=== PATIENT | female | born 1985 | race Caucasian/White ===

== ENCOUNTER 2021-12-31 15:46 | Outpatient (CLI) | payer BC, SELFPAY | END 2021-12-31 15:47 | disposition home or self-care (01) | LOC: NFLDREF 15:48 | PROVIDERS: PCP Internal Medicine; Visit Provider Internal Medicine | DX: D68.61 Antiphospholipid syndrome (principal) ==

== ENCOUNTER 2022-01-01 07:42 | Outpatient (CLI) | payer BC, SELFPAY ==
--- OUTSIDE RECORDS SUMMARY | 2021-12-25 10:06 | XMS_ITS | Continuity of Care Document ---
:1985 Author Care Team Providers Name Role Phone SEEN Primary Care Physician Unavailable MD Jose Castellanos Attending Physician Allergies, Adverse Reactions, Alerts No known allergies Social History Smoking Status Status Start Date End Date Date of Observat ion Ex-smoker (finding) November 24 12:08pm Observation Status Observation Response Date of Response History provided by Patient June 23, 2017 5:52pm With whom do you live? Spouse June 23 5:52pm Minor children June 23, 2017 5:52pm Comment on who patient lives spouse, 1 young daughter Decemb er 2016 5:52pm with and 5mo. old baby If YES, describe 2 young children June 23, 2017 5:52pm Additional Data Assigned Sex Female Problems Active Problems Medical Problem Onset Date Status Depression Active Anxiety Active Morbid obesity with BMI of Active 50.0-59.9, adult Rosacea Active Iron deficiency anemia Active History of non-ST elevation December 12, 2020 Active myocardial infarction (NSTEMI) Warfarin anticoagulation Active Antiphospholipid syndrome Active Post-traumatic stress Active Insomnia Active History of alcohol abuse Active S/P section October 27, 2010 Resolved S/P tubal ligation January 20, 2017 Resolved S/P laparoscopic appendectomy June 23, 2017 Resolved Medications Medication Status Dose Units Route Directions Qty Days Start End Ins tructions Date Date Acetaminophe Active 325 MG PO Twice A Day 1 NO MORE THAN n (Tylenol) as needed 4000 MG/DAY 325 Mg TAB Amphetamine/ Active 20 MG PO Daily 30 November Dextroamphet 2021 (Adderall 3:16pm Xr) 20 Mg CAP Amphetamine/ Active 20 MG PO Daily December Dextroamphet 2021 (Adderall 12:42pm Xr) 20 Mg CAP Escitalopram Active 20 MG PO Daily 30 November Oxalate 2021 11:52am Ferrous Active Sulfate (Ferosul) 325 Mg TAB Hydroxychlor Active 2 TAB PO Daily oquine Sulfate Ivermectin Active 1 % EX Twice A Day 31 October (Rosacea) , (Soolantra) 2021 1 % CRE 4:24pm Lisinopril Active 1 TAB PO Daily Nitroglyceri Active 1 TAB SL As Needed n Rosuvastatin Active 1 TABLET PO Daily Calcium Warfarin Active 1 TABLET PO Daily 24 November Fuller 7.5 MG , M 10 MG, Tu 10 MG, W 7.5 MG, Th 10 MG, F 10 MG, Sodium 20th, Sa 10 MG 2021 2:21pm Warfarin Active 10 MG PO Daily November Fuller 7.5 MG, M 10 MG, Tu 10 MG, W 7.5 MG, Th 10 MG, F 10 MG, Sodium 20th, Sa 10 MG 2021 2:21pm Amoxicillin Disconti 500 MG PO Twice A Day October nued , , 2021 2021 4:24pm 10:30a m Azelaic Acid Disconti 1 PRISCILLA TOP Twice A Day 50 Februar Fe brua (Finacea) 15 nued y , ry % AER 2021, 1:08pm 2021 12:51p m Azelaic Acid Disconti 15 % EX Twice A Day November em nued , 2020, 4:29pm 2020 10:02a m Azelaic Acid Disconti 1 PRISCILLA TOP Twice A Day October (Finacea) 15 nued , , % AER 2020 2020 8:18am 4:26pm Azelaic Acid Disconti 1 PRISCILLA TOP Twice A Day November (Finacea) 15 nued , , % AER 2020 2020 4:53pm 4:26pm Betamethason Disconti 1 PRISCILLA TOP Bedtime November e nued , , Dipropionate 2020 2020 (Betamethaso 10:25am 10:14a ne m Dipropionate Cream) 0.05 % CR Cephalexin Disconti 500 MG PO Three Times 02 May Osman h nued A Day , 2019 12:39pm 8:40am Cephalexin Disconti 500 MG PO Three Times November Octobe (Keflex) 500 nued A Day 20th, r Mg CAP 2019 04, 4:24pm 2019 8:05am Cephalexin Disconti 500 MG PO Three Times November (Keflex) 500 nued A Day , Mg CAP 2018 2018 2:19pm 4:24pm Clobetasol Disconti 1 EACH TOP As Directed Decemberb APPLY SPARINGLY TO AFFECTED AREA Propionate nued , er weekly x2 weeks, then qod x2 weeks, then 3x's/week x 1 mo. (Temovate 2013 , Cream) 0.05 9:07am 2014 % CRE 9:47am Collagen Disconti Unknow December Hydrolysate nued n Dose , (Bovine) 2020 (Collagen 10:14a Hydrolysate) m Unknown Strength POW Covid-19 Disconti 30 MCG IM Once Aprilobe (Sars-Cov-2) nued , r Mrna Vir 2020, (Pfizer-Bion 8:54am 2020 tech 9:05am Covid-19) 30 Mcg/0.3 Ml INJ Covid-19 Disconti 30 MCG IM Once 1 (Sars-Cov-2) nued er belkis Mrna Vir , , (Pfizer-Bion 2020 2020 tech 12:18pm 12:28p Covid-19) 30 m Mcg/0.3 Ml INJ Docosahexaen Disconti 200 MG OR November oic Acid nued , ( 2019 Dha) Unknown 2:06pm Strength CAP Docusate Disconti 100 MG PO Bedtime January Sodium nued , (Docqlace) 2016 2018 100 Mg CAP 8:49am 2:06pm Doxycycline Disconti 100 MG PO Twice A Day 60 October Monohydrate nued , 2020 8:18am 10:14a m Doxycycline Disconti 100 MG PO Twice A Day 60 30 Februar Apr il Monohydrate nued y , 2020 9:01am 8:18am Enoxaparin Disconti 150 MG SUBQ Twice A Day December Sodium nued 2020 2:56pm Escitalopram Disconti 10 MG PO Daily 90 Februar November Oxalate nued y , (Lexapro) 10 2021 2021 Mg TAB 1:11pm 10:30a m Ferrous Disconti 325 MG PO Twice A Day October rimma e with sip Sulfate nued , , of orange 2020 2020 juice 9:09am 10:14a m Ferrous Disconti 325 MG PO Twice A Day September Sulfate nued , , 2020 2020 2:19pm 9:09am Fluoxetine Disconti 40 MG PO Daily October Hcl nued , belkis 2020, 9:09am 2020 10:02a m Fluoxetine Disconti 20 MG PO Daily September Hcl nued , , 2020 2020 9:10am 9:09am Hydrocodone- Disconti 1-2 TAB PO Every November Octobe Acetaminophe nued Hours as , r n ([place]) 5 needed for 2019 04, Mg/325 Mg Pain 2:20pm 2018 TAB 8:05am Hydrocortiso Disconti 1 PRISCILLA TOP Twice A Day 02 May [facility] ne nued , (Hydrocortis 2018 2020 one 10:48am 8:40am Ointment) 2.5 % OIN Ibuprofen Disconti 400 MG PO Three Times 30 September nued A Day as , 2020 8:40am Ibuprofen Disconti 600 MG PO Every 6 January nued Hours as , needed 2016 2018 8:49am 2:06pm [place]on[place]estr Disconti 02 October el (Mirena) nued , 20 Mcg/24 Hr 2021 IUD 9:06am Levonorgestr Disconti 1 EACH IU Once el (Mirena) nued er belkis 20 Mcg/24 Hr , , IUD 2020 2020 10:57am 11:07a m Levonorgestr Disconti 1 EACH IU Once November el (Mirena) nued , , 20 Mcg/24 Hr 2020 2020 IUD 10:09am 10:14a m Metoprolol Disconti 1 TAB PO Daily November Succinate nued , (Metoprolol 2021 Succinate 10:51a Er) 50 Mg m TABCR Norethindron Disconti 5 MG PO Daily T manjinder 1 tab PO TID for 3 days, continue TID until bleeding e Acetate nued er ry stops. The n 1 tab PO BID for 3 days then 1 tab daily. , , 2020 2021 10:28am 12:51p m Oxycodone Disconti 5-10 MG PO Every 4 January Hcl nued Hours as , needed 2016 2018 8:49am 2:06pm Oxycodone Disconti 5-10 MG PO Every 4 November Hcl nued Hours as r , needed 2016 2018 7:08pm 2:06pm Sulfacetamid Disconti 1 PRISCILLA TOP Twice A Day 118 uar Ju ne e Sodium nued y , , (Klaron) 10 2020 2020 % LOT 9:01am 3:11pm Vit Disconti 1 TABLET PO Daily December B12/Iron/Fol nued , ic Ac/Intrin 2012 Fact 3:40pm ( Multivit-Min W/Fe-Fa) TAB Warfarin Disconti 1 TABLET PO Daily November Fuller 7. 5 MG, M 10 MG, Tu 10 MG, W 7.5 MG, Th 10 MG, F 10 MG, Sodium nued y , Sa 10 MG 2021 2021 12:51pm 2:21pm Warfarin Disconti 1 TABLET PO Daily February Fuller 7. 5 MG, M 3.75 MG, Tu 7.5 MG, W 7.5 MG, Th 3.75 MG, F Sodium nued , ry 7.5 MG, Sa 7. 5 MG 2020, 3:44pm 2021 12:51p m Warfarin Disconti 1 TABLET PO Daily February Fuller 7. 5 MG, M 3.75 MG, Tu 7.5 MG, W 7.5 MG, Th 3.75 MG, F Sodium nued 3rd, 17, 7.5 MG, Sa 7. 5 MG 2020 2020 10:39am 3:44pm Warfarin Disconti 1 TABLET PO Daily January Fuller 7.5 MG, M 3.75 MG, Tu 7.5 MG, W 7.5 MG, Th 3.75 MG, F Sodium nued , , 7.5 MG, Sa 7. 5 MG 2020 2020 11:04am 10:39a m Warfarin Disconti 1 TABLET PO Daily January Fuller 7.5 MG, M 5 MG, Tu 7.5 MG, W 7.5 MG, Th 5 MG, F 7.5 MG, Sodium nued , , Sa 7.5 MG 2020 2020 12:24pm 11:04a m Warfarin Disconti 1 TABLET PO Daily January Fuller 7.5 MG, M 5 MG, Tu 7.5 MG, W 7.5 MG, Th 5 MG, F 7.5 MG, Sodium nued th, Sa 7.5 MG 2020 12:24p m Warfarin Disconti 1 TABLET PO Daily January Fuller 7.5 MG, M 7.5 MG, Tu 7.5 MG, W 7.5 MG, Th 7.5 MG, F 7.5 Sodium nued 7th, MG, Sa 7.5 MG 2020 11:13a m Warfarin Disconti 1 TABLET PO Daily December Fuller 7.5 MG, M 7.5 MG, Tu 7.5 MG, W 7.5 MG, Th 7.5 MG, F 7.5 Sodium nued 28th, MG, Sa 7.5 MG 2020 10:23a m Warfarin Disconti 1 TABLET PO Daily December Sodium nued 2020 11:39a m Immunizations Immunization Event Date Not Given Dose Architectural Manager Lot Vac cine Reason Number Number Informatio n Statement (VIS) Deta il COVID-19 Pfizer March 04 PFIZER-BIO [id number] 2020 COVID-19 Pfizer April 17 PFIZER-BIO [id number] 2020 Hepatitis B November 20 Adult 2018 Influenza April 042018 Influenza April 14, 2014 Influenza June 042016 Influenza April 04, Flublock 2019 Tetanus/Diptheri November 12, 1 a 2016 Tdap November 12 (adolescent/adul 2017 t) Advance Directives Advance Directive Response Recorded Date/Time Has patient completed a No November 24, 2021 1 2:08pm Health Care Directive? Insurance Providers Guarantor Waqar Cary Address [address] [place] [id number] Contact Info. Home Phone: Payer Policy Id Coverage Id Subscriber's Subscriber Id Effective E xpiration Name Date Date Blue [id number] Waqar [id number] Plan of Treatment Future Tests Future scheduled test information is unavailable Pending Tests Pending diagnostic test information is unavailable Future Visits Future appointment information is unavailable Referrals to Other Providers Reason for Referral Start Provider Provider Contact Provider Address Referral Date Information SEEN, ELSEWHERE Future Procedures Procedure Name Scheduled Date US Pelvic TA and TV CARD Echo W/ CF Dop Future Medications Future medication information is unavailable Patient Instructions See Additional Instructions Chest Pain (DC)
== END 2022-01-01 07:43 | disposition home or self-care (01) ==
PROVIDERS: PCP Family Medicine; Visit Provider Internal Medicine Cardiovascular Disease
DX: I34.0 Nonrheumatic mitral (valve) insufficiency (principal)
CPT/HCPCS: 93306

== ENCOUNTER 2022-03-31 07:39 | Outpatient (CLI) | payer OTHER, SELFPAY ==
--- OUTSIDE RECORDS SUMMARY | 2022-03-31 07:36 | XMS_ITS | Encounter Summary ---
:1985 Author Organization [facility] Address [address], [place] [address] Care Team Providers Name Role Phone Needs Pcp, Assignment Primary Care Provider Reason for Referral Consult/Transfer Care (Routine) - New Request Specialty Diagnoses / Procedures Referred By Contact Refer red To Contact Diagnoses Antiphospholipid antibody syndrome (HRC) High risk medication use Cassia Goff MD [address] [place], [place] [address] Referral ID Status Reason Start Date Expiration Date Visits V isits Requested Authorized [id number] New Request 03/11/2022 06/10/2023 1 1 Scheduling Instructions Your provider has recommended an appoint ment with [facility]. You can quickly make your appointment online at [email or web address]. You can also call [phone] for help scheduling yo ur appointment. We suggest you call your health insurance company about your cove rage and benefits for this appointment. Reason for Visit Reason Comments Video Visit Follow-up Encounter Details Date Type Department Care Team Description 03/11/2022 Telemedicine [place] Cassia Goff Antiphosp holipid antibody syndrome (HRC) (Primary Dx); Rheumatology MD Jarett High risk medication use; [id number] ARPIT (antinuclear antibody); [address] Current use of rat exterminator anticoagulation ; [place], [place] Rash and nonspecific skin eruption [id number] Social History Tobacco Use Types Packs/Day Years Used Date Smoking Tobacco: Former Smokeless Tobacco: Never Sex Assigned at Date Recorded Not on file documented as of this encounter Progress Notes Cassia Goff MD - 03/11/2022 9:00 AM CDT RHEUMATOLOGY FOLLOW-UP -- VIDEO VISIT Chief Complaint Patient presents with Video Visit Follow-up Encounter date: 03/11/2022 Date of last office visit: 10/01/2021 Rheumatologic history: The patient is a 36 y.o. 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 From initial visit in March 2021: She states that before going in to the hospital she hadn't been feeling well for months. She was very tired and fatigued. SHe thought her symptoms were due to depression but started an antidepressant and did not notice much of a difference. Then in December 2020 she was going up the stairs and she developed severe chest and left arm pain with sweating and palpitations. She developed an acneiform rash on her face but has had issues with acne in the past. She has been following with dermatology. She does not notice sensitivity to the sun. She has had a rash on her labia and was told it was chronic inflammation-this was biopsied in the past. No mouth or nose ulcers. Nohistory of eye inflammation. No pain with deep breathing prior to her episode. No prior history of serositis. No Raynauds symptoms. She does have some dry eyes but not dry mouth. No prior stroke or seizure. No new headaches or new vision changes. She has been feeling more brain fog. She has had 1 miscarriage in the past at about 6-9 weeks. She has 2 children. She denies any significant issues with her pregnancies. Her children are healthy. No prior history of blood clot. She has a history of hip dislocations in the past. This is sometimes achy for her. She sometimes has knee pain. She has not noticed swelling of her joints but she does overall feel stiff. She does not know how long it stays this way for. She sometimes takes tylenol as needed. Patient was admitted from December 13 to December 18 at [facility] for marantic endocarditis and NSTEMI. She had a coronary angiogram done on 12-13 which revealed single-vessel coronary disease of the distal LAD. Echo done 12-13. Noted to have abnormal cardiac apex with a left ventricular function of 61%. CTA done showing patchy perihilar and peripheral ground-glass opacities. Cardiac MRI done showingthickened mitral valve concerning for endocarditis. She had KENDALL consistent with marantic endocarditis. Infectious workup was obtained. She was found have a positive lupus anticoagulant. She was startedon heparin and warfarin. Transition to Lovenox on 12/18. During admission additional blood work given the elevated ESR 78, CRP 8.88, positive lupus anticoagulant, negative ARPIT, negative double-strandedDNA. Negative Legionella, fungal blood cultures, bacterial blood cultures with no growth. B2 glycoprotein IgG positive and cardiolipin IgG positive. She was seen in outpatient follow-up on 12/24. She was doing cardiac therapy but has had issues getting scheduled for this due to work and her kids. No known family history of autoimmune disease but she does not have a lot of history from her biological father. Her mother had a heart attack in her 30s as well. 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 APS antibodies repeated in March 2021 and persistently triple positive, with mild positive cardiolipin IgA as well. ARPIT negative in December and January 2021 with negative anti tolliver. dsDNA negative. Work up 03/19/2021: ARPIT 1:80 with negative MEREDITH panel dsDNA negative x2 CCP negative RF negative Complement normal CRP 0.7 ESR 27 LFTs wnl RPR negative BMP wnl At initial visit started on plaquenil. Interim history: She has been doing well. She started a new job with [employer] and is working from home and is very happy. Dr. Castellanos took her off of her statin and her metoprolol. She is still on Coumadin 10 mg 5 days and 7.5 on Sundays and Wednesdays. Her PCP is now checking her factor 10 every 3 months. She is tolerating hydroxychloroquine well. She has not yet had No chest pain or blood clots. No new rashes except some lesions on her chest that she is unsure whatthis is. She has seen dermatology for this and they think it is rosacea and she is using a topical. No joint swelling. She has been doing more walking and has some aching in the feet. She has a tenderarea in her lip that just started but other ulcers. No color change of the toes or fingers or ulcers. No pleurisy. No recent illness. No cough or shortness of breath. No fevers. She started adderrall for focus and is having decreased appetite, she started this about 4 months ago. She is also on lexapro and feels like this has been helpful for anxiety. ROS: Review of systems for today's visit completed and negative unless noted above. PMH: Updated in EMR Outpatient Encounter Medications as of 03/11/2022 Medication Sig Dispense Refill acetaminophen (TYLENOL) 325 MG tablet Take 325-650 mg by mouth every 4 hours as needed for Pain. azelaic acid (FINACEA) 15 % gel Apply topically two times a day. betamethasone dipropionate (DIPROSONE) 0.05 % cream Apply topically daily. escitalopram (LEXAPRO) 10 MG tablet Take 10 mg by mouth daily. ferrous gluconate (FERGON) 324 (38 Fe) MG tablet Take 324 mg by mouth daily with breakfast. hydroxychloroquine (PLAQUENIL) 200 MG tablet Take 2 Tablets (400 mg) by mouth daily. 180 Tablet 1 lisinopril (ZESTRIL) 5 MG tablet Take 5 mg by mouth daily. MELATONIN OR metoprolol succinate (TOPROL XL) 50 MG 24 hour release tablet Take 50 mg by mouth daily. nitroglycerin (NITROSTAT) 0.[address] 0.4 mg under tongue every 5 minutes as needed for Chest Pain. If no relief after 5 min call 911;continue 1 tab every 5 min max 3 tab rosuvastatin (CRESTOR) 10 MG tablet Take 7.5 mg by mouth daily. warfarin (COUMADIN) 7.5 MG tablet Take by mouth daily. No facility-administered encounter medications on file as of 03/11/2022. ALLERGIES: Updated in EMR Social History Tobacco Use Smoking Status Former Smokeless Tobacco Never Social History Substance and Sexual Activity Alcohol Use Not on file MEDS: Reviewed and updated in the computerized record. Physical exam: VIDEO VISIT There were no vitals taken for this visit. General: Alert, no distress, appears comfortable Eyes: anicteric, glasses on ENT: She is able to show me the inside of the lower lip that shows some slight erythema on the anterior lip without ulceration Resp: breathing comfortably on room air. Skin: Continues to have some small acneiform lesions on the forehead that appear improved she also is able to show me the anterior chest which has some small similar acneiform lesions that she feels are tender Neuro: AOx3. Normal speech. MSK: Unable to assess Labs: Lab Results Component Value Date WBC 8.7 10/01/2021 RBC 4.58 10/01/2021 Hemoglobin 13.3 10/01/2021 HCT 41.2 10/01/2021 MCV 90.0 10/01/2021 RDW 12.8 10/01/2021 Platelets 301 10/01/2021 Lab Results Component Value Date CREATININE 0.80 10/01/2021 Lab Results Component Value Date ALT 20 10/01/2021 Lab Results Component Value Date AST (SGOT) 16 10/01/2021 Lab Results Component Value Date Urine Clarity Clear 10/01/2021 Bilirubin Urine Negative 10/01/2021 Blood, Urine Trace 10/01/2021 Glucose Urine Qual (mg/dL) Negative 10/01/2021 Ketones, Urine (mg/dL) Negative 10/01/2021 Leukocyte Est. Negative 10/01/2021 Nitrite Urine Negative 10/01/2021 PH Urine 6.0 10/01/2021 Protein, Urine Qual (mg/dL) Negative 10/01/2021 Specific [place], Urine 1.015 10/01/2021 Urobilinogen, Urine (EU/dL) 0.2 10/01/2021 Squamous Epithelial Cells Moderate (A) 03/19/2021 White Blood Cells 0-5 03/19/2021 Bacteria Few (A) 03/19/2021 Lab Results Component Value Date CRP <0.5 10/01/2021 Lab Results Component Value Date RFQ <15 03/19/2021 ESR 16 10/01/2021 No results found for: TSH Majority of her labs are noted in Care everywhere, these have been reviewed. Imaging: ECHO 01/01/2022: Final Impressions: 1. Technically limited exam. 2. Echo contrast was administrered to enhance visualization of all left ventricular segments. 3. Normal LV size, normal wall thickness, normal global systolic function with an estimated EF of 55 - 60%. 4. Entire distal apex is abnormal. 5. Right ventricular cavity size is normal, global systolic RV function is normal. 6. The mitral valve is normal, moderate mitral regurgitation. Comparison Compared to prior exam report of 01/16/2021, there has been no significant change. CTA neck 12/14/2020: IMPRESSION: 1. Patent cervical arterial vasculature without hemodynamically significant luminal stenosis. No CT findings to suggest underlying fibromuscular dysplasia. 2. Patchy consolidation within the left greater than right upper lungs suspicious for underlying infectious etiology. Dedicated chest CT is recommended for further assessment. ECHO 01/16/2021: Final Impressions: 1. Normal LV size, normal wall thickness, normal global systolic function with an estimated EF of 55 - 60%. 2. Apical inferior segment, apical septum segment, and apical anterior segment are abnormal. 3. Right ventricular cavity size is normal, global systolic RV function is normal. 4. Mildly enlarged left atrium. 5. There is thickening of the tips of both the anterior and posterior leaflets of the mitral valve (consistent with the diagnosis of marantic endocarditis), moderate mitral regurgitation. 6. Echo contrast was administrered to rule out left ventricular mass; no mass seen. ASSESSMENT/PLAN: # antiphospholipid syndrome with history of thromboembolic event, triple positive APS antibodies # positive ARPIT # marantic endocarditis # rash # high-risk medication use # long-term anticoagulation Ms. Pinto is a very pleasant 36 y.o. 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 Continues to be borderline for SLE criteria. She is been doing quite well. No thrombo embolic events, chest pain, hospitalization since our last visit. She was seen by Cardiology in November 2021 and had some changes in her medications. She would a repeat echo in January 2022 which was unchanged from previous. Continues to be on Coumadin with factor 10 monitoring every 3 months. Encouraged to continue close monitoring for this. She is tolerating hydroxychloroquine 400 mg daily well. Denies any new rashes, inflammatory arthritis symptoms, recurrent ulcerations, pleurisy, Raynaud's. Reviewed the importance of a Plaquenil baseline exam so I have placed a referral for optometry today. Encouraged to follow-up with Dermatology regarding her skin concerns. We reviewed I would like to obtain monitoring blood work to make sure she has not had any changes in her antibodies. Will plan on follow-up in 6 months or sooner if needed. PLAN: - continue plaquenil 400 mg daily - schedule eye exam, referral placed today - follow-up with dermatology - continue warfarin and monitoring - monitoring labs and urine tests - follow up with cardiology as scheduled - continue exercise - call if new or changing symptoms develop - follow up in 6 months or sooner if needed Patient advised to call clinic if symptoms change or worsen or if new symptoms develop. All of the patient's questions were answered to the best of my ability. Billing based on complexity. Visit completed via [employer]. Patient at home, provider in clinic. Cassia Goff MD [facility] Rheumatology documented in this encounter Plan of Treatment Upcoming Encounters Date Type Specialty Care Team Description 04/07/2022 Appointment [facility] [address] [place] [address] (Wo rk) Scheduled Orders Name Type Priority Associated Diagnoses Order S chedule Liver Panel(Hepatic Lab Routine Antiphospholipid anti body Expected: Function Panel) syndrome ([facility]) 03/11/2022, Expires: High risk medication use 02/2022 Basic Metabolic Panel Lab Routine Antiphospholipid an tibody Expected: syndrome ([facility]) 03/11/2022, Expires: High risk medication use 02/2022 CBC -W/Diff Lab Routine Antiphospholipid antibody Ex pected: syndrome ([facility]) 03/11/2022, Expires: High risk medication use 02/2022 ESR Lab Routine Antiphospholipid antibody Ex pected: syndrome ([facility]) 03/11/2022, Expires: High risk medication use 02/2022 C-Reactive Protein Lab Routine Antiphospholipid antib darvin Expected: syndrome ([facility]) 03/11/2022, Expires: High risk medication use 02/2022 C4 Complement Lab Routine Antiphospholipid antibody E xpected: syndrome ([facility]) 03/11/2022, Expires: High risk medication use 02/2022 C3 Complement Lab Routine Antiphospholipid antibody E xpected: syndrome (HRC) 03/11/2022, Expires: High risk medication use 02/2022 DNA Double Stranded Lab Routine Antiphospholipid anti body Expected: Antibody (Antonia) syndrome (HRC) 03/11/2022, Expires: High risk medication use 02/2022 TP/Crea Ratio, Urine Lab Routine Antiphospholipid ant ibody Expected: syndrome (HRC) 03/11/2022, Expires: High risk medication use 02/2022 Urinalysis Routine, Lab Routine Antiphospholipid anti body Expected: Micro/Culture if Pos: syndrome ( HRC) 03/11/2022, Expires: Clean Catch High risk medication use 02/2022 Scheduled Referrals Name Type Priority Associated Diagnoses Order S chedule Optometry Referral Routine Antiphospholipid antibody Or dered: 03/11/2022 Consult-Adult/Peds syndrome (HRC ) High risk medication use documented as of this encounter Visit Diagnoses Diagnosis Antiphospholipid antibody syndrome (HRC) - Primary Primary hypercoagulable state High risk medication use Encounter for long-term (current) use of other medications Positive ARPIT (antinuclear antibody) Other and unspecified nonspecific immuno logical findings Current use of longterm anticoagulation Encounter for long-term (current) use of anticoagulants Rash and nonspecific skin eruption Rash and other nonspecific skin eruption documented in this encounter Care Teams Inspector Fabric Relationship Specialty Start Date End Date Needs Pcp, Assignment PCP - General 10/01/21 [place] [address] documented as of this encounter
--- OUTSIDE RECORDS SUMMARY | 2022-03-31 07:36 | XMS_ITS | Encounter Summary ---
:1985 Author Organization [facility] Address [address] [place] [address] Care Team Providers Name Role Phone Unavailable Primary Care Provider Unavailable Encounter Details Date Type Department Care Team Description 06/10/2005 Orders Only [employer] own, Physician Environmental Medicine [address] [address] (Wo rk) Social History Tobacco Use Types Packs/Day Years Used Date Smoking Tobacco: Never Assessed Sex Assigned at Date Recorded Not on file documented as of this encounter Procedure Notes NURSE/ASSIST 1 OCC MED SP - 06/10/2005 12:00 AM CSTAssociated Order(s): AUDIOLOGY DX documented in this encounter Plan of Treatment Upcoming Encounters Date Type Specialty Care Team Description 04/07/2022 Appointment General Dentistry Hesham Chacon, [facility] [address] [place] [address] (Wo rk) documented as of this encounter Procedures Procedure Name Priority Date/Time Associated Diagnosis Comme nts AUDIOLOGY DX 06/10/2005 12:00 AM Results for this CHEMICAL STRENGTH TESTER procedure are i n the results section . documented in this encounter Results AUDIOLOGY DX (06/10/2005 12:00 AM CHEMICAL STRENGTH TESTER) Narrative 06/10/2005 12:00 AM CHEMICAL STRENGTH TESTER This result has an attachment that is no t available. Ordered by an unspecified provider. Transcriptions NURSE/ASSIST 1 OCC MED SP - 06/10/2005 1 2:00 AM CHEMICAL STRENGTH TESTER Physician Unknown DUMMY/OTHER/AR documented in this encounter Visit Diagnoses Not on filedocumented in this encounter
--- OUTSIDE RECORDS SUMMARY | 2022-03-31 07:36 | XMS_ITS | Encounter Summary ---
:1985 Author Organization [facility] Address [address] [place] [address] Care Team Providers Name Role Phone Unavailable Primary Care Provider Unavailable Encounter Details Date Type Department Care Team Description 06/10/2005 Correspondence None Employment Me dical Exam consent form Social History Tobacco Use Types Packs/Day Years Used Date Smoking Tobacco: Never Assessed Sex Assigned at Date Recorded Not on file documented as of this encounter Progress Notes EVERARDO, PROVIDER - 06/10/2005 12:00 AM FRAMER documented in this encounter Plan of Treatment Upcoming Encounters Date Type Specialty Care Team Description 04/07/2022 Appointment General Dentistry Hesham Chacon, [facility] [address] [place] [address] (Wo rk) documented as of this encounter Visit Diagnoses Not on filedocumented in this encounter
--- OUTSIDE RECORDS SUMMARY | 2022-03-31 07:36 | XMS_ITS | Encounter Summary ---
:1985 Author Organization [facility] Address [address] [place] [address] Care Team Providers Name Role Phone Needs Pcp, Assignment Primary Care Provider Encounter Details Date Type Department Care Team Description 10/01/2021 Lab Visit [facility] Antiphospholipid antibody sy ndrome (HRC); [address] [facility] High risk medication use; [place] [address] Rash and nonspecific skin er uption [phone] Social History Tobacco Use Types Packs/Day Years Used Date Smoking Tobacco: Former Smokeless Tobacco: Never Sex Assigned at Date Recorded Not on file documented as of this encounter Plan of Treatment Upcoming Encounters Date Type Specialty Care Team Description 04/07/2022 Appointment General Dentistry Hesham Chacon, [facility] [address] [place] [address] (Wo rk) documented as of this encounter Procedures Procedure Name Priority Date/Time Associated Diagnosis Comme nts URINALYSIS ROUTINE, Routine 10/01/2021 9:42 Antiphospholipid R esults for this MICRO/CULTURE IF POS AM CDT antibody sy ndrome (HRC) procedure are in High risk medication the res ults use section. Rash and nonspecific skin eruption TP/CREA RATIO, URINE Routine 10/01/2021 9:42 Antiphospholipid Results for this AM CDT antibody syndrom e (HRC) procedure are in High risk medication the res ults use section. Rash and nonspecific skin eruption CBC AND DIFFERENTIAL Routine 10/01/2021 9:40 Antiphospholipid Results for this PANEL AM CDT antibody syndrom e (HRC) procedure are in High risk medication the res ults use section. Rash and nonspecific skin eruption ANTI-DS DNA ANTIBODY Routine 10/01/2021 9:40 Antiphospholipid Results for this (CRISTIAN ASSAY) AM CDT antibody syndrom e (HRC) procedure are in High risk medication the res ults use section. Rash and nonspecific skin eruption COMPLETE BLOOD Routine 10/01/2021 9:40 Antiphospholipid Result s for this COUNT-W/DIFF AM CDT antibody syndrom e (HRC) procedure are in High risk medication the res ults use section. Rash and nonspecific skin eruption LIVER PANEL(HEPATIC Routine 10/01/2021 9:40 Antiphospholipid R esults for this FUNCTION PANEL) AM CDT antibody syndrom e (HRC) procedure are in High risk medication the res ults use section. Rash and nonspecific skin eruption BASIC METABOLIC Routine 10/01/2021 9:40 Antiphospholipid Resul ts for this PANEL AM CDT antibody syndrom e (HRC) procedure are in High risk medication the res ults use section. Rash and nonspecific skin eruption C4 COMPLEMENT Routine 10/01/2021 9:40 Antiphospholipid Results for this AM CDT antibody syndrom e (HRC) procedure are in High risk medication the res ults use section. Rash and nonspecific skin eruption C3 COMPLEMENT Routine 10/01/2021 9:40 Antiphospholipid Results for this AM CDT antibody syndrom e (HRC) procedure are in High risk medication the res ults use section. Rash and nonspecific skin eruption C-REACTIVE PROTEIN Routine 10/01/2021 9:40 Antiphospholipid Re sults for this AM CDT antibody syndrom e (HRC) procedure are in High risk medication the res ults use section. Rash and nonspecific skin eruption ESR Routine 10/01/2021 9:40 Antiphospholipid Results for this AM CDT antibody syndrom e (HRC) procedure are in High risk medication the res ults use section. Rash and nonspecific skin eruption documented in this encounter Results Urinalysis Routine, Micro/Culture if Pos: Clean Catch (10/01/2021 9:42 AM CDT) [facility] Method Time Signature Urine Culture Urinalysis 10/01/2021 [facility] Comment results do not 9:45 AM CDT LABORATORY meet criteria for urine culture reflex. Urine Color Straw Straw-Yello 10/01/2021 [facility] w 9:45 AM CDT LABORATORY Urine Clarity Clear Clear 10/01/2021 [facility] 9:45 AM CDT LABOR[facility] Specific 1.015 1.005 - 10/01/2021 [facility] [place], 1.030 9:45 AM CDT LABORATORY Urine PH Urine 6.0 5.0 - 8.0 10/01/2021 [facility] 9:45 AM CDT LABOR[facility]ORY Protein, Negative Neg/Trace 10/01/2021 [facility] Urine Qual 9:45 AM CDT LABORATORY (mg/dL) Glucose Urine Negative Negative 10/01/2021 [facility] Qual (mg/dL) 9:45 AM CDT LABORATORY Ketones, Negative Negative 10/01/2021 [facility] Urine (mg/dL) 9:45 AM CDT LABORATORY Urobilinogen, 0.2 <2.0 10/01/2021 [facility] Urine (EU/dL) 9:45 AM CDT LABORATORY Bilirubin Negative Negative 10/01/2021 [facility] Urine 9:45 AM CDT LABORATORY Blood, Urine Trace Neg/Trace 10/01/2021 [facility] 9:45 AM CDT LABOR[facility]ORY Nitrite Urine Negative Negative 10/01/2021 [facility] 9:45 AM CDT LAB[facility]ORY Leukocyte Negative Negative 10/01/2021 [facility] Est. 9:45 AM CDT LABORATORY Urine Source Clean Catch 10/01/2021 [facility] 9:45 AM CDT LAB[facility] Specimen Anatomical Collection Method Collection Time Receive d Time (Source) Location / / Volume Laterality Urine URINE SPECIMEN Non-blood 10/01/2021 9:42 AM 022 9:42 COLLECTION, CLEAN Collection / CDT AM CDT CATCH / Unknown Unknown Cassia Goff MD LAB_1 Performing Organization Address City/State/ZIP Code Phon e Number [facility] [address] [place] [phone] TP/Crea Ratio, Urine (10/01/2021 9:42 AM CDT) P athologist Signature TP/Creat 0.11 0.00 - 10/01/2021 [facility] Ratio, Urine 0.20 3:09 PM CDT LABORATORY Random Total Protein, 10 0 - 14 10/01/2021 [facility] Urine, Random mg/dL 3:09 PM CDT LABORATORY Creatinine, 94 >20 mg/dL 10/01/2021 [facility] Urine, Random mg/dL 3:09 PM CDT LABORATORY Specimen Anatomical Collection Method Collection Time Receive d Time (Source) Location / / Volume Laterality Urine Non-blood 10/01/2021 9:42 AM 9:42 Collection / CDT AM CDT Unknown Narrative [facility] - 10/01/2021 3:09 P M CDT Low urine creatinine values coupled with low urine protein values can artifactually increase the urine protein/creatinine re sults. Correlate results of ratio with creatinine results. Cassia Goff MD LAB_1 Performing Organization Address City/State/ZIP Code Phon e Number [facility] [address] [place] [address] Complete Blood Count-W/Diff (10/01/2021 9:40 AM CDT) P athologist Signature WBC 8.7 3.5 - 10.5 10/01/2021 [facility] x10(9)/L 9:53 AM CDT LABORATORY RBC 4.58 3.90 - 10/01/2021 [facility] 5.03 9:53 AM CDT LABORATORY x10(12)/L Hemoglobin 13.3 12.0 - 10/01/2021 [facility] 15.5 g/dL 9:53 AM CDT LABOR[facility]ORY HCT 41.2 34.9 - 10/01/2021 [facility] 44.5 % 9:53 AM CDT LABOR[facility]ORY MCV 90.0 80.0 - 10/01/2021 [facility] 100.0 fL 9:53 AM CDT LABORATORY MCH 29.0 27.6 - 10/01/2021 [facility] 33.3 pg 9:53 AM CDT LABORATORY MCHC 32.3 31.5 - 10/01/2021 [facility] 35.2 g/dL 9:53 AM CDT LABORATORY RDW 12.8 11.9 - 10/01/2021 [facility] 15.5 % 9:53 AM CDT LABOR[facility]ORY Platelets 301 150 - 450 10/01/2021 [facility] x10(9)/L 9:53 AM CDT LABORATORY Automated NRBC 0 <=0 /100 10/01/2021 [facility] WBC 9:53 AM CDT LABOR[facility]ORY Neutrophil 6.1 1.7 - 7.0 10/01/2021 [facility] Absolute 10(9)/L 9:53 AM CDT LABORATORY Lymphocyte 1.6 1.0 - 4.8 10/01/2021 [facility] Absolute 10(9)/L 9:53 AM CDT LABORATORY Monocytes 0.7 0.2 - 0.9 10/01/2021 [facility] Absolute 10(9)/L 9:53 AM CDT LABORATORY Eosinophil 0.2 0.0 - 0.5 10/01/2021 [facility] Absolute 10(9)/L 9:53 AM CDT LABORATORY Basophil 0.1 0.0 - 0.3 10/01/2021 [facility] Absolute 10(9)/L 9:53 AM CDT LABORATORY Immature Gran % 0.3 0.0 - 0.5 10/01/2021 [facility] % 9:53 AM CDT LABORATORY Specimen Anatomical Collection Method / Collection Time Recei jose Time (Source) Location / Volume Laterality Blood Venipuncture / 10/01/2021 9:40 10/01/2021 9:40 Unknown AM CDT AM CDT Cassia Goff MD LAB_1 Performing Organization Address City/State/ZIP Code Phon e Number [facility] [address] [place] [phone] DNA Double Stranded Antibody (Cristian) (10/01/2021 9:40 AM CDT) P athologist Signature Anti-dsDNA Ab <8.0 <8.0 IU/mL 10/07/2021 [facility] (Cristian Assay) 9:05 PM CDT INTERFACED Specimen Anatomical Collection Method / Collection Time Recei jose Time (Source) Location / Volume Laterality Blood Venipuncture / 10/01/2021 9:40 10/01/2021 9:40 Unknown AM CDT AM CDT Narrative [facility] INTERFACED - 10/07/2021 9:05 PM CDT Test(s) [id number] Ab by Cristian(RDL) was developed and its performance charac teristics determined by [facility]. It has not been cleared or a pproved by the Food and Drug Administration. Performed at: ??01 - [facility] [address] [place] [address] A ??[id number] Chief Design Branch: Johny Scherer MD, Phone: ? ?[phone] Cassia Goff MD LAB_1 Performing Organization Address City/State/ZIP Code Phon e Number [facility] INTERFACED [address] [address] [place] [address] C3 Complement (10/01/2021 9:40 AM CDT) P athologist Signature C3 Complement 135 83 - 193 10/01/2021 [facility] mg/dL 6:05 PM CDT LABORATORY Specimen Anatomical Collection Method / Collection Time Recei jose Time (Source) Location / Volume Laterality Blood Venipuncture / 10/01/2021 9:40 10/01/2021 9:40 Unknown AM CDT AM CDT Cassia Goff MD LAB_1 Performing Organization Address [facility] Code Phon e Number [facility] [address] [place] [address] C4 Complement (10/01/2021 9:40 AM CDT) athologist Signature C4 Complement 33.0 15.0 - 10/01/2021 [facility] 57.0 mg/dL 6:05 PM CDT LABORATORY Specimen Anatomical Collection Method / Collection Time Recei jose Time (Source) Location / Volume Laterality Blood Venipuncture / 10/01/2021 9:40 10/01/2021 9:40 Unknown AM CDT AM CDT Cassia Goff MD LAB_1 Performing Organization Address [facility] Code Phon e Number [facility] [address] [place] [address] C-Reactive Protein (10/01/2021 9:40 AM CDT) athologist Signature C-Reactive <0.5 0.0 - 0.7 10/01/2021 [place] Protein mg/dL 10:59 AM CDT LABORATORY Specimen Anatomical Collection Method / Collection Time Recei jose Time (Source) Location / Volume Laterality Blood Venipuncture / 10/01/2021 9:40 10/01/2021 9:40 Unknown AM CDT AM CDT Cassia Goff MD LAB_1 Performing Organization Address City/[facility]/ZIP Code Phon e Number [facility] [address] [place] [address] ESR (10/01/2021 9:40 AM CDT) Patholo gist Method Time Signature Sedimentation Rate 16 0 - 20 10/01/2021 [facility] mm/hr 10:29 AM CDT LABORATORY Specimen Anatomical Collection Method / Collection Time Recei jose Time (Source) Location / Volume Laterality Blood Venipuncture / 10/01/2021 9:40 10/01/2021 9:40 Unknown AM CDT AM CDT Cassia Goff MD LAB_1 Performing Organization Address City/State/ZIP Code Phon e Number [facility] [address] [place] [address] Basic Metabolic Panel (10/01/2021 9:40 AM CDT) P athologist Signature Sodium 140 136 - 145 10/01/2021 [facility] mmol/L 10:59 AM CDT LABORATORY Potassium 4.2 3.5 - 5.1 10/01/2021 [facility] mmol/L 10:59 AM CDT LABORATORY Chloride 108 98 - 109 10/01/2021 [facility] mmol/L 10:59 AM CDT LABORATORY CO2 24 20 - 29 10/01/2021 [facility] mmol/L 10:59 AM CDT LABORATORY Anion Gap 8 7 - 16 10/01/2021 [facility] mmol/L 10:59 AM CDT LABORATORY Calcium 8.8 8.4 - 10.4 10/01/2021 [facility] mg/dL 10:59 AM CDT LABOR[facility]ORY BUN 8 7 - 26 10/01/2021 [facility] mg/dL 10:59 AM CDT LABORATORY Creatinine 0.80 0.55 - 10/01/2021 [facility] 1.02 mg/dL 10:59 AM CDT LABOR[facility]ORY GFR, Estimated >60 >60 10/01/2021 [facility] mL/min/1.7 10:59 AM CDT LABORATORY 3m2 Glucose 95 70 - 100 10/01/2021 [facility] mg/dL 10:59 AM CDT LABORATORY Comment: The given reference range is fo r the fasting state. Non-fasting reference range for glucose is 70 - 180 mg/dL. Hours Fasting Unknown 10/01/2021 10:59 AM CDT [facility] Specimen Anatomical Collection Method / Collection Time Recei jose Time (Source) Location / Volume Laterality Blood Venipuncture / 10/01/2021 9:40 10/01/2021 9:40 Unknown AM CDT AM CDT Cassia Goff MD LAB_1 Performing Organization Address [facility] Phon e Antonieta [facility] [address] [place] [phone] Liver Panel(Hepatic Function Panel) (10/01/2021 9:40 AM CDT) athologist Signature Alkaline 83 40 - 150 10/01/2021 [facility] Phosphatase U/L 10:59 AM CDT LABORATORY Bilirubin, Total 0.2 0.2 - 1.2 10/01/2021 [facility] mg/dL 10:59 AM CDT LABOR[facility]ORY Bilirubin, 0.1 0.0 - 0.5 10/01/2021 [facility] Direct mg/dL 10:59 AM CDT LABOR[facility]ORY AST (SGOT) 16 10 - 40 10/01/2021 [facility] U/L 10:59 AM CDT LABOR[facility]ORY ALT (SGPT) 20 0 - 55 U/L 10/01/2021 [facility] 10:59 AM CDT LAB[facility] Protein, Total 6.8 6.4 - 8.3 10/01/2021 [facility] g/dL 10:59 AM CDT LABORATORY Albumin 4.0 3.5 - 5.0 10/01/2021 [facility] g/dL 10:59 AM CDT LABORATORY Specimen Anatomical Collection Method / Collection Time Recei jose Time (Source) Location / Volume Laterality Blood Venipuncture / 10/01/2021 9:40 10/01/2021 9:40 Unknown AM CDT AM CDT Cassia Goff MD LAB_1 Performing Organization Address [facility] Phon elizabeth [facility] [address] [place], [place] [phone] documented in this encounter Visit Diagnoses Diagnosis Antiphospholipid antibody syndrome (HRC) Primary hypercoagulable state High risk medication use Encounter for long-term (current) use of other medications Rash and nonspecific skin eruption Rash and other nonspecific skin eruption documented in this encounter Care Teams Retail Shift Supervisor Relationship Specialty Start Date End Date Needs Pcp, Assignment PCP - General 10/01/21 [place] [address] documented as of this encounter
--- OUTSIDE RECORDS SUMMARY | 2022-03-31 07:36 | XMS_ITS | Encounter Summary ---
:1985 Author Organization [facility] Address [address], [place] [address] Care Team Providers Name Role Phone Unavailable Primary Care Provider Unavailable Encounter Details Date Type Department Care Team Description 07/04/1989 PN Conversion Only [facility] [address] [place] [address] Social History Tobacco Use Types Packs/Day Years Used Date Smoking Tobacco: Never Assessed Sex Assigned at Date Recorded Not on file documented as of this encounter Plan of Treatment Upcoming Encounters Date Type Specialty Care Team Description 04/07/2022 Appointment General Dentistry Hesham Chacon, [facility] [address] [place] [address] (Wo rk) documented as of this encounter Visit Diagnoses Not on filedocumented in this encounter
--- OUTSIDE RECORDS SUMMARY | 2022-03-31 07:36 | XMS_ITS | Encounter Summary ---
:1985 Author Organization [facility] Address [address] [place] [address] Care Team Providers Name Role Phone Unavailable Primary Care Provider Unavailable Reason for Referral Consult/Transfer Care (Routine) - New Request Specialty Diagnoses / Procedures Referred By Contact Refer red To Contact Diagnoses Antiphospholipid antibody syndrome (HRC) High risk medication use Cassia Goff MD [address] [place], [place] [address] Referral ID Status Reason Start Date Expiration Date Visits V isits Requested Authorized [id number] New Request 03/19/2021 06/18/2022 1 1 Scheduling Instructions Your provider has recommended an appoint ment with [facility]. You may call [phone] to schedule your appoi ntment. Reason for Visit Reason Comments CONSULT Encounter Details Date Type Department Care Team Description 03/19/2021 Office Visit Cassia Girard Antiphosp holipid antibody syndrome (HRC) (Primary Dx); Rheumatology MD Jarett Needs flu shot; [id number] [address] [facility] ri sk medication use; [address] Marantic endocarditis (HRC) [place] [address] [phone] Social History Tobacco Use Types Packs/Day Years Used Date Smoking Tobacco: Never Assessed Sex Assigned at Date Recorded Not on file documented as of this encounter Last Filed Vital Signs Vital Sign Reading Time Taken Comments Blood Pressure 119/80 03/19/2021 11:08 AM CDT Pulse 69 03/19/2021 11:08 AM CDT Temperature 36.4 ??C (97.5 ??F) 03/19/2021 11:08 AM CDT Respiratory Rate - - Oxygen Saturation - - Inhaled Oxygen Concentration - - Weight 142 kg (313 lb) 03/19/2021 11:08 AM CDT Height 167.6 cm (5' 6) 03/19/2021 11:08 AM CDT Body Mass Index 50.52 03/19/2021 11:08 AM CDT documented in this encounter Patient Instructions Patient InstructionsCassia Goff MD - 03/19/2021 11:00 AM CDT Images from the original note were not included. Blood work and urine tests today Follow up with hematology Start plaquenil 400 mg daily Referral to eye doctor Ask reference data expert about aspirin Follow up with your cardiac rehab team Follow up in 12 weeks Set up [email or web address] for antiinflammatory diet inflammation Antiphospholipid Syndrome: Care Instructions Your Care Instructions Antiphospholipid syndrome makes the blood clot too easily. This can lead to miscarriage and other serious problems. It can also lead to a stroke or heart attack. And it can lead to blood clots in the legs or lungs that may cause . Antiphospholipid syndrome is caused by antibodies. Normally, the body makes antibodies that attack germs like bacteria or a virus. But with this syndrome, antibodies attack parts of your blood that affect how easily it clots. This syndrome is most often treated with blood thinners. If you are , you will need treatment. Your health will be closely watched. Follow-up care is a johnson part of your treatment and safety. Be sure to make and go to all appointments, and call your doctor if you are having problems. It's also a good idea to know your test results and keep a list of the medicines you take. How can you care for yourself at home? ?? Be safe with medicines. Take your medicines exactly as prescribed. Call your doctor if you have any problems with your medicine. You will get more details on the specific medicines your doctor prescribes. ?? Make sure you tell your doctor about all medicines you take. ?? If you are , talk to your doctor about special care that you may need. This may include medicine you get through a shot or a vein (IV) to avoid a miscarriage. ?? If you take a blood thinner, be sure you get instructions about how to take your medicine safely.Blood thinners can cause serious bleeding problems. When should you call for help? Call 911 anytime you think you may need emergency care. For example, call if: ? You have symptoms of a stroke. These may include: ? Sudden numbness, tingling, weakness, or loss of movement in your face, arm, or leg, especially on only one side of your body. ? Sudden vision changes. ? Sudden trouble speaking. ? Sudden confusion or trouble understanding simple statements. ? Sudden problems with walking or balance. ? A sudden, severe headache that is different from past headaches. ? You have chest pain, are short of breath, or cough up blood. Call your doctor now or seek immediate medical care if: ? You have signs of a blood clot in your leg (called a deep vein thrombosis), such as: ? Pain in your calf, back of the knee, thigh, or groin. ? Redness and swelling in your leg or groin. Watch closely for changes in your health, and be sure to contact your doctor if: ? You do not get better as expected. Where can you learn more? 1. Go to https://www.[employer]/healthlibrary. 2. Enter L534 in the search box. Current as of: March 26, 2020?Content Version: 12.8 ?? [employer]. Care instructions adapted under license by your healthcare professional. If you have questions abouta medical condition or this instruction, always ask your healthcare professional. [employer] disclaims any warranty or liability for your use of this information. documented in this encounter Progress Notes Cassia Goff MD - 03/19/2021 11:00 AM CDT Rheumatology New Patient/Consult Note Encounter Date: 03/19/2021 Referral: Dr. Jackeline Montes De Oca MD [facility] [address] [place] [address] Reason for consult: Chief Complaint Patient presents with ??? CONSULT HPI: The patient is a 35 y.o. 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 She states that before going in to the hospital she hadn't been feeling well for months. She was very tired and fatigued. SHe thought her symptoms were due to depression but started an antidepressant and did not notice much of a difference. Then in December she was going up the stairs and she developed severe chest and left arm pain with sweating and palpitations. This is what brought She developed an acneiform rash on her [...] way for. She sometimes takes tylenol as needed but has not had to recently. Outside records from [place] reviewed. Patient was admitted from December 13 to December 18 at [facility] for marantic endocarditis and NSTEMI. She had a coronary angiogram done on which revealed single-vessel coronary disease of the distal LAD. Echo done 12-13. Noted to have abnormal cardiac apex with a left ventricular function of 61%. CTA done showing patchy perihilar and peripheral ground-glass opacities. Cardiac MRI done showing thickened mitral valve concerning for endocarditis. She hadTEE consistent with marantic endocarditis. Infectious workup was obtained. She was found have a positive lupus anticoagulant. She was started on heparin and warfarin. Transition to Lovenox on 12/18. During admission additional blood work given the elevated ESR 78, CRP 8.88, positive lupus anticoagulant, negative ARPIT, negative double-stranded DNA. Negative Legionella, fungal blood cultures, bacterial blood cultures with no growth today. She was seen in outpatient follow-up on 12/24. SHe was doing card iac therapy but has had issues getting scheduled for this due to work and her kids. Since her discharge she is overall feeling much better and feels like her energy level is much better. No known family history of autoimmune disease but she does not have a lot of history from her biological father. Her mother had a heart attack in her 30s as well. 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 She has a virtual visit with [place] [facility]. Dr. Pro. ROS: Comprehensive review of systems form filled out by the patient for today's visit was reviewed, sent to [facility], and is as noted above. Past Medical History: No past medical history on file. There are no problems to display for this patient. Past Surgical History: No past surgical history on file. Family and Social History: No family history on file. Social History Substance and Sexual Activity Alcohol Use Not on file Social History Tobacco Use Smoking Status Not on file Current Medications: Outpatient Medications Prior to Visit Medication Sig ??? acetaminophen (TYLENOL) 325 MG tablet Take 325-650 mg by mouth every 4 hours as needed for Pain. ??? azelaic acid (FINACEA) 15 % gel Apply topically two times a day. (Patient not taking: Reported on 03/19/2021) ??? betamethasone dipropionate (DIPROSONE) 0.05 % cream Apply topically daily. (Patient not taking: Reported on 03/19/2021) ??? doxycycline (VIBRAMYCIN) 100 MG capsule Take 100 mg by mouth two times a day. (Patient not taking: Reported on 03/19/2021) ??? enoxaparin (LOVENOX) 150 MG/ML injection Inject subcutaneously every 12 hours. (Patient not taking: Reported on 03/19/2021) ??? ferrous gluconate (FERGON) 324 (38 Fe) MG tablet Take 324 mg by mouth daily with breakfast. ??? FLUoxetine (PROZAC) 40 MG capsule Take 40 mg by mouth daily. (Patient not taking: Reported on 03/19/2021) ??? lisinopril (ZESTRIL) 5 MG tablet Take 5 mg by mouth daily. ??? MELATONIN OR (Patient not taking: Reported on 03/19/2021) ??? metoprolol succinate (TOPROL XL) 50 MG 24 hour release tablet Take 50 mg by mouth daily. ??? nitroglycerin (NITROSTAT) 0.[address] 0.4 mg under tongue every 5 minutes as needed for Chest Pain. If no relief after 5 min call 911;continue 1 tab every 5 min max 3 tab ??? rosuvastatin (CRESTOR) 10 MG tablet Take 7.5 mg by mouth daily. ??? warfarin (COUMADIN) 7.5 MG tablet Take by mouth daily. No facility-administered medications prior to visit. Please see most updated medications in EMR. These have been reviewed. Adverse Drug Reactions: Patient has no known allergies. Physical Examination: There were no vitals taken for this visit. General: Comfortable appearing, well developed, well nourished. HEENT: anicteric, noninjected sclerae, EOMI; no oral ulcers, erythema or exudates. Normal salivary pool. CV: regular rate and rhythm Resp: clear to auscultation bilaterally Abd: normal bowel sounds Skin: raised acneiform plaques of the forehead, cheeks, and chin. There is post inflammaory scarringon the face Neuro: alert, normal muscle bulk and tone, normal gait. Muscle strength 5/5 proximal and distal, upper and lower extremities. Floor Scrubber 5/5. Psych: Normal affect, normal speech. MSK: A full joint exam was performed. 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 Patent cervical arterial vasculature without hemodynamically significant luminal stenosis. No CT findings to suggest underlying fibromuscular dysplasia. 2. Patchy consolidation within the left greater than right upper lungs suspicious for underlying infectious etiology. Dedicated chest CT is recommended for further assessment. ECHO 01/16/2021: Final Impressions: ??1. Normal LV size, normal wall thickness, normal global systolic function with an estimated EF of 55 - 60%. ??2. Apical inferior segment, apical septum segment, and apical anterior segment are abnormal. ??3. Right ventricular cavity size is normal, global systolic RV function is normal. ??4. Mildly enlarged left atrium. ??5. There is thickening of the tips of both the anterior and posterior leaflets of the mitral valve(consistent with the diagnosis of marantic endocarditis), moderate mitral regurgitation. ??6. Echo contrast was administrered to rule out left ventricular mass; no mass seen. 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 Pinto is a very pleasant 35 y.o. with medical history of acne rosacea, hypertension, BMI 50, depression, iron deficiency anemia, and recent hospitalization for a embolic NSTEMI with evidence of marantic endocarditis presenting to our clinic today to establish care. She was hospitalized in December 2020 for acute onset of chest pain, dyspnea, palpitations was found to have a occlusive lesion in the LAD with KENDALL evidence of marantic endocarditis. During this hospitalization she was found to have a positive lupus anticoagulant. Additional testing done at that time included a negative ARPIT, negative double- stranded DNA, negative infectious workup including bacterial cultures, fungal cultures. Complement normal. No evidence of renal involvement with normal creatinine however no recent urinalysis or urine protein evaluation was done. Since her hospitalization, she has had repeat antiphospholipid antibodies done on 03/13/2021, with evidence of a persistently positive lupus anticoagulant (she is now on warfarin however), a high positive beta 2 glycoprotein 1 IgG at greater than 1000, and a high positive cardiolipin IgG at greater than 200. She is following with [place] [facility], Dr. Pro, for further evaluation and monitoring of her current Coumadin dosing. She recently had a factor 10 level that was found to be slightly low compared to previous. Currently she is taking Coumadin 7.5 mg 3 days a week with 3.5 mg on Mondays and . We discussed today that I will reach out to his office to see if we can discuss her treatment plan as well as to discuss our visit today. Would consider addition of aspirin 81 mg daily in addition to her warfarin should this be warranted by Hematology. We discussed her previous workup for lupus has been unremarkable. I would like to repeat some of this testingtoday including ARPIT, amina antibodies, double- stranded DNA, complement, urinalysis with urine protein creatinine ratio. We discussed that patients can have primary antiphospholipid syndrome without common current evidence of systemic lupus, however in our discussion today she does have some additional symptoms that are lupus-like in nature including arthralgias, rash, fatigue and brain fog, hair loss. She denies prior history of blood clots, stroke, seizure, Raynaud's, sicca symptoms, ulcers, inflammatory arthritis findings. We discussed Plaquenil as an additional treatment option. We did review thatthe data is unclear whether patients with primary APS will benefit from addition of Plaquenil, however there is data that in patients with APS and evidence of SLE that there is decreased thrombotic events in improvements and mortality. After discussion, we elected to start hydroxychloroquine. Risks, benefits, and side effects were reviewed. The need for a yearly eye exam to monitor for maculopathy was discussed. Other side effects including vivid dreams, gastrointestinal upset, rash, trouble focusing were reviewed. The patient will be started on 400 mg daily. Referral to Ophthalmology placed. Will plan on follow-up in 12 weeks or sooner if needed. Plan: - additional blood work and urine test to be done today - follow-up as scheduled with hematology and continue Coumadin as per Hematology - start Plaquenil 400 mg daily - follow up with dermatology given new diagnosis - referral to Ophthalmology for baseline Plaquenil exam - handout given on antiphospholipid syndrome today - will repeat chest x-ray at follow-up, no current respiratory symptoms - follow-up in 12 weeks Advised to call if symptoms worsen or fail to improve or if new concerns arise. Plan discussed with the patient in detail. Verbalized understanding and agreement with plan. All questions answered. Cassia Goff MD Rheumatology [facility] TT 60 minutes, with more than 50% spent of time spent in education and counseling. This note was dictated using voice recognition software. There may be sound- alike and/or punctuationerrors. documented in this encounter Plan of Treatment Upcoming Encounters Date Type Specialty Care Team Description 04/07/2022 Appointment General Dentistry [facility], [facility] [address] [place] [address] (Wo rk) Scheduled Referrals Name Type Priority Associated Diagnoses [facility] Referral Routine Antiphospholipid antibody O rdered: Consult-Adult/Peds syndrome (HRC ) 03/19/2021 High risk medication use documented as of this encounter Results TP/Crea Ratio, Urine (03/19/2021 12:24 PM CDT) athologist Signature TP/Creat 0.13 0.00 - 03/19/2021 [facility] Ratio, Urine 0.20 10:29 PM CDT LABORATORY Random Specimen Anatomical Collection Method Collection Time Receive d Time (Source) Location / / Volume Laterality Urine Non-blood 03/19/2021 12:24 03/19/2021 Collection / PM CDT 12:24 PM CDT Unknown Narrative [facility] - 03/19/2021 10:29 PM CDT Low urine creatinine values coupled with low urine protein values can artifactually increase the urine protein/creatinine re sults. Correlate results of ratio with creatinine results. Cassia Goff MD LAB_1 Performing Organization Address City/State/ZIP Code Phon e Number [facility] [address] [place] [address] (ABNORMAL) UR - Urinalysis Routine(Micro If Pos) (03/19/2021 12:24 PM CDT) [facility] Method Time Signature Urine Color Straw Straw-Yellow 03/19/2021 [place] 1:14 PM CDT LABORATORY Urine Clarity Clear Clear 03/19/2021 [place] 1:14 PM CDT LABORATORY Specific 1.010 1.005 - 03/19/2021 [place], 1.030 1:14 PM CDT LABORATORY Urine PH Urine 6.0 5.0 - 8.0 03/19/2021 [place] 1:14 PM CDT LABORATORY Protein, Negative Neg/Trace 03/19/2021 [place] Urine Qual 1:14 PM CDT LABORATORY (mg/dL) Glucose Urine Negative Negative 03/19/2021 [place] Qual (mg/dL) 1:14 PM CDT LABORATORY Ketones, Negative Negative 03/19/2021 [place] Urine (mg/dL) 1:14 PM CDT LABORATORY Urobilinogen, 0.2 <2.0 03/19/2021 [place] Urine (EU/dL) 1:14 PM CDT LABORATORY Bilirubin Negative Negative 03/19/2021 [place] Urine 1:14 PM CDT LABORATORY Blood, Urine Large (A) Neg/Trace 03/19/2021 [place] 1:14 PM CDT LABORATORY Nitrite Urine Negative Negative 03/19/2021 [place] 1:14 PM CDT LABORATORY Leukocyte Negative Negative 03/19/2021 [place] Est. 1:14 PM CDT LABORATORY Urine Source Clean Catch 03/19/2021 [place] 1:14 PM CDT LABORATORY Specimen Anatomical Collection Method Collection Time Receive d Time (Source) Location / / Volume Laterality Urine URINE SPECIMEN Non-blood 03/19/2021 12:24 COLLECTION, CLEAN Collection / PM CDT 12:24 PM C DT CATCH / Unknown Unknown Cassia Goff MD LAB_1 Performing Organization Address City/State/ZIP Code Phon e Number [facility] [address] [place] [address] Treponema Screen (03/19/2021 12:19 PM CDT) [facility] Method Time Signature Treponema Screen 0.025 {s_co_ratio 03/19/2021 [facility] Result } 7:02 PM CDT LABORATORY Treponema Screen Non Non 03/19/2021 [facility] Interpretation Reactive Reactive 7:02 PM CDT LABORATORY Specimen Anatomical Collection Method / Collection Time Recei jsoe Time (Source) Location / Volume Laterality Blood Venipuncture / 03/19/2021 12:19 1 Unknown PM CDT 12:19 PM CDT Cassia Goff MD LAB_1 Performing Organization Address [facility] Phon e Number [facility] [address] [place] [address] C4 - C4 Complement (03/19/2021 12:19 PM CDT) athologist Signature C4 Complement 35.0 15.0 - 03/19/2021 [facility] 57.0 mg/dL 4:44 PM CDT LABORATORY Specimen Anatomical Collection Method / Collection Time Recei jose Time (Source) Location / Volume Laterality Blood Venipuncture / 03/19/2021 12:19 1 Unknown PM CDT 12:19 PM CDT Cassia Goff MD LAB_1 Performing Organization Address [facility] Phon e Number [facility] [address] [place] [address] C3 - C3 Complement (03/19/2021 12:19 PM CDT) athologist Signature C3 Complement 144 83 - 193 03/19/2021 [facility] mg/dL 4:44 PM CDT LABORATORY Specimen Anatomical Collection Method / Collection Time Recei jose Time (Source) Location / Volume Laterality Blood Venipuncture / 03/19/2021 12:19 1 Unknown PM CDT 12:19 PM CDT Cassia Goff MD LAB_1 Performing Organization Address [facility] Phon e Number [facility] [address] [place] [address] CCPIG - Cyclic Citrullinated Peptide AB (03/19/2021 12:19 PM CDT) [facility] Method Time Signature Anti-CCP Antibody 1 <7 U/mL 03/20/2021 [facility] 1:18 PM CDT [facility] Anti-CCP Antibody Negative Negative 03/20/2021 [facility] Interpretation 1:18 PM CDT [facility]AL LAB Specimen Anatomical Collection Method / Collection Time Recei jose Time (Source) Location / Volume Laterality Blood Venipuncture / 03/19/2021 12:19 1 Unknown PM CDT 12:19 PM CDT Cassia Goff MD LAB_1 Performing Organization Address City/[facility]/ZIP Code Phon e Number [facility] [address] [address] RHF - Rheumatoid Factor (03/19/2021 12:19 PM CDT) Analysis Performed At Patho logist Time Signature Rheumatoid <15 <=30 IU/mL 03/19/2021 [facility] Factor, 4:44 PM CDT LABORATORY Quantitative Specimen Anatomical Collection Method / Collection Time Recei jose Time (Source) Location / Volume Laterality Blood Venipuncture / 03/19/2021 12:19 1 Unknown PM CDT 12:19 PM CDT Cassia Goff MD LAB_1 Performing Organization Address City/State/ZIP Code Phon e Number [facility] [address] [place] [address] Liver Panel(Hepatic Function Panel) (03/19/2021 12:18 PM CDT) P athologist Signature Alkaline 90 40 - 150 03/19/2021 [place] Phosphatase U/L 5:35 PM CDT LABORATORY Bilirubin, Total 0.2 0.2 - 1.2 03/19/2021 [place] mg/dL 5:35 PM CDT LABORATORY Bilirubin, 0.2 0.0 - 0.5 03/19/2021 [place] Direct mg/dL 5:35 PM CDT LABORATORY AST (SGOT) 15 10 - 40 03/19/2021 [place] U/L 5:35 PM CDT LABORATORY ALT (SGPT) 16 0 - 55 U/L 03/19/2021 [place] 5:35 PM CDT LABORATORY Protein, Total 7.5 6.4 - 8.3 03/19/2021 [place] g/dL 5:35 PM CDT LABORATORY Albumin 3.9 3.5 - 5.0 03/19/2021 [place] g/dL 5:35 PM CDT LABORATORY Specimen Anatomical Collection Method / Collection Time Recei jose Time (Source) Location / Volume Laterality Blood Venipuncture / 03/19/2021 12:18 Unknown PM CDT 12:19 PM CDT Cassia Goff MD LAB_1 Performing Organization Address City/State/ZIP Code Phon e Number [facility] [address] [place] [address] Basic Metabolic Panel (03/19/2021 12:18 PM CDT) P athologist Signature Sodium 137 136 - 145 03/19/2021 [place] mmol/L 5:35 PM CDT LABORATORY Potassium 4.2 3.5 - 5.1 03/19/2021 [place] mmol/L 5:35 PM CDT LABORATORY Chloride 105 98 - 109 03/19/2021 [place] mmol/L 5:35 PM CDT LABORATORY CO2 21 20 - 29 03/19/2021 [place] mmol/L 5:35 PM CDT LABORATORY Anion Gap 11 7 - 16 03/19/2021 [place] mmol/L 5:35 PM CDT LABORATORY Calcium 9.7 8.4 - 10.4 03/19/2021 [place] mg/dL 5:35 PM CDT LABORATORY BUN 9 7 - 26 03/19/2021 [place] mg/dL 5:35 PM CDT LABORATORY Creatinine 0.80 0.55 - 03/19/2021 [place] 1.02 mg/dL 5:35 PM CDT LABORATORY GFR, Estimated >60 >60 03/19/2021 [place] mL/min/1.7 5:35 PM CDT LABORATORY 3m2 Glucose 98 70 - 100 03/19/2021 [place] mg/dL 5:35 PM CDT LABORATORY Comment: The given reference range is fo r the fasting state. Non-fasting reference range for glucose is 70 - 180 mg/dL. Hours Fasting 4 03/19/2021 5:35 PM CDT [facility] Specimen Anatomical Collection Method / Collection Time Recei jose Time (Source) Location / Volume Laterality Blood Venipuncture / 03/19/2021 12:18 1 Unknown PM CDT 12:19 PM CDT Cassia Goff MD LAB_1 Performing Organization Address [facility] Code Phon e Number [facility] [address] [place] [address] CRP - C Reactive Protein (03/19/2021 12:18 PM CDT) athologist [facility] C-Reactive 0.7 0.0 - 0.7 03/19/2021 [facility] Protein mg/dL 5:35 PM CDT LABORATORY Specimen Anatomical Collection Method / Collection Time Recei jose Time (Source) Location / Volume Laterality Blood Venipuncture / 03/19/2021 12:18 1 Unknown PM CDT 12:19 PM CDT Cassia Goff MD LAB_1 Performing Organization Address [facility]/ZIP Code Phon e Number [facility] [address] [place] [address] (ABNORMAL) ESR - Sedimentation Rate (03/19/2021 12:18 PM CDT) [facility] Method Time Signature Sedimentation Rate 27 (H) 0 - 20 03/19/2021 [facility] mm/hr 1:00 PM CDT LABORATORY Specimen Anatomical Collection Method / Collection Time Recei jose Time (Source) Location / Volume Laterality Blood Venipuncture / 03/19/2021 12:18 1 Unknown PM CDT 12:19 PM CDT Cassia Goff MD LAB_1 Performing Organization Address [facility]/ZIP Code Phon e Number [facility] [address] [place] [address] AIM-Xmhd-WM-DNA by Antonia Assay (03/19/2021 12:18 PM CDT) athologist [facility] Anti-dsDNA Ab <8.0 <8.0 IU/mL 03/27/2021 [facility] (Antonia Assay) 9:05 PM CDT INTERFACED Specimen Anatomical Collection Method / Collection Time Recei jose Time (Source) Location / Volume Laterality Blood Venipuncture / 03/19/2021 12:18 1 Unknown PM CDT 12:19 PM CDT Narrative [facility] INTERFACED - 03/27/2021 9:05 PM CDT Test(s) [id number] Ab by Antonia(RDL) was developed and its performance charac teristics determined by [facility]. It has not been cleared or a pproved by the Food and Drug Administration. Performed at: ??01 - [employer] [address] [place] [address] A ??[id number] Antenna Rigger: Johny Scherer MD, Phone: ? ?[phone] Cassia Goff MD LAB_1 Performing Organization Address City/State/ZIP Code Phon e Number [facility] INTERFACED [address] [address] [place] [address] documented in this encounter Visit Diagnoses Diagnosis Antiphospholipid antibody syndrome (HRC) - Primary Primary hypercoagulable state Needs flu shot Need for prophylactic vaccination and in oculation against influenza High risk medication use Encounter for long-term (current) use of other medications [place] endocarditis (HRC) Endocarditis, valve unspecified, unspeci fied cause documented in this encounter
--- OUTSIDE RECORDS SUMMARY | 2022-03-31 07:36 | XMS_ITS | Encounter Summary ---
:1985 Author Organization [facility] Address [address] [place] [address] Care Team Providers Name Role Phone Needs Pcp, Assignment Primary Care Provider Reason for Visit Procedure/Equipment (Routine) - Incomplete Specialty Diagnoses / Procedures Referred By Contact Refer red To Contact Diagnoses Antiphospholipid antibody syndrome (HRC) High risk medication use Cassia Goff MD Procedures XR Chest 2 Views [address] [place], [place] [address] Referral ID Status Reason Start Date Expiration Date Visits V isits Requested Authorized [id number] Incomplete 06/24/2021 09/23/2022 1 1 Encounter Details Date Type Department Care Team Description 10/01/2021 Ancillary [place] [facility] Antiphospholipi d antibody syndrome (HRC); Procedure Radiology Cassia Denson MD High risk medication use [id number] [facility] [address] [place] [address] [phone] Social History Tobacco Use Types Packs/Day Years Used Date Smoking Tobacco: Former Smokeless Tobacco: Never Sex Assigned at Date Recorded Not on file documented as of this encounter Plan of Treatment Upcoming Encounters Date Type Specialty Care Team Description 04/07/2022 Appointment General Dentistry Hesham Chacon, [facility] [address] [place] [address] (Wo rk) documented as of this encounter Procedures Procedure Name Priority Date/Time Associated Diagnosis Comme nts XR CHEST 2 VIEWS Routine 10/01/2021 9:55 AM Antiphospholipid R esults for this CDT antibody syndrom e (HRC) procedure are in High risk medication use the results section. documented in this encounter Results XR Chest 2 Views (10/01/2021 9:55 AM CDT) Anatomical Region Laterality Modality Chest, Lung Digital Radiography Specimen (Source) Anatomical Collection Method Collection Time Re ceived Time Location / / Volume Laterality 10/01/2021 9:45 AM CDT Impressions 10/01/2021 10:15 AM CDT COMPARISON: ??None. FINDINGS: ??Two views were obtained. ??T he lungs and costophrenic angles are clear. ??Heart size and pulmonary vascularity are within normal limits. ??There is no evidence of pneumothorax or pleural effusion. Procedure Note Amadou Long MD - 10/01/2021Formatt ing of this note might be different from the original. IMPRESSION COMPARISON: None. FINDINGS: Two views were obtained. The l ungs and costophrenic angles are clear. Heart size and pulmonary vascularity are within normal limits. There is no evidence of pneumothorax or pleural effusion. 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
--- OUTSIDE RECORDS SUMMARY | 2022-03-31 07:36 | XMS_ITS | Encounter Summary ---
:1985 Author Organization [facility] Address [address], [place] [address] Care Team Providers Name Role Phone Unavailable Primary Care Provider Unavailable Encounter Details Date Type Department Care Team Description 03/19/2021 Lab Visit [facility] Antiphospholipid antibody sy ndrome ([facility]); [address] [facility] Mar[place] endocarditis ([facility]) [place] [address] Social History Tobacco Use Types Packs/Day Years Used Date Smoking Tobacco: Never Assessed Sex Assigned at Date Recorded Not on file documented as of this encounter Plan of Treatment Upcoming Encounters Date Type Specialty Care Team Description 04/07/2022 Appointment General Dentistry Hesham Chcaon, [facility] [address] [place] [address] (Wo rk) documented as of this encounter Procedures Procedure Name Priority Date/Time Associated Diagnosis Comme nts UA MICRO IF Routine 03/19/2021 12:24 Antiphospholipid Results for this PM CDT antibody syndrome ([facility]) proc edure are in the results section. TP/CREA RATIO, Routine 03/19/2021 12:24 Antiphospholipid Resul ts for this URINE PM CDT antibody syndrome ([facility]) proc edure are in the results section. UA MICRO Routine 03/19/2021 12:24 Antiphospholipid Results for this PM CDT antibody syndrome ([facility]) proc edure are in the results section. TREPONEMA SCREEN Routine 03/19/2021 12:19 Antiphospholipid Res ults for this PM CDT antibody syndrom e ([facility]) procedure are in Mar[place] endocarditis the re sults ([facility]) section. ARPIT PROFILE 2 Routine 03/19/2021 12:19 Antiphospholipid Result s for this REFLEX PM CDT antibody syndrome (HRC) proc edure are in the results section. ARPIT PROFILE 2 Routine 03/19/2021 12:19 Antiphospholipid Result s for this PM CDT antibody syndrome (HRC) proc edure are in the results section. ARPIT II HOLD Routine 03/19/2021 12:19 Antiphospholipid Results for this PM CDT antibody syndrome (HRC) proc edure are in the results section. ANTI-CCP AB Routine 03/19/2021 12:19 Antiphospholipid Results for this PM CDT antibody syndrome (HRC) proc edure are in the results section. ARPIT PROFILE 2 Routine 03/19/2021 12:19 Antiphospholipid Result s for this PM CDT antibody syndrome (HRC) proc edure are in the results section. RHEUMATOID FACTOR, Routine 03/19/2021 12:19 Antiphospholipid R esults for this QUANT PM CDT antibody syndrome (HRC) proc edure are in the results section. C4 COMPLEMENT Routine 03/19/2021 12:19 Antiphospholipid Result s for this PM CDT antibody syndrome (HRC) proc edure are in the results section. C3 COMPLEMENT Routine 03/19/2021 12:19 Antiphospholipid Result s for this PM CDT antibody syndrome (HRC) proc edure are in the results section. ANTI-DS DNA Routine 03/19/2021 12:18 Antiphospholipid Results for this ANTIBODY (CRISTIAN PM CDT antibody syndrome (HRC) pr ocedure are in ASSAY) the results section. LIVER Routine 03/19/2021 12:18 Antiphospholipid Results for this PANEL(HEPATIC PM CDT antibody syndrome (HRC) pro cedure are in FUNCTION PANEL) the results section. BASIC METABOLIC Routine 03/19/2021 12:18 Antiphospholipid Resu lts for this PANEL PM CDT antibody syndrome (HRC) proc edure are in the results section. C-REACTIVE PROTEIN Routine 03/19/2021 12:18 Antiphospholipid R esults for this PM CDT antibody syndrome (HRC) proc edure are in the results section. ESR Routine 03/19/2021 12:18 Antiphospholipid Results for this PM CDT antibody syndrome (HRC) proc edure are in the results section. documented in this encounter Results (ABNORMAL) UA Micro (03/19/2021 12:24 PM CDT) [facility] Method Time Signature Red Blood 4-7 (A) 0 - 3 03/19/2021 [facility] Cells /HPF 1:14 PM CDT LABORATORY White Blood 0-5 0 - 5 03/19/2021 [facility] Cells /HPF 1:14 PM CDT LABORATORY Bacteria Few (A) None Seen 03/19/2021 [place] /HPF 1:14 PM CDT LABORATORY Squamous Moderate (A) None 03/19/2021 [facility] Epithelial Seen, 1:14 PM CDT LABORATORY Cells Occasiona l, Few /HPF Specimen Anatomical Collection Method Collection Time Receive d Time (Source) Location / / Volume Laterality Urine URINE SPECIMEN Non-blood 03/19/2021 12:24 COLLECTION, CLEAN Collection / PM CDT 12:24 PM C DT CATCH / Unknown Unknown Cassia Goff MD LAB_1 Performing Organization Address City/[facility]/ZIP Code Phon e Number [facility] [address] [place] [address] TP/Crea Ratio, Urine (03/19/2021 12:24 PM CDT) athologist Signature TP/Creat 0.13 0.00 - 03/19/2021 [facility] Ratio, Urine 0.20 10:29 PM CDT LABORATORY Random Specimen Anatomical Collection Method Collection Time Receive d Time (Source) Location / / Volume Laterality Urine Non-blood 03/19/2021 12:24 03/19/2021 Collection / PM CDT 12:24 PM CDT Unknown Narrative [facility] - 03/19/2021 10:29 PM CDT Low urine creatinine values coupled with low urine protein values can artifactually increase the urine protein/creatinine re sults. Correlate results of ratio with creatinine results. Cassia Goff MD LAB_1 Performing Organization Address City/[facility]/ZIP Code Phon e Number [facility] [address] [place] [address] (ABNORMAL) UR - Urinalysis Routine(Micro If Pos) (03/19/2021 12:24 PM CDT) [facility] Method Time Signature Urine Color Straw Straw-Yellow 03/19/2021 [facility] 1:14 PM CDT LABORATORY Urine Clarity Clear Clear 03/19/2021 [facility] 1:14 PM CDT LABORATORY Specific 1.010 1.005 - 03/19/2021 [facility] [place], 1.030 1:14 PM CDT LABORATORY Urine PH Urine 6.0 5.0 - 8.0 03/19/2021 [facility] 1:14 PM CDT LABORATORY Protein, Negative Neg/Trace 03/19/2021 [facility] Urine Qual 1:14 PM CDT LABORATORY (mg/dL) Glucose Urine Negative Negative 03/19/2021 [facility] Qual (mg/dL) 1:14 PM CDT LABORATORY Ketones, Negative Negative 03/19/2021 [facility] Urine (mg/dL) 1:14 PM CDT LABORATORY Urobilinogen, 0.2 <2.0 03/19/2021 [facility] Urine (EU/dL) 1:14 PM CDT LABORATORY Bilirubin Negative Negative 03/19/2021 [facility] Urine 1:14 PM CDT LABORATORY Blood, Urine Large (A) Neg/Trace 03/19/2021 [facility] 1:14 PM CDT LABORATORY Nitrite Urine Negative Negative 03/19/2021 [facility] 1:14 PM CDT LABORATORY Leukocyte Negative Negative 03/19/2021 [facility] Est. 1:14 PM CDT LABORATORY Urine Source Clean Catch 03/19/2021 [facility] 1:14 PM CDT LABORATORY Specimen Anatomical Collection Method Collection Time Receive d Time (Source) Location / / Volume Laterality Urine URINE SPECIMEN Non-blood 03/19/2021 12:24 COLLECTION, CLEAN Collection / PM CDT 12:24 PM C DT CATCH / Unknown Unknown Cassia Goff MD LAB_1 Performing Organization Address City/State/ZIP Code Phon e Number [facility] [address] [place] [address] (ABNORMAL) ARPIT Profile 2 Reflex (03/19/2021 12:19 PM CDT) [facility] Method Time Signature Anti-dsDNA Ab <8.0 <8.0 04/02/2021 [facility] (Cristian Assay) IU/mL 10:06 PM CDT INTERFACED Anti-Centromere <1:40 <1:40 04/02/2021 [facility] 10:06 PM CDT INTERFACED Homogeneous 1:80 (H) <1:40 04/02/2021 [facility] Pattern 10:06 PM CDT INTERFACED C4 Complement 36 14 - 44 04/02/2021 [facility] mg/dL 10:06 PM CDT INTERFACED C3 Complement 169 (H) 82 - 167 04/02/2021 [facility] mg/dL 10:06 PM CDT INTERFACED Anti-SM by EIA <20 <20 Units 04/02/2021 [facility] 10:06 PM CDT INTERFACED Anti-U1-DIFFUSION FURNACE OPERATOR by <20 <20 Units 04/02/2021 [facility] EIA 10:06 PM CDT INTERFACED Anti-RO by EIA <20 <20 Units 04/02/2021 [facility] 10:06 PM CDT INTERFACED Anti-Scl-70 by <20 <20 Units 04/02/2021 [facility] EIA 10:06 PM CDT INTERFACED Anti-LA by EIA <20 <20 Units 04/02/2021 [facility] 10:06 PM CDT INTERFACED Note: Comment 04/02/2021 [facility] 10:06 PM CDT INTERFACED Comment: ARPIT performed by Indirect Fluor escent Antibody (IFA) ARPIT Profile II EIA Interp Comment 04/02/2021 10: 06 PM CDT [facility] INTERFACED Comment: ?? Interpretation for Anti-Sm, Anti-U1 DIFFUSION FURNACE OPERATOR, ?? Anti-Ro, Anti-La: ?Negative: ?<20 ?Weak Positive: ? 20 - 39 ?Moderate Positive: ? 40 - 80 ?Strong Positive: ? >80 Specimen Anatomical Collection Method / Collection Time Recei jose Time (Source) Location / Volume Laterality Blood Venipuncture / 03/19/2021 12:19 1 Unknown PM CDT 12:19 PM CDT Narrative [facility] INTERFACED - 04/02/2021 10:06 PM CDT Performed at: ??01 - [employer] [address] [place] [address], A ??[id number] Driller And Reamer: Johny Scherer MD, Phone: ? ?[phone] Cassia Goff MD LAB_1 Performing Organization Address City/[facility]/ZIP Code Phon e Number [facility] INTER[facility]AC[facility] [address] [address] [place] [address] Treponema Screen (03/19/2021 12:19 PM CDT) [facility] Method Time Signature Treponema Screen 0.025 {s_co_ratio 03/19/2021 [facility] Result } 7:02 PM CDT LABORATORY Treponema Screen Non Non 03/19/2021 [facility] Interpretation Reactive Reactive 7:02 PM CDT LABORATORY Specimen Anatomical Collection Method / Collection Time Recei jose Time (Source) Location / Volume Laterality Blood Venipuncture / 03/19/2021 12:19 1 Unknown PM CDT 12:19 PM CDT Cassia Goff MD LAB_1 Performing Organization Address City/[facility] Phon e Number [facility] [address] [place] [address] ARPIT II Hold (03/19/2021 12:19 PM CDT) [facility] Method Time Signature ARPIT II Hold Specimen 03/20/2021 [facility] collected for 8:06 AM CDT LABORATORY Christian Specimen Anatomical Collection Method / Collection Time Recei jose Time (Source) Location / Volume Laterality Blood Venipuncture / 03/19/2021 12:19 1 Unknown PM CDT 12:19 PM CDT Cassia Goff MD LAB_1 Performing Organization Address [facility] Phon e Number [facility] [address] [place] [address] (ABNORMAL) ARPIT Profile 2 (03/19/2021 12:19 PM CDT) [facility] Method Time Signature Anti-Nuclear Positive (A) Negative 04/02/2021 [facility] Ab 10:06 PM CDT INTERFACED Specimen Anatomical Collection Method / Collection Time Recei jose Time (Source) Location / Volume Laterality Blood Venipuncture / 03/19/2021 12:19 1 Unknown PM CDT 12:19 PM CDT Narrative [facility] INTER[facility]ACED - 04/02/2021 10:06 PM CDT Test(s) [id number]-[id number] Ab by IFA (RDL); [id number]- Homogeneous Pattern; [id number]-Quiy-hhJIV A b by Cristian(RDL); [id number]- Anti-U1 DIFFUSION FURNACE OPERATOR Ab (RDL); [id number]-Gmlc-[id number]-30 Ab (RDL) was developed and its performance charac teristics determined by [facility]. It has not been cleared or a pproved by the Food and Drug Administration. Performed at: ??01 - [employer] [address] [place] [address] A ??[id number] Driller And Reamer: Johny Scherer MD, Phone: ? [phone] Cassia Goff MD LAB_1 Performing Organization Address City/[facility]/ZIP Code Phon e Number [facility] INTERFACED [address] [address] [place] [address] C4 - C4 Complement (03/19/2021 12:19 PM CDT) athologist Signature C4 Complement 35.0 15.0 - 03/19/2021 [facility] 57.0 mg/dL 4:44 PM CDT LABORATORY Specimen Anatomical Collection Method / Collection Time Recei jose Time (Source) Location / Volume Laterality Blood Venipuncture / 03/19/2021 12:19 1 Unknown PM CDT 12:19 PM CDT Cassia Goff MD LAB_1 Performing Organization Address City/State/ZIP Code Phon e Number [facility] [address] [place] [address] C3 - C3 Complement (03/19/2021 12:19 PM CDT) P athologist Signature C3 Complement 144 83 - 193 03/19/2021 [facility] mg/dL 4:44 PM CDT LABORATORY Specimen Anatomical Collection Method / Collection Time Recei jose Time (Source) Location / Volume Laterality Blood Venipuncture / 03/19/2021 12:19 1 Unknown PM CDT 12:19 PM CDT Cassia Goff MD LAB_1 Performing Organization Address [facility]/ZIP Code Phon e Number [facility] [address] [place] [address] CCPIG - Cyclic Citrullinated Peptide AB (03/19/2021 12:19 PM CDT) [facility] Method Time Signature Anti-CCP Antibody 1 <7 U/mL 03/20/2021 [facility] 1:18 PM CDT C[facility]AL [facility] Anti-CCP Antibody Negative Negative 03/20/2021 [facility] Interpretation 1:18 PM CDT C[facility]AL LAB Specimen Anatomical Collection Method / Collection Time Recei jose Time (Source) Location / Volume Laterality Blood Venipuncture / 03/19/2021 12:19 1 Unknown PM CDT 12:19 PM CDT Cassia Goff MD LAB_1 Performing Organization Address [facility] Phon e Number [facility] C[facility]TRAL LAB [address] [address] RHF - Rheumatoid Factor (03/19/2021 12:19 PM CDT) Analysis Performed At Patho logist Time Signature Rheumatoid <15 <=30 IU/mL 03/19/2021 [facility] Factor, 4:44 PM CDT LABORATORY Quantitative Specimen Anatomical Collection Method / Collection Time Recei jose Time (Source) Location / Volume Laterality Blood Venipuncture / 03/19/2021 12:19 1 Unknown PM CDT 12:19 PM CDT Cassia Goff MD LAB_1 Performing Organization Address [facility] Phon e Number [facility] [place] [address] Liver Panel(Hepatic Function Panel) (03/19/2021 12:18 PM CDT) athologist Signature Alkaline 90 40 - 150 03/19/2021 [place] Phosphatase U/L 5:35 PM CDT LABORATORY Bilirubin, Total 0.2 0.2 - 1.2 03/19/2021 [facility] mg/dL 5:35 PM CDT LABORATORY Bilirubin, 0.2 0.0 - 0.5 03/19/2021 [facility] Direct mg/dL 5:35 PM CDT LABORATORY AST (SGOT) 15 10 - 40 03/19/2021 [facility] U/L 5:35 PM CDT LABORATORY ALT (SGPT) 16 0 - 55 U/L 03/19/2021 [facility] 5:35 PM CDT LABORATORY Protein, Total 7.5 6.4 - 8.3 03/19/2021 [facility] g/dL 5:35 PM CDT LABORATORY Albumin 3.9 3.5 - 5.0 03/19/2021 [facility] g/dL 5:35 PM CDT LABORATORY Specimen Anatomical Collection Method / Collection Time Recei jose Time (Source) Location / Volume Laterality Blood Venipuncture / 03/19/2021 12:18 Unknown PM CDT 12:19 PM CDT Cassia Goff MD LAB_1 Performing Organization Address City/State/ZIP Code Phon e Number [facility] [address] [place] [address] Basic Metabolic Panel (03/19/2021 12:18 PM CDT) P athologist Signature Sodium 137 136 - 145 03/19/2021 [facility] mmol/L 5:35 PM CDT LABORATORY Potassium 4.2 3.5 - 5.1 03/19/2021 [facility] mmol/L 5:35 PM CDT LABORATORY Chloride 105 98 - 109 03/19/2021 [facility] mmol/L 5:35 PM CDT LABORATORY CO2 21 20 - 29 03/19/2021 [facility] mmol/L 5:35 PM CDT LABORATORY Anion Gap 11 7 - 16 03/19/2021 [facility] mmol/L 5:35 PM CDT LABORATORY Calcium 9.7 8.4 - 10.4 03/19/2021 [facility] mg/dL 5:35 PM CDT LABORATORY BUN 9 7 - 26 03/19/2021 [facility] mg/dL 5:35 PM CDT LABORATORY Creatinine 0.80 0.55 - 03/19/2021 [facility] 1.02 mg/dL 5:35 PM CDT LABORATORY GFR, Estimated >60 >60 03/19/2021 [facility] mL/min/1.7 5:35 PM CDT LABORATORY 3m2 Glucose 98 70 - 100 03/19/2021 [facility] mg/dL 5:35 PM CDT LABORATORY Comment: The given reference range is fo r the fasting state. Non-fasting reference range for glucose is 70 - 180 mg/dL. Hours Fasting 4 03/19/2021 5:35 PM CDT [facility] Specimen Anatomical Collection Method / Collection Time Recei jose Time (Source) Location / Volume Laterality Blood Venipuncture / 03/19/2021 12:18 1 Unknown PM CDT 12:19 PM CDT Cassia Goff MD LAB_1 Performing Organization Address [facility]/ZIP Code [facility] LABORATORY [address] [place] [address] CRP - C Reactive Protein (03/19/2021 12:18 PM CDT) P athologist Signature C-Reactive 0.7 0.0 - 0.7 03/19/2021 [facility] Protein mg/dL 5:35 PM CDT LABORATORY Specimen Anatomical Collection Method / Collection Time Recei jose Time (Source) Location / Volume Laterality Blood Venipuncture / 03/19/2021 12:18 1 Unknown PM CDT 12:19 PM CDT Cassia Goff MD LAB_1 Performing Organization Address City/[facility]/ZIP [facility] LABORATORY [address] [place] [address] (ABNORMAL) ESR - Sedimentation Rate (03/19/2021 12:18 PM CDT) Patholo gist Method Time Signature Sedimentation Rate 27 (H) 0 - 20 03/19/2021 [facility] mm/hr 1:00 PM CDT LABORATORY Specimen Anatomical Collection Method / Collection Time Recei jose Time (Source) Location / Volume Laterality Blood Venipuncture / 03/19/2021 12:18 1 Unknown PM CDT 12:19 PM CDT Cassia Goff MD LAB_1 Performing Organization Address City/[facility]/ZIP Code Phon e Number [facility] [address] [place] [address] ISO-Bign-IC-DNA by Cristian Assay (03/19/2021 12:18 PM CDT) P athologist Signature Anti-dsDNA Ab <8.0 <8.0 IU/mL 03/27/2021 [facility] (Cristian Assay) 9:05 PM CDT INTERFACED Specimen Anatomical Collection Method / Collection Time Recei jose Time (Source) Location / Volume Laterality Blood Venipuncture / 03/19/2021 12:18 1 Unknown PM CDT 12:19 PM CDT Narrative [facility] INTERFACED - 03/27/2021 9:05 PM CDT Test(s) [id number] Ab by Cristian(RDL) was developed and its performance charac teristics determined by [facility]. It has not been cleared or a pproved by the Food and Drug Administration. Performed at: ??01 - [employer] [address] [place] [address] A ??[id number] Driller And Reamer: Johny Scherer MD, Phone: ? [phone] Cassia Goff MD LAB_1 Performing Organization Address City/State/ZIP Code Phon e Number [facility] INTER[facility] [address] [address] [place] [address] documented in this encounter Visit Diagnoses Diagnosis Antiphospholipid antibody syndrome (HRC) Primary hypercoagulable state [place] endocarditis (HRC) Endocarditis, valve unspecified, unspeci fied cause documented in this encounter
--- OUTSIDE RECORDS SUMMARY | 2022-03-31 07:36 | XMS_ITS | Encounter Summary ---
:1985 Author Organization [facility] Address [address] [place] [address] Care Team Providers Name Role Phone Unavailable Primary Care Provider Unavailable Reason for Visit Reason Comments Refill Encounter Details Date Type Department Care Team Description 09/16/2021 Refill [facility] Cassia Redd MD Refill [address] [facility] [employer] [facility] [address] [place] [address] [place], [place] [address] (Wo linda) Social History Tobacco Use Types Packs/Day Years Used Date Smoking Tobacco: Never Assessed Sex Assigned at Date Recorded Not on file documented as of this encounter Nursing Notes Jessica Renee RN - 09/16/2021 11:08 AM CDT LV: 06/24/21 NV: 10/01/21 No eye exam on file yet. Mychart msg sent to patient to please get eye exam. Medication filled for 30 days. Renewed medication per medication refill protocol. Requested Prescriptions Pending Prescriptions Disp Refills ??? hydroxychloroquine (PLAQUENIL) 200 MG tablet [Pharmacy Med Name: HYDROXYCHLOROQUINE 200MG TABLETS] 60 Tablet 0 Sig: TAKE 2 TABLETS BY MOUTH DAILY documented in this encounter Plan of Treatment Upcoming Encounters Date Type Specialty Care Team Description 04/07/2022 Appointment General Dentistry Hesham Chacon [facility] [address] [place], [place] [id number] (Wo rk) documented as of this encounter Visit Diagnoses Not on filedocumented in this encounter
--- OUTSIDE RECORDS SUMMARY | 2022-03-31 07:36 | XMS_ITS | Encounter Summary ---
:1985 [facility] Address [address], [place] [address] Care Team Providers Name Role Phone Unavailable Primary Care Provider Unavailable Reason for Visit Reason Comments Refill Encounter Details Date Type Department Care Team Description 05/06/2021 Refill [place] [facility] Cassia Redd MD Refill [address] [facility] [address] [place] [address] [place] [address] [phone] (Wo rk) Social History Tobacco Use Types Packs/Day Years Used Date Smoking Tobacco: Never Assessed Sex Assigned at Date Recorded Not on file documented as of this encounter Nursing Notes Ruthie Chan RN - 05/06/2021 12:52 PM CDT LV 03/19/21 NV 06/24/21 Patient just started plaquenil 03/19/21. Renewed medication per medication refill protocol. Requested Prescriptions Signed Prescriptions Disp Refills ??? hydroxychloroquine (PLAQUENIL) 200 MG tablet 180 Tablet 0 Sig: TAKE 2 TABLETS BY MOUTH DAILY Authorizing Provider: CASSIA GAO Ordering User: RUTHIE CHAN documented in this encounter Plan of Treatment Upcoming Encounters Date Type Specialty Care Team Description 04/07/2022 Appointment General Dentistry Hesham Chacon, [facility] [address] [place] [address] (Wo rk) documented as of this encounter Visit Diagnoses Not on filedocumented in this encounter
--- OUTSIDE RECORDS SUMMARY | 2022-03-31 07:36 | XMS_ITS | Encounter Summary ---
:1985 Author Organization [facility] Address [address], [place] [address] Care Team Providers Name Role Phone Needs Pcp, Assignment Primary Care Provider Reason for Referral Consult/Transfer Care (Routine) - New Request Specialty Diagnoses / Procedures Referred By Contact Refer red To Contact Diagnoses Antiphospholipid antibody syndrome (HRC) High risk medication use Rash and nonspecific skin eruption Cassia Goff MD [address] [place], [place] [address] Referral ID Status Reason Start Date Expiration Date Visits V isits Requested Authorized [id number] New Request 10/01/2021 12/31/2022 1 1 Scheduling Instructions Your provider has recommended an appoint ment with [facility]. You can quickly make your appointment online at coComment/schedule. You can also call [phone] for help scheduling yo ur appointment. We suggest you call your health insurance company about your cove rage and benefits for this appointment. Reason for Visit Reason Comments Follow-up Encounter Details Date Type Department Care Team Description 10/01/2021 Office Visit Cassia Girard Antiphosp holipid antibody syndrome (HRC) (Primary Dx); Rheumatology MD Jarett High risk medication use; [address] [facility] Rash an d nonspecific skin eruption; [address] Marantic endocarditis (HRC); [place], [place] Ground g lass opacity present on imaging of lung [id number] Social History Tobacco Use Types Packs/Day Years Used Date Smoking Tobacco: Former Smokeless Tobacco: Never Sex Assigned at Date Recorded Not on file documented as of this encounter Last Filed Vital Signs Vital Sign Reading Time Taken Comments Blood Pressure 107/69 10/01/2021 9:00 AM CDT Pulse 61 10/01/2021 9:00 AM CDT Temperature - - Respiratory Rate - - Oxygen Saturation - - Inhaled Oxygen Concentration - - Weight - - Height - - Body Mass Index - - documented in this encounter Patient Instructions Patient InstructionsCassia Goff MD - 10/01/2021 9:00 AM CDT Images from the original note were not included. Your provider has recommended an appointment with [facility]. ??You may call [phone] to schedule your appointment. Just tell them you need your plaquenil eye exam. Blood work and urine tests today for monitoring Recommend seeing dermatology Continue plaquenil 400 mg daily Follow up with cardiology Follow up in 4-5 months or sooner if needed documented in this encounter Progress Notes Cassia Goff MD - 10/01/2021 9:00 AM CDT RHEUMATOLOGY FOLLOW-UP Chief Complaint Patient presents with ??? Follow-up Encounter date: 10/01/2021 Date of last office visit: 06/24/2021 Rheumatologic history: The patient is a 36 [...] from December 13 to December 18 at [facility] for marantic endocarditis and NSTEMI. She had [...] 30s as well. 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 APS antibodies repeated in March 2021 and [...] visit started on plaquenil. Interim history: She states that she has been good. She has been doing therapy and is trying some new medications andwas started on lexapro which has made her want to drink less which has been elpful for home. She had COVID in July which was very mild. No prolonged fatigue from this. No clots. She was seen at the ER in Aug 2021 for some chest pain symptoms with normal work up and her doctor felt it could be anxiety. No new rashes. Face has still been bothersome. She feels like it is mor inflamed. She has not seen dermatology since ur last visit. No new joint pain or joint swelling. She is having some pain on the side No issues with hydroxychloroquine. Denies GI symptoms. She is now getting her factor 10 checked every 3 months. She is on 7.5 mg on and sundays then 10 my the other days. She feels like she has overall been doing well. No new rashes. She has been tolerating the Pl[place]well. No recent illness. She works in the [employer] at [place]. ROS: Review of systems for today's visit completed and negative unless noted above. PMH: Updated in EMR Outpatient Encounter Medications as of 10/01/2021 Medication Sig Dispense Refill ??? acetaminophen (TYLENOL) 325 MG tablet Take 325-650 mg by mouth every 4 hours as needed for Pain. ??? azelaic acid (FINACEA) 15 % gel Apply topically two times a day. ??? betamethasone dipropionate (DIPROSONE) 0.05 % cream Apply topically daily. ??? doxycycline (VIBRAMYCIN) 100 MG capsule Take 100 mg by mouth two times a day. (Patient not taking: Reported on 03/19/2021) ??? enoxaparin (LOVENOX) 150 MG/ML injection Inject subcutaneously every 12 hours. (Patient not taking: Reported on 03/19/2021) ??? escitalopram (LEXAPRO) 10 MG tablet Take 10 mg by mouth daily. ??? ferrous gluconate (FERGON) 324 (38 Fe) MG tablet Take 324 mg by mouth daily with breakfast. ??? FLUoxetine (PROZAC) 40 MG capsule Take 40 mg by mouth daily. (Patient not taking: Reported on 03/19/2021) ??? hydroxychloroquine (PLAQUENIL) 200 MG tablet TAKE 2 TABLETS BY MOUTH DAILY 60 Tablet 0 ??? lisinopril (ZESTRIL) 5 MG tablet Take 5 mg by mouth daily. ??? MELATONIN OR ??? metoprolol succinate (TOPROL XL) 50 MG [...] facility-administered encounter medications on file as of 10/01/2021. ALLERGIES: Updated in EMR Social History Tobacco Use Smoking Status Former Smoker Smokeless Tobacco Never Used Social History Substance and Sexual Activity Alcohol Use None MEDS: Reviewed and updated in the computerized record. Physical exam: There were no vitals taken for this visit. General: Alert, no distress, appears comfortable Eyes: anicteric, no erythema, EOMI ENT: No evidence of oral lesions. Normal saliva pool Resp: breathing comfortably on room air. CTAB Cardiac: RRR Abdomen: normal bowel sounds Skin: Continues to have raised erythematous acneiform lesions of the forehead, cheeks, no other rashes noted on today's exam, no evidence of ulcerations or gangrene Neuro: AOx3. Normal speech. Strength is intact MSK: Focus joint exam performed today. Normal range of motion of the shoulders, elbows, wrists, hands. No tenderness to palpation of the aforementioned joints. No pain with hip flexion, swelling or erythema or effusion of the knees. No tenderness to palpation of the ankles or MTP joints Labs: No results found for: WBC, RBC, HGB, HCT, MCV, RDW, PLTS Lab Results Component Value Date CREATININE 0.80 03/19/2021 Lab Results Component Value Date ALT 16 03/19/2021 Lab Results Component Value Date AST (SGOT) 15 03/19/2021 Lab Results Component Value Date Urine Clarity Clear 03/19/2021 Bilirubin Urine Negative 03/19/2021 Blood, Urine Large (A) 03/19/2021 Glucose Urine Qual (mg/dL) Negative 03/19/2021 Ketones, Urine (mg/dL) Negative 03/19/2021 Leukocyte Est. Negative 03/19/2021 Nitrite Urine Negative 03/19/2021 PH Urine 6.0 03/19/2021 Protein, Urine Qual (mg/dL) Negative 03/19/2021 Specific [place], Urine 1.010 03/19/2021 Urobilinogen, Urine (EU/dL) 0.2 03/19/2021 Squamous Epithelial Cells Moderate (A) 03/19/2021 White Blood Cells 0-5 03/19/2021 Bacteria Few (A) 03/19/2021 Lab Results Component Value Date CRP 0.7 03/19/2021 Lab Results Component Value Date RFQ <15 03/19/2021 ESR 27 (H) 03/19/2021 No results found for: TSH Majority of her labs are noted in Care everywhere, these have been reviewed. Imaging: CTA neck 12/14/2020: IMPRESSION: 1. Patent cervical arterial vasculature without hemodynamically significant luminal stenosis. No CT findings to suggest underlying fibromuscular dysplasia. 2. Patchy consolidation within the left greater than right upper lungs suspicious for underlying infectious etiology. Dedicated chest CT is recommended for further assessment. ? ECHO 01/16/2021: Final Impressions: ??1. Normal LV [...] ARPIT # marantic endocarditis # rash # arthralgia # ground-glass opacities noted on CTA Ms. Pinto is a very pleasant 36 y.o. 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 She was hospitalized in December 2020 for acute onset of chest pain, dyspnea, palpitations was found to have a occlusive lesion in the LAD with KENDALL evidence of maranticendocarditis. 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 She continues be be borderline in meeting criteria for SLE in addition to her APS, however she has been on plaquenil since March 2021. Since our last visit, she appears to be doing quite well. Shehas had no additional thromboembolic events. Factor 10 has been therapeutic so she is now getting this checked every 3 months by her players assistant. She is tolerating Plaquenil 4 mg daily well. Reviewed the importance of her getting her yearly eye exam done. Advised to schedule this today. I continue torecommend that she sees Dermatology for re-evaluation of her skin rash given her new diagnosis. Willobtain monitoring blood work today. Recommend that she get previously order chest x-ray to evaluate for resolution of previously noted ground-glass opacities. Will plan on follow-up in approximately 4-5 months or sooner if needed. PLAN: - continue plaquenil 400 mg daily - schedule eye exam - schedule dermatology appt - continue warfarin and monitoring as per hematology - monitoring labs - CXR - follow up with cardiology - call if new or changing symptoms develop - follow up in 4-5 months or sooner if needed Patient advised to call clinic if symptoms change or worsen or if new symptoms develop. All of the patient's questions were answered to the best of my ability. Billing based on complexity. Cassia Goff MD [facility] Rheumatology documented in this encounter Plan of Treatment Upcoming Encounters Date Type Specialty Care Team Description 04/07/2022 [facility]ment [facility] [address] [place] [address] (Wo rk) Scheduled Referrals Name Type Priority Associated Diagnoses Order S [facility] Dermatology Referral Routine Antiphospholipid antibody Or dered: Consult-Adult/Peds syndrome (HRC ) 10/01/2021 High risk medica tion use Rash and nonspecific skin eruption documented as of this encounter Results Urinalysis Routine, Micro/Culture if Pos: Clean Catch (10/01/2021 9:42 AM CDT) [facility] Method Time Signature Urine Culture Urinalysis 10/01/2021 [facility] Comment results do not 9:45 AM CDT LABORATORY meet criteria for urine culture reflex. Urine Color Straw Straw-Yello 10/01/2021 [facility] w 9:45 AM CDT LABORATORY Urine Clarity Clear Clear 10/01/2021 [facility] 9:45 AM CDT LABORATORY Specific 1.015 1.005 - 10/01/2021 [facility] [place], 1.030 9:45 AM CDT LABORATORY Urine PH Urine 6.0 5.0 - 8.0 10/01/2021 [facility] 9:45 AM CDT LABORATORY Protein, Negative Neg/Trace 10/01/2021 [facility] Urine Qual 9:45 AM CDT LABORATORY (mg/dL) Glucose Urine Negative Negative 10/01/2021 [facility] Qual (mg/dL) 9:45 AM CDT LABORATORY Ketones, Negative Negative 10/01/2021 [facility] Urine (mg/dL) 9:45 AM CDT LABORATORY Urobilinogen, 0.2 <2.0 10/01/2021 [facility] Urine (EU/dL) 9:45 AM CDT LABORATORY Bilirubin Negative Negative 10/01/2021 [facility] Urine 9:45 AM CDT LABORATORY Blood, Urine Trace Neg/Trace 10/01/2021 [facility] 9:45 AM CDT LABORATORY Nitrite Urine Negative Negative 10/01/2021 [facility] 9:45 AM CDT LABORATORY Leukocyte Negative Negative 10/01/2021 [facility] Est. 9:45 AM CDT LABORATORY Urine Source Clean Catch 10/01/2021 [facility] 9:45 AM CDT LABORATORY Specimen Anatomical Collection Method Collection Time Receive d Time (Source) Location / / Volume Laterality Urine URINE SPECIMEN Non-blood 10/01/2021 9:42 AM 022 9:42 COLLECTION, CLEAN Collection / CDT AM CDT CATCH / Unknown Unknown Cassia Goff MD LAB_1 Performing Organization Address City/State/ZIP Code Phon e Number [facility] [address] [place] [address] TP/Crea Ratio, Urine (10/01/2021 9:42 AM CDT) athologist Signature TP/Creat 0.11 0.00 - 10/01/2021 [facility] Ratio, Urine 0.20 3:09 PM CDT LABORATORY Random Total Protein, 10 0 - 14 10/01/2021 [facility] Urine, Random mg/dL 3:09 PM CDT LABORATORY Creatinine, 94 >20 mg/dL 10/01/2021 [facility] Urine, Random mg/dL 3:09 PM CDT LABORATORY Specimen Anatomical Collection Method Collection Time Receive d Time (Source) Location / / Volume Laterality Urine Non-blood 10/01/2021 9:42 AM 9:42 Collection / CDT AM CDT Unknown Narrative [facility] - 10/01/2021 3:09 P M CDT Low urine creatinine values coupled with low urine protein values can artifactually increase the urine protein/creatinine re sults. Correlate results of ratio with creatinine results. Cassia Goff MD LAB_1 Performing Organization Address City/[facility]/ZIP Code Phon e Number [facility] [address] [place] [address] DNA Double Stranded Antibody (Antonia) (10/01/2021 9:40 AM CDT) athologist Signature Anti-dsDNA Ab <8.0 <8.0 IU/mL 10/07/2021 [facility] (Antonia Assay) 9:05 PM CDT INTER[facility]ED Specimen Anatomical Collection Method / Collection Time Recei jose Time (Source) Location / Volume Laterality Blood Venipuncture / 10/01/2021 9:40 10/01/2021 9:40 Unknown AM CDT AM CDT Narrative [facility] INTERFACED - 10/07/2021 9:05 PM CDT Test(s) [id number] Ab by AdiliaRDDeejay) was developed and its performance charac teristics determined by [facility]. It has not been cleared or a pproved by the Food and Drug Administration. Performed at: ??01 - [employer] [address] [place] [address], A ??[id number] Viscera Washer: Johny Scherer MD, Phone: ? ?[phone] Cassia Goff MD LAB_1 Performing Organization Address City/[facility] Phon e Number [facility] INTERFACED [address] [address] [place] [address] C3 Complement (10/01/2021 9:40 AM CDT) athologist Signature C3 Complement 135 83 - 193 10/01/2021 [facility] mg/dL 6:05 PM CDT LABORATORY Specimen Anatomical Collection Method / Collection Time Recei jose Time (Source) Location / Volume Laterality Blood Venipuncture / 10/01/2021 9:40 10/01/2021 9:40 Unknown AM CDT AM CDT Cassia Goff MD LAB_1 Performing Organization Address [facility] Phon e Number [facility] [address] [place] [address] C4 Complement (10/01/2021 9:40 AM CDT) athologist Signature C4 Complement 33.0 15.0 - 10/01/2021 [facility] 57.0 mg/dL 6:05 PM CDT LABORATORY Specimen Anatomical Collection Method / Collection Time Recei jose Time (Source) Location / Volume Laterality Blood Venipuncture / 10/01/2021 9:40 10/01/2021 9:40 Unknown AM CDT AM CDT Cassia Goff MD LAB_1 Performing Organization Address [facility] Phon e Number [facility] [address] [place] [address] C-Reactive Protein (10/01/2021 9:40 AM CDT) athologist Signature C-Reactive <0.5 0.0 - 0.7 10/01/2021 [facility] Protein mg/dL 10:59 AM CDT LABORATORY Specimen Anatomical Collection Method / Collection Time Recei jose Time (Source) Location / Volume Laterality Blood Venipuncture / 10/01/2021 9:40 10/01/2021 9:40 Unknown AM CDT AM CDT Cassia Goff MD LAB_1 Performing Organization Address [facility]/ZIP Code Phon e Number [facility] [address] [place] [address] ESR (10/01/2021 9:40 AM CDT) Patholo gist Method Time Signature Sedimentation Rate 16 0 - 20 10/01/2021 [facility] mm/hr 10:29 AM CDT LABORATORY Specimen Anatomical Collection Method / Collection Time Recei jose Time (Source) Location / Volume Laterality Blood Venipuncture / 10/01/2021 9:40 10/01/2021 9:40 Unknown AM CDT AM CDT Csasia Goff MD LAB_1 Performing Organization Address City/[facility] Code Phon e Number [facility] [address] [place] [address] Basic Metabolic Panel (10/01/2021 9:40 AM CDT) P athologist Signature Sodium 140 136 - 145 10/01/2021 [facility] mmol/L 10:59 AM CDT LABORATORY Potassium 4.2 3.5 - 5.1 10/01/2021 [facility] mmol/L 10:59 AM CDT LABORATORY Chloride 108 98 - 109 10/01/2021 [facility] mmol/L 10:59 AM CDT LABORATORY CO2 24 20 - 29 10/01/2021 [facility] mmol/L 10:59 AM CDT LABORATORY Anion Gap 8 7 - 16 10/01/2021 [facility] mmol/L 10:59 AM CDT LABORATORY Calcium 8.8 8.4 - 10.4 10/01/2021 [facility] mg/dL 10:59 AM CDT LABORATORY BUN 8 7 - 26 10/01/2021 [facility] mg/dL 10:59 AM CDT LABORATORY Creatinine 0.80 0.55 - 10/01/2021 [facility] 1.02 mg/dL 10:59 AM CDT LABORATORY GFR, Estimated >60 >60 10/01/2021 [facility] mL/min/1.7 10:59 AM CDT LABORATORY 3m2 Glucose 95 70 - 100 10/01/2021 [facility] mg/dL 10:59 AM CDT LABORATORY Comment: The given reference range is fo r the fasting state. Non-fasting reference range for glucose is 70 - 180 mg/dL. Hours Fasting Unknown 10/01/2021 10:59 AM CDT [facility] Specimen Anatomical Collection Method / Collection Time Recei jose Time (Source) Location / Volume Laterality Blood Venipuncture / 10/01/2021 9:40 10/01/2021 9:40 Unknown AM CDT AM CDT Cassia Goff MD LAB_1 Performing Organization Address City/State/ZIP Code Phon e Number [facility] [address] [place] [address] Liver Panel(Hepatic Function Panel) (10/01/2021 9:40 AM CDT) athologist Signature Alkaline 83 40 - 150 10/01/2021 [facility] Phosphatase U/L 10:59 AM CDT LABORATORY Bilirubin, Total 0.2 0.2 - 1.2 10/01/2021 [facility] mg/dL 10:59 AM CDT LABORATORY Bilirubin, 0.1 0.0 - 0.5 10/01/2021 [facility] Direct mg/dL 10:59 AM CDT LABORATORY AST (SGOT) 16 10 - 40 10/01/2021 [facility] U/L 10:59 AM CDT LABORATORY ALT (SGPT) 20 0 - 55 U/L 10/01/2021 [facility] 10:59 AM CDT LABORATORY Protein, Total 6.8 6.4 - 8.3 10/01/2021 [facility] g/dL 10:59 AM CDT LABORATORY Albumin 4.0 3.5 - 5.0 10/01/2021 [facility] g/dL 10:59 AM CDT LABORATORY Specimen Anatomical Collection Method / Collection Time Recei jose Time (Source) Location / Volume Laterality Blood Venipuncture / 10/01/2021 9:40 10/01/2021 9:40 Unknown AM CDT AM CDT Cassia Goff MD LAB_1 Performing Organization Address City/State/ZIP Code Phon e Number [facility] [address] [place] [address] documented in this encounter Visit Diagnoses Diagnosis Antiphospholipid antibody syndrome (HRC) - Primary Primary hypercoagulable state High risk medication use Encounter for long-term (current) use of other medications Rash and nonspecific skin eruption Rash and other nonspecific skin eruption Marantic endocarditis (HRC) Endocarditis, valve unspecified, unspeci fied cause Ground glass opacity present on imaging of lung documented in this encounter Care Teams Assembler Surgical Garment Relationship Specialty Start Date End Date Needs Pcp, Assignment PCP - General 10/01/21 [place], [place] [address] documented as of this encounter
--- OUTSIDE RECORDS SUMMARY | 2022-03-31 07:36 | XMS_ITS | Encounter Summary ---
:1985 Author Organization [facility] Address [address], [place] [address] Care Team Providers Name Role Phone Unavailable Primary Care Provider Unavailable Encounter Details Date Type Department Care Team Description 06/10/2005 Office Visit [facility] Occupational Patricia Barrett H EALTH EXAMINATION OF and Environmental MD DEFINED ANDRE BPOPULATIONS Medicine Social History Tobacco Use Types Packs/Day Years Used Date Smoking Tobacco: Never Assessed Sex Assigned at Date Recorded Not on file documented as of this encounter Progress Notes Patricia Barrett - 06/10/2005 12:00 AM POSTAL SUPERVISOR AL SUPERVISOR Patricia Barrett - 06/10/2005 12:00 AM POSTAL SUPERVISOR AL SUPERVISOR Patricia Barrett - 06/10/2005 12:00 AM POSTAL SUPERVISOR AL SUPERVISOR Patricia Barrett - 06/10/2005 12:00 AM POSTAL SUPERVISOR AL SUPERVISOR Patricia Barrett - 06/10/2005 12:00 AM POSTAL SUPERVISOR AL SUPERVISOR Patricia Barrett - 06/10/2005 12:00 AM POSTAL SUPERVISOR AL SUPERVISOR documented in this encounter Plan of Treatment Upcoming Encounters Date Type Specialty Care Team Description 04/07/2022 Appointment General Dentistry Hesham Chacon [facility] [address] [place] [address] (Wo rk) documented as of this encounter Procedures Procedure Name Priority Date/Time Associated Diagnosis Comme nts AUDIOLOGY DIAGNOSTIC 06/10/2005 Results for this procedure are i n the results section . documented in this encounter Visit Diagnoses Diagnosis Health examination of defined subpopulat ion documented in this encounter
--- OUTSIDE RECORDS SUMMARY | 2022-03-31 07:36 | XMS_ITS | Encounter Summary ---
:1985 Author Organization [facility] Address [address] [place] [address] Care Team Providers Name Role Phone Unavailable Primary Care Provider Unavailable Encounter Details Date Type Department Care Team Description 05/21/1992 PN Conversion Only MANDAEN CONVERSION Ryan Pritchard Social History Tobacco Use Types Packs/Day Years Used Date Smoking Tobacco: Never Assessed Sex Assigned at Date Recorded Not on file documented as of this encounter Plan of Treatment Upcoming Encounters Date Type Specialty Care Team Description 04/07/2022 Appointment General Dentistry Hesham Chacon, [address] [place] [address] (Wo rk) documented as of this encounter Visit Diagnoses Not on filedocumented in this encounter
--- OUTSIDE RECORDS SUMMARY | 2022-03-31 07:36 | XMS_ITS | Clinical Summary ---
:1985 Author Organization [employer] [facility] [place] [address] Care Team Providers Name Role Phone Aida Jones MD Unavailable Jackeline Montes De Oca MD Primary Care Provider [phone] Allergies Active Allergy Reactions Severity Noted Date Comments Blood-Group Specific 03/21/2010 Patient has a Non-Specific Substance Antibody. Blood product orders may be d elayed. Medications Medication Sig Dispensed Refills Start Date End Date Status FERROUS SULFATE 324 Take 1 Tablet by 0 09/17/2020 Active OR 325 MG, 65 MG mouth once every IRON, TABLET other day. azelaic acid Apply topically to 0 11/11/2020 Active (FINACEA) 15 % affected area(s) 2 topical gel times daily if needed. betamethasone Apply topically to 0 11/05/2020 Active dipropionate 0.05% affected area(s) at (DIPROSONE 0.05% bedtime if needed. CREAM) 0.05 % cream doxycycline Take 100 mg by mouth 0 10/13/2020 Active monohydrate once every other (MONODOX) 100 mg day. capsule FLUoxetine (PROZAC) Take 40 mg by mouth 0 10/15/2020 Active 40 mg capsule once daily. acetaminophen Take 650 mg by mouth 0 Active (TylenoL) 325 mg 3 times daily if tablet needed. Max acetaminophen dose: 4000mg in 24 hrs. melatonin 10 mg tab Take 10 mg by mouth 0 Active at bedtime if needed. nitroglycerin Place 1 Tablet (0.4 25 Tablet 2 12/18/2020 Active (NITROSTAT) 0.4 mg mg) under the tongue sublingual every 5 minutes if tabletIndications: needed. NSTEMI (non-ST elevated myocardial infarction) (HC) warfarin (COUMADIN) Take 1 Tablet by 30 Tablet 0 12/18/2020 Active 7.5 mg mouth once daily. tabletIndications: [place] endocarditis, Lupus anticoagulant disorder (HC) lisinopriL Take 1 Tablet (5 mg) 90 Tablet 3 11/20/2021 Active (PRINIVIL; ZESTRIL) by mouth once daily. 5 mg tabletIndications: NSTEMI (non-ST elevated myocardial infarction) (HC) Active Problems Problem Noted Date Lupus anticoagulant disorder 12/17/2020 [place] endocarditis 12/17/2020 NSTEMI (non-ST elevated myocardial infarction) 021 Morbid obesity with BMI of 50.0-59.9, adult 12/13/2020 Depression 12/13/2020 SEVERO (iron deficiency anemia) 12/13/2020 Menorrhagia 12/13/2020 Overview: Currently better because of progesterone IUD. Borderline hypertension 12/13/2020 Acne rosacea 09/26/2013 Resolved Problems Problem Noted Date Resolved Date 05/09/2015 03/17/2017 Overview: GBS + Adacel given November 2016 A+, non-specific antibody noted (no hist ory of blood transfusion) UTI (lower urinary tract infection) 01/02/201312/03 Supervision of normal first 05/20/2010 Encounters Date Type Specialty Care Team Description 01/05/2022 Telephone Ubaldo Martin MD Results (echo) 01/01/2022 Orders Only <No scans attac hed> 01/01/2022 Lab Requisition Concha Stockton MD from Last 3 Months Immunizations Name Administration Dates Next Due Influenza, IIV3 (Age >=3 years) 05/03/2011, 03/20/2010 Influenza, IIV4 04/14/2015 Tdap 11/12/2016, 02/09/2008 Tuberculin (PPD) 07/10/2018 Family History Medical History Relation Name Comments Good Health Father Diabetes Maternal Grandfather Cancer Maternal Grandmother ovarian Diabetes Maternal Grandmother Diabetes Mother Premature CHD (under age 60) Mother PR in her 50s Premature CHD (under age 60) Other a l ot of dad's family young, but not s ure of cause Relation Name Status Comments Father Maternal Grandfather Maternal Grandmother Mother Other Social History Tobacco Use Types Packs/Day Years Used Date Former Smoker Cigarettes 0.5 20 Smokeless Tobacco: Never Used Tobacco Cessation: Counseling Given: Yes Alcohol Use Standard Drinks/Week Comments Not Currently 0 (1 standard drink = 0.6 oz pure alcoho l) recently cut back Alcohol Habits Answer Date Recorded How often do you have a drink containing alcohol? Not asked How many drinks containing alcohol do you have on a Not aske d typical day when you are drinking? How often do you have six or more drinks on one Not asked occasion? Comment: recently cut back 12/13/2020 Sex Assigned at Date Recorded Not on file Obstetrics History Para Term AB IAB SAB Ectopic Multiple Living Live Births 3 0 0 1 0 1 1 1 Date Outcome GA Total Labor/2nd/3rd Weight Sex Delivery Anes PTL Candie A 1 A5 Name Clin Labor F Robyn ng Comments: System Generated. Please review and update details. SAB Comments for failure to progress after SROM. Considering Last Filed Vital Signs Vital Sign Reading Time Taken Comments Blood Pressure 129/85 11/20/2021 10:53 AM CDT Pulse 60 11/20/2021 10:53 AM CDT Temperature 36.7 ??C (98 ??F) 12/18/2020 12:02 PM CDT Respiratory Rate 16 11/20/2021 10:53 AM CDT Oxygen Saturation 100% 01/23/2021 2:38 PM CDT Inhaled Oxygen Concentration - - Weight 140.2 kg (309 lb) 11/20/2021 10:53 AM CDT Height 167.6 cm (5' 6) 12/30/2020 12:00 PM CDT Body Mass Index 49.87 12/30/2020 12:00 PM CDT Plan of Treatment Health Maintenance Due Date Last Done Comments BMI (ht and wt on same day) for 06/23/2018 06/23/2017, 12/03, age 18+ 12/08/2016, Additional history exists Depression screening for age 12+ 01/02/2022 01/02/2021, , 12/30/2020, Additional history exists Influenza for age 9-49 03/04/2022 04/14/2015, 05/03/2011, 03/20/2010 Pap test for age 21-65 11/06/2023 11/05/2020, 11/05/2020, 09/06/2016, Additional history exists Tetanus booster 11/12/2026 11/12/2016, 02/09/2008, 02/09/2008 Hepatitis C screening for age Completed 07/02/2016, 2014 18-79 Tdap Completed 11/12/2016, 02/09/2008 COVID-19 vaccine series Completed 11/11/2021, 04/17/2021, 03/27/2021 Procedures Procedure Name Priority Date/Time Associated Diagnosis Comme nts ECHO COMPLETE W Routine 01/01/2022 9:10 AM Mitral valve Result s for this CONTRAST CDT regurgitation procedure are in the results section. FACTOR 10 Routine 01/01/2022 7:34 AM Results f or this CHROMOGENIC CDT procedure are i n the results section. from Last 3 Months Results ECHO COMPLETE W CONTRAST (01/01/2022 9:10 AM CDT) P athologist Signature AORTIC VALVE 5 mmHg MEAN PG PEAK TR 2.1 m/s VELOCITY LVEDD 5.3 cm MITRAL VALVE 15 mm2 MR ERO EJECTION 55 - 60% FRACTION Anatomical Region Laterality Modality HEART Ultrasound Specimen (Source) Anatomical Collection Method Collection Time Re ceived Time Location / / Volume Laterality 01/01/2022 8:03 AM CDT Narrative 01/01/2022 2:10 PM CDT ECHOCARDIOGRAM CHARLEY CARY ? Accessi on#: ?? [id number] : ?1985 36 years Study Date: ?? 01/01/2022 8:03:33 AM Gender: F ?BP: ? 118/84 mmHg Height: 168.00 cm ?BSA: ?2.41 m? ?? Weight: 140.00 kg ?Tech: ? MCK ? Referring MD: UBALDO MARTIN Site: ? [facility] Reading Location: Mobile-OP Procedure: 2D w/ Contrast, Color Doppler and Spectral Doppler. Indication for study: MR Cardiac Rhythm: Regular.Study quality: T echnically limited. Final Impressions: 1. Technically limited exam. 2. Echo contrast was administrered to e nhance visualization of all left ventricular segments. 3. Normal LV size, normal wall thicknes s, normal global systolic function with an estimated EF of 55 - 60%. 4. Entire distal apex is abnormal. 5. Right ventricular cavity size is nor mal, global systolic RV function is normal. 6. The mitral valve is normal, moderate mitral regurgitation. Comparison Compared to prior exam report of 01/17/20 21, there has been no significant change. Chamber Sizes and Function Normal left ventricular size, normal wal l thickness, normal global systolic function with an estimated EF of 55 - 60%. Left atrial size is normal. Right ventricular cavity size is normal, global systoli c RV function is normal. RV wall thickne ss is normal. The right atrium is normal. Right atrial volume index is 12 ml/m? ??. Right atrial area is 14 cm? ??. The pulmonary artery is of normal size and humera gin. The sinus of Valsalva is normal siz ed. The ascending aorta is normal sized. The entire apex is hypokinetic. Valves, RV Pressures and Diastolic Funct ion The aortic valve is trileaflet, no steno sis and no regurgitation. The mitral valve is normal in structure, moderate mitral regurgitation. Indeterminate pattern of LV diastolic filling. The tricuspid david ve is normal in structure. Tricuspid reg urgitation is trace regurgitation. The tricuspid regurgitant velocity is 2.1 m/s, the estimated right ventricular systolic pressure is 17 mmHg plus right atrial p ressure. The pulmonic valve is normal. T race pulmonary regurgitation. Masses, Effusion, Shunts There is no pericardial effusion. The in ferior vena cava is normal sized, respiratory size variation greater than 50%. Interatrial septum is not well visualized. MEASUREMENTS AND CALCULATIONS 2-D Measurements and LV Function: LVID (d) 5.3 cm LV FS% (2D) ?? 28 % LVID (s) 3.8 cm LVOT diameter 2.3 cm IVS (d) ??1.2 cm HR ?67 bpm LVPW (d) 1.2 cm LA Vol index ??20 ml/m2 Ao Sinus 3.3 cm RA Vol index ??12 ml/m2 Asc Ao ?? 3.5 cm RA area ? 14 cm? ?? LA ? 4.3 cm RV Max 4C (d) 3.2 cm Diastology: Mitral ?Tissue Doppler ?Pulmonary veins E Peak 1.0 m/s ??e', Septum ? 0.10 m /s Pulm s ?59.6 cm/s A Peak 0.9 m/s ??e', Lateral ?0.14 m /s Pulm d ?40.4 cm/s E/A ?1.0 ?E/e' Average ?? 8.1 0 ? Pulm s/d ratio ??1.48 DT ? 288 msec IVRT ?? 117 msec Aortic Valve: Vmax ? 1.5 m/s ??ANGELIQUE (V) ?? 3.18 cm? ?? VTI ?0.29 m ?? ANGELIQUE (I ) ?? 3.22 cm? ?? LVOT V max ? 1.2 m/s ??Max PG ?9 mmHg LVOT VTI ? 0.23 m ?? Mean PG ? ? 5 mmHg SV ? 92 ml ?Dim I ndex 0.80 SV index ? 38 ml/m? ?? CO ?6.2 l/min AV Ejection Time 0.27 sec CI ? 2.6 l/min/m? ?? AV Flow Rate ? 335 ml/s Mitral Valve: MVA ? 2.6 cm? ?? MR ERO ??0.15 cm? ?? MV P 1/2 ??84 msec MR Vol. 27 ml MV Mean G 2 mmHg ??MR TVI ??1.78 m MV VTI ?0.39 m Tricuspid Valve and estimated PA pressur es: TR Vmax 2.1 m/s TAPSE 2.6 cm TR maxG 17 mmHg Contrast documentation: 2 ml diluted Def inity, lot #[id number], was administered peripherally to enhance visualization of all left ventricular segments. . This study was interpreted by an [facility]. CC: [facility] and [facility]. ??Final ?? Procedure Note Barrera Bautista MD - 01/01/2022Format ting of this note might be different from the original. ECHOCARDIOGRAM CHARLEY CARY : 1985 36 years Study Date: 2021 8:03:33 AM Gender: F BP: 118/84 mmHg Height: 168.00 cm BSA: 2.41 m? ?? Weight: 140.00 kg Tech: [facility] Referring MD: UBALDO MARTIN Site: [facility] Reading Location: Mobile-OP Procedure: 2D w/ Contrast, Color Doppler and Spectral Doppler. Indication for study: MR Cardiac Rhythm: Regular.Study quality: T echnically limited. Final Impressions: 1. Technically limited exam. 2. Echo contrast was administrered to e nhance visualization of all left ventricular segments. 3. Normal LV size, normal wall thicknes s, normal global systolic function with an estimated EF of 55 - 60%. 4. Entire distal apex is abnormal. 5. Right ventricular cavity size is nor mal, global systolic RV function is normal. 6. The mitral valve is normal, moderate mitral regurgitation. Comparison Compared to prior exam report of 01/17/20 21, there has been no significant change. Chamber Sizes and Function Normal left ventricular size, normal wal l thickness, normal global systolic function with an estimated EF of 55 - 60%. Left atrial size is normal. Right ventricular cavity size is normal, global systolic RV function is normal. RV wall thickness is normal. The right atrium is normal. Right atrial volume index is 12 ml/m? ??. Right atrial area is 14 cm? ??. The pulmonary artery is of normal size and origin. The sinus of Valsalva is normal sized. The ascending aorta is normal sized. The entire apex is hypokinetic. Valves, RV Pressures and Diastolic Funct ion The aortic valve is trileaflet, no steno sis and no regurgitation. The mitral valve is normal in structure, moderate mitral regurgitation. Indeterminate pattern of LV diastolic filling. The tricuspid valve is normal in structure. Tricuspid regurgita tion is trace regurgitation. The tricuspid regurgitant velocity is 2.1 m/s, the estimated right ventricular systolic pressure is 17 mmHg plus right atrial pressure. The pulmonic valve is normal. Trace pulmonary regurgi tation. Masses, Effusion, Shunts There is no pericardial effusion. The in ferior vena cava is normal sized, respiratory size variation greater than 50%. Interatrial septum is not well visualized. MEASUREMENTS AND CALCULATIONS 2-D Measurements and LV Function: LVID (d) 5.3 cm LV FS% (2D) 28 % LVID (s) 3.8 cm LVOT diameter 2.3 cm IVS (d) 1.2 cm HR 67 bpm LVPW (d) 1.2 cm LA Vol index 20 ml/m2 Ao Sinus 3.3 cm RA Vol index 12 ml/m2 Asc Ao 3.5 cm RA area 14 cm? ?? LA 4.3 cm RV Max 4C (d) 3.2 cm Diastology: Mitral Tissue Doppler Pulmonary veins E Peak 1.0 m/s e', Septum 0.10 m/s Pulm s 59.6 cm/s A Peak 0.9 m/s e', Lateral 0.14 m/s Pulm d 40.4 cm/s E/A 1.0 E/e' Average 8.10 Pulm s/d ratio 1.48 DT 288 msec IVRT 117 msec Aortic Valve: Vmax 1.5 m/s ANGELIQUE (V) 3.18 cm? ?? VTI 0.29 m ANGELIQUE (I) 3.22 cm? ?? LVOT V max 1.2 m/s Max PG 9 mmHg LVOT VTI 0.23 m Mean PG 5 mmHg SV 92 ml Dim Index 0.80 SV index 38 ml/m? ?? CO 6.2 l/min AV Ejection Time 0.27 sec CI 2.6 l/min/m ? ?? AV Flow Rate 335 ml/s Mitral Valve: MVA 2.6 cm? ?? MR ERO 0.15 cm? ?? MV P 1/2 84 msec MR Vol. 27 ml MV Mean G 2 mmHg MR TVI 1.78 m MV VTI 0.39 m Tricuspid Valve and estimated PA pressur es: TR Vmax 2.1 m/s TAPSE 2.6 cm TR maxG 17 mmHg Contrast documentation: 2 ml diluted Def inity, lot #[id number], was administered peripherally to enhance visualization of all left ventricular segments. . This study was interpreted by an [facility]. CC: [facility] and [facility]. Final Ubaldo Martin MD ECHO ORD (ABNORMAL) FACTOR 10 CHROMOGENIC (01/01/2022 7:34 AM CDT) Analysis Performed At Patho logist Time Signature FACTOR 10 39 (L) 60 - 120 % 01/01/2022 [facility] CHROMOGENIC 4:01 PM CDT [facility] Specimen Anatomical Collection Method Collection Time Receive d Time (Source) Location / / Volume Laterality Blood BLOOD SPECIMEN / Client Collect / 01/01/2022 7:34 AM 0 01/01/2022 3:42 Unknown Unknown CDT PM CDT Narrative [facility] - 01/01/2022 4:01 PM CDT Therapeutic Range 20-40% Concha tSockton MD SEND OUTS Performing Organization Address City/State/ZIP Code Phon e Number [facility] [address] [place] [address] [facility] 2000 LABORATORY from Last 3 Months Insurance Payer Benefit Plan / Subscriber ID Effective Dates Phone Addre ss Type Group [employer] BL[employer] OF [id number] 2021-Present [address] [address] [place] [address] [employer] Occ Other 07/04/2000 [phone] [address] (Home) [place], [place] [phone] (Work) [employer] Occ Employer 07/04/2000 [phone] ATTN: DWIGHT MAYER Health[phone] [place] (Home) [address] [place] [address] [employer] Occ Employer [phone] [address] [facility] [address] (Home) [place] [address] Advance Directives Latest Code Status on File Code Status Date Activated Date Inactivated Comments Full Code 12/13/2020 2:00 AM 12/18/2020 6:13 PM Code Status Discussion: Not Discussed Care Teams Pipe Stripper Relationship Specialty Start Date End Date Jackeline Montes De Oca MD PCP - General Family Practice 12/13/201999 [place] [address] Aida Jones MD OVERHAULER Obstetrics and Gynecology 11/13/12
--- OUTSIDE RECORDS SUMMARY | 2022-03-31 07:36 | XMS_ITS | Clinical Summary ---
:1985 Author Organization [email or web address] Address [address] [place] [address] Care Team Providers Name Role Phone Needs Pcp, Assignment Primary Care Provider Source Comments You are receiving this document as you are listed as the primary care provider,follow-up provider, or the patient has been referred to you for consultation.This is in compliance with the Medicare and Medicaid EHR Incentive Program,which states Providers who transition their patient to another setting of careor provider of care or refers their patient to another provider of care shouldprovide summarycare record for each transition of care or referral. [email or web address] Allergies No known active allergies Medications Medication Sig Dispensed Refills Start End Status Date Date lisinopril (ZESTRIL) 5 Take 5 mg by 0 Active MG tablet mouth daily. metoprolol succinate Take 50 mg by 0 Active (TOPROL XL) 50 MG 24 mouth daily. hour release tablet nitroglycerin Place 0.4 mg 0 Act homer (NITROSTAT) 0.4 MG under tongue sublingual tablet every 5 minutes as needed for Chest Pain. If no relief after 5 min call 911;continue 1 tab every 5 min max 3 tab rosuvastatin (CRESTOR) Take 7.5 mg 0 Active 10 MG tablet by mouth daily. warfarin (COUMADIN) Take by mouth 0 Active 7.5 MG tablet daily. azelaic acid (FINACEA) Apply 0 Active 15 % gel topically two times a day. betamethasone Apply 0 Active dipropionate topically (DIPROSONE) 0.05 % daily. cream ferrous gluconate Take 324 mg 0 Active (FERGON) 324 (38 Fe) by mouth MG tablet daily with breakfast. MELATONIN OR 0 Active acetaminophen Take 325-650 0 Act homer (TYLENOL) 325 MG mg by mouth tablet every 4 hours as needed for Pain. escitalopram (LEXAPRO) Take 10 mg by 0 02/22/202 Active 10 MG tablet mouth daily. 2 hydroxychloroquine Take 2 180 Tablet 1 Active (PLAQUENIL) 200 MG Tablets (400 2 023 tablet mg) by mouth daily. hydroxychloroquine Take 2 180 Tablet 1 Discontinued (PLAQUENIL) 200 MG Tablets (400 2 022 (*Med change OR tablet mg) by mouth same me d OR daily. reorder, n ew dose/direc tions ) Active Problems Problem Noted Date Antiphospholipid antibody syndrome 10/01/2021 Encounters Date Type Specialty Care Team Description 03/11/2022 Telemedicine Rheumatology Cassia Goff Antiph ospholipid antibody syndrome (HRC) (Primary Dx); High risk medic ation use; Positive ARPIT (a ntinuclear antibody); Current use of [facility] antico[facility]; Rash and nonspe cific skin eruption from Last 3 Months Immunizations Name Administration Dates Next Due Flu Vac (3+ yrs) 05/03/2011, 03/20/2010 Flublok (RIV4) 04/04/2019 Fluzone Qiv Multidose Vial 0.25 (6-35 Mos) 06/24/2017 HepB Adult (Engerix-B, 20+ yrs, 3 dose series) 11/20/2018 HepB Adult (Heplisav-B, 19+ yrs, 2 dose series) 11/20/2018 Influenza IIV4 (Quadrivalent) 0.5mL (95470) 04/04/2019, 04/03 Pfizer (Comirnaty) COVID-19, 12+ Yrs Purple Top 04/17/2021, 03/27/2021 Tdap 11/12/2016, 02/09/2008 Social History Tobacco Use Types Packs/Day Years Used Date Smoking Tobacco: Former Smokeless Tobacco: Never Sex Assigned at Date Recorded Not on file Last Filed Vital Signs Vital Sign Reading Time Taken Comments Blood Pressure 107/69 10/01/2021 9:00 AM CDT Pulse 61 10/01/2021 9:00 AM CDT Temperature 36.4 ??C (97.5 ??F) 03/19/2021 11:08 AM CDT Respiratory Rate - - Oxygen Saturation - - Inhaled Oxygen Concentration - - Weight 142 kg (313 lb) 03/19/2021 11:08 AM CDT Height 167.6 cm (5' 6) 03/19/2021 11:08 AM CDT Body Mass Index 50.52 03/19/2021 11:08 AM CDT Plan of Treatment Upcoming Encounters Date Type Specialty Care Team Description 04/07/2022 Appointment General Dentistry Hesham Chacon [facility] [address] [place] [address] (Wo rk) Health Maintenance Due Date Last Done Comments Cervical Cancer Screening 1985 Due Hep C Screening (Preventive 1985 Services) HIV Screening (Preventive 1999 Services) Adult Preventive Visit 09/14/2001 HepB (2 - Heplisav) 12/18/2018 11/20/2018, 11/20/2018 COVID-19 Vaccine (3 - 06/12/2021 04/17/2021, 03/27/2021 Booster for Pfizer series) Influenza (#1) 2022 04/04/2019, 04/04/2019, 06/24/2017, Additional history exists DTaP/Tdap/Td (3 - Tdap) 11/12/2026 11/12/2016, 02/09/2008 Zoster/Shingles (1 of 2) 09/14/2033 HPV Vaccine Aged Out No longer eligib le based on patient 's age to complete this topic HepA Aged Out No longer eligib le based on patient 's age to complete this topic Hib Aged Out No longer eligib le based on patient 's age to complete this topic IPV (Polio) Aged Out No longer eligib le based on patient 's age to complete this topic MCV4 Aged Out No longer eligib le based on patient 's age to complete this topic Pneumococcal Aged Out No longer eligib le based on patient 's age to complete this topic Insurance Payer Benefit Plan Subscriber ID Effective Phone Address Typ e / Group Dates [employer] [id number] 2022-[employer] FAMILY nt DENTAL Care Teams Security Shift Manager Relationship Specialty Start Date End Date Needs Pcp, Assignment PCP - General 10/01/21 [place] [address]
--- OUTSIDE RECORDS SUMMARY | 2022-03-31 07:36 | XMS_ITS | Encounter Summary ---
:1985 Author Organization [facility] Address [address] [place] [id number] Care Team Providers Name Role Phone Unavailable Primary Care Provider Unavailable Reason for Referral Procedure/Equipment (Routine) - Incomplete Specialty Diagnoses / Procedures Referred By Contact Refer red To Contact Diagnoses Antiphospholipid antibody syndrome (HRC) High risk medication use Cassia Goff MD Procedures XR Chest 2 Views [address] [place], [place] [address] Referral ID Status Reason Start Date Expiration Date Visits V isits Requested Authorized [id number] Incomplete 06/24/2021 09/23/2022 1 1 RTMENT [employer] Reason for Visit Reason Comments Video Visit Follow-up Encounter Details Date Type Department Care Team Description 06/24/2021 Telemedicine [place] Cassia Goff Antiphosp holipid antibody syndrome (HRC) (Primary Dx); Rheumatology MD Jarett High risk medication use; [id number] [facility] e ARPIT (antinuclear antibody); [facility] Arthralgia, unspecified joint; [place], [place] Rash and nonspecific skin eruption; [id number] Marantic endocarditis (HRC); [phone] Ground glass op acity present on imaging of lung (Work) Social History Tobacco Use Types Packs/Day Years Used Date Smoking Tobacco: Never Assessed Sex Assigned at Date Recorded Not on file documented as of this encounter Patient Instructions Patient InstructionsCassia Goff MD - 06/24/2021 10:30 AM CST Please get blood work and urine tests done for monitoring Schedule eye appt Schedule dermatology appt Continue plaquenil 400 mg daily Follow up with cardiology Call if symptoms change or worsen Continue warfarin as per your human resources compliance manager Follow up in person in 12 weeks RTMENT [employer] documented in this encounter Progress Notes Cassia Goff MD - 06/24/2021 10:30 AM CST RHEUMATOLOGY FOLLOW-UP -- VIDEO VISIT Chief Complaint Patient presents with ??? Video Visit ??? Follow-up Encounter date: 06/24/2021 Date of last office visit: 03/19/2021 Rheumatologic history: The patient is a 35 y.o. female [...] from December 13 [address] [facility] for marantic endocarditis and NSTEMI. She had [...] 30s as well. 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 APS antibodies repeated in March 2021 [...] visit started on plaquenil. Interim history: She feels like she has overall been doing well. No new rashes. She has been tolerating the Plaquen[place]well. No recent illness. She ran out of plaquenil and started noticing some symptoms returning including pain in the back andalso an itching sensation that improved when she started Plaquenil. She had been off of this for about a week when she started noticing the symptoms. Since that time she has received a refill and restarted this medication. She has not seen dermatology yet. Factor 10 has been therapeutic so now is having this checked monthly. She is taking warfarin 10 mg everyday except 2 days a week. No swelling. No other new stiffness. No ulcers. No pain with deep breathing. ROS: Limited review of system completed over video today and negative unless noted above PMH: Updated in EMR Outpatient Encounter Medications as of 06/24/2021 Medication Sig Dispense Refill ??? acetaminophen (TYLENOL) [...] tablet TAKE 2 TABLETS BY MOUTH DAILY 180 Tablet 0 ??? lisinopril (ZESTRIL) 5 MG [...] facility-administered encounter medications on file as of 06/24/2021. ALLERGIES: Updated in EMR Social History Tobacco Use Smoking Status Not on file Smokeless Tobacco Not on file Social History Substance and Sexual Activity Alcohol Use Not on file MEDS: Reviewed and updated in the computerized record. Physical exam: VIDEO There were no vitals taken for this visit. General: Alert, no distress, appears comfortable Eyes: anicteric, no erythema, EOMI ENT: mask in place, patient at work Resp: breathing comfortably on room air. Skin: Continues to have some raise acneiform erythematous lesions on the forehead. Neuro: AOx3. Normal speech MSK: Not examined Labs: No results found for: WBC, RBC, [...] Protein, Urine Qual (mg/dL) Negative 03/19/2021 Specific Somis, Urine 1.010 03/19/2021 Urobilinogen, Urine (EU/dL) 0.2 [...] LAD with KENDALL evidence of marantic endocarditis. 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 We reviewed her additional blood work. Her ARPIT is 1:80 with negative dsDNA and anti SM. Complement normal.UPC normal. ESR slightly elevated with normal CRP. She continues be be borderline in meeting criteria for SLE in addition to her APS, and discussed that evaluation by dermatology for her rash given hernew diagnosis of APS would be helpful as this could make her clinical picture more clear if her skinfindings are consistent with SLE as well. At initial visit elected to start plaquenil. She has been t olerating this well and did have a period when she was without this for 1 week and noted some mild symptoms returning including back pain and pruritis. Advised to continue this. She [facility] [place] [facility] for her cou[facility] management. She has not yet had her eye exam scheduled. Will obtaining monitoring blood work and CXR to check for resolution of previously noted GGO. Will plan on follow up in person in 12 weeks. PLAN: - continue plaquenil 400 mg daily - schedule eye exam - schedule dermatology appt - continue warfarin and monitoring as per hematology - monitoring labs - CXR - follow up with cardiology - call if new or changing symptoms develop - follow up in 12 weeks Patient advised to call clinic if symptoms change or worsen or if new symptoms develop. All of the patient's questions were answered to the best of my ability. TT spent 35 minutes. Visit completed via [employer]. Patient at work, provider in clinic. Cassia Goff MD [facility] Rheumatology RTMENT [employer] documented in this encounter Plan of Treatment Upcoming Encounters Date Type Specialty Care Team Description 04/07/2022 Appointment General Dentistry [place], [facility] [address] [place], [place] [id number] (Wo rk) documented as of this encounter Results XR Chest 2 Views [...] Other and unspecified nonspecific immuno logical findings Arthralgia, unspecified joint Rash and nonspecific skin eruption Rash and other nonspecific skin eruption Marantic endocarditis (HRC) Endocarditis, valve unspecified, unspeci fied cause Ground glass opacity present on imaging of lung Antiphospholipid antibody syndrome (HRC) Primary hypercoagulable state High risk medication use Encounter for long-term (current) use of other medications documented in this encounter
[2022-03-31 11:23] LABS: Albumin* 4.3 g/dL (3.3-5.0); Chloride* 104 mmol/L (96-114)
[2022-03-31 11:24] LABS: Sodium* 137 mmol/L (135-149)
[2022-03-31 11:26] LABS: Aspartate Amino Transferase* 21 U/L (12-35); Bilirubin Total* 0.4 mg/dL (0.1-1.5); Carbon Dioxide* 24 mmol/L (20-32); Creatinine* 0.8 mg/dL (0.5-1.5); Estimated Glomerular Filt Rate 97 ml/min
[2022-03-31 11:27] LABS: Alanine Aminotransferase* 17 U/L (4-35); Alkaline Phosphatase* 88 U/L (40-150); Blood Urea Nitrogen* 14 mg/dL (5-24); Calcium* 8.9 mg/dL (8.4-10.6); Glucose* 108 mg/dL (60-115); Total Protein* 6.9 g/dL (6.0-8.3)
[2022-03-31 11:37] LABS: Vitamin D 25 Hydroxy* 16 ng/mL (30-80)
== END 2022-03-31 07:40 | disposition home or self-care (01) ==
PROVIDERS: Internal Medicine; PCP Family Medicine; Visit Provider Nurse Practitioner Family
DX: F32.A Depression, unspecified (principal); D68.61 Antiphospholipid syndrome; F90.9 Attention-deficit hyperactivity disorder, unspecified type; Z79.899 Other long term (current) drug therapy
CPT/HCPCS: 80053; 82306; 84443; 85130

== ENCOUNTER 2022-06-23 12:51 | Outpatient (CLI) | payer OTHER, SELFPAY ==
--- NOTE | 2022-06-23 13:00 | CRLHL7_ITS ---
For Patients: As a result of the Century Cures Act, medical imaging exams and procedure reports are released immediately into your electronic medical record. You may view this report before your referring provider. If you have questions, please contact your health care provider. BILATERAL SCREENING MAMMOGRAM WITH COMPUTER-AIDED DETECTION AND TOMOSYNTHESIS TECHNIQUE: CC and MLO views were obtained. These mammographic images have been obtained using full-field digital technique. These mammographic images were interpreted with the benefit of computer-aided detection. Breast Tomosynthesis was used in this interpretation. COMPARISON FILM: Baseline. FINDINGS: The breasts are almost entirely fatty IMPRESSION: There is no radiographic evidence for malignancy. ASSESSMENT: BI-RADS Category 2: Benign RECOMMENDATION: Routine screening mammogram in 1 year. A lay language report of this examination will be provided to the patient. Yohan Aranda M.D. Diagnostic Radiologist [email or web address] NADINE/Dictated by: Yohan Aranda MD @ 06/23/2022 1:50:00 PM (Electronically Signed)
== END 2022-06-23 12:52 | disposition home or self-care (01) ==
LOC: MAMMO 12:53
PROVIDERS: PCP Family Medicine; Visit Provider Internal Medicine
DX: Z12.31 Encounter for screening mammogram for malignant neoplasm of breast (principal)
CPT/HCPCS: 77063; 77067

== ENCOUNTER 2022-12-23 13:44 | Outpatient (CLI) | payer OTHER, SELFPAY | END 2022-12-23 13:45 | disposition home or self-care (01) | LOC: NFLDREF 13:46 | PROVIDERS: PCP Internal Medicine; Visit Provider Internal Medicine | DX: D50.9 Iron deficiency anemia, unspecified (principal); D68.61 Antiphospholipid syndrome; E66.01 Morbid (severe) obesity due to excess calories; Z68.41 Body mass index [BMI] 40.0-44.9, adult; R79.89 Other specified abnormal findings of blood chemistry | CPT/HCPCS: 82306; 85130 ==

== ENCOUNTER 2023-08-24 08:20 | Outpatient (CLI) | payer OTHER, SELFPAY | END 2023-08-24 08:21 | disposition home or self-care (01) | LOC: NFLDREF 08-25 07:32 | PROVIDERS: PCP Internal Medicine; Referring Provider Internal Medicine; Visit Provider Internal Medicine | DX: E66.01 Morbid (severe) obesity due to excess calories (principal); D68.61 Antiphospholipid syndrome; I25.2 Old myocardial infarction | CPT/HCPCS: 80061; 82947; 85130 ==

== ENCOUNTER 2023-10-28 07:48 | Outpatient (CLI) | payer OTHER, SELFPAY ==
--- OUTSIDE RECORDS SUMMARY | 2023-11-21 08:24 | XMS_ITS | Clinical Summary ---
Author Name Unknown Organization [facility] Address [address] [place] [address] Care Team Providers Care Hospitality Job Titles Name Role Phone Concha Stockton MD Primary Care Provider [phone] Source Comments You are receiving this document as you are listed as the primary care provider,follow-up provider, or the patient has been referred to you for consultation.This is in compliance with the Medicare and[employer] [employer] EHR Incentive Program,which states Providers who transition their patient to another setting of careor provider of care or refers their patient to another provider of care shouldprovide summary care record for each transition of care or referral. [facility] Allergies No known active allergies Medications Medication Sig Dispensed Refills Start Date End Date Status lisinopril (ZESTRIL) 5 MG tablet Take 5 mg by mouth daily. Active metoprolol succinate (TOPROL XL) 50 MG 24 hour release tablet Take 50 mg by mouth daily. Active nitroglycerin (NITROSTAT) 0.[address] 0.4 mg under tongue every 5 minutes as needed for Chest Pain. If no relief after 5 min call 911;continue 1 tab every 5 min max 3 tab Active rosuvastatin (CRESTOR) 10 MG tablet Take 7.5 mg by mouth daily. Active warfarin (COUMADIN) 7.5 MG tablet Take by mouth daily. Active azelaic acid (FINACEA) 15 % gel Apply topically two times a day. Active betamethasone dipropionate (DIPROSONE) 0.05 % cream Apply topically daily. Active ferrous gluconate (FERGON) 324 (38 Fe) MG tablet Take 324 mg by mouth daily with breakfast. Active MELATONIN OR Active acetaminophen (TYLENOL) 325 MG tablet Take 325-650 mg by mouth every 4 hours as needed for Pain. Active escitalopram (LEXAPRO) 10 MG tablet Take 20 mg by mouth daily. 08/25/2021 Active amphetamine-dextroamp hetamine XR (ADDERALL XR) 20 MG 24 hour release capsule Take 20 mg by mouth every morning. 04/06/2022 Active Melatonin 10 MG TABS Take 10 mg by mouth. Active hydroxychloroquine (PLAQUENIL) 200 MG tablet TAKE 2 TABLETS(400 MG) BY MOUTH DAILY 60 Tablet 06/09/2023 Active Active Problems Problem Noted Date Diagnosed Date Anxiety 04/07/2022 Anticoagulation goal of INR 2 to 3 04/07/2022 Acne 04/07/2022 Antiphospholipid antibody syndrome 10/01/2021 Anti-phospholipid syndrome 03/16/2021 Marantic endocarditis 12/17/2020 SEVERO (iron deficiency anemia) 12/13/2020 NSTEMI (non-ST elevated myocardial infarction) 0 12/13/2020 Depression 12/13/2020 Borderline hypertension 12/13/2020 Menorrhagia 12/13/2020 Overview: Currently better because of progesterone IUD. Morbid obesity with BMI of 50.0-59.9, adult 12/02 History of non-ST elevation myocardial infarctio n (NSTEMI) 12/12/2020 Lupus anticoagulant disorder 12/02/2020 Status post laparoscopic appendectomy 06/23/2017 Status post tubal ligation 01/20/2017 Acne rosacea 09/26/2013 Status post delivery 10/27/2010 Immunizations Name Administration Dates Next Due Flu Vac (3+ yrs) 05/03/2011,03/20/2010 Flublok (RIV4) 04/04/2019 Fluzone Qiv Multidose Vial 0.25 (6-35 Mos) 06/24 HepB Adult (Engerix-B, 20+ yrs, 3 dose series) 0 11/20/2018 HepB Adult (Heplisav-B, 19+ yrs, 2 dose series) 11/20/2018 Influenza IIV4 (Quadrivalent) 0.5mL (80918) 08/2018,04/14/2015 Pfizer Monovalent 12+ Purple Top 04/17/2021,03/05 Tdap 11/12/2016,02/09/2008 Social History Tobacco Use Types Packs/Day Years Used Date Smoking Tobacco: Former Smokeless Tobacco: Never Tobacco Cessation:Counseling Given: Not Answered Alcohol Use Standard Drinks/Week Comments Yes 0 (1 standard drink = 0.6 oz pur e alcohol) Sex and Gender Information Value Date Recorded Sex Assigned at Not on file Gender Identity Not on file Sexual Orientation Not on file Last Filed Vital Signs Vital Sign Reading Time Taken Comments Blood Pressure 107/69 10/01/2021 9:00 AM CDT Pulse 86 07/01/2023 2:04 PM TELEMETRY RN Temperature 36.4 ??C (97.5 ??F) 03/19/2021 11:08 AM C DT Respiratory Rate - - Oxygen Saturation - - Inhaled Oxygen Concentration - - Weight 142 kg (313 lb) 03/19/2021 11:08 AM CDT Height 167.6 cm (5' 6) 03/19/2021 11:08 AM CDT Body Mass Index 50.52 03/19/2021 11:08 AM CDT Plan of Treatment Health Maintenance Due Date Last Done Comments Cervical Cancer Screening Due 1985 Hep C Screening (Preventive Services) 1985 HIV Screening (Preventive Services) 1999 Adult Preventive Visit 09/14/2001 HepB (2) 12/18/2018 11/20/2018, 11/20/2018 COVID-19 Vaccine ( season) 2023 11/11/2021, 04/17/2021, 03/27/2021 Influenza (Season Ended) 2024 019, 04/04/2019, 06/24/2017, Additional history exists DTaP/Tdap/Td (3 - Tdap) 11/12/2026 11/12/2016, 02/08 Zoster/Shingles (1 of 2) 09/14/2033 HPV Vaccine Aged Out No longer eligi ble based on patient's age to complete this topic HepA Aged Out No longer eligi ble based on patient's age to complete this topic Hib Aged Out No longer eligi ble based on patient's age to complete this topic IPV (Polio) Aged Out No longer eligi ble based on patient's age to complete this topic MCV4 Aged Out No longer eligi ble based on patient's age to complete this topic Pneumococcal Aged Out No longer eligi ble based on patient's age to complete this topic Care Teams Hospitality Job Titles Relationship Specialty Start Date End Date Concha Stockton MD [address] [place] [address] PCP - General Internal Medicine 10/27/22
--- OUTSIDE RECORDS SUMMARY | 2023-11-21 08:24 | XMS_ITS | Clinical Summary ---
Author Name Unknown Organization [facility] Address [place], [place] [address] Care Team Providers Care Courtesy Car Driver Name Role Phone Aida Joens MD Unavailable Jackeline Montes De Oca MD Primary Care Provider + Allergies Active Allergy Reactions Criticality Noted Date Comments Blood-Group Specific Substance 03/21/2010 Patient has a Non-Specific Antibody. Blood product orders may be delayed. Medications Medication Sig Dispensed Refills Start Date End Date Status FERROUS SULFATE 324 OR 325 MG, 65 MG IRON, TABLET Take 1 Tablet by mouth once every other day. 09/17/2020 Active azelaic acid (FINACEA) 15 % topical gel Apply topically to affected area(s) 2 times daily if needed. 11/11/2020 Active betamethasone dipropionate 0.05% (DIPROSONE 0.05% CREAM) 0.05 % cream Apply topically to affected area(s) at bedtime if needed. 11/05/2020 Active doxycycline monohydrate (MONODOX) 100 mg capsule Take 100 mg by mouth once every other day. 10/13/2020 Active FLUoxetine (PROZAC) 40 mg capsule Take 40 mg by mouth once daily. 10/15/2020 Active acetaminophen (TylenoL) 325 mg tablet Take 650 mg by mouth 3 times daily if needed. Max acetaminophen dose: 4000mg in 24 hrs. Active melatonin 10 mg tab Take 10 mg by mouth at bedtime if needed. Active nitroglycerin (NITROSTAT) 0.4 mg sublingual tabletIndications:N STEMI (non-ST elevated myocardial infarction) (HC) Place 1 Tablet (0.4 mg) under the tongue every 5 minutes if needed. 25 Tablet 2 12/18/2020 Active warfarin (COUMADIN) 7.5 mg tabletIndications:M arantic endocarditis,Lupus anticoagulant disorder (HC) Take 1 Tablet by mouth once daily. 30 Tablet 12/18/2020 Active lisinopriL (PRINIVIL; ZESTRIL) 5 mg tabletIndications:N STEMI (non-ST elevated myocardial infarction) (HC) Take 1 Tablet (5 mg) by mouth once daily. 90 Tablet 3 11/20/2021 Active Active Problems Problem Noted Date Diagnosed Date Lupus anticoagulant disorder 12/17/2020 [place] endocarditis 12/17/2020 NSTEMI (non-ST elevated myocardial infarction) 0 12/13/2020 Morbid obesity with BMI of 50.0-59.9, adult 12/02 Depression 12/13/2020 SEVERO (iron deficiency anemia) 12/13/2020 Menorrhagia 12/13/2020 Overview: Currently better because of progesterone IUD. Borderline hypertension 12/13/2020 Acne rosacea 09/26/2013 Resolved Problems Problem Noted Date Diagnosed Date Resolved Date 05/09/2015 03/17/2017 Overview: GBS + Adacel given November 2016 A+, non-specific antibody noted (no history of blood transfusion) UTI (lower urinary tract infection) 01/02/2013 12/25/2013 Supervision of normal first 05/20/2010 08/18/2011 Encounters Date Type Department Care Team Description 10/28/2023 Lab Requisition [facility] [phone] Concha Stockton MD 09/02/2023 3:00 PM PROJECT MANAGER FINANCE Office Visit [facility] & [address] [address] Jean-Paul Sherwood MD 08/24/2023 Lab Requisition [facility] [phone] Concha Stockton MD from Last 3 Months Immunizations Name Administration Dates Next Due Influenza, IIV3 (Age >=3 years) 05/03/2011,03/20 Influenza, IIV4 04/14/2015 Tdap 11/12/2016,02/09/2008 Tuberculin (PPD) 07/10/2018 Family History Medical History Relation Name Comments Good Health Father Diabetes Maternal Grandfather Cancer Maternal Grandmother ovarian Diabetes Maternal Grandmother Diabetes Mother Premature CHD (under age 60) Mother [place] in her 50s Premature CHD (under age 60) Other a lot of dad's family young, but not sure of cause Relation Name Status Comments Father Maternal Grandfather Maternal Grandmother Mother Other Social History Tobacco Use Types Packs/Day Years Used Date Smoking Tobacco: Former Cigarettes 0.5 20 Smokeless Tobacco: Never Tobacco Cessation:Counseling Given: Yes Alcohol Use Standard Drinks/Week Comments Not Currently 0 (1 standard drink = 0.6 oz pur e alcohol) recently cut back PHQ-2 Answer Date Recorded PHQ-2 TOTAL SCORE 1 12/30/2020 Social Connections Answer Date Recorded Frequency of Communication with Friends and Fami ly Not on file 06/29/2021 Financial Resource Strain Answer Date R ecorded Difficulty of Paying Living Expenses Not on file 06/29/2021 Difficulty of Paying Living Expenses Not on file 06/29/2021 Sex and Gender Information Value Date Recorded Sex Assigned at Not on file Gender Identity Not on file Sexual Orientation Not on file Obstetrics History Para Term AB IAB SAB Ectopic Multiple Livin g Live Births 3 0 0 1 0 1 1 1 Date Outcome GA Total Labor Labor/2nd/3rd Weight Sex Delivery Anes PTL Candie A1 A5 Name Cl in F Robyn ng Comments:System Genera rory. Please review and update details. SAB Comments for failure to pro deep after SROM. Considering Last Filed Vital Signs [...] (ht and wt on same day) for age 18+ 06/23/2018 06/23/2017, 12/30/2016, 12/08/2016, Additional history exists Depression screening for age 12+ 01/02/2022 01/02/2021, 12/31/2020, 12/30/2020, Additional history exists Pap test for age 21-65 11/06/2023 , 11/05/2020, 09/06/2016, Additional history exists Influenza for age 9-49 03/04/2024 5, 05/03/2011, 03/20/2010 Tetanus booster 11/12/2026 11/12/2016, 02/2008, 02/09/2008 HIV for age 15-65 Completed 07/02/2016, , 03/20/2010 Hepatitis C screening for age 18-79 Completed 07/02/2016, 04/14/2015 Tdap Completed 11/12/2016, 02/09/2008 COVID-19 vaccine series Completed 08/29/19 24, 11/11/2021, 04/17/2021, Additional history exists Pneumococcal series for age 6-64 Aged Out No longer eligible based on patient's age to complete this topic Procedures Procedure Name Priority Date/Time Associated Diagnosis Comments EXTRA TUBE BLUE Routine 10/28/2023 7:48 AM CDT EXTRA TUBE BLUE Routine 10/28/2023 7:48 AM CDT FACTOR 10 CHROMOGENIC Routine 10/28/2023 7:48 AM CDT FACTOR 10 CHROMOGENIC Routine 08/24/2023 8:20 AM PROJECT MANAGER FINANCE HUMAN RESOURCES EXECUTIVE THIN PREP PAP SCREEN IMAGED Routine 11/05/2020 9:55 AM CDT ANTI HIV 1/2 Routine 07/02/2016 9:37 AM PROJECT MANAGER FINANCE 9 weeks gestation of ANTI HCV Routine 07/02/2016 9:37 AM PROJECT MANAGER FINANCE 9 weeks gestation of from Last 3 Months or Most Recently Relevant to Health Maintenance Results * EXTRA TUBE BLUE (10/28/2023 7:48 AM CDT) Only the most recent of2 resultswithin the time period is included. Blood BLOOD SPECIMEN / Unknown Client Collect / Unknown 10/28/2023 7:48 AM CDT 10/28/2023 4:31 PM CDT Concha Stockton MD LABORATORY Performing Organization Address City/[facility]/ZIP Co de Phone Number [facility] [address] [place] [address], * (ABNORMAL) FACTOR 10 CHROMOGENIC (10/28/2023 7:48 AM CDT) Only the most recent of2 resultswithin the time period is included. FACTOR 10 CHROMOGENIC 19(L) 65 - 130 % 10/28/2023 4:51 PM CDT [facility] Blood BLOOD SPECIMEN / Unknown Client Collect / Unknown 10/28/2023 7:48 AM CDT 10/28/2023 4:31 PM CDT Narrative [facility] - 10/28/2023 4:51 PM CDT Therapeutic Range 20-40% Concha Stockton MD SEND OUTS Performing Organization Address City/[facility] Co de Phone Number [facility] [address] [place] [address], * HUMAN RESOURCES EXECUTIVE THIN PREP PAP SCREEN IMAGED (11/05/2020 9:55 AM CDT) Case Report Gynecologic Cytology Report ? Case: [id number] ? Authorizing Provider: ??Lucy Silvestre PA-C ?Collected: ? 11/05/2020 0955 ? Ordering Location: ? [facility] ?Received: ?11/06/2020 1014 ? First Screen: ?Kayy, Malcolm ? Pathologist: ? Helen Mccray MD ? Specimen: ?HUMAN RESOURCES EXECUTIVE ThinPrep Vial Screening, Cervical/Vaginal ? 11/13/2020 3:21 PM CDT [facility] INTERPRETATION/ RESULT NEGATIVE FOR INTRAEPITHELIAL LESION OR MALIGNANCY (NIL) (none) 11/13/2020 3:21 PM CDT [facility]-C ENTRAL LABORATORY R NON-NEOPLASTIC FINDING(S) Reactive cellular changes associated with inflammation/repa ir 11/13/2020 3:21 PM CDT [facility] [employer] LABORATORY-C ENTRAL LABORATORY SPECIMEN ADEQUACY Satisfactory for evaluation Endocervical component present 11/13/2020 3:21 PM CDT [facility]-C ENTRAL LABORATORY HPV REQUEST HPV and PAP 11/13/2020 3:21 PM CDT [facility] EN[facility]AL LABORATORY Date of LMP 10/18/2020 11/13/2020 3:21 PM CDT [facility] Last Pap Date 11/13/2020 3:21 PM CDT [facility] Comment:Unknown Menstrual Status Abnormal bleeding 11/13/2020 3:21 PM CDT [facility] Additional Information 11/13/2020 3:21 PM T [facility] Comment: Interpreted at [facility] - [address], [place] [address] Automated Review Successful 11/13/2020 3:21 PM T [facility] Comment:Specimen processed s uccessfully by automated retail assistant device, MedTech SolutionsPrep Imaging System, [employer] ANCILLARY TESTING HUMAN RESOURCES EXECUTIVE HPV Ordered, Please see separate report 11/13/2020 3:21 PM T [facility] Note The pap test is a screening technique, not a diagnostic procedure. It is used primarily to screen for squamous cancers and precursor lesions. Published studies have shown that it is subject to both false negative and false positive results. The pap test should not be used as the sole means to diagnose or exclude pre-malignant and malignant lesions. 11/13/2020 3:21 PM T [facility] Other (Cervical/Vagina l) 11/05/2020 9:55 AM CDT 11/06/2020 10:14 AM CDT Lucy Deejay Silvestre PA-C PATHOLOGY/CYTOLOGY [facility] [address] [place] [address], * ANTI HCV (07/02/2016 9:37 AM PROJECT MANAGER FINANCE) HEPATITIS C ANTIBODY Non-Reacti ve Non-Reacti ve 07/02/2016 5:30 PM PROJECT MANAGER FINANCE [facility] Blood BLOOD SPECIMEN / Unknown Venipuncture / Unknown 07/02/2016 9:37 AM PROJECT MANAGER FINANCE 07/02/2016 9:37 AM PROJECT MANAGER FINANCE Narrative [facility] - 07/02/2016 5:30 PM PROJECT MANAGER FINANCE Antibodies to HCV not detected; does not exclude the possibility of exposure to HCV. Deysi BRUMFIELD SEND OUTS [facility] [address] [place] [address], [place] * ANTI HIV 1/2 (07/02/2016 9:37 AM PROJECT MANAGER FINANCE) HIV-1/HIV-2 ANTIBODY Non-Reacti ve Non-Reacti ve 07/02/2016 5:30 PM PROJECT MANAGER FINANCE [facility] Blood BLOOD SPECIMEN / Unknown Venipuncture / Unknown 07/02/2016 9:37 AM PROJECT MANAGER FINANCE 07/02/2016 9:37 AM PROJECT MANAGER FINANCE Narrative [facility] - 07/02/2016 5:30 PM PROJECT MANAGER FINANCE HIV-1 p24 and HIV-1/HIV-2 Ab not detected Deysi BRUMFIELD SEND OUTS [facility] [address] [place] [address], [place] from Last 3 Months or Most Recently Relevant to Health Maintenance Advance Directives * Full Code (Latest Code Status on File) Date Activated Date Inactivated Comments 12/13/2020 2:00 AM 12/18/2020 6:13 PM Question Answer Comments Code Status Discussion: Not Discussed Care Teams Courtesy Car Driver Relationship Specialty Start Date End Date Jackeline Montes De Oca MD [address] [place] [address] PCP - General Family Practice 12/13/20 Aida Jones MD SAMPLE WORKER Obstetrics and Gynecology 11/13/12
== END 2023-10-28 07:49 | disposition home or self-care (01) ==
LOC: NFLDREF 11-21 08:22
PROVIDERS: PCP Internal Medicine; Referring Provider Internal Medicine; Visit Provider Internal Medicine
DX: D68.61 Antiphospholipid syndrome (principal); R73.03 Prediabetes
CPT/HCPCS: 80048; 85130

== ENCOUNTER 2023-11-29 08:13 | Outpatient (CLI) | payer OTHER, SELFPAY ==
--- NOTE | 2023-11-29 08:15 | CRLHL7_ITS ---
For Patients: As a result of the Century Cures Act, medical imaging exams and procedure reports are released immediately into your electronic medical record. You may view this report before your referring provider. If you have questions, please contact your health care provider. BILATERAL SCREENING MAMMOGRAM WITH COMPUTER-AIDED DETECTION AND TOMOSYNTHESIS TECHNIQUE: CC and MLO views were obtained. These mammographic images have been obtained using full-field digital technique. These mammographic images were interpreted with the benefit of computer-aided detection. Breast Tomosynthesis was used in this interpretation. COMPARISON FILM: 06/23/22. FINDINGS: There are scattered areas of fibroglandular density IMPRESSION: There is no radiographic evidence for malignancy. ASSESSMENT: BI-RADS Category 1: Negative RECOMMENDATION: Routine screening mammogram in 1 year. A lay language report of this examination will be provided to the patient. Yohan Aranda M.D. Diagnostic Radiologist [email or web address] NADINE/Dictated by: Yohan Aranda MD @ 11/30/2023 9:51:00 AM (Electronically Signed)
--- OUTSIDE RECORDS SUMMARY | 2023-11-29 08:15 | XMS_ITS | Clinical Summary ---
Author Organization [employer] [facility] Address [place], [place] [address] Care Team Providers Care Gear Tooth Lapping Machine Operator Name Role Phone Aida Jones MD Unavailable [...] Department Care Team Description 10/28/2023 Lab Requisition [facility] [phone] Concha Sotckton MD 09/02/2023 3:00 PM POT PUSHER Office Visit [facility] & [address] [address] Jean-Paul Sherwood MD from Last 3 Months Immunizations Name Administration Dates Next Due Influenza, IIV3 (Age >=3 years) 05/03/2011,03/20 Influenza, IIV4 04/14/2015 Tdap 11/12/2016,02/09/2008 Tuberculin (PPD) 07/10/2018 Family History Medical History Relation Name Comments Good Health Father Diabetes Maternal Grandfather Cancer Maternal Grandmother ovarian Diabetes Maternal Grandmother Diabetes Mother Premature CHD (under age 60) Mother [place] in her 50s Premature CHD (under age [...] 10 CHROMOGENIC Routine 10/28/2023 7:48 AM CDT DOMINATRIX THIN PREP PAP SCREEN IMAGED Routine 11/05/2020 9:55 AM CDT ANTI HIV 1/2 Routine 07/02/2016 9:37 AM POT PUSHER 9 weeks gestation of ANTI HCV Routine 07/02/2016 9:37 AM POT PUSHER 9 weeks gestation of from Last 3 Months or Most Recently Relevant to Health Maintenance Results * EXTRA TUBE BLUE (10/28/2023 7:48 AM CDT) Only the most recent of2 resultswithin the time period is included. Blood BLOOD SPECIMEN / Unknown Client Collect / Unknown 10/28/2023 7:48 AM CDT 10/28/2023 4:31 PM CDT Concha Stockton MD LABORATORY Performing Organization Address [facility] Co de Phone Number [facility] [address] [place] [address], * (ABNORMAL) FACTOR 10 CHROMOGENIC (10/28/2023 7:48 AM CDT) FACTOR 10 CHROMOGENIC 19(L) 65 - 130 % 10/28/2023 4:51 PM CDT [facility] Blood BLOOD SPECIMEN / Unknown Client Collect / Unknown 10/28/2023 7:48 AM CDT 10/28/2023 4:31 PM CDT Narrative [facility] - 10/28/2023 4:51 PM CDT Therapeutic Range 20-40% Concha Stockton MD SEND OUTS Performing Organization Address [facility] de Phone Number [facility] [address] [place] [address], * DOMINATRIX THIN PREP PAP SCREEN IMAGED (11/05/2020 9:55 AM CDT) Case Report Gynecologic Cytology Report ? Case: [id number] ? Authorizing Provider: ??Lucy Silvestre PA-C ?Collected: ? 11/05/2020 0955 ? Ordering Location: ? [facility] ?Received: ?11/06/2020 1014 ? First Screen: ?Malcolm Sultana ? Pathologist: ? Helen Mccray MD ? Specimen: ?DOMINATRIX ThinPrep Vial Screening, Cervical/Vaginal ? 11/13/2020 3:21 PM CDT [facility] ENTR[facility] LABORATORY INTERPRETATION/ RESULT NEGATIVE FOR INTRAEPITHELIAL LESION OR MALIGNANCY (NIL) (none) 11/13/2020 3:21 PM CDT [facility] ENTR[facility] LABORATORY R NON-NEOPLASTIC FINDING(S) Reactive cellular changes associated with inflammation/repa ir 11/13/2020 3:21 PM CDT [facility] ENTRAL LABORATORY SPECIMEN ADEQUACY Satisfactory for evaluation Endocervical component present 11/13/2020 3:21 PM CDT [facility] LAB[facility]AT[facility] HPV REQUEST HPV and PAP 11/13/2020 3:21 PM CDT [facility] Date of LMP 10/18/2020 11/13/2020 3:21 PM CDT [facility] Last Pap Date 11/13/2020 3:21 PM CDT [facility] Comment:Unknown Menstrual Status Abnormal bleeding 11/13/2020 3:21 PM CDT [facility] Additional Information 11/13/2020 3:21 PM CDT [facility] Comment: Interpreted at [facility] - [address], [place] [address] Automated Review Successful 11/13/2020 3:21 PM CDT [facility] Comment:Specimen processed s uccessfully by automated clerk telegraph service device, [employer] Imaging System, [employer] ANCILLARY TESTING DOMINATRIX HPV Ordered, Please see separate report 11/13/2020 3:21 PM CDT [facility] Note The pap test is a screening technique, not a diagnostic procedure. It is used primarily to screen for squamous cancers and precursor lesions. Published studies have shown that it is subject to both false negative and false positive results. The pap test should not be used as the sole means to diagnose or exclude pre-malignant and malignant lesions. 11/13/2020 3:21 PM CDT [facility] Other (Cervical/Vagina l) 11/05/2020 9:55 AM CDT 11/06/2020 10:14 AM CDT Lucy Silvestre PA-C PATHOLOGY/CYTOLOGY [facility] [address] [place] [address], * ANTI HCV (07/02/2016 9:37 AM POT PUSHER) HEPATITIS C ANTIBODY Non-Reacti ve Non-Reacti ve 07/02/2016 5:30 PM POT PUSHER [facility] Blood BLOOD SPECIMEN / Unknown Venipuncture / Unknown 07/02/2016 9:37 AM POT PUSHER 07/02/2016 9:37 AM POT PUSHER Narrative [facility] - 07/02/2016 5:30 PM POT PUSHER Antibodies to HCV not detected; does not exclude the possibility of exposure to HCV. Deysi BRUMFIELD SEND OUTS [facility] [address] [place] [address], * ANTI HIV 1/2 (07/02/2016 9:37 AM POT PUSHER) HIV-1/HIV-2 ANTIBODY Non-Reacti ve Non-Reacti ve 07/02/2016 5:30 PM POT PUSHER [facility] Blood BLOOD SPECIMEN / Unknown Venipuncture / Unknown 07/02/2016 9:37 AM POT PUSHER 07/02/2016 9:37 AM POT PUSHER Narrative [facility]EN[facility]AL LABORATORY - 07/02/2016 5:30 PM POT PUSHER HIV-1 p24 and HIV-1/HIV-2 Ab not detected Deysi BRUMFIELD SEND OUTS [facility]AL LABORATORY [address] [place] [address], from Last 3 Months or Most Recently Relevant to Health Maintenance Advance Directives * Full Code (Latest Code Status on File) Date Activated Date Inactivated Comments 12/13/2020 2:00 AM 12/18/2020 6:13 PM Question Answer Comments Code Status Discussion: Not Discussed Care Teams Gear Tooth Lapping Machine Operator Relationship Specialty Start Date End Date Jackeline Montes De Oca MD [address] [place] [address] PCP - General Family Practice 12/13/20 Aida Jones MD ODD JOBS DAY WORKER Obstetrics and Gynecology 11/13/12
--- OUTSIDE RECORDS SUMMARY | 2023-11-29 08:15 | XMS_ITS | Clinical Summary ---
Author Organization [facility] Address [address] [place] [address] Care Team Providers Care Shell Press Operator Name Role Phone Concha Stockton MD Primary Care Provider [phone] Source Comments You are receiving this document as you are listed as the primary care provider,follow-up provider, or the patient has been referred to you for consultation.This is in compliance with the Medicare and[facility] EHR Incentive Program,which states Providers who transition their patient to another setting of careor provider of care or refers their patient to another provider of care shouldprovide summary care record for each transition of care or referral. [facility] All[facility] No known active allergies Medications Medication [...] dose series) 11/20/2018 Influenza IIV4 (Quadrivalent) 0.5mL (25023) 1008/2018,04/14/2015 Pfizer Monovalent 12+ Purple Top 04/17/2021,03/05 Tdap [...] AM CDT Pulse 86 07/01/2023 2:04 PM PLASTIC DESIGN APPLIER Temperature 36.4 ??C (97.5 ??F) 03/19/2021 11:08 [...] age to complete this topic Care Teams Shell Press Operator Relationship Specialty Start Date End Date Concha Stockton MD [address] [place] [address] PCP - General Internal Medicine 10/27/22
== END 2023-11-29 08:14 | disposition home or self-care (01) ==
LOC: MAMMO 08:14
PROVIDERS: PCP Internal Medicine; Visit Provider Internal Medicine
DX: Z12.31 Encounter for screening mammogram for malignant neoplasm of breast (principal)
CPT/HCPCS: 77063; 77067

== ENCOUNTER 2024-02-01 10:44 | Emergency (ER) | payer OTHER, SELFPAY ==
[2024-02-01] VITALS (38 sets, daily range): BP systolic 112–141; BP diastolic 57–88; PULSE 64–99; RESP 18–20; TEMP 37.2; O2SAT 94–100; BMI 48.4
--- NOTE | 2024-02-01 11:34 | ED_ITS ---
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 Per cardiology records from September 2023 she is supposed to be On long-term anticoagulation with Coumadin to prevent more clots. She had previously been on rosuvastatin and metoprolol because of her CT, but since the CT was not really related to atherosclerotic coronary vascular disease, both of those meds were stopped in 2021. According to cardiology note from September 2023, she had an CT in 2020 with 100% occlusion of the distal LAD. Cardiac MRI confirmed transmural infarction involving the distal left anterior descending artery. Echo 01/01/2022 Final Impressions: ?1. Technically limited exam. ?2. Echo contrast was administrered to enhance visualization of all left ventricular segments. ?3. Normal LV size, normal wall thickness, normal global systolic function with an estimated EF of 55 - 60%. ?4. Entire distal apex is abnormal. ?5. Right ventricular cavity size is normal, global systolic RV function is normal. ?6. The mitral valve is normal, moderate mitral regurgitation. Comparison Compared to prior exam report of 01/16/2021, there has been no significant change. Apparently missed multiple checkups and with rheum (most recent notes from aug indicate they would provide no more courtesy refills bc of missed appts). Patient says that she had been on Plaquenil because of her anti phospholipid antibody syndrome but since it was not really helping, she went off it and then has not had checkups with her shallot cleaner. She has been seeing her health manager and saw her for her most recent checkup in September. At that time things were fairly stable. She had been on long-term warfarin and the plan was for her to be on warfarin for life She has had a lot of chaos in her life for the past month or 2. She is going through divorce. She is moving out from her ex-'s house into a new house. She has also been drinking again. She says she is drinking perhaps 8 drinks per day over the last month but knows that she needs to cut down. She has not had any alcohol in the past week or so. She has a history of alcohol abuse and had previously been on naltrexone to avoid cravings. She had been off no track some but started on and again a few days ago. In all that [place] she had either run out of her warfarin early or failed to apple picker her prescription. She has not had any warfarin now for 6 days. She has been trying to call the pharmacy to get her refill but apparently has been blocked because her insurance company says it is not time for her to get her warfarin refill (it sounds like the insurance company assume she lost it, and they will not pay for lost meds to be refilled). Yesterday the finally the patient did go to the pharmacy and pay out of pocket to get a warfarin. She had a 10 mg dose of warfarin yesterday, but apparently this is sub therapeutic because she had previously been on 15 mg per day. She normally follows her anticoagulation with Factor Xa levels. She came to the clinic today to get a factor Xa levels checked. Upon talking to the college teacher, they referred her to the clinic nurse who convinced her to come to the ER. She says since Tuesday she has just been feeling a little bit ?off? she has. She has been having some discomfort in her left arm in the antecubital fossa. She has also had a couple of weeks of some shortness of breath and dyspnea with stairs. No dyspnea at rest or while supine. No chest pain. She says she just isn't feeling right for the past few days and feels similar to when she had her heart attack a few years ago. No nausea. No pleuritic chest pain. No swelling in her legs. No abdominal pain. No vomiting. She has not had any alcohol for about a week, she says. She went to the clinic and have phlebotomy this morning. She apparently had some labs drawn, possibly a factor Xa level. She is not sure. Related Data Previous Rx's ?Medication ?Instructions ?Recorded azelaic acid 15 % topical gel 1 applic topical BID #50 grams 10/05/22 (Finacea) sulfacetamide sodium (acne) 10 % 1 applic topical ONCE #118 mL 10/05/22 lotion (suspension) (Klaron) escitalopram oxalate 20 mg tablet 20 mg PO QDAY #90 tabs 10/19/22 (Lexapro) nitroglycerin 0.4 mg sublingual 1 mg (2.5 x 0.4 mg) sublingual .As 12/27/22 tablet Needed PRN chest pain #30 tabs Adderall XR 20 mg capsule,extended 20 mg PO QAM #30 caps 08/01/23 release (dextroamphetamine-amphetamine) hydroxyzine HCl 25 mg tablet 25 - 50 mg (1 - 2 x 25 mg) PO 09/05/23 BID-TID PRN anxiety, insomnia #60 tabs naltrexone 50 mg tablet 50 - 100 mg (1 - 2 x 50 mg) PO 10/13/23 QDAY #180 tabs lisinopril 5 mg tablet 5 mg PO QDAY #90 tabs 12/05/23 warfarin 10 mg tablet 10 mg PO DAILY #90 tabs 01/17/24 Allergies Allergy/AdvReac Type Severity Reaction Status Date / Time No Known Drug Allergies Allergy Verified 02/01/24 13:25 PFSH PFS Surgical History (Updated 12/27/22 @ 08:15 by Concha Stockton MD) History of section ?Z98.891 - History of uterine scar from previous surgery (ICD-10) Status post tubal ligation (01/20/17) ?Z98.51 - Tubal ligation status (ICD-10) Status post laparoscopic appendectomy (06/23/17) ?Z90.49 - Acquired absence of other specified parts of digestive tract (ICD- 10) Social History (Updated 12/27/22 @ 13:38 by Sammie Zavala ~ [facility]) What is your current living situation?: I presently have a place to live Problems where you live: no known problems In the past 12 months, utilities in danger of being shut off: no In the past 12 mos, have been you worried that your food would run out before you had money to buy more?: sometimes true In the past 12 mos, the food you bought just didn't last and you didn't have money to buy more?: never true Smoking Status: Former smoker Do you use any of these nicotine containing products: Vaping Products How often do you have a drink containing alcohol: monthly or less AUDIT-C Alcohol total score: 1 Non-prescribed substance use: denies use How often does anyone, including family, friends and others, physically hurt you : How often does anyone, including family, friends and others, insult or talk down to you: How often does anyone, including family, friends and others, threaten you with harm: How often does anyone, including family, friends and others, scream or curse at you: Little interest or pleasure in doing things: more than half the days Feeling down, depressed, or hopeless: more than half the days service: No Exam Narrative: Exam Narrative: Constitutional: Appears well-developed and well-nourished. Alert. Conversant, but mildly anxious. She has a little bit of a confusing historian and makes a couple of simple mistakes. For instance when talking about her pain she points directly at her left arm but then says she ?right arm? hurting. I am able to cl arify that it is, indeed, her left arm that is been hurting lately. Overall Non toxic. HENT: Head: Atraumatic. Nose: Nose normal. Mouth/Throat: Oral mucosa is clear and moist. no trismus. Pharynx normal. Tonsils symmetric. No tonsillar enlargement, erythema, or exudate. Eyes: Conjunctivae normal. EOM normal. Pupils equal, round, and reactive to light. No scleral icterus. Neck: Normal range of motion. Neck supple. No tracheal deviation present. No JVD Cardiovascular: Normal rate, regular rhythm. No gallop. No friction rub. No murmur heard. Symmetric radial and PT artery pulses Pulmonary/Chest: Effort normal. No stridor. No respiratory distress. No wheezes. No rales. No rhonchi . No tenderness. Abdominal: Soft. Bowel sounds normal. No distension. No mass. No tenderness. No rebound. No guarding. Musculoskeletal: RUE: Normal range of motion. No tenderness. No deformity LUE: Normal range of motion. No tenderness. No deformity RLE: Normal range of motion. No edema. No tenderness. No deformity LLE: Normal range of motion. No edema. No tenderness. No deformity Neurological: Alert and oriented to person, place, and time. Normal strength. CN II-VII intact. No sensory deficit. GCS eye subscore is 4. GCS verbal subscore is 5. GCS motor subscore is 6. Normal coordination Skin: Skin is warm and dry. No rash noted. No pallor. Normal capillary refill. Psychiatric: Normal mood. Normal affect. Const: Vital Signs, click to edit/add: Vital Signs - 24 hr 02/01/24 10:59 02/01/24 13:07 02/01/24 13:10 Temperature 99.0 F Pulse Rate 90 Pulse Rate [Left P ulse Oximeter] 91 Respiratory Rate 18 Blood Pressure 115/62 Blood Pressure [Le ft Upper Arm] 127/66 Pulse Oximetry 95 96 99 Oxygen Delivery Me thod Room Air 02/01/24 13:11 02/01/24 13:15 02/01/24 13:30 Temperature Pulse Rate 86 76 69 Pulse Rate [Left P ulse Oximeter] Respiratory Rate Blood Pressure Blood Pressure [Le ft Upper Arm] Pulse Oximetry 99 99 99 Oxygen Delivery Me thod 02/01/24 13:32 02/01/24 13:45 02/01/24 14:00 Temperature Pulse Rate 64 65 67 Pulse Rate [Left P ulse Oximeter] Respiratory Rate Blood Pressure 123/68 Blood Pressure [Le ft Upper Arm] Pulse Oximetry 98 99 97 Oxygen Delivery Me thod 02/01/24 14:01 02/01/24 14:15 02/01/24 14:30 Temperature Pulse Rate 70 78 83 Pulse Rate [Left P ulse Oximeter] Respiratory Rate Blood Pressure 121/75 Blood Pressure [Le ft Upper Arm] Pulse Oximetry 97 94 100 Oxygen Delivery Me thod 02/01/24 14:35 02/01/24 14:39 02/01/24 14:40 Temperature Pulse Rate 81 80 81 Pulse Rate [Left P ulse Oximeter] Respiratory Rate Blood Pressure 134/71 Blood Pressure [Le ft Upper Arm] Pulse Oximetry 96 100 99 Oxygen Delivery Me thod 02/01/24 14:56 02/01/24 15:00 02/01/24 15:01 Temperature Pulse Rate 68 84 Pulse Rate [Left P ulse Oximeter] Respiratory Rate 18 Blood Pressure 134/79 Blood Pressure [Le ft Upper Arm] Pulse Oximetry 97 98 Oxygen Delivery Me thod 02/01/24 15:30 02/01/24 15:32 02/01/24 16:07 Temperature Pulse Rate 80 77 72 Pulse Rate [Left P ulse Oximeter] Respiratory Rate Blood Pressure 112/67 130/73 Blood Pressure [Le ft Upper Arm] Pulse Oximetry 95 98 98 Oxygen Delivery Me thod 02/01/24 16:08 02/01/24 16:15 02/01/24 16:30 Temperature Pulse Rate 70 83 72 Pulse Rate [Left P ulse Oximeter] Respiratory Rate Blood Pressure Blood Pressure [Le ft Upper Arm] Pulse Oximetry 97 96 97 Oxygen Delivery Me thod 02/01/24 16:32 02/01/24 16:46 02/01/24 17:00 Temperature Pulse Rate 76 70 67 Pulse Rate [Left P ulse Oximeter] Respiratory Rate Blood Pressure 118/57 L Blood Pressure [Le ft Upper Arm] Pulse Oximetry 96 99 98 Oxygen Delivery Me thod 02/01/24 17:02 02/01/24 17:03 02/01/24 17:05 Temperature Pulse Rate 74 70 Pulse Rate [Left P ulse Oximeter] Respiratory Rate 20 Blood Pressure 113/73 Blood Pressure [Le ft Upper Arm] Pulse Oximetry 96 96 Oxygen Delivery Me thod 02/01/24 17:15 02/01/24 17:30 02/01/24 17:32 Temperature Pulse Rate 67 80 68 Pulse Rate [Left P ulse Oximeter] Respiratory Rate Blood Pressure 123/69 Blood Pressure [Le ft Upper Arm] Pulse Oximetry 95 98 98 Oxygen Delivery Me thod 02/01/24 17:32 02/01/24 17:45 02/01/24 18:04 Temperature Pulse Rate 68 87 99 Pulse Rate [Left P ulse Oximeter] Respiratory Rate Blood Pressure 123/69 122/83 Blood Pressure [Le ft Upper Arm] Pulse Oximetry 98 96 100 Oxygen Delivery Me thod 02/01/24 18:15 02/01/24 18:30 02/01/24 18:32 Temperature Pulse Rate 73 78 75 Pulse Rate [Left P ulse Oximeter] Respiratory Rate Blood Pressure 141/88 H Blood Pressure [Le ft Upper Arm] Pulse Oximetry 99 99 94 Oxygen Delivery Me thod Course Vital Signs Vital signs: Initial Vital Signs Temperature 99.0 F 02/01/24 10:59 Temperature Source Temporal Artery Scan 02/01/24 10:59 Pulse Rate 91 02/01/24 10:59 Pulse Rhythm Regular 02/01/24 10:59 Pulse Strength 3+ Normal 02/01/24 10:59 Respiratory Rate 18 02/01/24 10:59 Blood Pressure 127/66 02/01/24 10:59 Blood Pressure Mean 86 02/01/24 10:59 Blood Pressure Position Sitting 02/01/24 10:59 Pulse Oximetry 95 02/01/24 10:59 Oxygen Delivery Method Room Air 02/01/24 10:59 Vital Signs Temperature 99.0 F 02/01/24 10:59 Pulse Rate 91 02/01/24 10:59 Respiratory Rate 18 02/01/24 10:59 Blood Pressure 127/66 02/01/24 10:59 Pulse Oximetry 95 02/01/24 10:59 Oxygen Delivery Method Room Air 02/01/24 10:59 Temperature 99.0 F 02/01/24 10:59 Pulse Rate 75 02/01/24 18:32 Respiratory Rate 20 02/01/24 17:05 Blood Pressure 141/88 H 02/01/24 18:32 Pulse Oximetry 94 02/01/24 18:32 Oxygen Delivery Method Room Air 02/01/24 10:59 Medications Administered Medications: Discontinued Medications Generic Name Dose Route Start Last Admin Trade Name Rikyq PRN Reason Stop Dose Admin Aspirin 324 mg 02/01/24 13:22 02/01/24 14:26 Aspirin 81 Mg Tab.Chew PO 02/01/24 13:23 324 mg ONCE ONE Administration Heparin Sodium (Porcine) 4,000 unit 02/01/24 17:27 02/01/24 17:47 Heparin 5,000 Unit/0.5 Ml Inj IVP 02/01/24 17:28 4,000 unit ONCE ONE Administration Lactated Ringer's 1,000 mls @ 125 mls/hr 02/01/24 17:15 02/01/24 17:30 Lactated Ringers 1000 Ml IV 125 mls/hr .Q8H MANJINDER Administration Heparin Sodium/Dextrose 25,000 unit in 500 mls @ 0 mls/hr 02/01/24 17:30 02/01/24 17:48 Heparin IV 1,000 unit/hr .Q0M MANJINDER 20 mls/hr Administration Protocol Per Protocol Medical Decision Making [facility] Narrative Medical decision making narrative: 38-year-old female presenting to the ER today with left arm discomfort and shortness of breath and generally not feeling well ongoing for the past several days. 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 She is supposed to be manage long-term on warfarin to prevent recurrent clots in the setting of her anti phospholipid antibody syndrome. However she ran out of her warfarin 6 days ago and has not been anticoagulated. The it sounds like she has a complex social situation including a recent divorce, moving how moves, also alcohol abuse for which have made it difficult for her to keep track of her warfarin. She went to the clinic here in [place] today to get her factor Xa level checked and they convinced her to come to the ER because of her symptoms. 1. Cardiac. Has a history of endocarditis related to her anti phospholipid antibody syndrome with clots causing NSTEMI 3 years ago. EKG shows no definitive ischemia but does have nonspecific changes. She has been having symptoms of left arm discomfort for a few days. Troponin is abnormal at 2.01. Indicates non ST-elevation CT. Likely related to endocarditis and thrombosis on her valves. Discussed with Cardiology, Dr. Myers at 1:15 p.m.. He would agree with aspirin for now. We discussed heparin. He recommends holding off on heparin in this situation until she can be evaluated by Cardiology and heme. Repeat 4 hour troponin is actually rising up to 2.7. Discussed again with Cardiology. In the face of stable hemoglobin and rising troponin, with what appears to be chronic anemia, we feel the risk/benefit analysis would favor starting heparin. Will start heparin bolus and drip per ACS protocol. 2. Heme. Patient does have a history of antiphospholipid antibody syndrome and is supposed to on warfarin but has not been taking it for 6 days. She says she did get some warfarin from the pharmacy yesterday and took a single 10 mg dose last night. Ten-day level was drawn this morning in clinic and is a pending. It needs to be sent out for analysis and will not be available here in the ER today. INR drawn in ER this morning is 1.05. White count is normal. Platelet count is normal. hemoglobin is low at 8.3. We do not have any recent hemoglobi measurements. Most recent CBC in the [place] or [facility] system was September 2021. At that time hemoglobin was 13.3. Repeat hemoglobin drawn 4 hours after initial here in the ER is stable at 8.4. MCV low suggests possible iron deficiency and chronic, but chronology unclear. BP abd pulse stable. no signs of active external or internal bleeding. Discussed her anemia in the setting of ACS with Cardiology. Their recommendation is transfusion not indicated with hemoglobin of 8 and stable vital signs. Transfuse if she becomes unstable or has signs of active bleeding. Patient is endorsing generalized weakness and fatigue, shortness of breath progressing for the past couple of weeks. Suspect this is probably a subacute anemia. She denies any black or bloody stools, although not would need evaluation for possible GI bleed. 3. Hepatic. Patient does have a recent history of alcohol abuse but says she is now sober and back on naltrexone. LFTs essentially normal. Lipase normal. No tachycardia, tremulousness, or other signs of alcohol withdrawal at this time. No signs of current alcohol intoxication. 3. Renal/electrolytes - normal Cr. normal K and Mg 4. Pulm- is SOB. Covid neg. CXR shows no pneumonia or chf. no PNTX. consider PE given h/o antiphospholipid and recnet lapse in anticoagualtion. However, no hypoxia or tachycardia or exam findinds of DVT. Overall, not ninfa risk. D dimer is normal, so will hold off on CTPA. 5. not Patient was delayed several hours here in the ER because beds were not available at the receiving center. Transferred by EMS. Lab Data Labs: Lab Results 02/01/24 02/01/24 02/01/24 Range/Units 12:21 12:23 16:16 WBC 9.59 (4.50-11.00) K/uL RBC 4.32 (4.00-5.20) m/uL Hgb 8.3 L 8.4 L (12.0-16.0) gm/dL Hct 29.2 L (33.0-51.0) % MCV 68 L (80-100) fL MCH 19 L (26-34) pg MCHC 28 L (32-36) gm/dL RDW Coeff of Leigh 19.4 H (11.5-15.5) % Plt Count 349 (140-440) K/uL Neut % (Auto) 77.0 H (42.0-72.0) % Lymph % (Auto) 14.7 L (20-44) % [place] % (Auto) 6.5 (0.0-11.0) % Eos % (Auto) 0.9 (0.0-7.0) % Baso % (Auto) 0.7 (0.0-3.0) % Neut # (Auto) 7.40 H (1.7-7.0) K/uL Lymph # (Auto) 1.40 (0.90-2.90) K/uL [place] # (Auto) 0.60 (0.00-0.90) K/UL Eos # (Auto) 0.09 (0.00-0.50) K/uL Baso # (Auto) 0.07 (0.00-0.30) K/uL Abs Immat Gran (auto) 0.02 (0.00-0.30) K/uL Imm/Tot Granulo (auto) 0.2 % INR 1.05 (0.91-1.10) D-Dimer Quant (PE/DVT) 0.36 (0.00-0.50) ug/ml Sodium 136 (135-149) mmol/L Potassium 4.2 (3.6-5.1) mmol/L Chloride 105 (96-114) mmol/L Carbon Dioxide 25 (20-32) mmol/L Anion Gap 6 L (7-15) mEq/L BUN 10 (5-24) mg/dL Creatinine 0.9 (0.5-1.5) mg/dL Estimated Creat Clear 77.79 Estimated GFR 83 ml/min Glucose 119 H (60-115) mg/dL Calcium 9.3 (8.4-10.6) mg/dL Magnesium 2.2 (1.5-2.6) mg/dL Total Bilirubin 0.5 (0.1-1.5) mg/dL AST 45 H (12-35) U/L ALT 23 (4-35) U/L Alkaline Phosphatase 112 (40-150) U/L Troponin I 2.01 H* 2.72 H* (0.01-0.04) ng/mL Total Protein 7.4 (6.0-8.3) g/dL Albumin 4.4 (3.3-5.0) g/dL Lipase 57 (23-300) U/L HCG, Qual Negative (Negative) SARS-CoV-2 (PCR) Negative SARS-CoV-2 (Negative) Influenza Type A (PCR) Negative PCR FLU A (Negative) Influenza Type B (PCR) Negative PCR FLU B (Negative) RSV (PCR) Negative PCR RSV (Negative) Imaging Data Chest x-ray: Attestation: I have reviewed the pertinent imaging results. Radiologist's impression: IMPRESSION: No acute findings and no significant changes from the prior exam. ECG Data Attestation: I personally reviewed and interpreted this ECG as follows: Interpretation: Normal sinus rhythm Rate: 91 [place]: 144 QRS axis: ST segment/T wave: Nonspecific T-wave flattening 3, AVF, lead 1, aVL, V4-V6. No ST segment elevation or depression. QTc: 428 EKG 2. Normal sinus rhythm Rate: 76 [place]: 160 QRS axis: Normal ST segment/T wave: No ST segment elevation or depression. Still nonspecific T- wave flattening V3-V6, 1, aVL, 3, AVF QTc: 432 EKG 3. Normal sinus rhythm Rate: 66 [place]: 152 QRS axis: Normal axis. No pathologic Q-waves. ST segment/T wave: No ST segment elevation or depression. No change compared to EKGs 1. And 2 today. QTc: 394 Discharge Plan Discharge Clinical Impression: Acute non-ST elevation myocardial infarction (NSTEMI), Anti-phospholipid antibody syndrome, Anemia, Alcohol abuse Prescriptions: No Action nitroglycerin 0.4 mg tablet, sublingual 1 mg sublingual .As Needed PRN (Reason: chest pain) Qty: 30 2RF escitalopram oxalate [Lexapro] 20 mg tablet 20 mg PO QDAY Qty: 90 3RF azelaic acid [Finacea] 15 % gel 1 applic topical BID Qty: 50 2RF sulfacetamide sodium (acne) [Klaron] 10 % suspension 1 applic topical ONCE Qty: 118 3RF dextroamphetamine-amphetamine [Adderall XR] 20 mg capsule,extended release 24hr 20 mg PO QAM Qty: 30 0RF hydroxyzine HCl 25 mg tablet 25 - 50 mg PO BID-TID PRN (Reason: anxiety, insomnia) Qty: 60 0RF Rx Instructions: take 1 t po tid prn anxiety; may take 1-2 t at hs for sleep aid naltrexone 50 mg tablet 50 - 100 mg PO QDAY Qty: 180 2RF Rx Instructions: 50 mg daily x7 days then 100 mg daily lisinopril 5 mg tablet 5 mg PO QDAY Qty: 90 2RF warfarin 10 mg tablet 10 mg PO DAILY Qty: 90 1RF Patient Comments: 15mg 6x Weekly. 10mg once a week Follow Up/Referrals: Concha Stockton MD [Primary Care Provider] -
--- NOTE | 2024-02-01 12:09 | CRLHL7_ITS ---
For Patients: As a result of the Century Cures Act, medical imaging exams and procedure reports are released immediately into your electronic medical record. You may view this report before your referring provider. If you have questions, please contact your health care provider. INDICATION: Shortness of breath. TECHNIQUE: Chest 2 views. COMPARISON: Chest radiographs dated 12/12/2020. FINDINGS: Cardiovascular and mediastinum: Heart size is normal. Unremarkable mediastinum. Lungs and pleural spaces: Lungs are clear. No sign of infiltrate or mass. No sign of pleural effusion. No pneumothorax. Bones and soft tissues: No significant findings. IMPRESSION: No acute findings and no significant changes from the prior exam. Dictated by Cristo Caceres MD @ 02/01/2024 12:40:35 PM (Electronically Signed)
[2024-02-01 12:26] LABS: Basophils Absolute Auto 0.07 K/uL (0.00-0.30); Basophils Percent Auto 0.7 % (0.0-3.0); Eosinophils Absolute Auto 0.09 K/uL (0.00-0.50); Eosinophils Percent Auto 0.9 % (0.0-7.0); Hematocrit 29.2 % (33.0-51.0); Hemoglobin* 8.3 gm/dL (12.0-16.0); Immature Granulocytes Abs Auto 0.02 K/uL (0.00-0.30); Immature Granulocytes Pct Auto 0.2 %; Lymphocytes Percent Auto 14.7 % (20-44); Mean Corpuscular HGB Conc 28 gm/dL (32-36); Mean Corpuscular Hemoglobin 19 pg (26-34); Mean Corpuscular Volume 68 fL (80-100); Monocytes Percent Auto 6.5 % (0.0-11.0); Platelet Count* 349 K/uL (140-440); RDW Coefficient of Variation % 19.4 % (11.5-15.5); Red Blood Count 4.32 m/uL (4.00-5.20); White Blood Count* 9.59 K/uL (4.50-11.00)
--- OUTSIDE RECORDS SUMMARY | 2024-02-01 12:28 | XMS_ITS | Clinical Summary ---
Author Organization [facility] Address [address] [place] [address] Care Team Providers Care Stadium Manager Name Role Phone Concha Stockton MD Primary Care Provider [phone] Source Comments You are receiving this document as you are listed as the primary care provider,follow-up provider, or the patient has been referred to you for consultation.This is in compliance with the Medicare and[facility] EHR Incentive Program,which states Providers who transition their patient to another setting of careor provider of care or refers their patient to another provider of care shouldprovide summary care record for each transition of care or referral. [facility] Allerg[facility] No known active allergies Medications Medication [...] dose series) 11/20/2018 Influenza IIV4 (Quadrivalent) 0.5mL (50001) 1008/2018,04/14/2015 Pfizer Monovalent 12+ Purple Top 04/17/2021,03/05 [...] AM CDT Pulse 86 07/01/2023 2:04 PM LEAD ENGINEER Temperature 36.4 ??C (97.5 ??F) 03/19/2021 11:08 [...] 1983 Hep C Screening (Preventive Services) 1983 Mammogram 1983 HIV Screening (Preventive Services) 1999 Adult Preventive Visit 09/14/2001 HepB (2) 12/18/2018 11/20/2018, 11/20/2018 COVID-19 Vaccine ( season) 2023 11/11/2021, 04/17/2021, 03/27/2021 Influenza (#1) 2024 04/04/2019, 1008/2018, 06/24/2017, Additional history exists DTaP/Tdap/Td (3 - [...] age to complete this topic Care Teams Stadium Manager Relationship Specialty Start Date End Date Concha Stockton MD [address] [place] [address] PCP - General Internal Medicine 10/27/22
--- OUTSIDE RECORDS SUMMARY | 2024-02-01 12:28 | XMS_ITS | Clinical Summary ---
Author Organization [facility] [employer] [facility] Address [place], [place] [address] Care Team Providers Care Early Childhood Teacher Assistant Name Role Phone Aida Jones MD Unavailable [...] 12/25/2013 Supervision of normal first 05/20/2010 08/18/2011 Immunizations Name Administration Dates Next Due Influenza, IIV3 (Age >=3 years) 05/03/2011,03/20 Influenza, IIV4 04/14/2015 Tdap 11/12/2016,02/09/2008 Tuberculin (PPD) 07/10/2018 Family History Medical History Relation Name Comments Good Health Father Diabetes Maternal Grandfather Cancer Maternal Grandmother ovarian Diabetes Maternal Grandmother Diabetes Mother Premature CHD (under age 60) Mother [place] in her 50s Premature CHD (under age [...] Outcome GA Total Labor Labor/2nd/3rd Weight Sex Type Anes PTL Candie A1 A5 Name Clin F Living Comments:System Genera rory. 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 Case: [id number] ? Authorizing Provider: ??Lucy Silvestre PA-C ?Collected: ? 11/05/2020 0955 ? Ordering Location: ? [facility] ?Received: ?11/06/2020 1014 ? First Screen: ?Kayy, Malcolm ? Pathologist: ? Helen Mccray MD ? Specimen: ?ARCHITECTURAL COATING FINISHER ThinPrep Vial Screening, Cervical/Vaginal ? 11/13/2020 3:21 PM CDT [facility]- ENTRAL LABORATORY INTERPRETATION/ RESULT NEGATIVE FOR INTRAEPITHELIAL LESION OR MALIGNANCY (NIL) (none) 11/13/2020 3:21 PM CDT [facility]- ENTRAL LABORATORY R NON-NEOPLASTIC FINDING(S) Reactive cellular changes associated with inflammation/repa ir 11/13/2020 3:21 PM CDT [facility] Im[facility] LABORATORY- ENTRAL LABORATORY SPECIMEN ADEQUACY Satisfactory for evaluation Endocervical component present 11/13/2020 3:21 PM CDT [facility] LAB[facility]AT[facility]-C ENTRAL LABORATORY HPV REQUEST HPV and PAP 11/13/2020 3:21 PM CDT [facility] LABORATORY-C ENTRAL LABORATORY Date of LMP 10/18/2020 11/13/2020 3:21 PM CDT [facility] LABORATORY-C ENTRAL LABORATORY Last Pap Date 11/13/2020 3:21 PM CDT [facility] ENTRAL LABORATORY Comment:Unknown Menstrual Status Abnormal bleeding 11/13/2020 3:21 PM CDT [facility] Additional Information 11/13/2020 3:21 PM CDT [facility] Comment: Interpreted at [facility] - [address], [place] [address] Automated Review Successful 11/13/2020 3:21 PM CDT [facility] Comment:Specimen processed s uccessfully by automated sourcing analyst device, [employer] Imaging System, [employer] ANCILLARY TESTING ARCHITECTURAL COATING FINISHER HPV Ordered, Please see separate report 11/13/2020 3:21 PM CDT [facility] Note The pap test is a [...] and malignant lesions. 11/13/2020 3:21 PM CDT [facility] Other (Cervical/Vagina l) 11/05/2020 9:55 AM CDT 11/06/2020 10:14 AM CDT Lucy Silvestre PA-C PATHOLOGY/CYTOLOGY [facility] [address] [place] [address], * ANTI HCV (07/02/2016 9:37 AM INSPECTOR AND CLIPPER) HEPATITIS C ANTIBODY Non-Reacti ve Non-Reacti ve 07/02/2016 5:30 PM INSPECTOR AND [employer]IPPER [facility] TRAL LABORAT[facility] Blood BLOOD SPECIMEN / Unknown Venipuncture / Unknown 07/02/2016 9:37 AM INS[employer]OR AND [employer]IPPER 07/02/2016 9:37 AM [employer]IPPER Narrative [facility] - 07/02/2016 5:30 PM INS[employer]OR [employer]IPPER Antibodies to HCV not detected; does not exclude the possibility of exposure to HCV. Deysi BRUMFIELD SEND OUTS [facility]-CENTRAL LABORATORY [address] [place] [address], [place] * ANTI HIV 1/2 (07/02/2016 9:37 AM INSPECTOR AND [employer]IPPER) HIV-1/HIV-2 ANTIBODY Non-Reacti ve Non-Reacti ve 07/02/2016 5:30 PM INS[employer]OR AND [employer]IPPER [facility] TRAL LABORATORY Blood BLOOD SPECIMEN / Unknown Venipuncture / Unknown 07/02/2016 9:37 AM INS[employer]OR AND [employer]IPPER 07/02/2016 9:37 AM INS[employer]OR AND CLIPPER Narrative [facility]AL [facility] - 07/02/2016 5:30 PM INS[employer]OR AND [employer]IPPER HIV-1 p24 and HIV-1/HIV-2 Ab not detected Deysi Ev [facility]AL LAB[facility]ATORY [address] [place] [address], from Last 3 Months or Most Recently Relevant to Health Maintenance Advance Directives * Full Code (Latest Code Status on File) Date Activated Date Inactivated Comments 12/13/2020 2:00 AM 12/18/2020 6:13 PM Question Answer Comments Code Status Discussion: Not Discussed Care Teams Early Childhood Teacher Assistant Relationship Specialty Start Date End Date Jackeline Montes De Oca MD [address] [place] [address] PCP - General Family Practice 12/13/20 Aida Jones MD [employer] Obstetrics and Gynecology 11/13/12
[2024-02-01 12:29] LABS: Slide Review Reflex No
[2024-02-01 12:43] LABS: Albumin* 4.4 g/dL (3.3-5.0); Chloride* 105 mmol/L (96-114); Sodium* 136 mmol/L (135-149)
[2024-02-01 12:44] LABS: Potassium* 4.2 mmol/L (3.6-5.1)
[2024-02-01 12:45] LABS: HCG Qualitative Serum* Negative (Negative)
[2024-02-01 12:45] LABS: INR 1.05 (0.91-1.10); Prothrombin Time 14.3 Seconds
[2024-02-01 12:46] LABS: Alkaline Phosphatase* 112 U/L (40-150); Anion Gap 6 mEq/L (7-15); Aspartate Amino Transferase* 45 U/L (12-35); Bilirubin Total* 0.5 mg/dL (0.1-1.5); Blood Urea Nitrogen* 10 mg/dL (5-24); Carbon Dioxide* 25 mmol/L (20-32); Creatinine* 0.9 mg/dL (0.5-1.5); Est. Creatinine Clearance* 77.79; Estimated Glomerular Filt Rate 83 ml/min; Glucose* 119 mg/dL (60-115); Total Protein* 7.4 g/dL (6.0-8.3)
[2024-02-01 12:47] LABS: Alanine Aminotransferase* 23 U/L (4-35); Calcium* 9.3 mg/dL (8.4-10.6); Lipase* 57 U/L (23-300); Magnesium* 2.2 mg/dL (1.5-2.6)
[2024-02-01 12:48] LABS: D Dimer Quantitative* 0.36 ug/ml (0.00-0.50)
[2024-02-01 12:59] LABS: Troponin I* 2.01 ng/mL (0.01-0.04)
[2024-02-01 13:02] LABS: PCR FLU A Negative PCR FLU A (Negative); PCR FLU B Negative PCR FLU B (Negative); PCR RSV Negative PCR RSV (Negative); SARS PCR* Negative SARS-CoV-2 (Negative)
[2024-02-01] MEDS: ASPIRIN 81 MG TAB.CHEW 324 MG PO (14:26)
[2024-02-01 16:22] LABS: Hemoglobin* 8.4 gm/dL (12.0-16.0)
[2024-02-01 16:53] LABS: Troponin I* 2.72 ng/mL (0.01-0.04)
[2024-02-01] MEDS: LACTATED RINGERS 1000 ML 1,000 ML 125 ML IV (17:30)
[2024-02-01] MEDS: HEPARIN 5,000 UNIT/0.5 ML INJ 4000 UNIT IVP (17:47)
[2024-02-01] MEDS: HEPARIN 25,000 UNIT/500 ML BAG 20 UNIT IV (17:48)
== END 2024-02-01 18:45 | disposition short-term general hospital (02) ==
PROVIDERS: Emergency Provider Emergency Medicine; PCP Internal Medicine
DX: I21.4 Non-ST elevation (NSTEMI) myocardial infarction (principal); D64.9 Anemia, unspecified; F10.10 Alcohol abuse, uncomplicated
CPT/HCPCS: 36415; 71046; 80053; 83690; 83735; 84484; 84703; 85018; 85025; 85027; 85379; 85610; 85730; 87631; 93005; 99285; 99291; A9270; J1644; J7120

== ENCOUNTER 2024-02-01 18:35 | Outpatient (CLI) | payer OTHER, SELFPAY ==
--- OUTSIDE RECORDS SUMMARY | 2024-02-03 05:46 | XMS_ITS | Continuity of Care Document ---
Author Organization [facility] Address [address] [address] [place] [address] Phone Care Team Providers Care Integration Developer Name Role Phone Butch Gómez MD Unavailable Unavailable Advance Directives Directive Yes / No Effective Date File Name No Information Encounters Encounter Description Practice Location Reason(s) For Visit Diagnoses Date Provider Providers Copied on Encounter [facility], [address] [address], [place], [place], [id number], [place] tel:[phone] [facility] No Information Rico Rae. [address] [facility] [facility] [address], [place], [place], [id number] , [place]. tel:[phone] Family History Family Member Type Diagnosis Age At Onset No Information Payers Payer name Insurance type Covered alliance party ID Authoriza tion(s) No Information Social History Type Description Quantity Date Captured Comments Sex Female Smoking Status No Information Chief Complaint And Reason For Visit No Information Reason For Referral Reason For Referral No Information History Of Present Illness Encounter Date Complaint History Of Prese nt Illness No Information Functional Status Date Functional Assessmen t No Information Instructions Date Instruction Additional Infor mation No Information Assessments Type Assessment Date No Information Patient Care Teams Name Effective Dates (start - stop) Status Members No Information
--- OUTSIDE RECORDS SUMMARY | 2024-02-03 05:46 | XMS_ITS | Clinical Summary ---
Author Organization [facility] Address [place], [place] [address] Care Team Providers Care Surveyor Helper Name Role Phone Aida Jones MD Unavailable [...] Tablet by mouth once every other day. 1 02/01/20 24 Discontinued(P harmacist change per medication history (E-cancel not sent)) azelaic acid (FINACEA) 15 % topical gel Apply topically to affected area(s) 2 times daily if needed. 1 Suspended betamethasone dipropionate 0.05% (DIPROSONE 0.05% CREAM) 0.05 % cream Apply topically to affected area(s) at bedtime if needed. 1 02/01/20 24 Discontinued(P harmacist change per medication history (E-cancel not sent)) doxycycline monohydrate (MONODOX) 100 mg capsule Take 100 mg by mouth once every other day. 1 02/01/20 24 Discontinued(P harmacist change per medication history (E-cancel not sent)) FLUoxetine (PROZAC) 40 mg capsule Take 40 mg by mouth once daily. 1 02/01/20 24 Discontinued(P harmacist change per medication history (E-cancel not sent)) acetaminophen (TylenoL) 325 mg tablet Take 650 mg by mouth 3 times daily if needed. Max acetaminophen dose: 4000mg in 24 hrs. Suspended melatonin 10 mg tab Take 10 mg by mouth at bedtime if needed. 02/01/20 24 Discontinued(P harmacist change per medication history (E-cancel not sent)) nitroglycerin (NITROSTAT) 0.4 mg sublingual tabletIndications :NSTEMI (non-ST elevated myocardial infarction) (HC) Place 1 Tablet (0.4 mg) under the tongue every 5 minutes if needed. 25 Tablet 2 1 Suspended Additional Information warfarin (COUMADIN) 7.5 mg tabletIndications :Marantic endocarditis,Lupu s anticoagulant disorder (HC) Take 1 Tablet by mouth once daily. 30 Tablet 1 02/01/20 24 Discontinued(P harmacist change per medication history (E-cancel not sent)) lisinopriL (PRINIVIL; ZESTRIL) 5 mg tabletIndications :NSTEMI (non-ST elevated myocardial infarction) (HC) Take 1 Tablet (5 mg) by mouth once daily. 90 Tablet 3 2 Suspended Additional Information warfarin (COUMADIN) 10 mg tablet Take 10 mg on Sundays and 15 mg all other days. Suspended dextroamphetamine -amphetamine (ADDERALL XR) 20 mg Extended-Release capsule Take 20 mg by mouth once daily if needed. Suspended escitalopram oxalate (LEXAPRO) 20 mg tablet Take 20 mg by mouth at bedtime. 4 Suspended hydrOXYzine HCL (ATARAX) 25 mg tablet Take 25-50 mg by mouth every 8 hours if needed for Anxiety. Suspended naltrexone (REVIA) 50 mg tablet Take 50 mg by mouth at bedtime. 4 Suspended Active Problems Problem Noted Date Diagnosed Date Chest pain 02/02/2024 Antiphospholipid syndrome 12/17/2020 [place] endocarditis 12/17/2020 NSTEMI (non-ST elevated myocardial infarction) 0 12/13/2020 Morbid obesity with BMI of 50.0-59.9, adult 12/02 Depression 12/13/2020 Anemia 12/13/2020 Menorrhagia 12/13/2020 Overview: Currently better because of progesterone IUD. Borderline hypertension 12/13/2020 Acne rosacea 09/26/2013 Resolved Problems Problem Noted Date Diagnosed Date Resolved Date 05/09/2015 03/17/2017 Overview: GBS + Adacel given November 2016 A+, non-specific antibody noted (no history of blood transfusion) UTI (lower urinary tract infection) 01/02/2013 12/25/2013 Supervision of normal first 05/20/2010 08/18/2011 Encounters Date Type Department Care Team Description 02/03/2024 9:05 AM CDT - 02/03/2024 10:00 AM CDT Surgery [facility] [address] [place] [address] Butch Gómez MD ESOPHAGOGASTRODUODENOSCOPY 02/02/2024 Telephone [facility] [address] [place] [address] Ximena Nelson MD 02/02/2024 Travel 02/01/2024 7:41 PM CDT - Present Hospital Encounter [facility] [address] [place] [address] [facility] [place] Hospitalists [facility], MD Tiago Blanco, Herberth Yeung MD Cardiovascular symptoms 02/01/[address] [address] Paula Dillard MD from Last 3 Months Immunizations Name Administration Dates Next Due Influenza, IIV3 (Age >=3 years) 05/03/2011,03/20 Influenza, IIV4 04/14/2015 Tdap 11/12/2016,02/09/2008 Tuberculin (PPD) 07/10/2018 Family History Medical History Relation Name Comments Good Health Father Diabetes Maternal Grandfather Cancer Maternal Grandmother ovarian Diabetes Maternal Grandmother Diabetes Mother Premature CHD (under age 60) Mother [place] in her 50s Premature CHD (under age [...] of Communication with Friends and Fami ly 0 02/02/2024 Financial Resource Strain Answer Date R ecorded Difficulty of Paying Living Expenses 3 02/02/2024 Difficulty of Paying Living Expenses Not on file 02/02/2024 Food Insecurity Answer Date Recorded Worried About Running Out of Food in the Last Ye ar 1 02/02/2024 Transportation Needs Answer Date Record ed Lack of Transportation (Medical) 1 02/02/2024 Housing Stability Answer Date Recorded Unable to Pay for Housing in the Last Year 1 02/02/2024 Sex and Gender Information Value Date Recorded Sex Assigned at Not on file Gender Identity Not on file Sexual Orientation Not on file Obstetrics History Para Term AB IAB SAB Ectopic Multiple Livin g Live Births 3 2 2 1 0 1 1 1 Date Outcome GA Total Labor Labor/2nd/3rd Weight Sex Type Anes PTL Candie A1 A5 Name Clin Term F CS-Un spec Living Comments:System Genera rory. Please review and update details. SAB Term CS-Un spec Last Filed Vital Signs Vital Sign Reading Time Taken Comments Blood Pressure 143/82 02/03/2024 1:00 AM CDT Pulse 80 02/03/2024 1:00 AM CDT Temperature 36.6 ??C (97.8 ??F) 02/03/2024 1:00 AM CD T Respiratory Rate 16 02/03/2024 1:00 AM CDT Oxygen Saturation 100% 02/03/2024 1:00 AM CDT Inhaled Oxygen Concentration - - Weight 130.4 kg (287 lb 9.4 oz) 02/02/2024 1:17 AM CDT Height 167.6 cm (5' 6) 02/02/2024 2:12 PM CDT Body Mass Index 46.42 02/02/2024 1:17 AM CDT Plan of Treatment Scheduled Procedures Name Priority Associated Diagnoses Date/Ti me ESOPHAGOGASTRODUODENOSCOPY Iron Deficiency 02/03/2024 9:05 AM CDT COLONOSCOPY Iron Deficiency 02/03/2024 9:05 AM CDT Health Maintenance Due Date Last Done Comments [...] patient's age to complete this topic Procedures The patient is currently admitted. The information in this section might not be complete until the patient is discharged. Procedure Name Priority Date/Time Associated Diagnosis Comments SCAN-CARDIAC STRIP 02/03/2024 12:38 AM CDT SCAN-CARDIAC STRIP 02/02/2024 7:55 PM CDT ECHO TTE COMPLETE W CONTRAST Routine 02/02/2024 3:[address] CARDIAC CORONARY ARTERIES DUAL READ Routine 02/02/2024 3:41 PM CDT Procedure Note - Feliciano Dixon MD - 02/02/2024 3:41 PM CDTThis note is in progress. [facility] Cardiac CT Report Name: CHARLEY PINTO : Scan Date: Accession Number: [id number] Status: Final Electronically signed by Feliciano Dixon 16:43:32 VITALS HEIGHT: 66 in (168 cm) WEIGHT: 287 lbs (130 kgs) BSA: 2.33 m^2 BMI: 46 kg/m^2 BP: 105 / 64 mmHg BASELINE HR: 62 BPM HEART RHYTHM: Normal Sinus Rhythm FINAL IMPRESSION 1. Normal epicardial coronary arteries without atherosclerosis. - The distal LAD is patent and likely recanalized compared to priorinvasive coronary angiography from 12/2020. - There is no evidence of large vessel coronary dissection, althoughreduced sensitivity of the test to exclude small distal LAD dissection, where apical infarct is visualizedfrom prior SCAD event. 2. The left ventricle is moderately enlarged in size. There is evidence ofthinning and areas of hypoattenuation in the apical septal and true apex segments. Thesefindings are compatible with prior myocardial infarction in the distal LAD territory. 3. There is evidence of mitral valve thickening, mainly the posteriorleaflet. Please refer to Radiology report to review non cardiovascular findings. STUDY QUALITY: Study quality is good. CAD-RADS: CAD-RADS Classification 0 (0% stenosis). DOMINANCE: Left dominant coronary artery system. LM: The LM is normal. LAD: The LAD is normal. D1: The first diagonal is normal. D2: The second diagonal is normal. LCX: The LCx is normal. OM1: The first obtuse marginal is normal. OM2: The second obtuse marginal is normal. OM3: The third obtuse marginal is normal. LEFT PDA: The left PDA is normal. LEFT PLB: The left posterolateral branch is normal. RCA: The RCA is normal. OTHER FINDINGS: Aortic sinus maximum cusp-cusp: 36 x 34 mm. Descending thoracic aorta maximum diameters: 22 x 21 mm. Pericardium: No effusion. Left atrium: Normal contrast opacification. Atrial septum: No evidence of shunt. Pulmonary veins: Normal anatomy. SCAN INFO TEST TYPE: Coronary CT Angiography SCANNER DENTAL DIRECTOR: [employer] SCANNER MODEL: [employer] DOSE REDUCTION ALGORITHM: Prospective/[id number] PHASE UNITS: % START PHASE: 65 % END PHASE: 75 % EKG GATED: Yes PRE-CONTRAST: No POST-CONTRAST: Yes 3D RECONSTRUCTION: Yes PACEMAKER DEVICE: No GENERAL CONTRAST AGENT CONTRAST AGENT USED?: Yes TYPE: Omnipaque 350 DOSE: 250 ml RATE: 8.5 ml/s ROUTE: IV ARM: Left BOLUS TECHNIQUE: Biphasic SERUM CREATININE: 1.02 mg/dL GFR: 63.79 ml/min/1.73m^2 CREATININE DATE: CT CONTRAST REACTION: None MEDICATION ADMINISTERED DURING SCAN TYPE: Nitroglycerin, sublingual, B-Blockers NITROGLYCERIN, TOTAL DOSE: 0.8 mg B-JACKSON TYPE: IV B-JACKSON NAME, IV: Metoprolol tartrate B-BLOCKERS, IV DOSE: 10 mg NUMBER OF DOSES: 1 RADIATION DOSE DLP: 1720 KV: 120 SETUP PATIENT TYPE: Inpatient REPEAT SCAN: Yes REASON FOR REPEAT SCAN: IV infiltrate twice REASON(S) FOR SCAN: Chest pain, Other... OTHER, SPECIFY:: hx of 100% occluded LAD REFERRING PHYSICIAN: LATESHA BYERS ATTENDING PHYSICIAN: HERBERTH ALEMAN TECHNOLOGIST: [place] Patient Account [id number] Report generated by [employer] a product of [employer] SCAN CORRESP-EKG RESULTS 02/02/2024 2:08 PM CDT URINE Preop 02/02/2024 11:04 AM CDT TSH LETHA 02/02/2024 10:38 AM CDT HCG BETA QUANT, STAT 02/02/2024 10:38 AM CDT ,SERUM Preop 02/02/2024 10:38 AM CDT SCAN-CARDIAC STRIP 02/02/2024 10:17 AM CDT EKG 12 LEAD STAT 02/02/2024 6:29 AM CDT RED CELL MORPHOLOGY Timed 02/02/2024 6:03 AM CDT RETICULOCYTES Today 02/02/2024 6:03 AM CDT CBC WITH AUTO DIFFERENTIAL Early AM 02/02/2024 6:03 AM CDT ALT (SGPT) Early AM 02/02/2024 6:03 AM CDT AST (SGOT) Early AM 02/02/2024 6:03 AM CDT BASIC METABOLIC PANEL Early AM 02/02/2024 6:03 AM CDT CBC WITH AUTO DIFFERENTIAL Early AM 02/02/2024 6:03 AM CDT APTT Timed 02/02/2024 6:02 AM CDT SCAN-CARDIAC STRIP 02/02/2024 4:06 AM CDT BASIC METABOLIC PANEL LETHA 02/02/2024 12:12 AM CDT TROPONIN T (HS) ONE TIME Timed 02/02/2024 12:12 AM CDT APTT Timed 02/02/2024 12:12 AM CDT HAPTOGLOBIN LETHA 02/01/2024 10:02 PM CDT TROPONIN T (HS) ACUTE W/2HR REFLEX LETHA 02/01/2024 10:02 PM CDT RETICULOCYTES LETHA 02/01/2024 9:01 PM CDT VITAMIN B12 LETHA 02/01/2024 9:01 PM CDT IRON PLUS IRON BINDING CAP LETHA 02/01/2024 9:01 PM CDT CREATININE LETHA 02/01/2024 9:01 PM CDT BUN LETHA 02/01/2024 9:01 PM CDT HEMATOCRIT LETHA 02/01/2024 9:01 PM CDT HEMOGLOBIN LETHA 02/01/2024 9:01 PM CDT PLATELET COUNT LETHA 02/01/2024 9:01 PM CDT COMFORT FILLER THIN PREP PAP SCREEN IMAGED Routine 11/05/2020 9:55 AM CDT ANTI HIV 1/2 Routine 07/02/2016 9:37 AM CABLE TV INSTALLER 9 weeks gestation of ANTI HCV Routine 07/02/2016 9:37 AM CABLE TV INSTALLER 9 weeks gestation of from Last 3 Months or Most Recently Relevant to Health Maintenance Results * SCAN-CARDIAC STRIP (02/03/2024 12:38 AM CDT) Scanner OTHER * SCAN-CARDIAC STRIP (02/02/2024 7:55 PM CDT) Scanner OTHER * ECHO TTE COMPLETE W CONTRAST (02/02/2024 3:58 PM CDT) AORTIC VALVE MEAN PG 6 mmHg EJECTION FRACTION 53 % LVEDD 5.9 cm EJECTION FRACTION 50 - 55% Anatomical Region Laterality Modality Ultrasound 02/02/2024 2:53 PM CDT Narrative 02/02/2024 4:10 PM CDT ECHOCARDIOGRAM CHARLEY PINTO ? Accession#: ?? [id number] : ?1985 38 years Study Date: ?? 02/02/2024 2:53:33 PM Gender: F ?BP: ? 105/64 mmHg Height: 168.00 cm ?BSA: ?2.33 m? ? ? Weight: 130.00 kg ?Tech: ? MBL ? Referring MD: DIANN FELTON Site: ? [facility] Reading Location: [facility] Patient Location: Inpatient. Procedure: 2D w/ Contrast, Color Doppler and Spectral Doppler. Indication for study: DYSPNEA, SOB, WHEEZING, TACHYPNEA Cardiac Rhythm: Normal sinus.Study quality: Good. Final Impressions: 1. Mild to moderately increased LV size, normal wall thickness, low normal global systolic function with an estimated EF of 50 - 55%. 2. Entire apex is abnormal. 3. No lv apical thrombus. 4. Right ventricular cavity size is mildly enlarged, global systolic RV function is normal. 5. The aortic valve is sclerotic, no stenosis and no regurgitation. 6. The mitral valve is sclerotic, mild to moderate mitral regurgitation. 7. Echo contrast was administered to enhance visualization of all left ventricular segments. Comparison Compared to prior exam images and report of 01/01/22: - The left ventricular function has decreased. Chamber Sizes and Function Mild to moderately increased left ventricular size, normal wall thickness, low normal global systolic function with an estimated EF of 50 - 55%. Left atrial size is normal. Right ventricular cavity size is mildly enlarged, global systolic RV function is normal. The right atrium is normal. Right atrial volume index is 24 ml/m? ? ?. Right atrial area is 18 cm? ? ?. The pulmonary artery is of normal size and origin. The sinus of Valsalva is normal sized. The ascending aorta is normal sized. The entire apex is hypokinetic. Valves, RV Pressures and Diastolic Function The aortic valve is sclerotic, no stenosis and no regurgitation. The mitral valve is sclerotic, mild to moderate mitral regurgitation. Spectral Doppler shows Grade 1 pattern of LV diastolic filling. The tricuspid valve is normal in structure. Tricuspid regurgitation is trace regurgitation. The pulmonic valve is normal. No pulmonary regurgitation. Masses, Effusion, Shunts There is no pericardial effusion. The inferior vena cava is normal sized, respiratory size variation greater than 50%. No left to right shunting was detected by limited color flow Doppler interrogation of the interatrial septum. MEASUREMENTS AND CALCULATIONS 2-D Measurements and LV Function: LVID (d) 5.9 cm LV FS% (2D) ?? 39 % LVID (s) 3.6 cm LVOT diameter 2.4 cm IVS (d) ??1.0 cm HR ?61 bpm LVPW (d) 0.9 cm LA Vol index ??33 ml/m2 Ao Sinus 3.3 cm RA Vol index ??24 ml/m2 Asc Ao ?? 3.3 cm RA area ? 18 cm?RV Max 4C (d) 4.3 cm Diastology: Mitral E Peak 0.7 m/s A Peak 0.9 m/s E/A ?0.8 DT ? 276 msec Aortic Valve: Vmax ? 1.7 m/s ??ANGELIQUE (V) ?? 3.75 cm? ? ? VTI ?0.32 m ?? ANGELIQUE (I) ?? 3.49 cm? ? ? LVOT V max 1.4 m/s ??Max PG ?11 mmHg LVOT VTI ?? 0.25 m ?? Mean PG ?? 6 mmHg SV ? 114 ml ?? Dim Index 0.77 SV index ?? 49 ml/m? ? ? CO ?6.9 l/min ?CI ?3.0 l/min/m? ? ? Mitral Valve: MVA ?2.7 cm? ? ? MV P 1/2 80 msec Tricuspid Valve and estimated PA pressures: TAPSE 2.2 cm Contrast documentation: 2 ml diluted Definity, lot #[id number], NDC# 39023-970-45 was administered peripherally to enhance visualization of all left ventricular segments. . This study was interpreted by an [facility] accredited facility. ??Final ?? Procedure Note Kwadwo Ruff MD - 02/02/2024 ECHOCARDIOGRAM CHARLEY PINTO : 1985 38 years Study Date: 02/02/2024 2:53:33 PM Gender: F BP: 105/64 mmHg Height: 168.00 cm BSA: 2.33 m? ? ? Weight: 130.00 kg Tech: [facility] Referring MD: DIANN FELTON Site: [facility] Reading Location: [facility] Patient Location: Inpatient. Procedure: 2D w/ Contrast, Color Doppler and Spectral Doppler. Indication for study: DYSPNEA, SOB, WHEEZING, TACHYPNEA Cardiac Rhythm: Normal sinus.Study quality: Good. Final Impressions: 1. Mild to moderately increased LV size, normal wall thickness, lownormal global systolic function with an estimated EF of 50 - 55%. 2. Entire apex is abnormal. 3. No lv apical thrombus. 4. Right ventricular cavity size is mildly enlarged, global systolic RVfunction is normal. 5. The aortic valve is sclerotic, no stenosis and no regurgitation. 6. The mitral valve is sclerotic, mild to moderate mitralregurgitation. 7. Echo contrast was administered to enhance visualization of all leftventricular segments. Comparison Compared to prior exam images and report of 01/01/22: - The left ventricular function has decreased. Chamber Sizes and Function Mild to moderately increased left ventricular size, normal wall thickness,low normal global systolic function with an estimated EF of 50 - 55%. Leftatrial size is normal. Right ventricular cavity size is mildly enlarged,global systolic RV function is normal. The right atrium is normal. Rightatrial volume index is 24 ml/m? ? ?. Right atrial area is 18 cm? ? ?. Thepulmonary artery is of normal size and origin. The sinus of Valsalva isnormal sized. The ascending aorta is normal sized. The entire apex ishypokinetic. Valves, RV Pressures and Diastolic Function The aortic valve is sclerotic, no stenosis and no regurgitation. Themitral valve is sclerotic, mild to moderate mitral regurgitation. SpectralDoppler shows Grade 1 pattern of LV diastolic filling. The tricuspid valveis normal in structure. Tricuspid regurgitation is trace regurgitation.The pulmonic valve is normal. No pulmonary regurgitation. Masses, Effusion, Shunts There is no pericardial effusion. The inferior vena cava is normal sized,respiratory size variation greater than 50%. No left to right shunting wasdetected by limited color flow Doppler interrogation of the interatrialseptum. MEASUREMENTS AND CALCULATIONS 2-D Measurements and LV Function: LVID (d) 5.9 cm LV FS% (2D) 39 % LVID (s) 3.6 cm LVOT diameter 2.4 cm IVS (d) 1.0 cm HR 61 bpm LVPW (d) 0.9 cm LA Vol index 33 ml/m2 Ao Sinus 3.3 cm RA Vol index 24 ml/m2 Asc Ao 3.3 cm RA area 18 cm? ? ? RV Max 4C (d) 4.3 cm Diastology: Mitral E Peak 0.7 m/s A Peak 0.9 m/s E/A 0.8 DT 276 msec Aortic Valve: Vmax 1.7 m/s ANGELIQUE (V) 3.75 cm? ? ? VTI 0.32 m ANGELIQUE (I) 3.49 cm? ? ? LVOT V max 1.4 m/s Max PG 11 mmHg LVOT VTI 0.25 m Mean PG 6 mmHg SV 114 ml Dim Index 0.77 SV index 49 ml/m? ? ? CO 6.9 l/min CI 3.0 l/min/m? ? ? Mitral Valve: MVA 2.7 cm? ? ? MV P 1/2 80 msec Tricuspid Valve and estimated PA pressures: TAPSE 2.2 cm Contrast documentation: 2 ml diluted Definity, lot #[id number], [facility]#[id number] was administered peripherally to enhance visualization of allleft ventricular segments. . This study was interpreted by an [facility] accredited facility. Final Diann Felton DO ECHO ORD * SCAN CORRESP-EKG RESULTS (02/02/2024 2:08 PM CDT) Narrative 02/02/2024 2:08 PM CDT Ordered by an unspecified provider. Other Clinical Staff OTHER * Urine (02/02/2024 11:04 AM CDT) ,URIN E Negative Negative 02/02/2024 11:28 AM CDT [facility] Urine URINE SPECIMEN / Unknown Non-Blood / Unknown 02/02/2024 11:04 AM CDT 02/02/2024 11:14 AM CDT Cher Bagley NP URINE [facility] [address] [place], [place] [address] * TSH (02/02/2024 10:38 AM CDT) TSH 1.23 0.27 - 4.20 uIU/mL 02/02/2024 5:51 PM CDT [facility] Blood BLOOD SPECIMEN / Unknown Non-Lab Venipuncture / Unknown 02/02/2024 10:38 AM CDT 02/02/2024 10:48 AM CDT Narrative [facility] - 02/02/2024 5:51 PM CDT In Adults, TSH values between 5.00 and 10.00 uIU/ml do not necessarily indicate the presence of Hypothyroidism. Correlation with clinical findings such as presence of goiter and/or Thyroperoxidase (TPO) Antibody may be helpful. For more information please refer to NEMESIO 2004; 291: 228-238. Ximena Nelson MD CHEMISTRY Performing Organization Address City/[facility]/ZIP Co de Phone Number [facility] [address] [place] [address], * Serum (02/02/2024 10:38 AM CDT) ,SERU M Negative Negative 02/02/2024 11:04 AM CDT [facility] Blood BLOOD SPECIMEN / Unknown Non-Lab Venipuncture / Unknown 02/02/2024 10:38 AM CDT 02/02/2024 10:48 AM CDT Feliciano Dixon MD CHEMISTRY Performing Organization Address [facility] Co de Phone Number [facility] [address] [place] [address], * HCG Beta Quant, (02/02/2024 10:38 AM CDT) HCG BETA QUANT,PREGNANC Y <1 mIU/mL 02/02/2024 11:20 AM CDT [facility] Blood BLOOD SPECIMEN / Unknown Non-Lab Venipuncture / Unknown 02/02/2024 10:38 AM CDT 02/02/2024 10:48 AM CDT Narrative [facility] - 02/02/2024 11:20 AM CDT Expected Value for Healthy Non- premenopausal women <5.3mIU/mL FOR GESTATIONAL ASSESSMENT-See Range Table Below Weeks of gestation hCG mIU/mL 3 weeks gestation (5.8 - 71.2) 4 weeks gestation (9.5 - 750) 5 weeks gestation (217 - 7138) 6 weeks gestation (158 - 31,795) 7 weeks gestation (3,697 - 163,563) 8 weeks gestation (32,065 - 149,571) 9 weeks gestation (63,803 - 151,410) 10 weeks gestation (46,509 - 186,977) 12 weeks gestation (27,832 - 210,612) 14 weeks gestation (13,950 - 62,530) 15 weeks gestation (12,039 - 70,971) 16 weeks gestation (9,040 - 56,451) 17 weeks gestation (8,175 - 55,868) 18 weeks gestation (8,099 - 58,176) Biotin supplements may cause clinically significant interference for this test assay. ??If interference is suspected, it is strongly recommended that biotin is discontinued for at least one week prior to retesting. Feliciano Dixon MD CHEMISTRY [facility] [address] [place] [address], * SCAN-CARDIAC STRIP (02/02/2024 10:17 AM CDT) Scanner OTHER * ECG STAT (02/02/2024 6:29 AM CDT) Pathologist [facility] Interpretation Normal sinus rhythm Borderline criteria for ??Inferior infarct , age undetermined Possible Anterolateral infarct , age undetermined Abnormal ECG When compared with ECG of 18-Dec-2020 10:42, Cannot rule out ??Inferior infarct is now Present T wave inversion no longer evident in Anterolateral leads BEYOND NOW Ventricular Rate 68 BPM BEYOND NOW Atrial Rate 68 BPM BEYOND NOW P-R Interval 164 ms BEYOND NOW QRS Duration 86 ms BEYOND NOW QT 380 ms BEYOND NOW QTc 404 ms BEYOND NOW P [place] 66 degrees BEYOND NOW R [place] 3 degrees BEYOND NOW T [place] 28 degrees BEYOND NOW 02/02/2024 6:29 AM CDT 02/02/2024 5:18 PM CDT Diann Felton DO EKG ORD BEYOND NOW [place], [place] * (ABNORMAL) CBC WITH AUTO DIFFERENTIAL (02/02/2024 6:03 AM CDT) Pathologist [facility] WHITE BLOOD COUNT 8.8 4.5 - 11.0 thou/cu mm 02/02/2024 7:47 AM [facility] RED BLOOD COUNT 4.12 4.00 - 5.20 mil/cu mm 02/02/2024 7:47 AM [facility] HEMOGLOBIN 7.8(L) 12.0 - 16.0 g/dL 02/02/2024 7:47 AM [facility] HEMATOCRIT 28.0(L) 33.0 - 51.0 % 02/02/2024 7:47 AM [facility] MCV 68(L) 80 - 100 fL 02/02/2024 7:47 AM [facility] MCH 18.9(L) 26.0 - 34.0 pg 02/02/2024 7:47 AM [facility] MCHC 27.9(L) 32.0 - 36.0 g/dL 02/02/2024 7:47 AM [facility] RDW 19.5(H) 11.5 - 15.5 % 02/02/2024 7:47 AM [facility] PLATELET COUNT 325 140 - 440 thou/cu mm 02/02/2024 7:47 AM [facility] MPV 8.8 6.5 - 11.0 fL 02/02/2024 7:47 AM [facility] NRBC 0.2 % 02/02/2024 7:47 AM [facility] ABS NRBC 0.0 thou /cu mm 02/02/2024 7:47 AM [facility] % NEUT 70.8 % 02/02/2024 7:47 AM [facility] % LYMPH 17.5 % 02/02/2024 7:47 AM [facility] % MONO 8.9 % 02/02/2024 7:47 AM [facility] % EOS 1.5 % 02/02/2024 7:47 AM CDT [facility] % BASO 1.0 % 02/02/2024 7:47 AM CDT [facility] % IMMATURE GRAN (METAS,MYELOS,NV OS) 0.3 % 02/02/2024 7:47 AM CDT [facility] ABSOLUTE NEUTROPHILS 6.2 1.7 - 7.0 thou/cu mm 02/02/2024 7:47 AM CDT [facility] ABSOLUTE LYMPHOCYTES 1.5 0.9 - 2.9 thou/cu mm 02/02/2024 7:47 AM CDT [facility] ABSOLUTE MONOCYTES 0.8 <0.9 thou/cu mm 02/02/2024 7:47 AM CDT [facility] ABSOLUTE EOSINOPHILS 0.1 <0.5 thou/cu mm 02/02/2024 7:47 AM CDT [facility] ABSOLUTE BASOPHILS 0.1 <0.3 thou/cu mm 02/02/2024 7:47 AM CDT [facility] ABSOLUTE IMMATURE GRANULOCYTES(MET ,MYELOS,PROS) 0.0 <0.3 thou/cu mm 02/02/2024 7:47 AM CDT [facility] Blood BLOOD SPECIMEN / Unknown Venipuncture / Unknown 02/02/2024 6:03 AM CDT 02/02/2024 6:16 AM CDT Diann Felton DO HEMATOLOGY [facility] [address] [place] [address], [place] * (ABNORMAL) RED CELL MORPHOLOGY (02/02/2024 6:03 AM CDT) ELLIPTOCYTES Few 02/02/2024 7:46 AM CDT [facility] POLYCHROMASIA Slight 02/02/2024 7:46 AM CDT [facility] TARGET CELLS Few 02/02/2024 7:46 AM CDT [facility] RBC COMMENT Present(A) RBC morphology appears normal, RBC morphology within normal limits for newborns. 02/02/2024 7:46 AM CDT [facility] Blood BLOOD SPECIMEN / Unknown Venipuncture / Unknown 02/02/2024 6:03 AM CDT 02/02/2024 6:16 AM CDT Diann Felton DO HEMATOLOGY Performing Organization Address [facility] de Phone Number [facility] [address] [place] [address], [place] * (ABNORMAL) RETICULOCYTES (02/02/2024 6:03 AM CDT) Only the most recent of2 resultswithin the time period is included. RETIC% 2.6(H) 0.5 - 1.5 % 02/02/2024 7:46 AM CDT [facility] RETIC (ABSOLUTE) 0.11(H) 0.03 - 0.08 mil/cu mm 02/02/2024 7:46 AM CDT [facility] Blood BLOOD SPECIMEN / Unknown Venipuncture / Unknown 02/02/2024 6:03 AM CDT 02/02/2024 6:16 AM CDT Diann Felton DO HEMATOLOGY Performing Organization Address [facility] de Phone Number [facility] [address] [place] [address], [place] * ALT AM (02/02/2024 6:03 AM CDT) ALT (SGPT) 22 10 - 35 IU/L 02/02/2024 7:10 AM CDT [facility] Blood BLOOD SPECIMEN / Unknown Venipuncture / Unknown 02/02/2024 6:03 AM CDT 02/02/2024 6:16 AM CDT Diann Felton DO CHEMISTRY Performing Organization Address [facility]/State/ZIP Co de Phone Number [facility] [address] [place] [address], * (ABNORMAL) AST AM (02/02/2024 6:03 AM CDT) AST (SGOT) 47(H) 10 - 35 IU/L 02/02/2024 7:10 AM CDT [facility] Blood BLOOD SPECIMEN / Unknown Venipuncture / Unknown 02/02/2024 6:03 AM CDT 02/02/2024 6:16 AM CDT Diann Felton DO CHEMISTRY [facility] [address] [place] [id number], * (ABNORMAL) Basic metabolic panel AM (02/02/2024 6:03 AM CDT) Only the most recent of2 resultswithin the time period is included. Pathologist [facility] SODIUM 137 136 - 145 mmol/L 02/02/2024 7:10 AM CDT [facility] POTASSIUM 4.2 3.5 - 5.1 mmol/L 02/02/2024 7:10 AM T [facility] CHLORIDE 104 98 - 107 mmol/L 02/02/2024 7:10 AM CDT [facility] CO2,TOTAL 22 22 - 29 mmol/L 02/02/2024 7:10 AM T [facility] ANION GAP 11 5 - 18 02/02/2024 7:10 AM T [facility] GLUCOSE 127(H) 70 - 99 mg/dL 02/02/2024 7:10 AM T [facility] CALCIUM 8.9 8.6 - 10.0 mg/dL 02/02/2024 7:10 AM T [facility] BUN 12 6 - 20 mg/dL 02/02/2024 7:10 AM T [facility] CREATININE 0.89 0.50 - 0.90 mg/dL 02/02/2024 7:10 AM CDT [facility] BUN/CREAT RATIO 13 10 - 20 4 7:10 AM CDT [facility] eGFR 84(L) >90 mL/min/1.7 3m2 02/02/2024 7:10 AM CDT [facility] Comment:As of 2021, eG FR is calculated by the CKD-EPI creatinine equation without race adjustment. ??eGFR can be influenced by muscle mass, exercise, and diet. ??The reported eGFR is an estimation only and is only applicable if the renal function is stable. Blood BLOOD SPECIMEN / Unknown Venipuncture / Unknown 02/02/2024 6:03 AM CDT 02/02/2024 6:16 AM CDT Diann Felton DO CHEMISTRY Performing Organization Address City/[facility]/ZIP Co de Phone Number [facility] [address] [place] [address], * (ABNORMAL) APTT (02/02/2024 6:02 AM CDT) Only the most recent of2 resultswithin the time period is included. APTT 59(H) 28 - 36 sec 02/02/2024 6:35 AM CDT [facility] Blood BLOOD SPECIMEN / Unknown Venipuncture / Unknown 02/02/2024 6:02 AM CDT 02/02/2024 6:16 AM CDT Narrative [facility] - 02/02/2024 6:35 AM CDT Therapeutic Range: 57-87 seconds Latesha Bartholomew MD HEMATOLOGY Performing Organization Address City/[facility]/ZIP Co de Phone Number [facility] [address] [place] [address], * SCAN-CARDIAC STRIP (02/02/2024 4:06 AM CDT) Scanner OTHER * (ABNORMAL) TROPONIN T (HS) ONE TIME (02/02/2024 12:12 AM CDT) TROPONIN T HS 340(H) 6-10 ng/L ng/L 02/02/2024 1:18 AM CDT [facility] Blood BLOOD SPECIMEN / Unknown Butterfly / Unknown 02/02/2024 12:12 AM CDT 02/02/2024 12:17 AM CDT Diann Felton DO CHEMISTRY [facility] [address] [place] [address], * (ABNORMAL) TROPONIN T (HS) ACUTE W/2HR REFLEX (02/01/2024 10:02 PM CDT) Pathologist [facility] TROPONIN T HS 366(H) 6-10 ng/L ng/L 02/01/2024 10:48 PM CDT [facility] Blood BLOOD SPECIMEN / Unknown Butterfly / Unknown 02/01/2024 10:02 PM CDT 02/01/2024 10:12 PM CDT Narrative [facility] - 02/01/2024 10:48 PM CDT hs-cTnT (Elecsys Troponin T Gen 5) concentration (s) above the sex-specific 99th percentile (16 ng/L or greater for males or 11 ng/L or greater for females) are indicative of myocardial injury. If initial hs-cTnT <=100 ng/L at presentation, a 0h/2h ABSOLUTE (ng/L) delta change (rising or falling) of >=10 ng/L suggests a significant change, whereas a 0h/2h delta change <=3 ng/L suggests no significant change. If initial hs-cTnT >100 ng/L at presentation, a 0h/2h/ RELATIVE (percent, %) delta change of 20% is suggested to distinguish patients with acute vs. chronic myocardial injury. There are multiple etiologies that can cause hs-cTnT increases above the 99th percentile (myocardial injury) other than acute myocardial infarction. Clinical context and careful clinical evaluation are critical for diagnosis and risk-stratification. The diagnosis of acute myocardial infarction requires a rising and/or falling pattern in hs-cTnT concentrations with at least one value above the sex-specific 99th percentile PLUS at least one of the following clinical criteria: ischemic symptoms, new or presumed new significant ST-T wave changes or new LBBB, development of pathological Q waves, imaging evidence of new loss of viable myocardium or new regional wall motion abnormality, or identification of intracoronary atherothrombosis or an acute angiographic culprit on coronary angiography. In appropriate low-risk patients with a non-ischemic electrocardiogram without active chest pain with a symptom onset >3-hours without recurrence, a single initial hs-cTnT<6 ng/L identifies patient with a very low risk in emergency department patient population. Diann Felton DO CHEMISTRY Performing Organization Address City/[facility]/ZIP Co de Phone Number [facility] [address] [place] [address], * HAPTOGLOBIN (02/01/2024 10:02 PM CDT) Haptoglobin 164 30 - 200 mg/dL 02/02/2024 12:32 AM CDT [facility] Blood BLOOD SPECIMEN / Unknown Butterfly / Unknown 02/01/2024 10:02 PM CDT 02/01/2024 10:12 PM CDT Diann Felton DO CHEMISTRY Performing Organization Address [facility] Co de Phone Number [facility] [address] [place] [address], * (ABNORMAL) IRON PLUS IRON BINDING CAP (02/01/2024 9:01 PM CDT) IRON 19(L) 37 - 145 ug/dL 02/01/2024 10:51 PM CDT [facility] UIBC (UNSATURATED) 378(H) 112 - 347 ug/dL 02/01/2024 10:51 PM CDT [facility] IRON BINDING CAPACITY 397 250 - 400 ug/dL 02/01/2024 10:51 PM CDT [facility] IRON,% SATURATION 5(L) 14 - 50 % 02/01/2024 10:51 PM CDT [facility] Blood BLOOD SPECIMEN / Unknown Butterfly / Unknown 02/01/2024 9:01 PM CDT 02/01/2024 9:09 PM CDT Diann Felton DO CHEMISTRY [facility] [address] [place] [address], [place] * PLATELET COUNT (02/01/2024 9:01 PM CDT) PLATELET COUNT 348 140 - 440 thou/cu mm 02/01/2024 9:13 PM CDT [facility] MPV 8.8 6.5 - 11.0 fL 02/01/2024 9:13 PM CDT [facility] Blood BLOOD SPECIMEN / Unknown Butterfly / Unknown 02/01/2024 9:01 PM CDT 02/01/2024 9:09 PM CDT Narrative [facility] - 02/01/2024 9:13 PM CDT Obtain before initiating IV heparin therapy if not done within previous 24 hours. Obtain before initiating IV heparin therapy if not done within previous 24 hours. Obtain before initiating IV heparin therapy if not done within previous 24 hours. Diann Felton DO HEMATOLOGY [facility] [address] [address], [place] * (ABNORMAL) HEMOGLOBIN (02/01/2024 9:01 PM CDT) HEMOGLOBIN 8.3(L) 12.0 - 16.0 g/dL 02/01/2024 9:13 PM CDT [facility] MCV 68(L) 80 - 100 fL 02/01/2024 9:13 PM CDT [facility] Blood BLOOD SPECIMEN / Unknown Butterfly / Unknown 02/01/2024 9:01 PM CDT 02/01/2024 9:09 PM CDT Narrative [facility] - 02/01/2024 9:13 PM CDT Obtain before initiating IV heparin therapy if not done within previous 24 hours. Obtain before initiating IV heparin therapy if not done within previous 24 hours. Obtain before initiating IV heparin therapy if not done within previous 24 hours. Diann Felton DO HEMATOLOGY Performing Organization Address City/[facility]/ZIP Co de Phone Number [facility] [address] [address], [place] * (ABNORMAL) HEMATOCRIT (02/01/2024 9:01 PM CDT) Pathologist [facility] HEMATOCRIT 29.4(L) 33.0 - 51.0 % 02/01/2024 9:13 PM CDT [facility] Blood BLOOD SPECIMEN / Unknown Butterfly / Unknown 02/01/2024 9:01 PM CDT 02/01/2024 9:09 PM CDT Narrative [facility] - 02/01/2024 9:13 PM CDT Obtain before initiating IV heparin therapy if not done within previous 24 hours. Obtain before initiating IV heparin therapy if not done within previous 24 hours. Obtain before initiating IV heparin therapy if not done within previous 24 hours. Diann Felton DO HEMATOLOGY Performing Organization Address City/[facility] Co de Phone Number [facility] [address] [place] [address], [place] * BUN (02/01/2024 9:01 PM CDT) Pathologist [facility] BUN 9 6 - 20 mg/dL 02/01/2024 10:19 PM CDT [facility] Blood BLOOD SPECIMEN / Unknown Butterfly / Unknown 02/01/2024 9:01 PM CDT 02/01/2024 9:09 PM CDT Diann Felton DO CHEMISTRY Performing Organization Address City/[facility]/ZIP Co de Phone Number [facility] [address] [address], [place] * (ABNORMAL) CREATININE (02/01/2024 9:01 PM CDT) eGFR 84(L) >90 mL/min/1.7 3m2 02/01/2024 10:19 PM CDT [facility] Comment:As of 2021, eG FR is calculated by the CKD-EPI creatinine equation without race adjustment. ??eGFR can be influenced by muscle mass, exercise, and diet. ??The reported eGFR is an estimation only and is only applicable if the renal function is stable. CREATININE 0.89 0.50 - 0.90 mg/dL 02/01/2024 10:19 PM CDT [facility] Blood BLOOD SPECIMEN / Unknown Butterfly / Unknown 02/01/2024 9:01 PM CDT 02/01/2024 9:09 PM CDT Diann Felton DO CHEMISTRY Performing Organization Address City/[facility]/ZIP Co de Phone Number [facility] [address] [place] [address], * Vitamin B12 level AM (02/01/2024 9:01 PM CDT) Pathologist [facility] VITAMIN B12 520 232 - 1,245 pg/mL 02/01/2024 10:49 PM CDT [facility] Blood BLOOD SPECIMEN / Unknown Butterfly / Unknown 02/01/2024 9:01 PM CDT 02/01/2024 9:09 PM CDT Narrative [facility] - 02/01/2024 10:49 PM CDT Biotin supplements may cause clinically significant interference for this test assay. ??If interference is suspected, it is strongly recommended that biotin is discontinued for at least one week prior to retesting. Diann Felton DO CHEMISTRY [facility] [address] [place] [address], * COMFORT FILLER THIN PREP PAP SCREEN IMAGED (11/05/2020 9:55 AM CDT) Pathologist [facility] Case Report Gynecologic Cytology Report ? Case: [id number] ? Authorizing Provider: ??Lucy Silvestre PA-C ?Collected: ? 11/05/2020 0955 ? Ordering Location: ? [facility] ?Received: ?11/06/2020 1014 ? First Screen: ?Kayy, Malcolm ? Pathologist: ? Helen Mccray MD ? Specimen: ?COMFORT FILLER ThinPrep Vial Screening, Cervical/Vaginal ? 11/13/2020 3:[address] [facility] INTERPRETATION/ RESULT NEGATIVE FOR INTRAEPITHELIAL LESION OR MALIGNANCY (NIL) (none) 11/13/2020 3:[address] [facility] R NON-NEOPLASTIC FINDING(S) Reactive cellular changes associated with inflammation/repa ir 11/13/2020 3:[address] [facility]- ENTRAL LABORATORY SPECIMEN ADEQUACY Satisfactory for evaluation Endocervical component present 11/13/2020 3:[address] [facility]-C ENTRAL LABORATORY HPV REQUEST HPV and PAP 11/13/2020 3:21 PM T [facility] Date of LMP 10/18/2020 11/13/2020 3:21 PM T [facility] Last Pap Date 11/13/2020 3:21 PM T [facility] Comment:Unknown Menstrual Status Abnormal bleeding 11/13/2020 3:21 PM T [facility] Additional Information 11/13/2020 3:21 PM T [facility] Comment: Interpreted at [facility] - [address], [place] [address] Automated Review Successful 11/13/2020 3:21 PM T [facility] Comment:Specimen processed s uccessfully by automated dosimetrist device, ThinPrep Imaging System, [employer] ANCILLARY TESTING COMFORT FILLER HPV Ordered, Please see separate report 11/13/2020 3:21 PM T [facility] Note The pap test is a [...] and malignant lesions. 11/13/2020 3:21 PM T [facility] Other (Cervical/Vagina l) 11/05/2020 9:55 AM CDT 11/06/2020 10:14 AM CDT October L Nirmala VELAZQUEZ PATHOLOGY/CYTOLOGY [facility] [address] [place] [address], [place] * ANTI HCV (07/02/2016 9:37 AM CABLE TV INSTALLER) HEPATITIS C ANTIBODY Non-Reacti ve Non-Reacti ve 07/02/2016 5:30 PM CABLE TV INSTALLER [facility] Blood BLOOD SPECIMEN / Unknown Venipuncture / Unknown 07/02/2016 9:37 AM CABLE TV INSTALLER 07/02/2016 9:37 AM CABLE TV INSTALLER Narrative [facility] - 07/02/2016 5:30 PM CABLE TV INSTALLER Antibodies to HCV not detected; does not exclude the possibility of exposure to HCV. Deysi BRUMFIELD SEND OUTS [facility] [address] [place] [address], * ANTI HIV 1/2 (07/02/2016 9:37 AM CABLE TV INSTALLER) HIV-1/HIV-2 ANTIBODY Non-Reacti ve Non-Reacti ve 07/02/2016 5:30 PM CABLE TV INSTALLER [facility] Blood BLOOD SPECIMEN / Unknown Venipuncture / Unknown 07/02/2016 9:37 AM CABLE TV INSTALLER 07/02/2016 9:37 AM CABLE TV INSTALLER Narrative [facility] - 07/02/2016 5:30 PM CABLE TV INSTALLER HIV-1 p24 and HIV-1/HIV-2 Ab not detected Deysi [facility] [employer] Performing Organization Address City/[facility] Co de Phone Number [facility] [address] [place] [address], from Last 3 Months or Most Recently Relevant to Health Maintenance Advance Directives * Full Code (Latest Code Status on File) Date Activated Date Inactivated Comments 02/01/2024 10:55 PM Question Answer Comments Code Status Discussion: Reviewed Preferences * Full Code Date Activated Date Inactivated Comments 02/01/2024 8:19 PM 02/01/2024 10:55 PM Question Answer Comments Code Status Discussion: Unable to Assess Preferences, Provider to review later * Full Code Date Activated Date Inactivated Comments 12/13/2020 2:00 AM 12/18/2020 6:13 PM Question Answer Comments Code Status Discussion: Not Discussed Care Teams Surveyor Helper Relationship Specialty Start Date End Date Jackeline Montes De Oca MD [address] [place] [address] PCP - General Family Practice 12/13/20 Aida Jones MD DICTATING TRANSCRIBING MACHINE SERVICER Obstetrics and Gynecology 11/13/12
--- OUTSIDE RECORDS SUMMARY | 2024-02-03 05:47 | XMS_ITS | Clinical Summary ---
Author Organization [facility] Address [address] [place] [address] Care Team Providers Care Lamp Shade Joiner Name Role Phone Concha Stockton MD Primary Care Provider [phone]- [phone] Source Comments You are receiving this document as you are listed as the primary care provider,follow-up provider, or the patient has been referred to you for consultation.This is in compliance with the Medicare and[facility] EHR Incentive Program,which states Providers who transition their patient to another setting of careor provider of care or refers their patient to another provider of care shouldprovide summary care record for each transition of care or referral. [facility] Allerg[facility] No known active allergies Medications Medication [...] dose series) 11/20/2018 Influenza IIV4 (Quadrivalent) 0.5mL (09535) 1008/2018,04/14/2015 Pfizer Monovalent 12+ Purple Top 04/17/2021,03/05 [...] AM CDT Pulse 86 07/01/2023 2:04 PM RIPSAW MATCHER Temperature 36.4 ??C (97.5 ??F) 03/19/2021 11:08 [...] age to complete this topic Care Teams Lamp Shade Joiner Relationship Specialty Start Date End Date Concha Stockton MD [address] [place] [address] PCP - General Internal Medicine 10/27/22
== END 2024-02-01 18:36 | disposition home or self-care (01) ==
LOC: AMB 02-03 05:45
PROVIDERS: PCP Internal Medicine; Visit Provider Student in an Organized Health Care Education/Training Program
DX: I21.4 Non-ST elevation (NSTEMI) myocardial infarction (principal)
CPT/HCPCS: A0425; A0434

== ENCOUNTER 2024-02-28 08:30 | Outpatient (CLI) | payer OTHER, SELFPAY ==
--- OUTSIDE RECORDS SUMMARY | 2024-02-28 14:30 | XMS_ITS | Clinical Summary ---
Author Organization [facility] Address [address] [place] [address] Care Team Providers Care Collision Estimator Name Role Phone Concha Stockton MD Primary Care Provider [phone]- [phone] Source Comments You are receiving this document as you are listed as the primary care provider,follow-up provider, or the patient has been referred to you for consultation.This is in compliance with the Medicare and[facility] EHR Incentive Program,which states Providers who transition their patient to another setting of careor provider of care or refers their patient to another provider of care shouldprovide summary care record for each transition of care or referral. [facility] Allergies No known active allergies Medications Medication [...] Depression 12/13/2020 Borderline hypertension 12/13/2020 Menorrhagia 12/13/2020 Overview (04/07/2022): Currently better because of progesterone IUD. Morbid [...] dose series) 11/20/2018 Influenza IIV4 (Quadrivalent) 0.5mL (61055) 08/2018,04/14/2015 Pfizer Monovalent 12+ Purple Top 04/17/2021,03/05 [...] AM CDT Pulse 86 07/01/2023 2:04 PM MATERIAL FLOW ENGINEER Temperature 36.4 ??C (97.5 ??F) 03/19/2021 [...] age to complete this topic Care Teams Collision Estimator Relationship Specialty Start Date End Date Concha Stockton MD [address] [place] [address] PCP - General Internal Medicine 10/27/22
--- OUTSIDE RECORDS SUMMARY | 2024-02-28 14:30 | XMS_ITS | Clinical Summary ---
Author Organization [facility] s [facility] Address [place], [place] [address] Care Team Providers Care Good Humor Vendor Name Role Phone Aida Jones MD Unavailable Jackeline Montes De Oca MD Primary Care Provider + Allergies Active Allergy Reactions Criticality Noted Date Comments Blood-Group Specific Substance 03/21/2010 Patient has a Non-Specific Antibody. Blood product orders may be delayed. Medications Medication Sig Dispensed Refills Start Date End Date Status azelaic acid (FINACEA) 15 % topical gel Apply topically to affected area(s) 2 times daily if needed. 1 Active acetaminophen (TylenoL) 325 mg tablet Take 650 mg by mouth 3 times daily if needed. Max acetaminophen dose: 4000mg in 24 hrs. Active nitroglycerin (NITROSTAT) 0.4 mg sublingual tabletIndications :NSTEMI (non-ST elevated myocardial infarction) (HC) Place 1 Tablet (0.4 mg) under the tongue every 5 minutes if needed. 25 Tablet 2 1 Active lisinopriL (PRINIVIL; ZESTRIL) 5 mg tabletIndications :NSTEMI (non-ST elevated myocardial infarction) (HC) Take 1 Tablet (5 mg) by mouth once daily. 90 Tablet 3 2 Active warfarin (COUMADIN) 10 mg tablet Take 10 mg on Sundays and 15 mg all other days. Active dextroamphetamine -amphetamine (ADDERALL XR) 20 mg Extended-Release capsule Take 20 mg by mouth once daily if needed. Active escitalopram oxalate (LEXAPRO) 20 mg tablet Take 20 mg by mouth at bedtime. 4 Active hydrOXYzine HCL (ATARAX) 25 mg tablet Take 25-50 mg by mouth every 8 hours if needed for Anxiety. Active naltrexone (REVIA) 50 mg tablet Take 50 mg by mouth at bedtime. 4 Active pantoprazole (PROTONIX) 40 mg delayed-release tabletIndications :PUD (peptic ulcer disease) Take 1 Tablet (40 mg) by mouth two times daily before meals. For 2 months 60 Tablet 1 4 04/03/20 24 Active enoxaparin (LOVENOX) 120 mg/0.8 mL injectionIndicati ons:Antiphospholi pid syndrome (HC) Inject 120 mg subcutaneous every 12 hours. 11.2 mL 4 Active ferrous sulfate, 65 mg elemental, tabletIndications :Iron deficiency anemia due to chronic blood loss Take 1 Tablet (325 mg) by mouth once daily. 30 Tablet 4 Active FERROUS SULFATE 324 OR 325 MG, 65 MG IRON, TABLET Take 1 Tablet by mouth once every other day. 1 02/01/20 24 Discontinued(P harmacist change per medication history (E-cancel not sent)) betamethasone dipropionate 0.05% (DIPROSONE 0.05% CREAM) 0.05 [...] change per medication history (E-cancel not sent)) melatonin 10 mg tab Take 10 mg by mouth at bedtime if needed. 02/01/20 24 Discontinued(P harmacist change per medication history (E-cancel not sent)) warfarin (COUMADIN) 7.5 mg tabletIndications :Marantic endocarditis,Lupu s anticoagulant disorder (HC) Take 1 Tablet by mouth once daily. 30 Tablet 02/01/20 24 Discontinued(P harmacist change per medication history (E-cancel not sent)) Active Problems Problem Noted Date Diagnosed Date Chest pain 02/03/2024 Iron deficiency anemia 02/03/2024 Menorrhagia 02/03/2024 Elevated troponin 02/03/2024 Chest pain 02/02/2024 Antiphospholipid syndrome 12/17/2020 [place] endocarditis 12/17/2020 Morbid obesity with BMI of 50.0-59.9, adult 12/02 Depression 12/13/2020 Anemia 12/13/2020 Menorrhagia 12/13/2020 Overview: Currently better because of progesterone IUD. Borderline hypertension 12/13/2020 Acne rosacea 09/26/2013 Resolved Problems Problem Noted Date Diagnosed Date Resolved Date NSTEMI (non-ST elevated myoc ardial infarction) 12/13/2020 02/03/2024 05/09/2015 03/17/2017 Overview: GBS + Adacel given November 2016 A+, non-specific antibody noted (no history of blood transfusion) UTI (lower urinary tract infection) 01/02/2013 12/25/2013 Supervision of normal first 05/20/2010 08/18/2011 Encounters Date Type Department Care Team Description 02/10/20 Lab Requisition [facility] [phone] Concha Stockton MD 02/06/20 Orders Only [facility] [address] [facility] [address] [place] [address] Jessy Cade, <No scans attached> 02/03/20 11:31 AM CDT Anesthesia Event [facility] [address] [place], [place] [id number] Sadi Christina MD 02/03/20 10:52 AM CDT - 02/03/20 12:07 PM CDT Surgery [facility] [address] [place] [address] Butch Gómez MD ESOPHAGOGASTRODUODENOSCOPY WITH BIOPSIES 02/02/20 Telephone [facility] [address] [place] [address] Ximena Nelson MD 02/02/20 Travel 02/01/20 7:41 PM CDT - 02/03/20 6:50 PM CDT Hospital Encounter [facility] [address] [place] [address] [facility], MD Tiago Blanco, Herberth Yeung MD PUD (peptic ulcer disease) (Primary Dx); Cardiovascular symptoms; Antiphospholipid syndrome (HC); Mass of soft tissue of abdomen; Abnormal uterine bleeding (AUB); Iron deficiency anemia due to chronic blood loss Discharge Disposition: Home Self Care 02/01/20 Lab Requisition [facility] [phone] Concha Stockton MD 02/01/[address] [address] Paula Dillard MD from Last 3 Months Immunizations Name Administration Dates Next Due Influenza, IIV3 (Age >=3 years) 05/03/2011,03/20 Influenza, IIV4 04/14/2015 Tdap 11/12/2016,02/09/2008 Tuberculin (PPD) 07/10/2018 Family History Medical History Relation Name Comments Good Health Father Diabetes Maternal Grandfather Cancer Maternal Grandmother ovarian Diabetes Maternal Grandmother Diabetes Mother Premature CHD (under age 60) Mother NM in her 50s Premature CHD (under age [...] Sign Reading Time Taken Comments Blood Pressure 111/66 02/03/2024 1:50 PM CDT Pulse 65 02/03/2024 1:50 PM CDT Temperature 36.8 ??C (98.3 ??F) 02/03/2024 1:50 PM CD T Respiratory Rate 18 02/03/2024 1:50 PM CDT Oxygen Saturation 98% 02/03/2024 1:50 PM CDT Inhaled Oxygen Concentration - - Weight 130.8 kg (288 lb 7.6 oz) 02/03/2024 6:40 AM CDT Height 167.6 cm (5' 6) 02/02/2024 2:12 PM CDT Body Mass Index 46.56 02/02/2024 2:12 PM CDT Plan of Treatment Health Maintenance Due Date Last Done Comments Pneumococcal series for age 6-64 (1 of 2 - PCV) 09/14/1989 BMI (ht and wt on same day) for age 18+ 06/23/2018 06/23/2017, 12/30/2016, 12/08/2016, Additional history exists Depression screening for age 12+ 01/02/2022 01/02/2021, 12/31/2020, 12/30/2020, Additional history exists Pap test for age 21-65 11/06/2023 1, 11/05/2020, 09/06/2016, Additional history exists Influenza for age 9-49 03/04/2024 5, 05/03/2011, 03/20/2010 Tetanus booster 11/12/2026 11/12/2016, 0802/2008, 02/09/2008 HIV for age 15-65 Completed 07/02/2016, , 03/20/2010 Hepatitis C screening for ag e 18-79 Completed 07/02/2016, 04/14/2015 Tdap Completed 11/12/2016, 02/09/2008 COVID-19 vaccine series Completed 08/29/19 24, 11/11/2021, 04/17/2021, Additional history exists Procedures Procedure Name Priority Date/Time Associated Diagnosis Comments FACTOR 10 CHROMOGENIC STAT 02/09/2024 2:20 PM CDT PATH TISSUE EXAM Today 02/03/2024 11:41 AM CDT ENDOSCOPY 02/03/2024 11:24 AM CDT COLONOSCOPY 02/03/2024 11:23 AM CDT COLONOSCOPY 02/03/2024 11:18 AM CDT see note ESOPHAGOGASTRODUODENOSCOPY W ITH BIOPSY 02/03/2024 11:18 AM CDT see note SCAN-CARDIAC STRIP 02/03/2024 8:03 AM CDT FACTOR 10 CHROMOGENIC Early AM 02/03/2024 5:27 AM CDT MAGNESIUM Early AM 02/03/2024 5:27 AM CDT POTASSIUM Early AM 02/03/2024 5:27 AM CDT APTT Today 02/03/2024 5:27 AM CDT HEMATOCRIT Early AM 02/03/2024 5:27 AM CDT HEMOGLOBIN Early AM 02/03/2024 5:27 AM CDT PLATELET COUNT Early AM 02/03/2024 5:27 AM CDT SCAN-CARDIAC STRIP 02/03/2024 12:38 AM CDT SCAN-OPERATIVE/PROCEDURE REPORT 02/03/2024 12:00 AM CDT SCAN-OPERATIVE/PROCEDURE REPORT 02/03/2024 12:00 AM CDT US PELVIS COMPLETE TA AND TV Routine 07/2023 9:40 PM CDT SCAN-CARDIAC STRIP 02/02/2024 7:55 PM CDT ECHO TTE COMPLETE W CONTRAST Routine 07/2023 3:[address] CARDIAC CORONARY ARTERIES DUAL READ Routine 02/02/2024 3:41 PM CDT SCAN CORRESP-EKG RESULTS 3:13 PM CDT SCAN CORRESP-EKG RESULTS 024 2:08 PM CDT URINE Preop 02/02/2024 11:04 AM CDT TSH LETHA 02/02/2024 10:38 AM CDT HCG BETA QUANT, STAT 024 10:38 AM CDT ,SERUM Preop 02/02/2024 10:38 AM CDT SCAN-CARDIAC STRIP 02/02/2024 10:17 AM CDT EKG 12 LEAD STAT 02/02/2024 6:29 AM CDT PERIPHERAL BLD MORPHOLOGY Early AM 2023 6:03 AM CDT SOLUBLE TRANSFERRIN RECEPTOR [facility] Add On 02/02/2024 6:03 AM CDT RED CELL MORPHOLOGY Timed 02/02/2024 6:03 AM CDT RETICULOCYTES Today 02/02/2024 6:03 AM CDT CBC WITH AUTO DIFFERENTIAL Early AM 02/01 6:03 AM CDT ALT (SGPT) Early AM 02/02/2024 6:03 AM CDT AST (SGOT) Early AM 02/02/2024 6:03 AM CDT BASIC METABOLIC PANEL Early AM 02/02/2024 6:03 AM CDT CBC WITH AUTO DIFFERENTIAL Early AM 02/01 6:03 AM CDT APTT Timed 02/02/2024 6:02 AM CDT SCAN-CARDIAC STRIP 02/02/2024 4:06 AM CDT BASIC METABOLIC PANEL LETHA 02/02/2024 12:12 AM CDT TROPONIN T (HS) ONE TIME Timed 12:12 AM CDT APTT Timed 02/02/2024 12:12 AM CDT HAPTOGLOBIN LETHA 02/01/2024 10:02 PM CDT TROPONIN T (HS) ACUTE W/2HR REFLEX LETHA 02/01/2024 10:02 PM CDT RETICULOCYTES LETHA 02/01/2024 9:01 PM CDT VITAMIN B12 LETHA 02/01/2024 9:01 PM CDT IRON PLUS IRON BINDING CAP LETHA 07/31 /2024 9:01 PM CDT CREATININE LETHA 02/01/2024 9:01 PM CDT BUN LETHA 02/01/2024 9:01 PM CDT HEMATOCRIT LETHA 02/01/2024 9:01 PM CDT HEMOGLOBIN LETHA 02/01/2024 9:01 PM CDT PLATELET COUNT LETHA 02/01/2024 9:01 PM CDT FACTOR 10 CHROMOGENIC Routine 02/01/2024 10:22 AM CDT SCAN-CARDIAC STRIP 02/01/2024 12:00 AM CDT SOCIAL SERVICES SPECIALIST THIN PREP PAP SCREEN IMAGED Routine 11/05/2020 9:55 AM CDT ANTI HIV 1/2 Routine 07/02/2016 9:37 AM MAKE READY WORKER 9 weeks gestation of ANTI HCV Routine 07/02/2016 9:37 AM MAKE READY WORKER 9 weeks gestation of from Last 3 Months or Most Recently Relevant to Health Maintenance Results * (ABNORMAL) FACTOR 10 CHROMOGENIC (02/09/2024 2:20 PM CDT) Only the most recent of3 resultswithin the time period is included. FACTOR 10 CHROMOGENIC 36(L) 65 - 130 % 02/10/2024 4:24 PM CDT [facility] Blood BLOOD SPECIMEN / Unknown Client Collect / Unknown 02/09/2024 2:20 PM CDT 02/10/2024 4:06 PM CDT Narrative [facility] - 02/10/2024 4:24 PM CDT Therapeutic Range 20-40% Concha Stockton MD SEND OUTS [facility] [address] [place] [address], [place] * PATH TISSUE EXAM (02/03/2024 11:41 AM CDT) Case Report Pathology Report ?Case: [id number] ? Authorizing Provider: ??Butch Gómez MD ? Collected: ? 02/03/2024 1141 ? Ordering Location: ? [facility] ?Received: ?02/03/2024 1458 ? Hospital ? Pathologist: ? Robert Krueger, ? MD ? Specimens: ?? A) - Small Bowel Biopsy, iron deficiency ? B) - Gastric Biopsy, rule out H. Pylori ? 02/06/2024 12:01 PM CDT [facility] [employer] [facility] Final Diagnosis A) DUODENUM, BIOPSY: 1. Ulcerative duodenitis, favor peptic or NSAID injury 2. Negative for celiac disease 3. Negative for dysplasia and malignancy B) STOMACH, BIOPSY: 1. Reactive gastropathy, endoscopically ulcerative (see comment) ?? a. Sampling: Antral and body mucosae ?? b. Distribution: Antral mucosa 2. Negative for chronic inflammation, atrophy and Helicobacter 02/06/2024 12:01 PM T [facility] Comment B) The likely etiology is an ongoing non-inflammatory type mucosal injury due to a chemical type of injury; this may be due to ingestion of non-steroidal anti-inflammatory drugs, aspirin (via prostaglandin-med iated injury), excess alcohol, corticosteroids, or bile/alkaline reflux, the latter usually in the setting of a gastroenteric anastomosis. 02/06/2024 12:01 PM T [facility] Clinical Information Ms. Pinto is a 38 y.o. with unexplained iron deficiency anemia. EGD reveals a normal esophagus. Few nonbleeding superficial gastric ulcers were identified in the prepyloric region stomach. The largest was 5 mm. A few nonbleeding duodenal ulcers are also identified that were superficial and present in the duodenal bulb. The largest lesion there was 5 mm. 02/06/2024 12:01 PM CDT [facility] Gross Description A) Received in formalin are 4 perez mucosal fragments averaging 5 mm in greatest dimension, which are entirely submitted in one cassette. It is labeled with the patient's name and designated small bowel biopsy, iron deficiency. B) Received in formalin are 4 perez mucosal fragments averaging 6 mm in greatest dimension, which are entirely submitted in one cassette. It is labeled with the patient's name and designated gastric biopsy, rule out H. pylori. Anton Marcus 02/03/2024 4:31 PM 02/06/2024 12:01 PM CDT [facility] Microscopic Description The final diagnosis is based on microscopic examination of appropriate sections of all specimens. 02/06/2024 12:01 PM CDT [facility] Additional Information Interpreted at [facility] Central Laboratory - [address] [facility] [address], [place] [address] 02/06/2024 12:01 PM CDT [facility] Biopsy (Small Bowel Biopsy) 02/03/2024 11:41 AM CDT 02/03/2024 2:58 PM CDT Biopsy specimen (specimen) GASTRIC BIOPSY SPECIMEN / Unknown 02/03/2024 11:46 AM CDT 02/03/2024 2:58 PM CDT Butch Gómez MD PATHOLOGY/CYTOLOGY [facility] [address] [place] [address], * ENDOSCOPY (02/03/2024 11:24 AM CDT) 02/03/2024 11:2 4 AM CDT Narrative Transcriptions Butch Gómez MD - 02/03/2024 11:50 AM CDT [facility] Patient Name: Charley Pinto Procedure Date: 02/03/2024 Gender: Female Date of : 1985 Admit Type: Inpatient Procedure: Upper GI endoscopy Proceduralist: Butch Gómez MD - [facility] Indications/Pre-Op Diagnosis: Unexplained iron deficiency anemia Medications: Monitored Anesthesia Care Procedure Description: Risk of bleeding, infection, perforation, need for surgery and alternatives discussed. The endoscope [id number] was introduced through the mouth, and advanced to the second part of duodenum. The upper GI endoscopy was accomplished without difficulty. The patient tolerated the procedure well. Complications: No immediate complications. Estimated Blood Loss & Specimen: Estimated blood loss was minimal. Specimen collected: Yes and sent to Laboratory Findings: The esophagus was normal. Few non-bleeding superficial gastric ulcers with no stigmata ofbleeding were found in the prepyloric region of the stomach. The largestlesion was 5 mm in largest dimension. Biopsies were taken with a coldforceps for Helicobacter pylori testing. Few non-bleeding superficial duodenal ulcers with no stigmata of bleeding were found in the duodenal bulb. The largest lesion was 5 mmin largest dimension. Impressions/Post-Op Diagnosis: - Normal esophagus. - Non-bleeding gastric ulcers with no stigmata of bleeding.Biopsied. - Non-bleeding duodenal ulcers with no stigmata of bleeding. Recommendation: - Await pathology results. PPIs-fating gastrin-colonoscopy today Butch Gómez MD 02/03/2024 11:50:43 AM This report has been signed electronically. Note Initiated On: 02/03/2024 11:24 AM Butch Gómez MD PROCEDURE ORD * COLONOSCOPY (02/03/2024 11:23 AM CDT) 02/03/2024 11:2 3 AM CDT Narrative Transcriptions Butch Gómez MD - 02/03/2024 12:17 PM CDT [facility] Patient Name: Charley Pinto Procedure Date: 02/03/2024 Gender: Female Date of : 1985 Admit Type: Inpatient Procedure: Colonoscopy Proceduralist: Butch Gómez MD - [facility] Indications/Pre-Op Diagnosis: Unexplained iron deficiency anemia Medications: Monitored Anesthesia Care Procedure Description: The patient had risks, benefits and alternatives explained to andgave informed consent. The patient had a stable cardiopulmonary status and judged an adequate candidate for sedation. The endoscope [id number] was passed through the anus andadvanced to the cecum, identified by appendiceal orifice and ileocecal valve.The colonoscopy was performed without difficulty. The patient toleratedthe procedure well. The quality of the bowel preparation was excellent. Complications: No immediate complications. Estimated Blood Loss & Specimen: Estimated blood loss: none. Findings: The rectum, sigmoid colon, descending colon, splenic flexure,transverse colon, hepatic flexure, ascending colon, cecum, appendiceal orificeand ileocecal valve appeared normal. The exam was otherwise without abnormality on direct and retroflexion views. Impressions/Post-Op Diagnosis: - The appendiceal orifice, rectum, sigmoid colon, descending colon, splenic flexure, transverse colon, hepatic flexure, ascending colon, cecum and ileocecal valve are normal. - The examination was otherwise normal on direct and retroflexionviews. - No specimens collected. Recommendation: - Return patient to hospital [facility]. IV[facility] Butch Gómez MD 02/03/2024 12:17:09 PM This report has been signed electronically. Note Initiated On: 02/03/2024 11:23 AM Butch Gómez MD PROCEDURE ORD * SCAN-CARDIAC STRIP (02/03/2024 8:03 AM CDT) Scanner OTHER * PLATELET COUNT (02/03/2024 5:27 AM CDT) Only the most recent of2 resultswithin the time period is included. PLATELET COUNT 274 140 - 440 thou/cu mm 02/03/2024 6:11 AM CDT [facility] MPV 8.9 6.5 - 11.0 fL 02/03/2024 6:11 AM CDT [facility] Blood BLOOD SPECIMEN / Unknown Venipuncture / Unknown 02/03/2024 5:27 AM CDT 02/03/2024 6:04 AM CDT Narrative [facility] - 02/03/2024 6:11 AM CDT Every morning while on IV heparin. Every morning while on IV heparin. Necessary every morning while on IV heparin. Diann Felton DO HEMATOLOGY [facility] [address] [place] [address], * (ABNORMAL) HEMOGLOBIN (02/03/2024 5:27 AM CDT) Only the most recent of2 resultswithin the time period is included. HEMOGLOBIN 7.8(L) 12.0 - 16.0 g/dL 02/03/2024 6:11 AM CDT [facility] MCV 68(L) 80 - 100 fL 02/03/2024 6:11 AM CDT [facility] Blood BLOOD SPECIMEN / Unknown Venipuncture / Unknown 02/03/2024 5:27 AM CDT 02/03/2024 6:04 AM CDT Narrative [facility] - 02/03/2024 6:11 AM CDT Every morning while on IV heparin. Every morning while on IV heparin. Necessary every morning while on IV heparin. Diann Felton DO HEMATOLOGY Performing Organization Address [facility] Co de Phone Number [facility] [address] [place] [address], [place] * (ABNORMAL) HEMATOCRIT (02/03/2024 5:27 AM CDT) Only the most recent of2 resultswithin the time period is included. HEMATOCRIT 27.4(L) 33.0 - 51.0 % 02/03/2024 6:11 AM CDT [facility] Blood BLOOD SPECIMEN / Unknown Venipuncture / Unknown 02/03/2024 5:27 AM CDT 02/03/2024 6:04 AM CDT Narrative [facility] - 02/03/2024 6:11 AM CDT Every morning while on IV heparin. Every morning while on IV heparin. Necessary every morning while on IV heparin. Diann Felton DO HEMATOLOGY Performing Organization Address [facility] de Phone Number [facility] [address] [place] [address], [place] * POTASSIUM (02/03/2024 5:27 AM CDT) POTASSIUM 4.1 3.5 - 5.1 mmol/L 02/03/2024 6:40 AM CDT [facility] Blood BLOOD SPECIMEN / Unknown Venipuncture / Unknown 02/03/2024 5:27 AM CDT 02/03/2024 6:04 AM CDT Herberth Aleman MD CHEMISTRY Performing Organization Address [facility] Co de Phone Number [facility] [address] [place] [address], [place] * (ABNORMAL) APTT (02/03/2024 5:27 AM CDT) Only the most recent of3 resultswithin the time period is included. APTT 45(H) 28 - 36 sec 02/03/2024 7:23 AM CDT [facility] Blood BLOOD SPECIMEN / Unknown Venipuncture / Unknown 02/03/2024 5:27 AM CDT 02/03/2024 6:04 AM CDT Narrative [facility] - 02/03/2024 7:23 AM CDT Therapeutic Range: 57-87 seconds Latesha Bartholomew MD HEMATOLOGY Performing Organization Address City/[facility]/ZIP Co de Phone Number [facility] [address] [place] [address], * MAGNESIUM (02/03/2024 5:27 AM CDT) MAGNESIUM 2.0 1.6 - 2.6 mg/dL 02/03/2024 6:40 AM CDT [facility] Blood BLOOD SPECIMEN / Unknown Venipuncture / Unknown 02/03/2024 5:27 AM CDT 02/03/2024 6:04 AM CDT Herberth Aleman MD CHEMISTRY Performing Organization Address [facility] Co de Phone Number [facility] [address] [place] [address], * SCAN-CARDIAC STRIP (02/03/2024 12:38 AM CDT) Scanner OTHER * SCAN-OPERATIVE/PROCEDURE REPORT (02/03/2024 12:00 AM CDT) Narrative 02/03/2024 12:00 AM CDT Ordered by an unspecified provider. Other Clinical Staff OTHER * SCAN-OPERATIVE/PROCEDURE REPORT (02/03/2024 12:00 AM CDT) Narrative 02/03/2024 12:00 AM CDT Ordered by an unspecified provider. Other Clinical Staff OTHER * US PELVIS COMPLETE TA AND TV (02/02/2024 9:40 PM CDT) Anatomical Region Laterality Modality Pelvis Ultrasound 02/03/2024 10:4 8 AM CDT Impressions 02/03/2024 10:48 AM CDT 1. No sonographic findings to explain abnormal vaginal bleeding. 2. Incidental solid finding abutting the right ovary, similar in appearance to the prior CT of 12/14/2020. Differential diagnostic considerations include an extra-uterine (broad ligament) leiomyoma. MRI of the pelvis is suggested for further characterization. Dictated by Gordo Edmonds MD @ 02/03/2024 10:48:11 AM (Electronically Signed) Narrative 02/03/2024 10:48 AM CDT For Patients: ??As a result of the Cures Act, medical imaging exams and procedure reports are released immediately into your electronic medical record. ??You may view this report before your referring provider. ??If you have questions, please contact your health care provider. INDICATION: Abnormal bleeding, not otherwise described. COMPARISON: CT of the abdomen and pelvis dated 12/14/2020. TECHNIQUE: Transabdominal and endovaginal grayscale and spectral Doppler pelvic ultrasound. FINDINGS: LMP: Not provided. Uterus: Measures 6.5 x 5 x 9.4cm. Unremarkable cervix. Please note that US is insensitive for detection of epithelial lesions of the cervix, compared to physical examination. Endometrial stripe: Measures 11mm. Uniform in thickness. Right Ovary: Measures 2.3 x 2.7 x 3.2cm and 10mL. Anechoic unilocular cyst consistent with a follicle measuring 2.1 cm in greatest dimension. Nonspecific right adnexal solid finding measuring 1.8 x 1.4 x 1.7 cm. This appears to be immediately adjacent to but separate from the right ovary. The appearance is similar to the prior CT examination of 12/14/2020. Spectral Doppler demonstrates normalvenousblood flow. Left Ovary: Patient states prior left oophorectomy. Pelvic fluid: No significant pelvic ascites. Procedure Note Gordo Edmonds MD - 02/03/2024 For Patients: As a result of the Cures Act, medical imagingexams and procedure reports are released immediately into your electronicmedical record. You may view this report before your referring provider.If you have questions, please contact your health care provider. INDICATION: Abnormal bleeding, not otherwise described. COMPARISON: CT of the abdomen and pelvis dated 12/14/2020. TECHNIQUE: Transabdominal and endovaginal grayscale and spectral Doppler pelvicultrasound. FINDINGS: LMP: Not provided. Uterus: Measures 6.5 x 5 x 9.4cm. Unremarkable cervix. Please note that USis insensitive for detection of epithelial lesions of the cervix, comparedto physical examination. Endometrial stripe: Measures 11mm. Uniform in thickness. Right Ovary: Measures 2.3 x 2.7 x 3.2cm and 10mL. Anechoic unilocular cystconsistent with a follicle measuring 2.1 cm in greatest dimension.Nonspecific right adnexal solid finding measuring 1.8 x 1.4 x 1.7 cm. Thisappears to be immediately adjacent to but separate from the right ovary.The appearance is similar to the prior CT examination of 12/14/2020.Spectral Doppler demonstrates normalvenousblood flow. Left Ovary: Patient states prior left oophorectomy. Pelvic fluid: No significant pelvic ascites. IMPRESSION: 1. No sonographic findings to explain abnormal vaginal bleeding. 2. Incidental solid finding abutting the right ovary, similar inappearance to the prior CT of 12/14/2020. Differential diagnosticconsiderations include an extra-uterine (broad ligament) leiomyoma. MRI ofthe pelvis is suggested for further characterization. Dictated by Gordo Edmonds MD @ 02/03/2024 10:48:11 AM (Electronically Signed) Ximena Nelson MD US * SCAN-CARDIAC STRIP (02/02/2024 7:55 PM CDT) Scanner OTHER * ECHO TTE COMPLETE W CONTRAST (02/02/2024 3:58 PM CDT) AORTIC VALVE MEAN PG 6 mmHg EJECTION FRACTION 53 % LVEDD 5.9 cm EJECTION FRACTION 50 - 55% Anatomical Region Laterality Modality Ultrasound 02/02/2024 2:53 PM CDT Narrative 02/02/2024 4:10 PM CDT ECHOCARDIOGRAM CHARLEY PITNO ? Accession#: ?? [id number] : ?1985 38 years Study Date: ?? 02/02/2024 2:53:33 PM Gender: F ?BP: ? 105/64 mmHg Height: 168.00 cm ?BSA: ?2.33 m? ? ? Weight: 130.00 kg ?Tech: ? MBL ? Referring MD: DIANN FELTON Site: ? [facility] Patient Location: Inpatient. Procedure: 2D [...] documentation: 2 ml diluted Definity, lot #[id number], [facility] [place]# [id number] was administered peripherally to enhance visualization of all left ventricular segments. . This study was interpreted by an [facility] accredited facility. ??Final ?? Procedure Note Kwadwo Ruff MD - 02/02/2024 ECHOCARDIOGRAM CHARLEY PINTO : 1985 38 years Study Date: 02/02/2024 2:53:33 PM Gender: F BP: 105/64 mmHg Height: 168.00 cm BSA: 2.33 m? ? ? Weight: 130.00 kg Tech: [facility] Referring MD: DIANN FELTON Site: [facility] Reading [facility] Patient Location: Inpatient. Procedure: 2D [...] documentation: 2 ml diluted Definity, lot #[id number], [facility] [place]#[id number] was administered peripherally to enhance visualization of allleft ventricular segments. . This study was interpreted by an [facility] accredited facility. Final Diann Felton DO ECHO ORD * CTA - Cors Only (02/02/2024 3:41 PM CDT) Anatomical Region Laterality Modality HEART Computed Tomogra phy 02/02/2024 12:3 8 PM CDT Impressions 02/06/2024 12:01 AM CDT ?? Please refer to separate report for discussion of the cardiac structures. Unremarkable limited CT of the chest. Please note that all CT scans at this facility use dose modulation, iterative reconstruction and/or weight-based dosing when appropriate to reduce radiation dose to as low as reasonably achievable. ?? Florencia Mathew M.D ([place]). Body/Diagnostic Radiologist [email or web address] / ?? Narrative 02/06/2024 12:01 AM CDT ?[facility] ? Cardiac CT Report ??MRN: ? [id number] ?Name: ? CHARLEY PINTO ?: ?Scan Date: ?Accession Number: ? [id number] ?Status: ? Final ? Electronically signed by Feliciano Dixon 16:43:32 VITALS HEIGHT: 66 in ?(168 cm) WEIGHT: 287 lbs ?(130 kgs) BSA: 2.33 m^2 BMI: 46 kg/m^2 BP: 105 / 64 mmHg BASELINE HR: 62 BPM HEART RHYTHM: Normal Sinus Rhythm FINAL IMPRESSION 1. Normal epicardial coronary arteries without atherosclerosis. - The distal LAD is patent and likely recanalized compared to prior invasive coronary angiography from 12/2020. - There is no evidence of large vessel coronary dissection, although reduced sensitivity of the test to exclude small distal LAD dissection, where apical infarct is visualized from prior SCAD event. 2. The left ventricle is moderately enlarged in size. There is evidence of thinning and areas of hypoattenuation in the apical septal and true apex segments. These findings are compatible with prior myocardial infarction in the distal LAD territory. 3. There is evidence of mitral valve thickening, mainly the posterior leaflet. Please refer to Radiology report to review [...] normal. OTHER FINDINGS: Aortic sinus maximum cusp-cusp: ??36 x 34 mm. Descending thoracic aorta maximum diameters: 22 x 21 mm. Pericardium: No effusion. Left atrium: Normal contrast opacification. Atrial septum: No evidence of shunt. Pulmonary veins: Normal anatomy. SCAN INFO TEST TYPE: ??Coronary CT Angiography SCANNER SHRIMP PACKER: ??SIEMENS SCANNER MODEL: ??[employer] DOSE REDUCTION ALGORITHM: ??Prospective/[id number] PHASE UNITS: ??% START PHASE: ??65 % END PHASE: ??75 % EKG GATED: ??Yes PRE-CONTRAST: ??No POST-CONTRAST: ??Yes 3D RECONSTRUCTION: ??Yes PACEMAKER ?DEVICE: ??No GENERAL ?CONTRAST AGENT ?CONTRAST AGENT USED?: ??Yes ?TYPE: ??Omnipaque 350 ?DOSE: ??250 ml ?RATE: ??8.5 ml/s ?ROUTE: ??IV ?ARM: ??Left ?BOLUS TECHNIQUE: ??Biphasic ?SERUM CREATININE: ??1.02 mg/dL ?GFR: ??63.79 ml/min/1.73m^2 ?CREATININE DATE: ?CT CONTRAST REACTION: ??None ?MEDICATION ADMINISTERED DURING SCAN ?TYPE: ??Nitroglycerin, sublingual, B-Blockers ?NITROGLYCERIN, TOTAL DOSE: ??0.8 mg ?B-JACKSON TYPE: ??IV ?B-JACKSON NAME, IV: ??Metoprolol tartrate ?B-BLOCKERS, IV DOSE: ??10 mg ?NUMBER OF DOSES: ??1 ?RADIATION DOSE ?DLP: ??1720 ?KV: ??120 ?SETUP ?PATIENT TYPE: ??Inpatient ?REPEAT SCAN: ??Yes ?REASON FOR REPEAT SCAN: ??IV infiltrate twice ?REASON(S) FOR SCAN: ??Chest pain, Other... ?OTHER, SPECIFY:: ??hx of 100% occluded LAD ?REFERRING PHYSICIAN: ??LATESHA BYERS ?ATTENDING PHYSICIAN: ??HERBERTH ALEMAN ?TECHNOLOGIST: ??[place] Patient Account ?[id number] Report generated by [employer], a product of [employer] For Patients: As a result of the 21st Century Cures Act, medical imaging exams and procedure reports are released immediately into your electronic medical record. ??You may view this report before your referring provider. ?? If you have questions, please contact your health care provider. OVER-READ ??OVER-READ ??OVER-READ OVER-READ: DETAILED RADIOLOGY EXTRACARDIAC OVER-READ OF CARDIAC CT 02/02/2024 TECHNIQUE: ??Please see cardiology report for technical information. ??250 cc Omnipaque-350 intravenous contrast. ?? This exam is being performed in conjunction with the services provided by the [facility] ([facility]). CLINICAL HISTORY: ??Cardiac over-read. FINDINGS: ?? Normal heart size. Normal caliber of the visualized thoracic aorta and central pulmonary arteries. No pericardial effusion. No lymphadenopathy within the field of view. The Visualized lungs are clear. The visualized upper abdomen is unremarkable. The bones are within normal limits. Alexa Diaz NP CT * SCAN CORRESP-EKG RESULTS (02/02/2024 3:13 PM CDT) Only the most recent of2 resultswithin the time period is included. Narrative 02/02/2024 3:13 PM CDT Ordered by an unspecified provider. Other Clinical Staff OTHER * Urine (02/02/2024 11:04 AM CDT) Pathologist [facility] ,URIN E Negative Negative 02/02/2024 11:28 AM CDT [facility] TR[facility] Urine URINE SPECIMEN / Unknown Non-Blood / Unknown 02/02/2024 11:04 AM CDT 02/02/2024 11:14 AM CDT Cher Bagley NP [facility]INE [facility] [address] [place] [address], * TSH (02/02/2024 10:38 AM CDT) Pathologist [facility] TSH 1.23 0.27 - 4.20 uIU/mL 02/02/2024 5:51 PM CDT [facility] AL [facility]AT[facility] Blood BLOOD SPECIMEN / Unknown Non-Lab Venipuncture / Unknown 02/02/2024 10:38 AM CDT 02/02/2024 10:48 AM CDT Narrative [facility] - 02/02/2024 5:51 PM CDT In Adults, TSH values between 5.00 and 10.00 uIU/ml do not necessarily indicate the presence of Hypothyroidism. Correlation with clinical findings such as presence of goiter and/or Thyroperoxidase (TPO) Antibody may be helpful. For more information please refer to NEMESIO 2004; 291: 228-238. Ximena Nelson MD CHEMISTRY Performing Organization Address City/[facility]/ZIP Co de Phone Number [facility] [address] [place] [address], * Serum (02/02/2024 10:38 AM CDT) ,SERU M Negative Negative 02/02/2024 11:04 AM CDT [facility] Blood BLOOD SPECIMEN / Unknown Non-Lab Venipuncture / Unknown 02/02/2024 10:38 AM CDT 02/02/2024 10:48 AM CDT Feliciano Dixon MD CHEMISTRY Performing Organization Address City/[facility]/ZIP Co de Phone Number [facility] [address] [place] [address], * HCG Beta Quant, (02/02/2024 10:38 AM CDT) HCG BETA QUANT,PREGNANC Y <1 mIU/mL 02/02/2024 11:20 AM CDT [facility] Blood BLOOD SPECIMEN / Unknown Non-Lab Venipuncture / Unknown 02/02/2024 10:38 AM CDT 02/02/2024 10:48 AM CDT Narrative [facility] - 02/02/2024 11:20 AM CDT [...] prior to retesting. Feliciano Dixon MD CHEMISTRY Performing Organization Address [facility] Co de Phone Number [facility]-CENTRAL LABORATORY [address] [place] [address], * SCAN-CARDIAC STRIP (02/02/2024 10:17 AM CDT) Scanner OTHER * ECG STAT (02/02/2024 6:29 AM CDT) Interpretation Normal sinus rhythm Borderline criteria for [...] NOW QTc 404 ms BEYOND NOW P [place] 66 degrees BEYOND NOW R [place] 3 degrees BEYOND NOW T [place] 28 degrees BEYOND NOW 02/02/2024 6:29 AM CDT 02/02/2024 5:18 PM CDT Diann Felton DO EKG ORD Performing Organization Address [facility]/State/ZIP Co de Phone Number BEYOND NOW [place], [place] * (ABNORMAL) LC SOLUBLE TRANSFERRIN RECEPTOR (02/02/2024 6:03 AM CDT) Pathologist [facility] Lois Transferrin Receptor 65.5(H) 12.2 - 27.3 nmol/L 02/05/2024 4:06 PM CDT [facility] ([facility]) Blood BLOOD SPECIMEN / Unknown Add On / Unknown 02/02/2024 6:03 AM CDT 02/02/2024 8:33 AM CDT Narrative [facility] ([facility]) - 02/05/2024 4:06 PM CDT Performed at: ??[address] [place] [address] ??[id number] Graphite Mill Operator: Kashmir Jacobson MD, Phone: ??[phone] Herberth Aleman MD SEND OUTS [facility] ([facility]) [address] [place] [address], * (ABNORMAL) CBC WITH AUTO DIFFERENTIAL (02/02/2024 6:03 AM CDT) [facility] WHITE BLOOD COUNT 8.8 4.5 - 11.0 thou/cu mm 02/02/2024 7:47 AM CDT [facility] TRAL LAB[facility]AT[facility] RED BLOOD COUNT 4.12 4.00 - 5.20 mil/cu mm 02/02/2024 7:47 AM CDT [facility] HEMOGLOBIN 7.8(L) 12.0 - 16.0 g/dL 02/02/2024 7:47 AM CDT [facility] HEMATOCRIT 28.0(L) 33.0 - 51.0 % 02/02/2024 7:47 AM CDT [facility] MCV 68(L) 80 - 100 fL 02/02/2024 7:47 AM CDT [facility] TR[facility] LAB[facility] MCH 18.9(L) 26.0 - 34.0 pg 02/02/2024 7:47 AM CDT [facility] MCHC 27.9(L) 32.0 - 36.0 g/dL 02/02/2024 7:47 AM CDT [facility] RDW 19.5(H) 11.5 - 15.5 % 02/02/2024 7[facility] PLATELET COUNT 325 140 - 440 thou/cu mm 02/02/2024 7:47 AM CDT [facility] MPV 8.8 6.5 - 11.0 fL 02/02/2024 7:47 AM [facility] TR[facility] NRBC 0.2 % 02/02/2024 7:[facility] ABS NRBC 0.0 thou /cu mm 02/02/2024 7:47 AM [facility] % NEUT 70.8 % 02/02/2024 7:47 [facility] % LYMPH 17.5 % 02/02/2024 7:47 AM [facility] % MONO 8.9 % 02/02/2024 7:47 AM [facility] % EOS 1.5 % 02/02/2024 7:47 AM [facility] % BASO 1.0 % 02/02/2024 7:47 AM [facility] % IMMATURE GRAN (METAS,MYELOS,ID OS) 0.3 % 02/02/2024 7:47 AM CDT [facility] ABSOLUTE NEUTROPHILS 6.2 1.7 - 7.0 thou/cu mm 02/02/2024 7:47 AM T [facility] ABSOLUTE LYMPHOCYTES 1.5 0.9 - 2.9 thou/cu mm 02/02/2024 7:47 AM CDT [facility] ABSOLUTE MONOCYTES 0.8 <0.9 thou/cu mm 02/02/2024 7:47 AM [facility] ABSOLUTE EOSINOPHILS 0.1 <0.5 thou/cu mm 02/02/2024 7:47 AM CDT [facility] ABSOLUTE BASOPHILS 0.1 <0.3 thou/cu mm 02/02/2024 7:47 AM CDT [facility] ABSOLUTE IMMATURE GRANULOCYTES(MET ,MYELOS,PROS) 0.0 <0.3 thou/cu mm 02/02/2024 7:47 AM CDT [facility] Blood BLOOD SPECIMEN / Unknown Venipuncture / Unknown 02/02/2024 6:03 AM CDT 02/02/2024 6:16 AM CDT Diann Felton DO HEMATOLOGY Performing Organization Address [facility] de Phone Number [facility] [address] [place] [address], * (ABNORMAL) RED CELL MORPHOLOGY (02/02/2024 6:03 AM CDT) ELLIPTOCYTES Few 02/02/2024 7:[address] [facility] POLYCHROMASIA Slight 02/02/2024 7:46 AM CDT [facility] TARGET CELLS Few 02/02/2024 7:46 AM CDT [facility] RBC COMMENT Present(A) RBC morphology appears normal, RBC morphology within normal limits for newborns. 02/02/2024 7:46 AM CDT [facility] Blood BLOOD SPECIMEN / Unknown Venipuncture / Unknown 02/02/2024 6:03 AM CDT 02/02/2024 6:16 AM CDT Diann Felton DO HEMATOLOGY Performing Organization Address [facility] Co de Phone Number [facility] [address] [place] [address], * PERIPHERAL BLD MORPHOLOGY (02/02/2024 6:03 AM CDT) Case Report Special Hematology Report ? Case: [id number] ? Authorizing Provider: ??Diann Felton DO ?Collected: ? 02/02/2024 0603 ? Ordering Location: ? [facility] ?Received: ?02/02/2024 0617 ? Hospital ? Pathologist: ? Walter Enriquez MD ? Specimen: ?Blood ? 02/03/2024 5:08 PM CDT [employer] LABORAT[facility]-C ENTRAL LABORATORY Final Diagnosis PERIPHERAL BLOOD: 1. Moderate microcytic, hypochromic anemia with features suggestive of iron deficiency anemia 2. See comment 02/03/2024 5:08 PM CDT [employer] LAB[facility] EN[facility]AL LAB[facility] Comment The most common etiology for microcytic anemia is iron deficiency. Recommend correlation with a ferritin and soluble transferrin receptor assay. Anemia of chronic disease can also exhibit microcytic features. Concurrent anemia of renal insufficiency, medication effect and anatomic blood loss cannot be excluded. There are no findings to suggest hemolysis or a primary bone marrow disorder. This case was also reviewed by Selene Cartagena MT, ([facility]). 02/03/2024 5:08 PM CDT [facility] LABORATORY-C ENTRAL LABORATORY Clinical Information The patient is a 38-year-old female. Pertinent clinical information: New acute anemia. ??Please evaluate for hemolysis. 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 She was found to have an NSTEMI, alcohol use disorder, microcytic anemia, and hypertension. Peripheral blood morphology 2020 ([id number]) showed a mild normocytic anemia and neutrophilia. 02/01/24 21:01 IRON: ?19 (L) IRON BINDING CAPACITY ?: 397 IRON,% SATURATION ?: 5 (L) UIBC (UNSATURATED) ? : 378 (H) VITAMIN B12: ? 520 HAPTOGLOBIN ?: 164 02/03/2024 5:08 PM CDT [facility] [employer] LABORATORY-C ENTRAL LABORATORY CBC and Differential HEMATOLOGY PARAMETERS Tested at: ??[facility] ? RESULTS ??EXPECTED VALUES WBC: ? 8.8 ?4.5-25i4383/cumm ? RBC: ? 4.12 ?4.00-5.20 mil/cummDECREASED HGB: ? 7.8 ?12-16 gm/dl ? DECREASED HCT: ? 28.0 ? 33-51% ?DECREASED MCV: ? 68.0 ? 80-100 fl ? MICROCYTIC MCH: ? 18.9 ? 26-34 pg ?DECREASED MCHC: ?27.9 ? 32-36 gm/dl ? HYPOCHROMIC RDW: ? 19.5 ? 11.5-15.5% ?ELEVATED PLT: ? 325 ?140-317w4079/uL ? MPV: ? 8.8 ?6.5-11 fl ? Retic: ?? 2.6 ?0.5-1.5% ?ELEVATED Differential ?Tested at: ??[facility] ?Absolute (%) ?Expected (%) ?(x10*9/L) ? (x10*9/L) Neutrophils: ?6.2 (70.5) ?1.7-7.0 (42-72%) ? Lymphocytes: ?1.5 (17) ?0.9-2.9 (20-44%) ?? Monocytes: ?0.8 (9.1) ?<0.9 (0-11%) ? Eosinophils: ?0.1 (1.1) ?<0.5 (0-2%) ? Basophils: ?0.1 (1.1) ?<0.3 (<3.0%) ? 02/03/2024 5:08 PM CDT [facility] LABORATORY- ENTRAL LABORATORY Microscopic Description The final diagnosis is based on microscopic examination of appropriate sections of all specimens. The final diagnosis is based on microscopic examination of an appropriately stained blood smear. 02/03/2024 5:08 PM CDT [facility] LABORATORY- ENTRAL LABORATORY Additional Information Interpreted at [facility] Central Laboratory - [address] [place] [address] [facility] [address] [address] 02/03/2024 5:08 PM CDT [facility]- ENTRAR LABORATORY Blood BLOOD SPECIMEN / Unknown Venipuncture / Unknown 02/02/2024 6:03 AM CDT 02/02/2024 6:17 AM CDT Comment:CURRENT MEDICATIONSC urrent Facility-Administered Medications: ? ? acetaminophen 650 mg tablet (TYLENOL), 650 mg, Oral, q4h prn, Mangine, Diann, DO? ? calcium carbonate 500-1,000 mg tablet (TUMS), 500-1,000 mg, Oral, q4h prn, Mangine, Diann, DO? ? heparin IV THERAPEUTIC protocol, , Protocol, protocol AND heparin (porcine) 25,000 unit/250 mL (100 unit/mL) D5W infusion, 1,000 Units/hr, Intravenous, continuous, [facility] Campus[facility]ates[facility] MD, Last Rate: 1,000 Units/hr (02/01/242110)? ? melatonin tablet 3 mg, 3 mg, Oral, bedtime prn MRx1, Diann Felton, DO? ? naloxone (NARCAN) 0.4 mg/mL injection vial 0.4 mg, 0.4 mg, Intravenous, q1min prn, Coltonine, Diann, DO? ? ondansetron 4 mg orally disintegrating tablet (ZOFRAN ODT), 4 mg, On The Tongue, q8h prn OR ondansetron 4 mg injection (ZOFRAN), 4 mg, Intravenous, q8h prn, Coltonine, Diann, DO? ? oral anesthetic lozenge 1 Lozenge, 1 Lozenge, On The Tongue, q2h prn, Coltonine, Diann, DO? ? polyethylene glycol (MIRALAX; GLYCOLAX) packet 17 g, 17 g, Oral/NG Tube, daily prn, Mangine, Diann, DO? ? sennosides 8.6-17.2 mg (SENNA), 8.6-17.2 mg, Oral, bid prn, Mangine, Diann, DO? ? sodium chloride 0.9 % syringe 10 mL, 10 mL, Intravenous, Each Time PRN, Mangine, Diann, DO? ? sodium chloride 0.9 % syringe 5 mL, 5 mL, Intravenous, q12h, Mangine, Diann, DO? ? sodium chloride 0.9 % syringe 5 mL, 5 mL, Intravenous, Each Time PRN, Mangine, Diann, DO Diann Felton DO HEMATOLOGY Performing Organization Address City/[facility]/ZIP Co de Phone Number [facility] [address] [place] [address], * (ABNORMAL) RETICULOCYTES (02/02/2024 6:03 AM CDT) Only the most recent of2 resultswithin the time period is included. RETIC% 2.6(H) 0.5 - 1.5 % 02/02/2024 7:46 AM CDT [facility] TRAL LAB[facility] RETIC (ABSOLUTE) 0.11(H) 0.03 - 0.08 mil/cu mm 02/02/2024 7:46 AM CDT [facility] TR[facility] Blood BLOOD SPECIMEN / Unknown Venipuncture / Unknown 02/02/2024 6:03 AM CDT 02/02/2024 6:16 AM CDT Diann Felton DO HEMATOLOGY [facility] [address] [place] [address], [place] * ALT AM (02/02/2024 6:03 AM CDT) ALT (SGPT) 22 10 - 35 IU/L 02/02/2024 7:10 AM CDT [facility] R[facility] LAB[facility]AT[facility] Blood BLOOD SPECIMEN / Unknown Venipuncture / Unknown 02/02/2024 6:03 AM CDT 02/02/2024 6:16 AM CDT Diann Felton DO CHEMISTRY Performing Organization Address City/[facility]/ZIP Co de Phone Number [facility] [address] [place] [address], * (ABNORMAL) AST AM (02/02/2024 6:03 AM CDT) AST (SGOT) 47(H) 10 - 35 IU/L 02/02/2024 7:10 AM CDT [facility] Blood BLOOD SPECIMEN / Unknown Venipuncture / Unknown 02/02/2024 6:03 AM CDT 02/02/2024 6:16 AM CDT Diann Felton DO CHEMISTRY Performing Organization Address [facility] de Phone Number [facility] [address] [place] [address], * (ABNORMAL) Basic metabolic panel AM (02/02/2024 6:03 AM CDT) Only the most recent of2 resultswithin the time period is included. SODIUM 137 136 - 145 mmol/L 02/02/2024 7:10 AM CDT [facility] TRAL LAB[facility] POTASSIUM 4.2 3.5 - 5.1 mmol/L 02/02/2024 7:10 AM CDT [facility] CHLORIDE 104 98 - 107 mmol/L 02/02/2024 7:10 AM CDT [facility] CO2,TOTAL 22 22 - 29 mmol/L 02/02/2024 7:10 AM CDT [facility] ANION GAP 11 5 - 18 02/02/2024 7:10 AM CDT [facility] GLUCOSE 127(H) 70 - 99 mg/dL 02/02/2024 7:10 AM CDT [facility] CALCIUM 8.9 8.6 - 10.0 mg/dL 02/02/2024 7:10 AM T [facility] BUN 12 6 - 20 mg/dL 02/02/2024 7:10 AM CDT [facility] CREATININE 0.89 0.50 - 0.90 mg/dL 02/02/2024 7:10 AM CDT [facility] BUN/CREAT RATIO 13 10 - 20 7:10 AM CDT [facility] eGFR 84(L) >90 mL/min/1.7 3m2 02/02/2024 7:10 AM CDT [facility] Comment:As of 2021, eG FR [...] Diann Felton DO CHEMISTRY Performing Organization Address City/[facility]/ZIP Co de Phone Number [facility] [address] [place] [address], * SCAN-CARDIAC STRIP (02/02/2024 4:06 AM CDT) Scanner OTHER * (ABNORMAL) TROPONIN T (HS) ONE TIME (02/02/2024 12:12 AM CDT) TROPONIN T HS 340(H) 6-10 ng/L ng/L 02/02/2024 1:18 AM CDT [facility] Blood BLOOD SPECIMEN / Unknown Butterfly / Unknown 02/02/2024 12:12 AM CDT 02/02/2024 12:17 AM CDT Diann Felton DO CHEMISTRY [facility] [address] [place] [address], * (ABNORMAL) TROPONIN T (HS) ACUTE W/2HR REFLEX (02/01/2024 10:02 PM CDT) TROPONIN T HS 366(H) 6-10 ng/L ng/L 02/01/2024 10:48 PM CDT [facility] Blood BLOOD SPECIMEN / Unknown Butterfly / Unknown 02/01/2024 10:02 PM CDT 02/01/2024 10:[address] [facility] LABORATORY - 02/01/2024 10:48 PM CDT hs-cTnT [...] Diann Felton DO CHEMISTRY Performing Organization Address City/[facility]/ZIP Co de Phone Number [facility] [address] [place] [address], [place] * HAPTOGLOBIN (02/01/2024 10:02 PM CDT) Haptoglobin 164 30 - 200 mg/dL 02/02/2024 12:32 AM CDT [facility] Blood BLOOD SPECIMEN / Unknown Butterfly / Unknown 02/01/2024 10:02 PM CDT 02/01/2024 10:12 PM CDT Diann Felton CHEMISTRY Performing Organization Address [facility] Co de Phone Number [facility] [address] [place] [address], [place] * (ABNORMAL) IRON PLUS IRON BINDING CAP (02/01/2024 9:01 PM CDT) IRON 19(L) 37 - 145 ug/dL 02/01/2024 10:51 PM CDT [facility] UIBC (UNSATURATED) 378(H) 112 - 347 ug/dL 02/01/2024 10:51 PM CDT [facility] IRON BINDING CAPACITY 397 250 - 400 ug/dL 02/01/2024 10:51 PM CDT [facility] IRON,% SATURATION 5(L) 14 - 50 % 02/01/2024 10:51 PM CDT [facility] Blood BLOOD SPECIMEN / Unknown Butterfly / Unknown 02/01/2024 9:01 PM CDT 02/01/2024 9:09 PM CDT Diann Felton DO CHEMISTRY Performing Organization Address City/[facility]/ZIP Co de Phone Number [facility] [address] [place] [id number], [place] * BUN (02/01/2024 9:01 PM CDT) BUN 9 6 - 20 mg/dL 02/01/2024 10:19 PM CDT [facility] Blood BLOOD SPECIMEN / Unknown Butterfly / Unknown 02/01/2024 9:01 PM CDT 02/01/2024 9:09 PM CDT Diann Felton DO CHEMISTRY Performing Organization Address City/[facility]/ZIP Co de Phone Number [facility] [address] [place] [address], * (ABNORMAL) CREATININE (02/01/2024 9:01 PM CDT) eGFR 84(L) >90 mL/min/1.7 3m2 02/01/2024 10:19 PM CDT [facility] Comment:As of 2021, eG FR is calculated by the CKD-EPI creatinine equation without race adjustment. ??eGFR can be influenced by muscle mass, exercise, and diet. ??The reported eGFR is an estimation only and is only applicable if the renal function is stable. CREATININE 0.89 0.50 - 0.90 mg/dL 02/01/2024 10:19 PM CDT [facility] Blood BLOOD SPECIMEN / Unknown Butterfly / Unknown 02/01/2024 9:01 PM CDT 02/01/2024 9:09 PM CDT Diann Felton DO CHEMISTRY Performing Organization Address City/[facility] Co de Phone Number [facility] [address] [place] [address], [place] * Vitamin B12 level AM (02/01/2024 9:01 PM CDT) VITAMIN B12 520 232 - 1,245 pg/mL 02/01/2024 10:49 PM CDT [facility] Blood BLOOD SPECIMEN / Unknown Butterfly / Unknown 02/01/2024 9:01 PM CDT 02/01/2024 9:09 PM CDT Narrative [facility] - 02/01/2024 10:49 PM CDT Biotin supplements may cause clinically significant interference for this test assay. ??If interference is suspected, it is strongly recommended that biotin is discontinued for at least one week prior to retesting. Diann Felton DO CHEMISTRY [facility] [address] [place] [address], * SCAN-CARDIAC STRIP (02/01/2024 12:00 AM CDT) Narrative 02/01/2024 12:00 AM CDT Ordered by an unspecified provider. Other Clinical Staff OTHER * SOCIAL SERVICES SPECIALIST THIN PREP PAP SCREEN IMAGED (11/05/2020 9:55 AM CDT) Case Report Gynecologic Cytology Report ? Case: [id number] ? Authorizing Provider: ??Lucy Silvestre PA-C ?Collected: ? 11/05/2020 0955 ? Ordering Location: ? [facility] ?Received: ?11/06/2020 1014 ? First Screen: ?Malcolm Sultana ? Pathologist: ? Helen Mcrcay MD ? Specimen: ?SOCIAL SERVICES SPECIALIST ThinPrep Vial Screening, Cervical/Vaginal ? 11/13/2020 3:21 PM CDT [facility] INTERPRETATION/ RESULT NEGATIVE FOR INTRAEPITHELIAL LESION OR MALIGNANCY (NIL) (none) 11/13/2020 3:21 PM T [facility] R NON-NEOPLASTIC FINDING(S) Reactive cellular changes associated with inflammation/repa ir 11/13/2020 3:21 PM CDT [facility] SPECIMEN ADEQUACY Satisfactory for evaluation Endocervical component present 11/13/2020 3:21 PM T [facility] HPV REQUEST HPV and PAP 11/13/2020 3:21 PM [facility] Date of LMP 10/18/2020 11/13/2020 3:21 PM T [facility] Last Pap Date 11/13/2020 3:21 PM T [facility] Comment:Unknown Menstrual Status Abnormal bleeding 11/13/2020 3:21 PM T [facility] Additional Information 11/13/2020 3:21 PM [facility] Comment: Interpreted at [facility] Central Laboratory - [address], [place] [address] Automated Review Successful 11/13/2020 3:21 PM [facility] Comment:Specimen processed s uccessfully by automated assistant education director device, ThinPrep Imaging System, [employer] ANCILLARY TESTING SOCIAL SERVICES SPECIALIST HPV Ordered, Please see separate report 11/13/2020 3:21 PM [facility] Note The pap test is a [...] and malignant lesions. 11/13/2020 3:21 PM CDT [facility] Other (Cervical/Vagina l) 11/05/2020 9:55 AM CDT 11/06/2020 10:14 AM CDT Lucy Silvestre PA-C PATHOLOGY/CYTOLOGY [facility] [address] [place] [address], [place] * ANTI HCV (07/02/2016 9:37 AM MAKE READY WORKER) HEPATITIS C ANTIBODY Non-Reacti ve Non-Reacti ve 07/02/2016 5:30 PM MAKE READY WORKER [facility] Blood BLOOD SPECIMEN / Unknown Venipuncture / Unknown 07/02/2016 9:37 AM MAKE READY WORKER 07/02/2016 9:37 AM MAKE READY WORKER Narrative [facility] - 07/02/2016 5:30 PM MAKE READY WORKER Antibodies to HCV not detected; does not exclude the possibility of exposure to HCV. Deysi BRUMFIELD SEND OUTS [facility] [address] [place] [address], [place] * ANTI HIV 1/2 (07/02/2016 9:37 AM MAKE READY WORKER) HIV-1/HIV-2 ANTIBODY Non-Reacti ve Non-Reacti ve 07/02/2016 5:30 PM MAKE READY WORKER [facility] Blood BLOOD SPECIMEN / Unknown Venipuncture / Unknown 07/02/2016 9:37 AM MAKE READY WORKER 07/02/2016 9:37 AM MAKE READY WORKER Narrative [facility] - 07/02/2016 5:30 PM MAKE READY WORKER HIV-1 p24 and HIV-1/HIV-2 Ab not detected Deysi BRUMFIELD S[employer] OUT[employer] [facility] [address] [place] [address], from Last 3 Months or Most Recently Relevant to Health Maintenance Advance Directives * Full Code (Latest Code Status on File) Date Activated Date Inactivated Comments 02/01/2024 10:55 PM 02/03/2024 8:55 PM Question Answer Comments Code Status Discussion: Reviewed Preferences * Full Code Date Activated Date Inactivated Comments 02/01/2024 8:19 PM 02/01/2024 10:55 PM Question Answer Comments Code Status Discussion: Unable to Assess Preferences, Provider to review later * Full Code Date Activated Date Inactivated Comments 12/13/2020 2:00 AM 12/18/2020 6:13 PM Question Answer Comments Code Status Discussion: Not Discussed Care Teams Good Humor Vendor Relationship Specialty Start Date End Date Jackeline Montes De Oca MD [address] [place] [address] PCP - General Family Practice 12/13/20 Aida Jones MD MESSAGE AND DELIVERY SERVICE PRICER Obstetrics and Gynecology 11/13/12
== END 2024-02-28 08:31 | disposition home or self-care (01) ==
LOC: NFLDREF 14:27
PROVIDERS: Internal Medicine; PCP Internal Medicine; Referring Provider Internal Medicine; Visit Provider Obstetrics & Gynecology
DX: N93.9 Abnormal uterine and vaginal bleeding, unspecified (principal); D50.9 Iron deficiency anemia, unspecified
CPT/HCPCS: 84443; 85130

== ENCOUNTER 2024-03-08 09:48 | Outpatient (CLI) | payer OTHER, SELFPAY | END 2024-03-08 09:49 | disposition home or self-care (01) | PROVIDERS: PCP Internal Medicine; Visit Provider Internal Medicine | DX: I25.2 Old myocardial infarction (principal); D68.61 Antiphospholipid syndrome | CPT/HCPCS: 80048; 85260 ==

== ENCOUNTER 2024-03-21 07:40 | Day surgery (SDC) | payer OTHER, SELFPAY ==
[2024-03-21] MEDS: LACTATED RINGERS 1000 ML 1,000 ML 100 ML IV (07:25)
--- OUTSIDE RECORDS SUMMARY | 2024-03-21 07:44 | XMS_ITS | Clinical Summary ---
Author Organization [employer] [facility] & [facility] Address [place], [place] [address] Care Team Providers Care [employer]inerator [employer] General Supervisor Name Role Phone Aida Jones MD Unavailable [...] 2 times daily if needed. 11/11/2020 Active acetaminophen (TylenoL) 325 mg tablet Take 650 mg by mouth 3 times daily if needed. Max acetaminophen dose: 4000mg in 24 hrs. Active nitroglycerin (NITROSTAT) 0.4 mg sublingual tabletIndications :NSTEMI (non-ST elevated myocardial infarction) (HC) Place 1 Tablet (0.4 mg) under the tongue every 5 minutes if needed. 25 Tablet 2 12/18/2020 Active lisinopriL (PRINIVIL; ZESTRIL) 5 mg tabletIndications :NSTEMI (non-ST elevated myocardial infarction) (HC) Take 1 Tablet (5 mg) by mouth once daily. 90 Tablet 3 11/20/2021 Active warfarin (COUMADIN) 10 mg tablet Take 10 mg on Sundays and 15 mg all other days. Active dextroamphetamine -amphetamine (ADDERALL XR) 20 mg Extended-Release capsule Take 20 mg by mouth once daily if needed. Active escitalopram oxalate (LEXAPRO) 20 mg tablet Take 20 mg by mouth at bedtime. 01/12/2024 Active hydrOXYzine HCL (ATARAX) 25 mg tablet Take 25-50 mg by mouth every 8 hours if needed for Anxiety. Active naltrexone (REVIA) 50 mg tablet Take 50 mg by mouth at bedtime. 01/18/2024 Active pantoprazole (PROTONIX) 40 mg delayed-release tabletIndications :PUD (peptic ulcer disease) Take 1 Tablet (40 mg) by mouth two times daily before meals. For 2 months 60 Tablet 1 02/03/2024 04/03/2024 Active enoxaparin (LOVENOX) 120 mg/0.8 mL injectionIndicati ons:Antiphospholi pid syndrome (HC) Inject 120 mg subcutaneous every 12 hours. 11.2 mL 02/03/2024 Active ferrous sulfate, 65 mg elemental, tabletIndications :Iron deficiency anemia due to chronic blood loss Take 1 Tablet (325 mg) by mouth once daily. 30 Tablet 02/03/2024 Active Active Problems Problem Noted Date Diagnosed Date Chest pain 02/03/2024 Iron deficiency anemia 02/03/2024 Menorrhagia 02/03/2024 Elevated troponin 02/03/2024 Chest pain 02/02/2024 Antiphospholipid syndrome 12/17/2020 [place] endocarditis 12/17/2020 Morbid obesity with BMI of 50.0-59.9, adult 12/02 Depression 12/13/2020 Anemia 12/13/2020 Menorrhagia 12/13/2020 Overview (12/13/2020): Currently better because of progesterone IUD. Borderline hypertension 12/13/2020 Acne rosacea 09/26/2013 Resolved Problems Problem Noted Date Diagnosed Date Resolved Date NSTEMI (non-ST elevated myoc ardial infarction) 12/13/2020 02/03/2024 05/09/2015 03/17/2017 Overview (12/30/2016): GBS + Adacel given November 2016 A+, non-specific antibody noted (no history of blood transfusion) UTI (lower urinary tract infection) 01/02/2013 12/25/2013 Supervision of normal first 05/20/2010 08/18/2011 Encounters Date Type Department Care Team Description 02/28/20 Lab Requisition [facility] [phone] Concha Stockton MD 02/10/20 Lab Requisition [facility] [phone] Concha Stockton MD 02/06/20 Orders Only [facility] [address] [facility] [address] [place] [address] Jessy Cade, <No scans attached> 02/03/20 11:31 AM CDT Anesthesia Event [facility] [address] [place] [address] Sadi Christina MD 02/03/20 10:52 AM CDT - 02/03/20 12:07 PM CDT Surgery [facility] [address] [place] [address] Butch Gómez MD ESOPHAGOGASTRODUODENOSCOPY WITH BIOPSIES 02/02/20 Telephone [facility] [address] [place] [address] Ximena Nelson MD 02/02/20 Travel 02/01/20 7:41 PM CDT - 02/03/20 6:50 PM CDT Hospital Encounter [facility] [address] [place] [address] [facility], [facility] Hospitalists Of [facility], MD Tiago Blanco, Herberth Yeung MD PUD (peptic ulcer disease) (Primary Dx); Cardiovascular symptoms; Antiphospholipid syndrome (HC); Mass of soft tissue of abdomen; Abnormal uterine bleeding (AUB); Iron deficiency anemia due to chronic blood loss Discharge Disposition: Home Self Care 02/01/20 Lab Requisition [facility] [phone] Concha Stockton MD 02/01/[address] [address] Paula Dillard MD from Last 3 Months Immunizations Name Administration Dates Next Due Influenza, IIV3 (Age >=3 years) 05/03/2011,03/20 Influenza, IIV4 04/14/2015 Tdap 11/12/2016,02/09/2008 Tuberculin (PPD) 07/10/2018 Family History Medical History Relation Name Comments Good Health Father Diabetes Maternal Grandfather Cancer Maternal Grandmother ovarian Diabetes Maternal Grandmother Diabetes Mother Premature CHD (under age 60) Mother IA in her 50s Premature CHD (under age [...] Associated Diagnosis Comments EXTRA TUBE BLUE Routine 02/28/2024 8:30 AM CDT EXTRA TUBE BLUE Routine 02/28/2024 8:30 AM CDT FACTOR 10 CHROMOGENIC Routine 02/28/2024 8:30 AM CDT FACTOR 10 CHROMOGENIC STAT 02/09/2024 2:20 PM CDT PATH TISSUE EXAM Today 02/03/2024 11:41 AM CDT ENDOSCOPY 02/03/2024 11:24 AM CDT COLONOSCOPY 02/03/2024 11:23 AM CDT COLONOSCOPY 02/03/2024 11:18 AM CDT see note ESOPHAGOGASTRODUODENOSCOPY W ITH BIOPSY 02/03/2024 11:18 AM CDT see MD ramírez SCAN-CARDIAC STRIP 02/03/2024 8:03 AM CDT FACTOR [...] RESULTS 3:13 PM CDT SCAN CORRESP-EKG RESULTS 2:08 PM CDT URINE Preop 02/02/2024 11:04 [...] CDT IRON PLUS IRON BINDING CAP LETHA 01/31 9:01 PM CDT CREATININE LETHA 02/01/2024 9:01 PM CDT BUN LETHA 02/01/2024 9:01 PM CDT HEMATOCRIT LETHA 02/01/2024 9:01 PM CDT HEMOGLOBIN LETHA 02/01/2024 9:01 PM CDT PLATELET COUNT LETHA 02/01/2024 9:01 PM CDT FACTOR 10 CHROMOGENIC Routine 02/01/2024 10:22 AM CDT SCAN-CARDIAC STRIP 02/01/2024 12:00 AM CDT MEDICAL ADVISOR THIN PREP PAP SCREEN IMAGED Routine 11/05/2020 9:55 AM CDT ANTI HIV 1/2 Routine 07/02/2016 9:37 AM PROFESSOR OF FOREST PLANNING 9 weeks gestation of ANTI HCV Routine 07/02/2016 9:37 AM PROFESSOR OF FOREST PLANNING 9 weeks gestation of from Last 3 Months or Most Recently Relevant to Health Maintenance Results * EXTRA TUBE BLUE (02/28/2024 8:30 AM CDT) Only the most recent of2 resultswithin the time period is included. Blood BLOOD SPECIMEN / Unknown Client Collect / Unknown 02/28/2024 8:30 AM CDT 02/28/2024 3:30 PM CDT Concha Stockton MD LABORATORY Performing Organization Address City/[facility] Co de Phone Number [facility] [address] [place] [address], * (ABNORMAL) FACTOR 10 CHROMOGENIC (02/28/2024 8:30 AM CDT) Only the most recent of4 resultswithin the time period is included. FACTOR 10 CHROMOGENIC 18(L) 65 - 130 % 02/28/2024 4:11 PM CDT [facility] Blood BLOOD SPECIMEN / Unknown Client Collect / Unknown 02/28/2024 8:30 AM CDT 02/28/2024 3:29 PM CDT Narrative [facility] - 02/28/2024 4:11 PM CDT Therapeutic Range 20-40% Concha Stockton MD SEND OUTS Performing Organization Address [facility]/ZIP Co de Phone Number [facility] [address] [place] [address], * PATH TISSUE EXAM (02/03/2024 11:41 AM CDT) Case Report Pathology Report ?Case: [id number] ? Authorizing Provider: ??Butch Gómez MD ? Collected: ? 02/03/2024 1141 ? Ordering Location: ? [facility] ?Received: ?02/03/2024 1458 ? Hospital ? Pathologist: ? Robert Krueger, ? MD ? Specimens: ?? A) - Small Bowel Biopsy, iron deficiency ? B) - Gastric Biopsy, rule out H. Pylori ? 02/06/2024 12:01 PM CDT [facility] Final Diagnosis A) DUODENUM, BIOPSY: 1. Ulcerative duodenitis, favor peptic or NSAID injury 2. Negative for celiac disease 3. Negative for dysplasia and malignancy B) STOMACH, BIOPSY: 1. Reactive gastropathy, endoscopically ulcerative (see comment) ?? a. Sampling: Antral and body mucosae ?? b. Distribution: Antral mucosa 2. Negative for chronic inflammation, atrophy and Helicobacter 02/06/2024 12:01 PM T [facility] Comment B) The likely etiology is an ongoing non-inflammatory type mucosal injury due to a chemical type of injury; this may be due to ingestion of non-steroidal anti-inflammatory drugs, aspirin (via prostaglandin-med iated injury), excess alcohol, corticosteroids, or bile/alkaline reflux, the latter usually in the setting of a gastroenteric anastomosis. 02/06/2024 12:01 PM T [facility] Clinical Information Ms. Pinto is a 38 y.o. with unexplained iron deficiency anemia. EGD reveals a normal esophagus. Few nonbleeding superficial gastric ulcers were identified in the prepyloric region stomach. The largest was 5 mm. A few nonbleeding duodenal ulcers are also identified that were superficial and present in the duodenal bulb. The largest lesion there was 5 mm. 02/06/2024 12:01 PM T [facility] Gross Description A) Received in [...] 02/03/2024 4:31 PM 02/06/2024 12:01 PM CDT [facility] Microscopic Description The final diagnosis is based on microscopic examination of appropriate sections of all specimens. 02/06/2024 12:01 PM CDT [facility] LABORAT[facility] Additional Information Interpreted at [facility], Central Laboratory - [address] [facility] [address], [place] [address] 02/06/2024 12:01 PM CDT [facility] EN[facility]AL LABORATORY Biopsy (Small Bowel Biopsy) 02/03/2024 11:41 AM CDT 02/03/2024 2:58 PM CDT Biopsy specimen (specimen) GASTRIC BIOPSY SPECIMEN / Unknown 02/03/2024 11:46 AM CDT 02/03/2024 2:58 PM CDT Butch Gómez MD PATHOLOGY/CYTOLOGY [facility] [address] [place] [address], [place] * ENDOSCOPY (02/03/2024 11:24 AM CDT) 02/03/2024 11:2 4 AM CDT Narrative Transcriptions Butch Gómez MD - 02/03/2024 11:50 AM CDT [facility] Patient Name: Charley Pinto Procedure Date: 02/03/2024 Gender: Female Date of : 1985 Admit Type: Inpatient Procedure: Upper GI endoscopy Proceduralist: Butch Gómez MD - [facility] Digestive Health Indications/Pre-Op Diagnosis: Unexplained iron deficiency anemia Medications: Monitored Anesthesia Care Procedure Description: Risk of bleeding, infection, perforation, need for surgery and alternatives discussed. The endoscope [id number] was introduced through the mouth, and advanced [...] Gómez MD - 02/03/2024 12:17 PM CDT [facility] Patient Name: Charley Pinto Procedure Date: 02/03/2024 Gender: Female Date of : 1985 Admit Type: Inpatient Procedure: Colonoscopy Proceduralist: Butch Gómez MD - [facility] Indications/Pre-Op Diagnosis: Unexplained iron deficiency anemia Medications: Monitored Anesthesia Care Procedure Description: The patient had risks, benefits and alternatives explained to andgave informed consent. The patient had a stable cardiopulmonary status and judged an adequate candidate for sedation. The endoscope [id number] was passed through the anus andadvanced to [...] 440 thou/cu mm 02/03/2024 6:11 AM CDT [facility] MPV 8.9 6.5 - 11.0 fL 02/03/2024 6:11 AM CDT [facility] Blood BLOOD SPECIMEN / Unknown Venipuncture / Unknown 02/03/2024 5:27 AM CDT 02/03/2024 6:04 AM CDT Narrative [facility] - 02/03/2024 6:11 AM CDT Every morning while on IV heparin. Every morning while on IV heparin. Necessary every morning while on IV heparin. Diann [employer] HEMATOLOGY Performing Organization Address [facility] de Phone Number [facility] [address] * (ABNORMAL) HEMOGLOBIN (02/03/2024 5:27 AM CDT) Only the most recent of2 resultswithin the time period is included. HEMOGLOBIN 7.8(L) 12.0 - 16.0 g/dL 02/03/2024 6:11 AM CDT [facility] MCV 68(L) 80 - 100 fL 02/03/2024 6:11 AM CDT [facility] Blood BLOOD SPECIMEN / Unknown Venipuncture / Unknown 02/03/2024 5:27 AM CDT 02/03/2024 6:04 AM CDT Narrative [facility] - 02/03/2024 6:11 AM CDT Every morning while on IV heparin. Every morning while on IV heparin. Necessary every morning while on IV heparin. Diann [employer] HEMATOLOGY Performing Organization Address [facility] Co de Phone Number [facility] [address] [place] [address], * (ABNORMAL) HEMATOCRIT (02/03/2024 5:27 AM CDT) Only the most recent of2 resultswithin the time period is included. HEMATOCRIT 27.4(L) 33.0 - 51.0 % 02/03/2024 6:11 AM CDT [facility] Blood BLOOD SPECIMEN / Unknown Venipuncture / Unknown 02/03/2024 5:27 AM CDT 02/03/2024 6:04 AM CDT Narrative [facility] - 02/03/2024 6:11 AM CDT Every morning while on IV heparin. Every morning while on IV heparin. Necessary every morning while on IV heparin. Diann Felton DO HEMATOLOGY Performing Organization Address City/[facility]/ZIP Co de Phone Number [facility] [address] [place] [address], * POTASSIUM (02/03/2024 5:27 AM CDT) POTASSIUM 4.1 3.5 - 5.1 mmol/L 02/03/2024 6:40 AM CDT [facility] Blood BLOOD SPECIMEN / Unknown Venipuncture / Unknown 02/03/2024 5:27 AM CDT 02/03/2024 6:04 AM CDT Herberth Aleman MD CHEMISTRY Performing Organization Address City/[facility]/ZIP Co de Phone Number [facility] [address] [place] [address], [place] * (ABNORMAL) APTT (02/03/2024 5:27 AM CDT) Only the most recent of3 resultswithin the time period is included. APTT 45(H) 28 - 36 sec 02/03/2024 7:23 AM CDT [facility] Blood BLOOD SPECIMEN / Unknown Venipuncture / Unknown 02/03/2024 5:27 AM CDT 02/03/2024 6:04 AM CDT Narrative [facility] - 02/03/2024 7:23 AM CDT Therapeutic Range: 57-87 seconds Latesha Bartholomew MD HEMATOLOGY Performing Organization Address City/[facility]/ZIP Co de Phone Number [facility] [address] [place] [address], * MAGNESIUM (02/03/2024 5:27 AM CDT) MAGNESIUM 2.0 1.6 - 2.6 mg/dL 02/03/2024 6:40 AM CDT [facility] Blood BLOOD SPECIMEN / Unknown Venipuncture / Unknown 02/03/2024 5:27 AM CDT 02/03/2024 6:04 AM CDT Herberth Aleman MD CHEMISTRY Performing Organization Address [facility] Co de Phone Number [facility] [address] [place] [address], * SCAN-CARDIAC STRIP (02/03/2024 12:38 AM CDT) [...] CDT ECHOCARDIOGRAM CHARLEY PINTO ? Accession#: ?? [id number] : ?1985 38 years Study Date: ?? 02/02/2024 2:53:33 PM Gender: F ?BP: ? 105/64 mmHg Height: 168.00 cm ?BSA: ?2.33 m? ? ? Weight: 130.00 kg ?Tech: ? MBL ? Referring MD: DIANN FELTON Site: ? [facility] Reading Location: ANW IP Patient Location: Inpatient. Procedure: 2D w/ Contrast, [...] Contrast documentation: 2 ml diluted Definity, lot #[id number], [facility]# [id number] was administered peripherally to enhance visualization of all left ventricular segments. . This study was interpreted by an [facility] accredited facility. ??Final ?? Procedure Note Kwadwo Ruff MD - 02/02/2024 ECHOCARDIOGRAM CHARLEY PINTO : 1985 38 years Study Date: 02/02/2024 2:53:33 PM Gender: F BP: 105/64 mmHg Height: 168.00 cm BSA: 2.33 m? ? ? Weight: 130.00 kg Tech: [facility] Referring MD: DIANN FELTON Site: [facility] Reading Location: ANW IP Patient Location: Inpatient. Procedure: 2D w/ Contrast, [...] documentation: 2 ml diluted Definity, lot #[id number], [facility]#[id number] was administered peripherally to enhance visualization of allleft ventricular segments. . This study was interpreted by an [facility] accredited facility. Final Diann Felton DO ECHO [...] low as reasonably achievable. ?? Florencia Mathew M.D. ([place]) Body/Diagnostic Radiologist [email or web address] / ?? Narrative 02/06/2024 12:01 AM CDT ?[facility] at [facility] ? Cardiac CT Report ??MRN: ? [id number] ?Name: ? CHARLEY PINTO ?: ?Scan Date: ?Accession Number: ? [id number] ?Status: ? Final ? Electronically signed by [...] INFO TEST TYPE: ??Coronary CT Angiography SCANNER ELECTRONIC DATA PROCESSING AUDITOR: ??SIEMENS SCANNER MODEL: ??[employer] Force DOSE REDUCTION ALGORITHM: ??Prospective/[id number] PHASE UNITS: ??% START PHASE: ??65 % [...] ??HERBERTH ALEMAN ?TECHNOLOGIST: ??[place] Patient Account ?[id number] Report generated by [employer], a product of [employer] For [...] conjunction with the services provided by the [facility] ([facility]). CLINICAL HISTORY: ??Cardiac over-read. FINDINGS: ?? Normal [...] E Negative Negative 02/02/2024 11:28 AM CDT [facility] Urine URINE SPECIMEN / Unknown Non-Blood / Unknown 02/02/2024 11:04 AM CDT 02/02/2024 11:14 AM CDT Cher Bagley NP URINE [facility] [address] [place] [address], * TSH (02/02/2024 10:38 AM CDT) Pathologist [facility] TSH 1.23 0.27 - 4.20 uIU/mL 02/02/2024 5:51 PM CDT [facility] Blood BLOOD SPECIMEN / Unknown Non-Lab Venipuncture / Unknown 02/02/2024 10:38 AM CDT 02/02/2024 10:48 AM CDT Narrative [facility] - 02/02/2024 5:51 PM CDT In Adults, TSH values between 5.00 and 10.00 uIU/ml do not necessarily indicate the presence of Hypothyroidism. Correlation with clinical findings such as presence of goiter and/or Thyroperoxidase (TPO) Antibody may be helpful. For more information please refer to NEMESIO 2004; 291: 228-238. Ximena Nelson MD CHEMISTRY Performing Organization Address City/[facility]/ZIP Co de Phone Number [facility] [address] [place] [address], * Serum (02/02/2024 10:38 AM CDT) ,SERU M Negative Negative 02/02/2024 11:04 AM CDT [facility] Blood BLOOD SPECIMEN / Unknown Non-Lab Venipuncture / Unknown 02/02/2024 10:38 AM CDT 02/02/2024 10:48 AM CDT Feliciano Dixon MD CHEMISTRY Performing Organization Address [facility] Co de Phone Number [facility] [address] [place] [address], * HCG Beta Quant, (02/02/2024 10:38 AM CDT) HCG BETA QUANT,PREGNANC Y <1 mIU/mL 02/02/2024 11:20 AM CDT [facility] Blood BLOOD SPECIMEN / Unknown Non-Lab Venipuncture / Unknown 02/02/2024 10:38 AM CDT 02/02/2024 10:48 AM CDT Narrative [facility] - 02/02/2024 11:20 AM CDT Expected [...] prior to retesting. Feliciano Dixon MD CHEMISTRY [facility] [address] [place] [address], * SCAN-CARDIAC STRIP (02/02/2024 10:17 AM CDT) Scanner OTHER * ECG STAT (02/02/2024 6:29 AM CDT) Pathologist [facility] Interpretation Normal sinus rhythm Borderline criteria for [...] NOW QTc 404 ms BEYOND NOW P Temple 66 degrees BEYOND NOW R Temple 3 degrees BEYOND NOW T Temple 28 degrees BEYOND NOW 02/02/2024 6:29 AM CDT 02/02/2024 5:18 PM CDT Diann Felton DO EKG ORD BEYOND NOW [place], [place] * (ABNORMAL) LC SOLUBLE TRANSFERRIN RECEPTOR (02/02/2024 6:03 AM CDT) Pathologist [facility] Lois Transferrin Receptor 65.5(H) 12.2 - 27.3 nmol/L 02/05/2024 4:06 PM CDT [facility] Blood BLOOD SPECIMEN / Unknown Add On / Unknown 02/02/2024 6:03 AM CDT 02/02/2024 8:33 AM CDT Narrative [facility] ([facility]) - 02/05/2024 4:06 PM CDT Performed at: ??01 - [facility] [address] [place] [address] ??[id number] Rice Drier: Kashmir Jacobson MD, Phone: ??[phone] Herberth Aleman MD SEND OUTS [facility] ([facility]) [address] [place] [id number], * (ABNORMAL) CBC WITH AUTO DIFFERENTIAL (02/02/2024 6:03 AM CDT) WHITE BLOOD COUNT 8.8 4.5 - 11.0 thou/cu mm 02/02/2024 7:47 AM CDT [facility] RED BLOOD COUNT 4.12 4.00 - 5.20 mil/cu mm 02/02/2024 7:47 AM CDT [facility] HEMOGLOBIN 7.8(L) 12.0 - 16.0 g/dL 02/02/2024 7:47 AM CDT [facility] HEMATOCRIT 28.0(L) 33.0 - 51.0 % 02/02/2024 7:47 AM CDT [facility] MCV 68(L) 80 - 100 fL 02/02/2024 7:47 AM CDT [facility] MCH 18.9(L) 26.0 - 34.0 pg 02/02/2024 7:47 AM CDT [facility] MCHC 27.9(L) 32.0 - 36.0 g/dL 02/02/2024 7:47 AM CDT [facility] RDW 19.5(H) 11.5 - 15.5 % 02/02/2024 7:47 AM CDT [facility] PLATELET COUNT 325 140 - 440 thou/cu mm 02/02/2024 7:47 AM [facility] MPV 8.8 6.5 - 11.0 fL 02/02/2024 7:47 AM [facility] NRBC 0.2 % 02/02/2024 7:47 AM [facility] ABS NRBC 0.0 thou /cu mm 02/02/2024 7:47 AM [facility] % NEUT 70.8 % 02/02/2024 7:47 AM [facility] % LYMPH 17.5 % 02/02/2024 7:47 AM [facility] % MONO 8.9 % 02/02/2024 7:47 AM [facility] % EOS 1.5 % 02/02/2024 7:47 AM [facility] % BASO 1.0 % 02/02/2024 7:47 AM [facility] % IMMATURE GRAN (METAS,MYELOS,NY OS) 0.3 % 02/02/2024 7:47 AM [facility] ABSOLUTE NEUTROPHILS 6.2 1.7 - 7.0 thou/cu mm 02/02/2024 7:47 AM [facility] ABSOLUTE LYMPHOCYTES 1.5 0.9 - 2.9 thou/cu mm 02/02/2024 7:47 AM [facility] ABSOLUTE MONOCYTES 0.8 <0.9 thou/cu mm 02/02/2024 7:47 AM [facility] ABSOLUTE EOSINOPHILS 0.1 <0.5 thou/cu mm 02/02/2024 7:47 AM [facility] ABSOLUTE BASOPHILS 0.1 <0.3 thou/cu mm 02/02/2024 7:47 AM [facility] ABSOLUTE IMMATURE GRANULOCYTES(MET ,MYELOS,PROS) 0.0 <0.3 thou/cu mm 02/02/2024 7:47 AM CDT [facility] Blood BLOOD SPECIMEN / Unknown Venipuncture / Unknown 02/02/2024 6:03 AM CDT 02/02/2024 6:16 AM CDT Diann Felton DO HEMATOLOGY [facility] [address] [place] [address], * (ABNORMAL) RED CELL MORPHOLOGY (02/02/2024 6:03 AM CDT) Pathologist [facility] ELLIPTOCYTES Few 02/02/2024 7:46 AM CDT [facility] POLYCHROMASIA Slight 02/02/2024 7:46 AM CDT [facility] TARGET CELLS Few 02/02/2024 7:46 AM CDT [facility] RBC COMMENT Present(A) RBC morphology appears normal, RBC morphology within normal limits for newborns. 02/02/2024 7:46 AM CDT [facility] Blood BLOOD SPECIMEN / Unknown Venipuncture / Unknown 02/02/2024 6:03 AM CDT 02/02/2024 6:16 AM CDT Diann Felton DO HEMATOLOGY Performing Organization Address City/[facility]/ZIP Co de Phone Number [facility] [address] [address], * PERIPHERAL BLD MORPHOLOGY (02/02/2024 6:03 AM CDT) Case Report Special Hematology Report ? Case: [id number] ? Authorizing Provider: ??Diann Felton, ?Collected: ? 02/02/2024 0603 ? Ordering Location: ? [facility] ?Received: ?02/02/2024 0617 ? Hospital ? Pathologist: ? Walter Enriquez MD ? Specimen: ?Blood ? 02/03/2024 5:08 PM CDT [facility]-C ENTRAL LABORATORY Final Diagnosis PERIPHERAL BLOOD: 1. Moderate microcytic, hypochromic anemia with features suggestive of iron deficiency anemia 2. See comment 02/03/2024 5:08 PM CDT [facility]-C ENTRAL LABORATORY Comment The most common [...] was also reviewed by Selene Cartagena MT, MS ([facility]). 02/03/2024 5:08 PM CDT [facility]ORAT[facility]-C ENTRAL LABORATORY Clinical Information The patient is a 38-year-old female. Pertinent clinical information: New acute anemia. ??Please evaluate for hemolysis. 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 She was found to have an NSTEMI, alcohol use disorder, microcytic anemia, and hypertension. Peripheral blood morphology 2020 ([id number]) showed a mild normocytic anemia and neutrophilia. 02/01/24 21:01 IRON: ?19 (L) IRON BINDING CAPACITY ?: 397 IRON,% SATURATION ?: 5 (L) UIBC (UNSATURATED) ? : 378 (H) VITAMIN B12: ? 520 HAPTOGLOBIN ?: 164 02/03/2024 5:08 PM CDT [facility] CBC and Differential HEMATOLOGY PARAMETERS Tested at: ??[facility] ? RESULTS ??EXPECTED VALUES WBC: ? 8.8 ?4.5-93q4725/cumm ? RBC: ? 4.12 ?4.00-5.20 mil/cummDECREASED HGB: ? 7.8 ?12-16 gm/dl ? DECREASED HCT: ? 28.0 ? 33-51% ?DECREASED MCV: ? 68.0 ? 80-100 fl ? MICROCYTIC MCH: ? 18.9 ? 26-34 pg ?DECREASED MCHC: ?27.9 ? 32-36 gm/dl ? HYPOCHROMIC RDW: ? 19.5 ? 11.5-15.5% ?ELEVATED PLT: ? 325 ?140-025v0095/uL ? MPV: ? 8.8 ?6.5-11 fl ? Retic: ?? 2.6 ?0.5-1.5% ?ELEVATED Differential ?Tested at: ??[facility] ?Absolute (%) ?Expected (%) ?(x10*9/L) ? (x10*9/L) Neutrophils: ?6.2 (70.5) ?1.7-7.0 (42-72%) ? Lymphocytes: ?1.5 (17) ?0.9-2.9 (20-44%) ?? Monocytes: ?0.8 (9.1) ?<0.9 (0-11%) ? Eosinophils: ?0.1 (1.1) ?<0.5 (0-2%) ? Basophils: ?0.1 (1.1) ?<0.3 (<3.0%) ? 02/03/2024 5:08 PM CDT [facility] Microscopic Description The final diagnosis is based on microscopic examination of appropriate sections of all specimens. The final diagnosis is based on microscopic examination of an appropriately stained blood smear. 02/03/2024 5:08 PM CDT [facility]ORATORY-C [facility] Additional Information Interpreted at [facility], Central Laboratory - [address] [facility] [address] [id number] 02/03/2024 5:08 PM CDT [facility] LABORATORY-C ENTRAL LABORATORY Blood BLOOD SPECIMEN / Unknown Venipuncture [...] unit/mL) D5W infusion, 1,000 Units/hr, Intravenous, continuous, [facility] Hospital[facility]ates[facility] MD, Last Rate: 1,000 Units/hr (02/01/242110)? ? melatonin tablet 3 mg, 3 mg, Oral, bedtime prn MRx1, Mangine, Diann, DO? ? naloxone (NARCAN) 0.4 mg/mL injection vial 0.4 mg, 0.4 mg, Intravenous, q1min prn, Mangine, Diann, DO? ? ondansetron 4 mg orally disintegrating tablet (ZOFRAN ODT), 4 mg, On The Tongue, q8h prn OR ondansetron 4 mg injection (ZOFRAN), 4 mg, Intravenous, q8h prn, Mangine, Diann, DO? ? oral anesthetic lozenge 1 Lozenge, 1 Lozenge, On The Tongue, q2h prn, Mangine, Diann, DO? ? polyethylene glycol (MIRALAX; GLYCOLAX) packet 17 g, 17 g, Oral/NG Tube, daily prn, Mangine, Diann, DO? ? sennosides 8.6-17.2 mg (SENNA), 8.6-17.2 mg, Oral, bid prn, Mangine, Diann, DO? ? sodium chloride 0.9 % syringe 10 mL, 10 mL, Intravenous, Each Time PRN, Mangine, Diann, DO? ? sodium chloride 0.9 % syringe 5 mL, 5 mL, Intravenous, q12h, Diann Felton, DO? ? sodium chloride 0.9 % syringe 5 mL, 5 mL, Intravenous, Each Time PRN, Diann Felton, Diann Felton DO HEMATOLOGY Performing Organization Address [facility] Co de Phone Number [facility] [address] [address], [place] * (ABNORMAL) RETICULOCYTES (02/02/2024 6:03 AM [...] Diann Felton DO HEMATOLOGY Performing Organization Address [facility] de Phone Number [facility] [address] [place] [address], [place] * ALT AM (02/02/2024 6:03 AM CDT) ALT (SGPT) 22 10 - 35 IU/L 02/02/2024 7:10 AM CDT [facility] Blood BLOOD SPECIMEN / Unknown Venipuncture / Unknown 02/02/2024 6:03 AM CDT 02/02/2024 6:16 AM CDT Diann Felton DO CHEMISTRY Performing Organization Address [facility] Co de Phone Number [facility] [address] [address], [place] * (ABNORMAL) AST AM (02/02/2024 6:03 AM CDT) Pathologist [facility] AST (SGOT) 47(H) 10 - 35 IU/L 02/02/2024 7:10 AM T [facility] Blood BLOOD SPECIMEN / Unknown Venipuncture / Unknown 02/02/2024 6:03 AM CDT 02/02/2024 6:16 AM CDT Diann Felton DO CHEMISTRY [facility] [address] [place] [address], * (ABNORMAL) Basic metabolic panel AM (02/02/2024 6:03 AM CDT) Only the most recent of2 resultswithin the time period is included. Pathologist [facility] SODIUM 137 136 - 145 mmol/L 02/02/2024 7:10 AM [facility] TRAL LABORATORY POTASSIUM 4.2 3.5 - 5.1 mmol/L 02/02/2024 7:10 AM [facility] LABOR[facility] CHLORIDE 104 98 - 107 mmol/L 02/02/2024 7:10 AM [facility] LAB[facility] CO2,TOTAL 22 22 - 29 mmol/L 02/02/2024 7:10 AM [facility] LAB[facility] ANION GAP 11 5 - 18 02/02/2024 7:10 AM [facility] GLUCOSE 127(H) 70 - 99 mg/dL 02/02/2024 7:10 AM [facility] CALCIUM 8.9 8.6 - 10.0 mg/dL 02/02/2024 7:10 AM [facility] LAB[facility] BUN 12 6 - 20 mg/dL 02/02/2024 7:10 AM [facility] LAB[facility] CREATININE 0.89 0.50 - 0.90 mg/dL 02/02/2024 7:10 AM [facility] TRAL LAB[facility] BUN/CREAT RATIO 13 10 - 20 7:10 AM [facility] LAB[facility] eGFR 84(L) >90 mL/min/1.7 3m2 [...] Diann Felton DO CHEMISTRY Performing Organization Address City/[facility]/ZIP Co de Phone Number [facility] [address] [place] [address], * SCAN-CARDIAC STRIP (02/02/2024 4:06 AM CDT) Scanner OTHER * (ABNORMAL) TROPONIN T (HS) ONE TIME (02/02/2024 12:12 AM CDT) TROPONIN T HS 340(H) 6-10 ng/L ng/L 02/02/2024 1:18 AM CDT [facility] Blood BLOOD SPECIMEN / Unknown Butterfly / Unknown 02/02/2024 12:12 AM CDT 02/02/2024 12:17 AM CDT Diann Felton DO CHEMISTRY Performing Organization Address City/[facility]/ZIP Co de Phone Number [facility] [address] [place] [address], * (ABNORMAL) TROPONIN T (HS) ACUTE W/2HR REFLEX (02/01/2024 10:02 PM CDT) TROPONIN T HS 366(H) 6-10 ng/L ng/L 02/01/2024 10:48 PM CDT [facility] Blood BLOOD SPECIMEN / Unknown Butterfly / Unknown 02/01/2024 10:02 PM CDT 02/01/2024 10:12 PM CDT Narrative [facility] 02/01/2024 10:48 PM CDT hs-cTnT [...] department patient population. Diann Felton DO CHEMISTRY [facility] [address] [place] [address], * HAPTOGLOBIN (02/01/2024 10:02 PM CDT) Haptoglobin 164 30 - 200 mg/dL 02/02/2024 12:32 AM CDT [facility] Blood BLOOD SPECIMEN / Unknown Butterfly / Unknown 02/01/2024 10:02 PM CDT 02/01/2024 10:12 PM CDT Diann Felton DO CHEMISTRY Performing Organization Address City/[facility]/ZIP Co de Phone Number [facility] [address] [place] [address], [place] * (ABNORMAL) IRON PLUS IRON BINDING CAP (02/01/2024 9:01 PM CDT) IRON 19(L) 37 - 145 ug/dL 02/01/2024 10:51 PM CDT [facility] UIBC (UNSATURATED) 378(H) 112 - 347 ug/dL 02/01/2024 10:51 PM CDT [facility] IRON BINDING CAPACITY 397 250 - 400 ug/dL 02/01/2024 10:51 PM CDT [facility] IRON,% SATURATION 5(L) 14 - 50 % 02/01/2024 10:51 PM CDT [facility] TRAL LABORATORY Blood BLOOD SPECIMEN / Unknown Butterfly / Unknown 02/01/2024 9:01 PM CDT 02/01/2024 9:09 PM CDT Diann Felton DO CHEMISTRY Performing Organization Address [facility] Co de Phone Number [facility] [address] [place] [address], [place] * BUN (02/01/2024 9:01 PM CDT) BUN 9 6 - 20 mg/dL 02/01/2024 10:19 PM CDT [facility] Blood BLOOD SPECIMEN / Unknown Butterfly / Unknown 02/01/2024 9:01 PM CDT 02/01/2024 9:09 PM CDT Diann Felton DO CHEMISTRY Performing Organization Address City/[facility]/ZIP Co de Phone Number [facility] [address] [place] [address], [place] * (ABNORMAL) CREATININE (02/01/2024 9:01 PM CDT) eGFR 84(L) >90 mL/min/1.7 3m2 02/01/2024 10:19 PM CDT [facility] Comment:As of 2021, eG FR is calculated by the CKD-EPI creatinine equation without race adjustment. ??eGFR can be influenced by muscle mass, exercise, and diet. ??The reported eGFR is an estimation only and is only applicable if the renal function is stable. CREATININE 0.89 0.50 - 0.90 mg/dL 02/01/2024 10:19 PM CDT [facility] Blood BLOOD SPECIMEN / Unknown Butterfly / Unknown 02/01/2024 9:01 PM CDT 02/01/2024 9:09 PM CDT Diann Felton DO CHEMISTRY Performing Organization Address City/[facility]/ZIP Co de Phone Number [facility] [address] [place], [place] [id number], [place] * Vitamin B12 level AM (02/01/2024 9:01 PM CDT) Pathologist [facility] VITAMIN B12 520 232 - 1,245 pg/mL 02/01/2024 10:49 PM CDT [facility] Blood BLOOD SPECIMEN / Unknown Butterfly / Unknown 02/01/2024 9:01 PM CDT 02/01/2024 9:09 PM CDT Narrative [facility] - 02/01/2024 10:49 PM CDT Biotin supplements may cause clinically significant interference for this test assay. ??If interference is suspected, it is strongly recommended that biotin is discontinued for at least one week prior to retesting. Diann Felton DO CHEMISTRY Performing Organization Address City/[facility]/ZIP Co de Phone Number [facility] [address] [place] [address], [place] * SCAN-CARDIAC STRIP (02/01/2024 12:00 AM CDT) Narrative 02/01/2024 12:00 AM CDT Ordered by an unspecified provider. Other Clinical Staff OTHER * MEDICAL ADVISOR THIN PREP PAP SCREEN IMAGED (11/05/2020 9:55 AM CDT) Case Report Gynecologic Cytology Report ? Case: [id number] ? Authorizing Provider: ??Lucy Silvestre PA-C ?Collected: ? 11/05/2020 0955 ? Ordering Location: ? [facility] ?Received: ?11/06/2020 1014 ? First Screen: ?Kayy, Malcolm ? Pathologist: ? Helen Mccray MD ? Specimen: ?MEDICAL ADVISOR ThinPrep Vial Screening, Cervical/Vaginal ? 11/13/2020 3:21 PM CDT [facility] LABORATORY-C ENTRAL LABORATORY INTERPRETATION/ RESULT NEGATIVE FOR INTRAEPITHELIAL LESION OR MALIGNANCY (NIL) (none) 11/13/2020 3:21 PM CDT [facility] ENTRAL LABORATORY R NON-NEOPLASTIC FINDING(S) Reactive cellular changes associated with inflammation/repa ir 11/13/2020 3:21 PM CDT [facility] SPECIMEN ADEQUACY Satisfactory for evaluation Endocervical component present 11/13/2020 3:21 PM CDT [facility] HPV REQUEST HPV and PAP 11/13/2020 3:21 PM CDT [facility] Date of LMP 10/18/2020 11/13/2020 3:21 PM CDT [facility] Last Pap Date 11/13/2020 3:21 PM CDT [facility] Comment:Unknown Menstrual Status Abnormal bleeding 11/13/2020 3:21 PM CDT [facility] Additional Information 11/13/2020 3:21 PM T [facility] Comment: Interpreted at [facility] - [address], [place] [address] Automated Review Successful 11/13/2020 3:21 PM T [facility] Comment:Specimen processed s uccessfully by automated as400 administrator device, ThinPrep Imaging System, [employer] ANCILLARY TESTING MEDICAL ADVISOR HPV Ordered, Please see separate report 11/13/2020 3:21 PM T [facility] Note The pap test [...] and malignant lesions. 11/13/2020 3:21 PM T [facility] Other (Cervical/Vagina l) 11/05/2020 9:55 AM CDT 11/06/2020 10:14 AM CDT October Nirmala VELAZQUEZ PATHOLOGY/CYTOLOGY [facility] [address] [place] [address], [place] * ANTI HCV (07/02/2016 9:37 AM [employer]) HEPATITIS C ANTIBODY Non-Reacti ve Non-Reacti ve 07/02/2016 5:30 PM [employer] [facility] TRAL LABORATORY Blood BLOOD SPECIMEN / Unknown Venipuncture / Unknown 07/02/2016 9:37 AM [employer] 07/02/2016 9:37 AM [facility] [employer] [facility] 07/02/2016 5:30 PM [employer] Antibodies to HCV not detected; does not exclude the possibility of exposure to HCV. Deysi BRUMFIELD SEND OUTS [facility] [address] [place] [address], [place] * ANTI HIV 1/2 (07/02/2016 9:37 AM [employer]) HIV-1/HIV-2 ANTIBODY Non-Reacti ve Non-Reacti ve 07/02/2016 5:30 PM [employer] [facility] Blood BLOOD SPECIMEN / Unknown Venipuncture / Unknown 07/02/2016 9:37 AM [employer] 07/02/2016 9:37 AM [employer] [facility] - 07/02/2016 5:30 PM [employer] HIV-1 p24 and HIV-1/HIV-2 Ab not detected Deysi BRUMFIELD [facility] [facility] [address] [place] [address], [place] from Last 3 Months or Most [...] Code Status Discussion: Not Discussed Care Teams [employer] General Supervisor Relationship Specialty Start Date End Date Jackeline Montes De Oca MD [address] [place] [address] PCP - General Family Practice 12/13/20 Aida Jones MD [employer]INTER [employer]REL Obstetrics and Gynecology 11/13/12
--- OUTSIDE RECORDS SUMMARY | 2024-03-21 07:44 | XMS_ITS | Clinical Summary ---
Author Organization [facility] Address [address] [place] [address] Care Team Providers Care Product Lead Name Role Phone Concha Stockton MD Primary Care Provider [phone] Source Comments You are receiving this document as you are listed as the primary care provider,follow-up provider, or the patient has been referred to you for consultation.This is in compliance with the Medicare and[facility] EHR Incentive Program,which states Providers who transition their patient to another setting of careor provider of care or refers their patient to another provider of care shouldprovide summary care record for each transition of care or referral. [facility] Allergies No known active allergies Medications Medication [...] dose series) 11/20/2018 Influenza IIV4 (Quadrivalent) 0.5mL (18532) 08/2018,04/14/2015 Pfizer Monovalent 12+ Purple Top 04/17/2021,03/05 [...] AM CDT Pulse 86 07/01/2023 2:04 PM MFTS Temperature 36.4 ??C (97.5 ??F) 03/19/2021 11:08 [...] 12/18/2018 11/20/2018, 11/20/2018 COVID-19 Vaccine ( season) 2024 11/11/2021, 04/17/2021, 03/27/2021 Influenza (#1) 2024 04/04/2019, 08/2018, 06/24/2017, Additional history exists DTaP/Tdap/Td (3 - [...] age to complete this topic Care Teams Product Lead Relationship Specialty Start Date End Date Concha Stockton MD [address] [place] [address] PCP - General Internal Medicine 10/27/22
[2024-03-21 07:56] VITALS: BMI 47.4
[2024-03-21 08:06] VITALS: BP 130/80; PULSE 80; RESP 20; TEMP 36.3; O2SAT 99
[2024-03-21 08:15] LABS: Ur HCG Qualitative* Negative (Negative)
[2024-03-21 08:16] LABS: Hemoglobin* 8.8 gm/dL (12.0-16.0)
[2024-03-21] MEDS: SODIUM CHLORIDE 0.9 % (FLUSH) 10 ML SYRINGE IVF (08:21)
--- NOTE | 2024-03-21 08:29 | W.ANESCHARGE ---
Anesthesia Charges Start Date/Time Anesthesia Start Date: 03/21/24 Anesthesia Start Time: 08:52 Stop Date/Time Anesthesia Stop Date: 03/21/24 Anesthesia Stop Time: 09:39
--- NOTE | 2024-03-21 08:49 | W.PM.H&PU ---
History & Physical Update History & Physical Update H&P Reviewed and patient assessed: The following changes are noted below H&P Updates: Doing well, did have her period about 5 days ago and it was very heavy. Noted in her hemoglobin this morning, went from 10 to 8.8mg/dL. Bleeding today described as spotting. Bridging from Warfarin to Lovenox as instructed by primary care physician. Currently on Lovenox, plan to evaluate bleeding today and possibly restart Lovenox and Warfarin tonight. If not possible, plan is to restart both tomorrow am.
[2024-03-21] MEDS: BUPIVACAINE 0.5% 30 ML INJECTION (09:16)
[2024-03-21] MEDS: SILVER NITRATE APPLICATOR 1 EACH STICK..EA. TOPICAL (09:25)
--- NOTE | 2024-03-21 09:33 | W.PM.GYNPROC ---
Procedure Note Date of procedure: 03/21/24 Will [facility] bill your pro fee for this procedure?: Yes Pre-op diagnosis: Abnormal uterine bleeding on chronic anticoagulation Post-op diagnosis: Abnormal uterine bleeding on chronic anticoagulation Procedure: Hysteroscopy, dilation and curettage, Mirena IUD placement Anesthesia: MAC Complications: None Surgeon: Nikos Floyd MD Estimated blood loss (mL): 5 IV fluids (mL): 500 Urine Output (mL): 50 Pathology: specimen obtained, sent to pathology Condition: stable Disposition: same day Findings: Findings: Speculum exam: Cervix w/o gross lesions or abnormal discharge. Uterine sound 8.5 cm. Intrauterine cavity: Bilateral cornual openings seen, thick and fluffy endometrium. Procedure Description: Patient was taken to the OR were MAC anesthesia was administered without difficulty. She was placed in the dorsal lithotomy position with El type stirrups. Patient was then prepared and draped in the normal sterile fashion. A bivalved speculum was inserted in the posterior aspect of the vagina. 0.5% Marcaine was injected at 2 and 11 o'clock a total of about 5mL utilized. A single-tooth tenaculum was used to grasp the anterior lip of the cervix. 5mL more injected at around 4 and 8 o clock. The uterus was carefully sounded to 8.5 cm. The cervical os was sequentially dilated to accommodate the 5 mm TrueClear hysteroscope using Hegar dilators. A 5 mm 30 degree TrueClear hysteroscope was introduced under direct visualization, and the uterus was distended with normal saline. Findings as above. Soft tissue incisor blade from TrueClear hysteroscope system was introduced under direct visualization and endometrial curettings performed. Hysteroscope removed under direct visualization. Mirena IUD was placed without difficulty, strings were cut and left about 3 -4 cm long. Tenaculum was removed from the cervix and good hemostasis was achieved after placement of silver nitrate at puncture sites. Patient tolerated the procedure well. Instrument and sponge counts were correct x2. The patient was awakened from MAC anesthesia and taken to the recovery room in a stable condition. The patient will go home after recovering from anesthesia and meeting all the criteria for discharge. She was given instruction regarding follow-up visit in 2 weeks at [facility] and instructions for pain medication. Fluid deficit: 130mL
--- NOTE | 2024-03-21 09:44 | SUR.OPER ---
DEFICIT 135
[2024-03-21 09:46] VITALS: BP 122/77; PULSE 72; RESP 16; TEMP 36.3; O2SAT 96
[2024-03-21 10:01] VITALS: BP 114/74; PULSE 49; RESP 16; O2SAT 96
[2024-03-21 10:15] VITALS: BP 113/74; PULSE 74; RESP 20; O2SAT 98
== END 2024-03-21 10:39 | disposition home or self-care (01) ==
LOC: OR 07:41
PROVIDERS: PCP Internal Medicine; Visit Provider Obstetrics & Gynecology
PROC: 0UDB8ZZ Extraction of Endometrium, Via Natural or Artificial Opening Endoscopic (ICD-10-PCS; CPT 58558; principal; 2024-03-21 09:00)
DX: N93.8 Other specified abnormal uterine and vaginal bleeding (principal); Z30.430 Encounter for insertion of intrauterine contraceptive device; Z79.01 Long term (current) use of anticoagulants
CPT/HCPCS: 58558; 58300; 00952; 36415; 81025; 85018; 86850; 86900; 86901; 88305; A9270; C1782; J0665; J1100; J1630; J1885; J2250; J2405; J2704; J3010; J3490; J7120; J7298

== ENCOUNTER 2024-03-26 16:29 | Outpatient (CLI) | payer OTHER, SELFPAY ==
--- OUTSIDE RECORDS SUMMARY | 2024-03-26 16:33 | XMS_ITS | Clinical Summary ---
Author Organization [employer] [facility] & [facility] Address [place], [place] [address] Care Team Providers Care Template Reproduction Technician Name Role Phone Aida Jones MD Unavailable [...] Encounters Date Type Department Care Team Description 03/21/20 Lab Requisition [facility] [phone] Sarah Floyd MD 02/28/20 Lab Requisition [facility] [phone] Concha Stockton MD 02/10/20 Lab Requisition [facility] [phone] Concha Stockton MD 02/06/20 Orders Only [facility] [address] [facility] [address] [place] [address] Jessy Cade, <No scans attached> 02/03/20 11:31 AM CDT Anesthesia Event [facility] [address] [place] [address] Sadi Christina MD 02/03/20 10:52 AM CDT - 02/03/20 24 12:07 PM CDT Surgery [facility] [address], [place] [address] Butch Gómez MD ESOPHAGOGASTRODUODENOSCOPY WITH BIOPSIES 02/02/20 Telephone [facility] [address] [place] [address] Ximena Nelson MD 02/02/20 24 Travel 02/01/20 24 7:41 PM CDT - 02/03/20 24 6:50 PM CDT Hospital Encounter [facility] [address] [place] [address] [facility] [place] [facility]ists Of [facility], MD Tiago Blanco, Herberth Yeung MD PUD (peptic ulcer disease) (Primary Dx); Cardiovascular symptoms; Antiphospholipid syndrome (HC); Mass of soft tissue of abdomen; Abnormal uterine bleeding (AUB); Iron deficiency anemia due to chronic blood loss Discharge Disposition: Home Self Care 02/01/20 Lab Requisition [facility] [phone] Concha Stockton MD 02/01/20 [address] [address] Paula Dillard MD from Last 3 Months Immunizations Name Administration Dates Next Due Influenza, IIV3 (Age >=3 years) 05/03/2011,03/20 Influenza, IIV4 04/14/2015 Tdap 11/12/2016,02/09/2008 Tuberculin (PPD) 07/10/2018 Family History Medical History Relation Name Comments Good Health Father Diabetes Maternal Grandfather Cancer Maternal Grandmother ovarian Diabetes Maternal Grandmother Diabetes Mother Premature CHD (under age 60) Mother SD in her 50s Premature CHD (under age [...] Procedure Name Priority Date/Time Associated Diagnosis Comments LAB TRACKING EVENT Routine 03/21/2024 9:25 AM CDT PATH TISSUE EXAM Routine 03/21/2024 9:25 AM CDT EXTRA TUBE BLUE Routine 02/28/2024 [...] 02/02/2024 3:41 PM CDT SCAN CORRESP-EKG RESULTS 024 3:13 PM CDT SCAN CORRESP-EKG RESULTS 024 [...] CDT SCAN-CARDIAC STRIP 02/01/2024 12:00 AM CDT 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 [address], * PATH TISSUE EXAM (03/21/2024 9:25 AM CDT) Only the most recent of2 resultswithin the time period is included. Case Report Pathology Report ?Case: [id number] ? Authorizing Provider: ??Sarah Kang ??Collected: ? 03/21/2024 0925 ? MD Keegan ? Ordering Location: ? [facility] ?Received: ?03/22/2024 0805 ? Pathologist: ? Martha Flores MD ? Specimen: ?Endometrial Curettings ? 03/26/2024 12:48 PM CDT [facility] Final Diagnosis A) ENDOMETRIUM, CURETTAGE: 1. Proliferative endometrium 2. Negative for chronic endometritis 3. Negative for hyperplasia, atypia, and malignancy 03/26/2024 12:48 PM CDT [facility] Clinical Information Abnormal uterine bleeding, on chronic anticoagulation. Hysteroscopic exam showed thick and fluffy endometrium. Dilation/curetta ge and Mirena IUD placement performed. 03/26/2024 12:48 PM CDT [facility] Gross Description A) Received in formalin, labeled with the patient's name and endometrial curettings, is a 2.5 x 1.6 x 0.2 cm aggregate of pink-perez mucosa admixed with clotted blood and mucous. The specimen is entirely submitted in 1 cassette. EVM 03/22/2024 03/26/2024 12:48 PM CDT [facility] Microscopic Description The final diagnosis is based on microscopic examination of appropriate sections of all specimens. 03/26/2024 12:48 PM CDT [facility] Additional Information Interpreted at [facility] - [address], [place] [address] 03/26/2024 12:48 PM CDT [facility] Other (Endometrial Curettings) 03/21/2024 9:25 AM CDT 03/22/2024 8:05 AM CDT Sarah Floyd MD PATHOLOGY/ CYTOLOGY Performing Organization Address City/[facility]/ZIP Co de Phone Number [facility] [address] [place] [address], * EXTRA TUBE BLUE (02/28/2024 8:30 AM CDT) Only the most recent of2 resultswithin the time period is included. Blood BLOOD SPECIMEN / Unknown Client Collect / Unknown 02/28/2024 8:30 AM CDT 02/28/2024 3:30 PM CDT Concha Stockton MD LABORATORY Performing Organization Address [facility] Co de Phone Number [facility] [address] [place] [address], * (ABNORMAL) FACTOR 10 CHROMOGENIC (02/28/2024 8:30 AM CDT) Only the most recent of4 resultswithin the time period is included. FACTOR 10 CHROMOGENIC 18(L) 65 - 130 % 02/28/2024 4:11 PM CDT [facility] Blood BLOOD SPECIMEN / Unknown Client Collect / Unknown 02/28/2024 8:30 AM CDT 02/28/2024 3:29 PM CDT Narrative [facility] - 02/28/2024 4:11 PM CDT Therapeutic Range 20-40% Concha Stockton MD SEND OUTS Performing Organization Address City/[facility]/ZIP Co de Phone Number [facility] [address] [place] [address], * ENDOSCOPY (02/03/2024 11:24 AM CDT) 02/03/2024 11:2 4 AM CDT Narrative Transcriptions Butch Gómez MD - 02/03/2024 11:50 AM CDT [facility] Patient Name: Charley Pinto Procedure Date: 02/03/2024 Gender: Female Date of : 1985 Admit Type: Inpatient Procedure: Upper GI endoscopy Proceduralist: Butch Gómez MD - [facility] Indications/Pre-Op Diagnosis: Unexplained iron deficiency anemia Medications: Monitored Anesthesia Care Procedure Description: Risk of bleeding, infection, perforation, need for surgery and alternatives discussed. The endoscope [id number] was introduced through the mouth, and advanced [...] Gómez MD - 02/03/2024 12:17 PM CDT [facility] Patient Name: Charley Pinto Procedure Date: 02/03/2024 Gender: Female Date of : 1985 Admit Type: Inpatient Procedure: Colonoscopy Proceduralist: Butch Gómez MD - [facility] Indications/Pre-Op Diagnosis: Unexplained iron deficiency anemia Medications: Monitored Anesthesia Care Procedure Description: The patient had risks, benefits and alternatives explained to andgave informed consent. The patient had a stable cardiopulmonary status and judged an adequate candidate for sedation. The endoscope -[id number] was passed through the anus andadvanced to [...] 440 thou/cu mm 02/03/2024 6:11 AM CDT [facility] MPV 8.9 6.5 - 11.0 fL 02/03/2024 6:11 AM CDT [facility] Blood BLOOD SPECIMEN / Unknown Venipuncture / Unknown 02/03/2024 5:27 AM CDT 02/03/2024 6:04 AM CDT Narrative [facility] - 02/03/2024 6:11 AM CDT Every morning while on IV heparin. Every morning while on IV heparin. Necessary every morning while on IV heparin. Diann Felton DO HEMATOLOGY Performing Organization Address [facility] de Phone Number [facility] [address] [place] [address], * (ABNORMAL) HEMOGLOBIN (02/03/2024 5:27 AM CDT) Only the most recent of2 resultswithin the time period is included. HEMOGLOBIN 7.8(L) 12.0 - 16.0 g/dL 02/03/2024 6:11 AM CDT [facility] MCV 68(L) 80 - 100 fL 02/03/2024 6:11 AM CDT [facility] Blood BLOOD SPECIMEN / Unknown Venipuncture / Unknown 02/03/2024 5:27 AM CDT 02/03/2024 6:04 AM CDT [facility] - 02/03/2024 6:11 AM CDT Every morning while on IV heparin. Every morning while on IV heparin. Necessary every morning while on IV heparin. Diann Felton DO [facility] Performing Organization Address [facility] de Phone Number [facility] [address] [place] [address], * (ABNORMAL) HEMATOCRIT (02/03/2024 5:27 AM CDT) Only the most recent of2 resultswithin the time period is included. HEMATOCRIT 27.4(L) 33.0 - 51.0 % 02/03/2024 6:11 AM CDT [facility] Blood BLOOD SPECIMEN / Unknown Venipuncture / Unknown 02/03/2024 5:27 AM CDT 02/03/2024 6:04 AM CDT [facility] - 02/03/2024 6:11 AM CDT Every morning while on IV heparin. Every morning while on IV heparin. Necessary every morning while on IV heparin. Diann Felton DO HEMATOLOGY Performing Organization Address [facility] Co de Phone Number [facility] [address] [place] [address], [place] * POTASSIUM (02/03/2024 5:27 AM CDT) POTASSIUM 4.1 3.5 - 5.1 mmol/L 02/03/2024 6:40 AM CDT [facility] Blood BLOOD SPECIMEN / Unknown Venipuncture / Unknown 02/03/2024 5:27 AM CDT 02/03/2024 6:04 AM CDT Herberth Aleman MD CHEMISTRY Performing Organization Address [facility] Co de Phone Number [facility] [address] [place] [address], [place] * (ABNORMAL) APTT (02/03/2024 5:27 AM CDT) Only the most recent of3 resultswithin the time period is included. APTT 45(H) 28 - 36 sec 02/03/2024 7:23 AM CDT [facility] Blood BLOOD SPECIMEN / Unknown Venipuncture / Unknown 02/03/2024 5:27 AM CDT 02/03/2024 6:04 AM CDT Narrative [facility] - 02/03/2024 7:23 AM CDT Therapeutic Range: 57-87 seconds Latesha Bartholomew MD HEMATOLOGY Performing Organization Address [facility] Co de Phone Number [facility] [address] [place] [address], [place] * MAGNESIUM (02/03/2024 5:27 AM CDT) MAGNESIUM 2.0 1.6 - 2.6 mg/dL 02/03/2024 6:40 AM CDT [facility] Blood BLOOD SPECIMEN / Unknown Venipuncture / Unknown 02/03/2024 5:27 AM CDT 02/03/2024 6:04 AM CDT Herberth Aleman MD CHEMISTRY [facility] [address] [place] [address], * SCAN-CARDIAC STRIP (02/03/2024 12:38 AM CDT) [...] For Patients: ??As a result of the 21st Century Cures [...] CDT ECHOCARDIOGRAM CHARLEY PINTO ? Accession#: ?? [id number] : ?1985 38 years Study Date: ?? 02/02/2024 2:53:33 PM Gender: F ?BP: ? 105/64 mmHg Height: 168.00 cm ?BSA: ?2.33 m? ? ? Weight: 130.00 kg ?Tech: ? MBL ? Referring MD: DIANN FELTON Site: ? [facility] Reading Location: ANW IP Patient [...] documentation: 2 ml diluted Definity, lot #[id number], [facility]# [id number] was administered peripherally to enhance visualization of all left ventricular segments. . This study was interpreted by an [facility] accredited facility. ??Final ?? Procedure Note Kwadwo Ruff MD - 02/02/2024 ECHOCARDIOGRAM CHARLEY PINTO : 1985 38 years Study Date: 02/02/2024 2:53:33 PM Gender: F BP: 105/64 mmHg Height: 168.00 cm BSA: 2.33 m? ? ? Weight: 130.00 kg Tech: [facility] Referring MD: DIANN FELTON Site: [facility] Reading Location: W Patient Location: Inpatient. Procedure: 2D w/ Contrast, [...] documentation: 2 ml diluted Definity, lot #[id number], [facility]#[id number] was administered peripherally to enhance visualization of allleft ventricular segments. . This study was interpreted by an [facility] accredited facility. Final Diann Felton DO ECHO [...] / ?? Narrative 02/06/2024 12:01 AM CDT ?[facility] ? Cardiac CT Report ??MRN: ? [id number] ?Name: ? LUIS DANIEL, CHARLEY R ?: ?1986-Mar-14 ?Scan Date: ?Accession Number: ? [id number] ?Status: ? Final ? Electronically signed by [...] INFO TEST TYPE: ??Coronary CT Angiography SCANNER PARKING ENFORCER: ??SIEMENS SCANNER MODEL: ??[employer] DOSE REDUCTION ALGORITHM: ??Prospective/[id number]-daavl PHASE UNITS: ??% START PHASE: ??65 % [...] ?ATTENDING PHYSICIAN: ??HERBERTH ALEMAN ?TECHNOLOGIST: ??[place] BILLING Patient Account ?[id number] Report generated by [employer], a product of [employer] For Patients: As a result of the Century Cures Act, medical imaging exams and [...] conjunction with the services provided by the [facility] ([facility]). CLINICAL HISTORY: ??Cardiac over-read. FINDINGS: ?? Normal [...] E Negative Negative 02/02/2024 11:28 AM CDT [facility] Urine URINE SPECIMEN / Unknown Non-Blood / Unknown 02/02/2024 11:04 AM CDT 02/02/2024 11:14 AM CDT Cher Bagley NP URINE Performing Organization Address [facility] Co de Phone Number [facility] [address] [address], * TSH (02/02/2024 10:38 AM CDT) [facility] TSH 1.23 0.27 - 4.20 uIU/mL 02/02/2024 5:51 PM CDT [facility] Blood BLOOD SPECIMEN / Unknown Non-Lab Venipuncture / Unknown 02/02/2024 10:38 AM CDT 02/02/2024 10:48 AM CDT Narrative [facility] - 02/02/2024 5:51 PM CDT In Adults, TSH values between 5.00 and 10.00 uIU/ml do not necessarily indicate the presence of Hypothyroidism. Correlation with clinical findings such as presence of goiter and/or Thyroperoxidase (TPO) Antibody may be helpful. For more information please refer to NEMESIO 2004; 291: 228-238. Ximena Nelson MD CHEMISTRY Performing Organization Address City/[facility] Co de Phone Number [facility] [address] [place] [address], [place] * Serum (02/02/2024 10:38 AM CDT) ,SERU M Negative Negative 02/02/2024 11:04 AM CDT [facility] Blood BLOOD SPECIMEN / Unknown Non-Lab Venipuncture / Unknown 02/02/2024 10:38 AM CDT 02/02/2024 10:48 AM CDT Feliciano Dixon MD CHEMISTRY Performing Organization Address City/[facility]/ZIP Co de Phone Number [facility] [address] [place] [address], [place] * HCG Beta Quant, (02/02/2024 10:38 AM CDT) HCG BETA QUANT,PREGNANC Y <1 mIU/mL 02/02/2024 11:20 AM CDT [facility] Blood BLOOD SPECIMEN / Unknown Non-Lab Venipuncture / Unknown 02/02/2024 10:38 AM CDT 02/02/2024 10:48 AM CDT Narrative [facility] - 02/02/2024 11:20 AM CDT Expected Value [...] Feliciano Dixon MD CHEMISTRY Performing Organization Address City/[facility]/ZIP Co de Phone Number [facility] [address] [place] [address], [place] * SCAN-CARDIAC STRIP (02/02/2024 10:17 AM CDT) Scanner OTHER * ECG STAT (02/02/2024 6:29 AM CDT) Pathologist [facility] Interpretation Normal sinus rhythm Borderline criteria for [...] NOW QTc 404 ms BEYOND NOW P Orlando 66 degrees BEYOND NOW R Orlando 3 degrees BEYOND NOW T [place] 28 degrees BEYOND NOW 02/02/2024 6:29 AM CDT 02/02/2024 5:18 PM CDT Diann Felton DO EKG ORD Performing Organization Address City/[facility]/ZIP Co de Phone Number BEYOND NOW [place], [place] * (ABNORMAL) LC SOLUBLE TRANSFERRIN RECEPTOR (02/02/2024 6:03 AM CDT) Pathologist [facility] Lois Transferrin Receptor 65.5(H) 12.2 - 27.3 nmol/L 02/05/2024 4:06 PM CDT [facility] ([facility]) Blood BLOOD SPECIMEN / Unknown Add On / Unknown 02/02/2024 6:03 AM CDT 02/02/2024 8:33 AM CDT Narrative [facility] ([facility]) - 02/05/2024 4:06 PM CDT Performed at: ??[address] ??[id number] Link Trainer: Kashmir Jacobson MD, Phone: ??[phone] Herberth Aleman MD SEND OUTS Performing Organization Address City/[facility]/ZIP Co de Phone Number [facility] ([facility]) [address] [place] [address], * (ABNORMAL) CBC WITH AUTO DIFFERENTIAL (02/02/2024 6:03 AM CDT) WHITE BLOOD COUNT 8.8 4.5 - 11.0 thou/cu mm 02/02/2024 7:47 AM CDT [facility] RED BLOOD COUNT 4.12 4.00 - 5.20 mil/cu mm 02/02/2024 7:47 AM T [facility] HEMOGLOBIN 7.8(L) 12.0 - 16.0 g/dL 02/02/2024 7:47 AM T [facility] HEMATOCRIT 28.0(L) 33.0 - 51.0 % 02/02/2024 7:47 AM CDT [facility] MCV 68(L) 80 - 100 fL 02/02/2024 7:47 AM CDT [facility] MCH 18.9(L) 26.0 - 34.0 pg 02/02/2024 7:47 AM T [facility] MCHC 27.9(L) 32.0 - 36.0 g/dL 02/02/2024 7:47 AM [facility] RDW 19.5(H) 11.5 - 15.5 % 02/02/2024 7:47 AM [facility] PLATELET COUNT 325 140 - 440 thou/cu mm 02/02/2024 7:47 AM [facility] MPV 8.8 6.5 - 11.0 fL 02/02/2024 7:47 AM CDT [facility] NRBC 0.2 % 02/02/2024 7:47 AM T [facility] ABS NRBC 0.0 thou /cu mm 02/02/2024 7:47 AM [facility] % NEUT 70.8 % 02/02/2024 7:47 AM CDT [facility] % LYMPH 17.5 % 02/02/2024 7:47 AM CDT [facility] % MONO 8.9 % 02/02/2024 7:47 AM CDT [facility] % EOS 1.5 % 02/02/2024 7:47 AM CDT [facility] % BASO 1.0 % 02/02/2024 7:47 AM CDT [facility] % IMMATURE GRAN (METAS,MYELOS,MA OS) 0.3 % 02/02/2024 7:47 AM CDT [facility] ABSOLUTE NEUTROPHILS 6.2 1.7 - 7.0 thou/cu mm 02/02/2024 7:47 AM CDT [facility] ABSOLUTE LYMPHOCYTES 1.5 0.9 - 2.9 thou/cu mm 02/02/2024 7:47 AM CDT [facility] ABSOLUTE MONOCYTES 0.8 <0.9 thou/cu mm 02/02/2024 7:47 AM CDT [facility] ABSOLUTE EOSINOPHILS 0.1 <0.5 thou/cu mm 02/02/2024 7:47 AM CDT [facility] ABSOLUTE BASOPHILS 0.1 <0.3 thou/cu mm 02/02/2024 7:47 AM CDT [facility] ABSOLUTE IMMATURE GRANULOCYTES(MET ,MYELOS,PROS) 0.0 <0.3 thou/cu mm 02/02/2024 7:47 AM CDT [facility] Blood BLOOD SPECIMEN / Unknown Venipuncture / Unknown 02/02/2024 6:03 AM CDT 02/02/2024 6:16 AM CDT Diann Felton DO HEMATOLOGY [facility] [address] [place] [address], * (ABNORMAL) RED CELL MORPHOLOGY (02/02/2024 6:03 AM CDT) ELLIPTOCYTES Few 02/02/2024 7:46 AM CDT [facility] POLYCHROMASIA Slight 02/02/2024 7:46 AM CDT [facility] TARGET CELLS Few 02/02/2024 7:46 AM CDT [facility] RBC COMMENT Present(A) RBC morphology appears normal, RBC morphology within normal limits for newborns. 02/02/2024 7:46 AM CDT [facility] Blood BLOOD SPECIMEN / Unknown Venipuncture / Unknown 02/02/2024 6:03 AM CDT 02/02/2024 6:16 AM CDT Diann Felton DO HEMATOLOGY [facility] [address] [place] [address], * PERIPHERAL BLD MORPHOLOGY (02/02/2024 6:03 AM CDT) Case Report Special Hematology Report ? Case: [id number] ? Authorizing Provider: ??Diann Felton, ?Collected: ? 02/02/2024 0603 ? Ordering Location: ? [facility] ?Received: ?02/02/2024 0617 ? Hospital ? Pathologist: ? Walter Enriquez MD ? Specimen: ?Blood ? 02/03/2024 5:08 PM CDT [facility] Final Diagnosis PERIPHERAL BLOOD: 1. Moderate microcytic, hypochromic anemia with features suggestive of iron deficiency anemia 2. See comment 02/03/2024 5:08 PM CDT [facility] Comment The most common [...] was also reviewed by Selene Cartagena [place], ([facility]). 02/03/2024 5:08 PM CDT [facility] Clinical Information The patient [...] anemia, and hypertension. Peripheral blood morphology 2020 ([id number]) showed a mild normocytic anemia and neutrophilia. 02/01/24 21:01 IRON: ?19 (L) IRON BINDING CAPACITY ?: 397 IRON,% SATURATION ?: 5 (L) UIBC (UNSATURATED) ? : 378 (H) VITAMIN B12: ? 520 HAPTOGLOBIN ?: 164 02/03/2024 5:08 PM CDT [facility] CBC and Differential HEMATOLOGY PARAMETERS Tested at: ??[facility] ? RESULTS ??EXPECTED VALUES WBC: ? 8.8 ?4.5-89q7420/cumm ? RBC: ? 4.12 ?4.00-5.20 mil/cummDECREASED HGB: ? 7.8 ?12-16 gm/dl ? DECREASED HCT: ? 28.0 ? 33-51% ?DECREASED MCV: ? 68.0 ? 80-100 fl ? MICROCYTIC MCH: ? 18.9 ? 26-34 pg ?DECREASED MCHC: ?27.9 ? 32-36 gm/dl ? HYPOCHROMIC RDW: ? 19.5 ? 11.5-15.5% ?ELEVATED PLT: ? 325 ?140-281i5323/uL ? MPV: ? 8.8 ?6.5-11 fl ? Retic: ?? 2.6 ?0.5-1.5% ?ELEVATED Differential ?Tested at: ??[facility] ?Absolute (%) ?Expected (%) ?(x10*9/L) ? (x10*9/L) Neutrophils: ?6.2 (70.5) ?1.7-7.0 (42-72%) ? Lymphocytes: ?1.5 (17) ?0.9-2.9 (20-44%) ?? Monocytes: ?0.8 (9.1) ?<0.9 (0-11%) ? Eosinophils: ?0.1 (1.1) ?<0.5 (0-2%) ? Basophils: ?0.1 (1.1) ?<0.3 (<3.0%) ? 02/03/2024 5:[address] [facility] Microscopic Description The final diagnosis is based on microscopic examination of appropriate sections of all specimens. The final diagnosis is based on microscopic examination of an appropriately stained blood smear. 02/03/2024 5:[address] [facility] Additional Information Interpreted at [facility] - [address] [place] [id number] 02/03/2024 5:[address] [facility] Blood BLOOD SPECIMEN / [...] unit/mL) D5W infusion, 1,000 Units/hr, Intravenous, continuous, [facility] Hospital[facility]atesha MD, Last Rate: 1,000 Units/hr (02/01/242110)? ? melatonin tablet 3 mg, 3 mg, Oral, bedtime prn MRx1, [place], Diann, DO? ? naloxone (NARCAN) 0.4 mg/mL [...] Mangine, Diann, DO Diann Felton DO HEMATOLOGY [facility] [address] [place] [address], * (ABNORMAL) RETICULOCYTES (02/02/2024 6:03 AM CDT) Only the most recent of2 resultswithin the time period is included. RETIC% 2.6(H) 0.5 - 1.5 % 02/02/2024 7:46 AM CDT [facility] RETIC (ABSOLUTE) 0.11(H) 0.03 - 0.08 mil/cu mm 02/02/2024 7:46 AM CDT [facility] Blood BLOOD SPECIMEN / Unknown Venipuncture / Unknown 02/02/2024 6:03 AM CDT 02/02/2024 6:16 AM CDT Diann Felton HEMATOLOGY Performing Organization Address [facility] Co de Phone Number [facility] [address] [place] [address], * ALT AM (02/02/2024 6:03 AM CDT) ALT (SGPT) 22 10 - 35 IU/L 02/02/2024 7:10 AM CDT [facility] Blood BLOOD SPECIMEN / Unknown Venipuncture / Unknown 02/02/2024 6:03 AM CDT 02/02/2024 6:16 AM CDT Diann Felton DO CHEMISTRY Performing Organization Address [facility] de Phone Number [facility] [address] [place] [address], * (ABNORMAL) AST AM (02/02/2024 6:03 AM CDT) AST (SGOT) 47(H) 10 - 35 IU/L 02/02/2024 7:10 AM CDT [facility] Blood BLOOD SPECIMEN / Unknown Venipuncture / Unknown 02/02/2024 6:03 AM CDT 02/02/2024 6:16 AM CDT Diann Felton DO CHEMISTRY Performing Organization Address [facility] de Phone Number [facility] [address] [place] [address], * (ABNORMAL) Basic metabolic panel AM (02/02/2024 6:03 AM CDT) Only the most recent of2 resultswithin the time period is included. SODIUM 137 136 - 145 mmol/L 02/02/2024 7:10 AM [facility] POTASSIUM 4.2 3.5 - 5.1 mmol/L 02/02/2024 7:10 AM [facility] CHLORIDE 104 98 - 107 mmol/L 02/02/2024 7:10 AM [facility] CO2,TOTAL 22 22 - 29 mmol/L 02/02/2024 7:10 AM [facility] ANION GAP 11 5 - 18 02/02/2024 7:10 AM [facility] GLUCOSE 127(H) 70 - 99 mg/dL 02/02/2024 7:10 AM [facility] CALCIUM 8.9 8.6 - 10.0 mg/dL 02/02/2024 7:10 AM [facility] BUN 12 6 - 20 mg/dL 02/02/2024 7:10 AM [facility] CREATININE 0.89 0.50 - 0.90 mg/dL 02/02/2024 7:10 AM [facility] BUN/CREAT RATIO 13 10 - 20 7:10 AM [facility] eGFR 84(L) >90 mL/min/1.7 3m2 02/02/2024 7:10 AM [facility] Comment:As of 2021, eG FR is calculated by the CKD-EPI creatinine equation without race adjustment. ??eGFR can be influenced by muscle mass, exercise, and diet. ??The reported eGFR is an estimation only and is only applicable if the renal function is stable. Blood BLOOD SPECIMEN / Unknown Venipuncture / Unknown 02/02/2024 6:03 AM CDT 02/02/2024 6:16 AM T Diann Felton DO CHEMISTRY [facility] [address] [place] [address], * SCAN-CARDIAC STRIP (02/02/2024 4:06 AM CDT) Scanner OTHER * (ABNORMAL) TROPONIN T (HS) ONE TIME (02/02/2024 12:12 AM CDT) TROPONIN T HS 340(H) 6-10 ng/L ng/L 02/02/2024 1:18 AM CDT [facility] Blood BLOOD SPECIMEN / Unknown Butterfly / Unknown 02/02/2024 12:12 AM CDT 02/02/2024 12:17 AM CDT Diann Felton DO CHEMISTRY [facility] [address] [place] [address], * (ABNORMAL) TROPONIN T (HS) ACUTE W/2HR REFLEX (02/01/2024 10:02 PM CDT) TROPONIN T HS 366(H) 6-10 ng/L ng/L 02/01/2024 10:48 PM CDT [facility] Blood BLOOD SPECIMEN / Unknown Butterfly / Unknown 02/01/2024 10:02 PM CDT 02/01/2024 10:12 PM CDT Narrative [facility] - 02/01/2024 10:48 PM CDT hs-cTnT [...] Diann Felton DO CHEMISTRY Performing Organization Address City/[facility]/ZIP Co de Phone Number [facility] [address] [place] [address], [place] * HAPTOGLOBIN (02/01/2024 10:02 PM CDT) Haptoglobin 164 30 - 200 mg/dL 02/02/2024 12:32 AM CDT [facility] Blood BLOOD SPECIMEN / Unknown Butterfly / Unknown 02/01/2024 10:02 PM CDT 02/01/2024 10:12 PM CDT Diann [employer] CHEMISTRY Performing Organization Address [facility] Co de Phone Number [facility] [address] [place] [address], [place] * (ABNORMAL) IRON PLUS IRON BINDING CAP (02/01/2024 9:01 PM CDT) IRON 19(L) 37 - 145 ug/dL 02/01/2024 10:51 PM CDT [facility] UIBC (UNSATURATED) 378(H) 112 - 347 ug/dL 02/01/2024 10:51 PM CDT [facility] IRON BINDING CAPACITY 397 250 - 400 ug/dL 02/01/2024 10:51 PM CDT [facility] IRON,% SATURATION 5(L) 14 - 50 % 02/01/2024 10:51 PM CDT [facility] Blood BLOOD SPECIMEN / Unknown Butterfly / Unknown 02/01/2024 9:01 PM CDT 02/01/2024 9:09 PM CDT Dianntia Seguraarcelia [place] CHEMISTRY Performing Organization Address City/[facility]/ZIP Co de Phone Number [facility] [address] [place] [address], * BUN (02/01/2024 9:01 PM CDT) BUN 9 6 - 20 mg/dL 02/01/2024 10:19 PM CDT [facility] Blood BLOOD SPECIMEN / Unknown Butterfly / Unknown 02/01/2024 9:01 PM CDT 02/01/2024 9:09 PM CDT Dianntia Felton CHEMISTRY Performing Organization Address City/[facility] Co de Phone Number [facility] [address] [place] [address], * (ABNORMAL) CREATININE (02/01/2024 9:01 PM CDT) eGFR 84(L) >90 mL/min/1.7 3m2 02/01/2024 10:19 PM CDT [facility] Comment:As of 2021, eG FR is calculated by the CKD-EPI creatinine equation without race adjustment. ??eGFR can be influenced by muscle mass, exercise, and diet. ??The reported eGFR is an estimation only and is only applicable if the renal function is stable. CREATININE 0.89 0.50 - 0.90 mg/dL 02/01/2024 10:19 PM CDT [facility] Blood BLOOD SPECIMEN / Unknown Butterfly / Unknown 02/01/2024 9:01 PM CDT 02/01/2024 9:09 PM CDT Dianntia Seguraarcelia [place] CHEMISTRY Performing Organization Address [facility]/ZIP Co de Phone Number [facility] [address] [address], * Vitamin B12 level AM (02/01/2024 9:01 PM CDT) Pathologist [facility] VITAMIN B12 520 232 - 1,245 pg/mL 02/01/2024 10:49 PM CDT [facility] Blood BLOOD SPECIMEN / Unknown Butterfly / Unknown 02/01/2024 9:01 PM CDT 02/01/2024 9:09 PM CDT Narrative [facility] - 02/01/2024 10:49 PM CDT Biotin supplements may cause clinically significant interference for this test assay. ??If interference is suspected, it is strongly recommended that biotin is discontinued for at least one week prior to retesting. Diann Felton DO CHEMISTRY Performing Organization Address [facility] Co de Phone Number [facility] [address] [place] [address], * SCAN-CARDIAC STRIP (02/01/2024 12:00 AM CDT) Narrative 02/01/2024 12:00 AM CDT Ordered by an unspecified provider. Other Clinical Staff OTHER * SURVEY CAD TECHNICIAN THIN PREP PAP SCREEN IMAGED (11/05/2020 9:55 AM CDT) [facility] Case Report Gynecologic Cytology Report ? Case: [id number] ? Authorizing Provider: ??Lucy Silvestre PA-C ?Collected: ? 11/05/2020 0955 ? Ordering Location: ? [facility] ?Received: ?11/06/2020 1014 ? First Screen: ?Kayy, Malcolm ? Pathologist: ? Helen Mccray MD ? Specimen: ?SURVEY CAD TECHNICIAN ThinPrep Vial Screening, Cervical/Vaginal ? 11/13/2020 3:21 PM CDT [facility]- ENTRAL LABORATORY INTERPRETATION/ RESULT NEGATIVE FOR INTRAEPITHELIAL LESION OR MALIGNANCY (NIL) (none) 11/13/2020 3:21 PM CDT [facility] R NON-NEOPLASTIC FINDING(S) Reactive cellular changes associated with inflammation/repa ir 11/13/2020 3:21 PM CDT [facility] ENTRAL LABORATORY SPECIMEN ADEQUACY Satisfactory for evaluation Endocervical component present 11/13/2020 3:21 PM CDT [facility]- ENTRAL LABORATORY HPV REQUEST HPV and PAP 11/13/2020 3:21 PM CDT [facility]-C ENTRAL LABORATORY Date of LMP 10/18/2020 11/13/2020 3:21 PM CDT [facility]-C ENTRAL LABORATORY Last Pap Date 11/13/2020 3:21 PM CDT [facility] Comment:Unknown Menstrual Status Abnormal bleeding 11/13/2020 3:21 PM CDT [facility] Additional Information 11/13/2020 3:21 PM CDT [facility] Comment: Interpreted at [facility] - [address], [place] [address] Automated Review Successful 11/13/2020 3:21 PM CDT [facility] Comment:Specimen processed s uccessfully by automated block machine operator device, [employer] System, [employer] ANCILLARY TESTING SURVEY CAD TECHNICIAN HPV Ordered, Please see separate report 11/13/2020 3:[address] [facility] Note The pap test [...] and malignant lesions. 11/13/2020 3:[address] [facility] Other (Cervical/Vagina l) 11/05/2020 9:55 AM CDT 11/06/2020 10:14 AM CDT Lucy Silvestre PA-C PATHOLOGY/CYTOLOGY [facility] [address] [place] [address], * ANTI HCV (07/02/2016 9:37 AM DRAWER IN STITCH BONDING MACHINE) HEPATITIS C ANTIBODY Non-Reacti ve Non-Reacti ve 07/02/2016 5:30 PM DRAWER IN STITCH BONDING MACHINE [facility] Blood BLOOD SPECIMEN / Unknown Venipuncture / Unknown 07/02/2016 9:37 AM DRAWER IN STITCH BONDING MACHINE 07/02/2016 9:37 AM DRAWER IN STITCH BONDING MACHINE Narrative [facility] - 07/02/2016 5:30 PM DRAWER IN STITCH BONDING MACHINE Antibodies to HCV not detected; does not exclude the possibility of exposure to HCV. Deysi BURMFIELD SEND OUTS [facility] [address] [place] [address], [place] * ANTI HIV 1/2 (07/02/2016 9:37 AM DRAWER IN STITCH BONDING MACHINE) HIV-1/HIV-2 ANTIBODY Non-Reacti ve Non-Reacti ve 07/02/2016 5:30 PM DRAWER IN STITCH BONDING MACHINE [facility] Blood BLOOD SPECIMEN / Unknown Venipuncture / Unknown 07/02/2016 9:37 AM DRAWER IN STITCH BONDING MACHINE 07/02/2016 9:37 AM DRAWER IN STITCH BONDING MACHINE Narrative [facility] - 07/02/2016 5:30 PM DRAWER IN STITCH BONDING MACHINE HIV-1 p24 and HIV-1/HIV-2 Ab not detected Deysi BRUMFIELD SEND OUTS [facility] [address] [place] [address], from Last 3 Months or Most Recently [...] Code Status Discussion: Not Discussed Care Teams Template Reproduction Technician Relationship Specialty Start Date End Date Jackeline Montes De Oca MD [address] [place] [id number] PCP - General Family Practice 12/13/20 Aida Jones MD EMBEDDED HARDWARE ENGINEER Obstetrics and Gynecology 11/13/12
--- OUTSIDE RECORDS SUMMARY | 2024-03-26 16:33 | XMS_ITS | Clinical Summary ---
Author Organization [facility] Address [address] [place] [address] Care Team Providers Care Manager [employer] Sales Name Role Phone Concha Stockton MD Primary Care Provider [phone] Source Comments You are receiving this document as you are listed as the primary care provider,follow-up provider, or the patient has been referred to you for consultation.This is in compliance with the Medicare and[facility] E[facility] Incentive [facility],which states Providers who transition their patient to another setting of careor provider of care or refers their patient to another provider of care shouldprovide summary care record for each transition of care or referral. [facility] No known active allergies Medications Medication [...] dose series) 11/20/2018 Influenza IIV4 (Quadrivalent) 0.5mL (31896) 08/2018,04/14/2015 Pfizer Monovalent 12+ Purple Top 04/17/2021,03/05 [...] AM CDT Pulse 86 07/01/2023 2:04 PM REWIND OPERATOR Temperature 36.4 ??C (97.5 ??F) 03/19/2021 11:08 [...] age to complete this topic Care Teams Manager [employer] Sales Relationship Specialty Start Date End Date Concha Stockton MD [address] [place] [address] PCP - General Internal Medicine 10/27/22
== END 2024-03-26 16:30 | disposition home or self-care (01) ==
PROVIDERS: PCP Internal Medicine; Visit Provider Internal Medicine
DX: D50.9 Iron deficiency anemia, unspecified (principal); D68.61 Antiphospholipid syndrome
CPT/HCPCS: 82728; 85260

== ENCOUNTER 2024-04-19 13:59 | Outpatient (CLI) | payer OTHER, SELFPAY ==
--- OUTSIDE RECORDS SUMMARY | 2024-04-19 14:04 | XMS_ITS | Clinical Summary ---
Author Organization [employer] [facility] & [facility] Address [place], [place] [address] Care Team Providers Care Director Security Management Name Role Phone Aida Jones MD Unavailable [...] mg by mouth at bedtime. 01/18/2024 Active enoxaparin (LOVENOX) 120 mg/0.8 mL injectionIndicati ons:Antiphospholi pid syndrome (HC) Inject 120 mg subcutaneous every 12 hours. 11.2 mL 02/03/2024 Active ferrous sulfate, 65 mg elemental, tabletIndications :Iron deficiency anemia due to chronic blood loss Take 1 Tablet (325 mg) by mouth once daily. 30 Tablet 02/03/2024 Active pantoprazole (PROTONIX) 40 mg delayed-release tabletIndications :PUD (peptic ulcer disease) Take 1 Tablet (40 mg) by mouth two times daily before meals. For 2 months 60 Tablet 1 02/03/2024 04/03/2024 Active Problems Problem Noted Date Diagnosed Date [...] Department Care Team Description 03/21/20 Lab Requisition [facility] [phone] Sarah Floyd MD 02/28/20 Lab Requisition [facility] [phone] Concha Stockton MD 02/10/20 Lab Requisition [facility] [phone] Concha Stockton MD 02/06/20 Orders Only [facility] [address] [facility] [address] [place] [address] Jessy Cade, <No scans attached> 02/03/20 11:31 AM CDT Anesthesia Event [facility] [address] [place] [address] Sadi Christina MD 02/03/20 24 10:52 AM CDT - 02/03/20 24 12:07 PM CDT Surgery [facility] [address] [place] [address] Butch Gómez MD ESOPHAGOGASTRODUODENOSCOPY WITH BIOPSIES 02/02/20 Telephone [facility] [address] [place] [address] Ximena Nelson MD 02/02/20 24 Travel 02/01/20 24 7:41 PM CDT - 02/03/20 24 6:50 PM CDT Hospital Encounter [facility] [address] [place] [address] [facility] Hospitalists [facility], MD Tiago Blanco, Herberth Yeung MD PUD (peptic ulcer disease) (Primary Dx); Cardiovascular symptoms; Antiphospholipid syndrome (HC); Mass of soft tissue of abdomen; Abnormal uterine bleeding (AUB); Iron deficiency anemia due to chronic blood loss Discharge Disposition: Home Self Care 02/01/20 Lab Requisition [facility] [phone] Concha Stockton MD 02/01/20 [address] [address] Paula Dillard MD from Last 3 Months Immunizations Name Administration Dates Next Due Influenza, IIV3 (Age >=3 years) 05/03/2011,03/20 Influenza, IIV4 04/14/2015 Tdap 11/12/2016,02/09/2008 Tuberculin (PPD) 07/10/2018 Family History Medical History Relation Name Comments Good Health Father Diabetes Maternal Grandfather Cancer Maternal Grandmother ovarian Diabetes Maternal Grandmother Diabetes Mother Premature CHD (under age 60) Mother [place] in her 50s Premature CHD (under age [...] 11/06/2023 , 11/05/2020, 09/06/2016, Additional history exists COVID-19 vaccine series ( season) 2024 08/29/2023, 11/11/2021, 04/17/2021, Additional history exists Influenza for age 9-49 03/04/2024 5, 05/03/2011, 03/20/2010 Tetanus booster 11/12/2026 11/12/2016, 0802/2008, 02/09/2008 HIV for age 15-65 Completed 07/02/2016, , 03/20/2010 Hepatitis C screening for ag e 18-79 Completed 07/02/2016, 04/14/2015 Tdap Completed 11/12/2016, 02/09/2008 Procedures Procedure Name Priority Date/Time Associated Diagnosis [...] CDT SCAN-CARDIAC STRIP 02/01/2024 12:00 AM CDT 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 [address], * PATH TISSUE EXAM (03/21/2024 9:25 AM CDT) Only the most recent of2 resultswithin the time period is included. Case Report Pathology Report ?Case: [id number] ? Authorizing Provider: ??Sarah Kang ??Collected: ? 03/21/2024 0925 ? MD Keegan ? Ordering Location: ? [facility] ?Received: ?03/22/2024 0805 ? Pathologist: ? Martha Flores MD ? Specimen: ?Endometrial Curettings ? 03/26/2024 12:48 PM CDT [facility] Final Diagnosis A) ENDOMETRIUM, CURETTAGE: 1. Proliferative endometrium 2. Negative for chronic endometritis 3. Negative for hyperplasia, atypia, and malignancy 03/26/2024 12:48 PM CDT [facility] Clinical Information Abnormal uterine bleeding, on chronic anticoagulation. Hysteroscopic exam showed thick and fluffy endometrium. Dilation/curetta ge and Mirena IUD placement performed. 03/26/2024 12:48 PM CDT [facility] Gross Description A) Received in formalin, labeled with the patient's name and endometrial curettings, is a 2.5 x 1.6 x 0.2 cm aggregate of pink-perez mucosa admixed with clotted blood and mucous. The specimen is entirely submitted in 1 cassette. EVM 03/22/2024 03/26/2024 12:48 PM CDT [facility] Microscopic Description The final diagnosis is based on microscopic examination of appropriate sections of all specimens. 03/26/2024 12:48 PM CDT [facility] Additional Information Interpreted at [facility] - [address], [place] [address] 03/26/2024 12:48 PM CDT [facility] Other (Endometrial Curettings) 03/21/2024 9:25 AM CDT 03/22/2024 8:05 AM CDT Sarah Floyd MD PATHOLOGY/ CYTOLOGY Performing Organization Address City/[facility]/ZIP Co de Phone Number [facility] [address] [place] [address], [place] * EXTRA TUBE BLUE (02/28/2024 8:30 AM CDT) Only the most recent of2 resultswithin the time period is included. Blood BLOOD SPECIMEN / Unknown Client Collect / Unknown 02/28/2024 8:30 AM CDT 02/28/2024 3:30 PM CDT Concha Stockton MD LABORATORY Performing Organization Address [facility] Co de Phone Number [facility] [address] [place] [address], [place] * (ABNORMAL) FACTOR 10 CHROMOGENIC (02/28/2024 8:30 AM CDT) Only the most recent of4 resultswithin the time period is included. FACTOR 10 CHROMOGENIC 18(L) 65 - 130 % 02/28/2024 4:11 PM CDT [facility] Blood BLOOD SPECIMEN / Unknown Client Collect / Unknown 02/28/2024 8:30 AM CDT 02/28/2024 3:29 PM CDT Narrative [facility] - 02/28/2024 4:11 PM CDT Therapeutic Range 20-40% Concha Stockton MD SEND OUTS [facility] [address] [place] [address], * ENDOSCOPY (02/03/2024 11:24 AM CDT) 02/03/2024 11:2 4 AM CDT Narrative Transcriptions Butch Gómez MD - 02/03/2024 11:50 AM CDT [facility] Patient Name: Charley Pinto Procedure Date: 02/03/2024 Gender: Female Date of : 1985 Admit Type: Inpatient Procedure: Upper GI endoscopy Proceduralist: Butch Gómez MD - [facility] Indications/Pre-Op Diagnosis: Unexplained iron deficiency anemia Medications: Monitored Anesthesia Care Procedure Description: Risk of bleeding, infection, perforation, need for surgery and alternatives discussed. The endoscope [id number] was introduced through the mouth, and advanced [...] Gómez MD - 02/03/2024 12:17 PM CDT [facility] Patient Name: Charley Pinto Procedure Date: 02/03/2024 Gender: Female Date of : 1985 Admit Type: Inpatient Procedure: Colonoscopy Proceduralist: Butch Gómez MD - [facility] Indications/Pre-Op Diagnosis: Unexplained iron deficiency anemia Medications: Monitored Anesthesia Care Procedure Description: The patient had risks, benefits and alternatives explained to andgave informed consent. The patient had a stable cardiopulmonary status and judged an adequate candidate for sedation. The endoscope -[id number] was passed through the anus andadvanced to [...] 440 thou/cu mm 02/03/2024 6:11 AM CDT [facility] MPV 8.9 6.5 - 11.0 fL 02/03/2024 6:11 AM CDT [facility] Blood BLOOD SPECIMEN / Unknown Venipuncture / Unknown 02/03/2024 5:27 AM CDT 02/03/2024 6:04 AM CDT Narrative [facility] - 02/03/2024 6:11 AM CDT Every morning while on IV heparin. Every morning while on IV heparin. Necessary every morning while on IV heparin. Diann Coltonarcelia HEMATOLOGY Performing Organization Address [facility] Co de Phone Number [facility] [address] [place] [address], [place] * (ABNORMAL) HEMOGLOBIN (02/03/2024 5:27 AM CDT) Only the most recent of2 resultswithin the time period is included. HEMOGLOBIN 7.8(L) 12.0 - 16.0 g/dL 02/03/2024 6:11 AM CDT [facility] MCV 68(L) 80 - 100 fL 02/03/2024 6:11 AM CDT [facility] Blood BLOOD SPECIMEN / Unknown Venipuncture / Unknown 02/03/2024 5:27 AM CDT 02/03/2024 6:04 AM CDT [facility] LABORAT[facility] - 02/03/2024 6:11 AM CDT Every morning while on IV heparin. Every morning while on IV heparin. Necessary every morning while on IV heparin. Diann Felton HEMATOLOGY Performing Organization Address [facility] Co de Phone Number [facility] [address] [address], [place] * (ABNORMAL) HEMATOCRIT (02/03/2024 5:27 AM CDT) Only the most recent of2 resultswithin the time period is included. HEMATOCRIT 27.4(L) 33.0 - 51.0 % 02/03/2024 6:11 AM CDT [facility] Blood BLOOD SPECIMEN / Unknown Venipuncture / Unknown 02/03/2024 5:27 AM CDT 02/03/2024 6:04 AM CDT [facility] LABORATORY - 02/03/2024 6:11 AM CDT Every morning while on IV heparin. Every morning while on IV heparin. Necessary every morning while on IV heparin. Diann Felton DO HEMATOLOGY Performing Organization Address [facility]/ZIP Co de Phone Number [facility] [address] [place] [address], * POTASSIUM (02/03/2024 5:27 AM CDT) POTASSIUM 4.1 3.5 - 5.1 mmol/L 02/03/2024 6:40 AM CDT [facility] Blood BLOOD SPECIMEN / Unknown Venipuncture / Unknown 02/03/2024 5:27 AM CDT 02/03/2024 6:04 AM CDT Herberth Aleman MD CHEMISTRY Performing Organization Address [facility] Co de Phone Number [facility] [address] [place] [address], [place] * (ABNORMAL) APTT (02/03/2024 5:27 AM CDT) Only the most recent of3 resultswithin the time period is included. APTT 45(H) 28 - 36 sec 02/03/2024 7:23 AM CDT [facility] Blood BLOOD SPECIMEN / Unknown Venipuncture / Unknown 02/03/2024 5:27 AM CDT 02/03/2024 6:04 AM CDT Narrative [facility] - 02/03/2024 7:23 AM CDT Therapeutic Range: 57-87 seconds Latesha Bartholomew MD HEMATOLOGY Performing Organization Address City/[facility]/ZIP Co de Phone Number [facility] [address] [place] [address], [place] * MAGNESIUM (02/03/2024 5:27 AM CDT) MAGNESIUM 2.0 1.6 - 2.6 mg/dL 02/03/2024 6:40 AM CDT [facility] Blood BLOOD SPECIMEN / Unknown Venipuncture / Unknown 02/03/2024 5:27 AM CDT 02/03/2024 6:04 AM CDT Herberth Aleman MD CHEMISTRY [facility] [address] [place] [address], * SCAN-CARDIAC STRIP (02/03/2024 12:38 AM CDT) [...] CDT ECHOCARDIOGRAM CHARLEY PINTO ? Accession#: ?? [id number] : ?1985 38 years Study Date: ?? 02/02/2024 2:53:33 PM Gender: F ?BP: ? 105/64 mmHg Height: 168.00 cm ?BSA: ?2.33 m? ? ? Weight: 130.00 kg ?Tech: ? MBL ? Referring MD: DIANN FELTON Site: ? [facility] Reading Location: AN IP Patient Location: Inpatient. Procedure: 2D w/ [...] Definity, lot #[id number], [facility]# [id number] was administered peripherally to enhance visualization of all left ventricular segments. . This study was interpreted by an [facility] accredited facility. ??Final ?? Procedure Note Kwadwo Ruff MD - 02/02/2024 ECHOCARDIOGRAM CHARLEY PINTO : 1985 38 years Study Date: 02/02/2024 2:53:33 PM Gender: F BP: 105/64 mmHg Height: 168.00 cm BSA: 2.33 m? ? ? Weight: 130.00 kg Tech: [facility] Referring MD: DIANN FELTON Site: [facility] Reading Location: ANW Patient Location: Inpatient. Procedure: 2D w/ Contrast, [...] Definity, lot #[id number], [facility]#[id number] was administered peripherally to enhance visualization of allleft ventricular segments. . This study was interpreted by an [facility] accredited facility. Final Diann Felton DO ECHO [...] / ?? Narrative 02/06/2024 12:01 AM CDT ?[facility] ? Cardiac CT Report ??MRN: ? [id number] ?Name: ? LUIS DANIEL, CHARLEY R ?: ?1986-Mar-14 ?Scan Date: ?Accession Number: ? [id number] ?Status: ? Final ? Electronically signed by [...] INFO TEST TYPE: ??Coronary CT Angiography SCANNER LIVESTOCK EXHIBITOR: ??SIEMENS SCANNER MODEL: ??[employer] DOSE REDUCTION ALGORITHM: ??Prospective/[id number] PHASE UNITS: ??% START PHASE: ??65 % [...] ALEMAN ?TECHNOLOGIST: ??[place] BILLING Patient Account ?[id number] Report generated by [employer], a product of [employer] For [...] conjunction with the services provided by the [facility] ([facility]). CLINICAL HISTORY: ??Cardiac over-read. FINDINGS: [...] E Negative Negative 02/02/2024 11:28 AM CDT [facility] Urine URINE SPECIMEN / Unknown Non-Blood / Unknown 02/02/2024 11:04 AM CDT 02/02/2024 11:14 AM CDT Cher Bagley NP URINE Performing Organization Address [facility] Co de Phone Number [facility] [address] [place] [address], * TSH (02/02/2024 10:38 AM CDT) Pathologist [facility] TSH 1.23 0.27 - 4.20 uIU/mL 02/02/2024 5:51 PM CDT [facility] Blood BLOOD SPECIMEN / Unknown Non-Lab Venipuncture / Unknown 02/02/2024 10:38 AM CDT 02/02/2024 10:48 AM CDT Narrative [facility] - 02/02/2024 5:51 PM CDT In Adults, TSH values between 5.00 and 10.00 uIU/ml do not necessarily indicate the presence of Hypothyroidism. Correlation with clinical findings such as presence of goiter and/or Thyroperoxidase (TPO) Antibody may be helpful. For more information please refer to NEMESIO 2004; 291: 228-238. Ximena Nelson MD CHEMISTRY Performing Organization Address [facility] Co de Phone Number [facility] [address] [place] [address], * Serum (02/02/2024 10:38 AM CDT) ,SERU M Negative Negative 02/02/2024 11:04 AM CDT [facility] Blood BLOOD SPECIMEN / Unknown Non-Lab Venipuncture / Unknown 02/02/2024 10:38 AM CDT 02/02/2024 10:48 AM CDT Feliciano Dixon MD CHEMISTRY Performing Organization Address City/[facility]/ZIP Co de Phone Number [facility] [address] [place] [address], [place] * HCG Beta Quant, (02/02/2024 10:38 AM CDT) HCG BETA QUANT,PREGNANC Y <1 mIU/mL 02/02/2024 11:20 AM CDT [facility] Blood BLOOD SPECIMEN / Unknown Non-Lab Venipuncture / Unknown 02/02/2024 10:38 AM CDT 02/02/2024 10:48 AM CDT Narrative [facility] - 02/02/2024 11:20 AM CDT [...] Feliciano Dixon MD CHEMISTRY Performing Organization Address City/[facility]/ZIP Co de Phone Number [facility] [address] [address], [place] * SCAN-CARDIAC STRIP (02/02/2024 10:17 AM [...] NOW QTc 404 ms BEYOND NOW P Thompson 66 degrees BEYOND NOW R Thompson 3 degrees BEYOND NOW T Thompson 28 degrees BEYOND NOW 02/02/2024 6:29 AM CDT 02/02/2024 5:18 PM CDT Diann Felton DO EKG ORD Performing Organization Address City/[facility]/ZIP Co de Phone Number BEYOND NOW [place], [place] * (ABNORMAL) LC SOLUBLE TRANSFERRIN RECEPTOR (02/02/2024 6:03 AM CDT) Pathologist [facility] Lois Transferrin Receptor 65.5(H) 12.2 - 27.3 nmol/L 02/05/2024 4:[address] [facility] ([facility]) Blood BLOOD SPECIMEN / Unknown Add On / Unknown 02/02/2024 6:03 AM CDT 02/02/2024 8:33 AM CDT Narrative [facility] ([facility]) - 02/05/2024 4:06 PM CDT Performed at: ??[address] ??[id number] [employer] Supervisor: Kashmir Jacobson MD, Phone: ??[phone] Herberth Aleman MD SEND OUTS Performing Organization Address City/[facility]/ZIP Co de Phone Number [facility] ([facility]) [address] [place] [address], [place] * (ABNORMAL) CBC WITH AUTO DIFFERENTIAL (02/02/2024 6:03 AM CDT) [facility] Signature WHITE BLOOD COUNT 8.8 4.5 - 11.0 thou/cu mm 02/02/2024 7:47 AM CDT [facility] RED BLOOD COUNT 4.12 4.00 - 5.20 mil/cu mm 02/02/2024 7:47 AM CDT [facility] HEMOGLOBIN 7.8(L) 12.0 - 16.0 g/dL 02/02/2024 7:47 AM T [facility] HEMATOCRIT 28.0(L) 33.0 - 51.0 % 02/02/2024 7:47 AM CDT [facility] MCV 68(L) 80 - 100 fL 02/02/2024 7:47 AM CDT [facility] MCH 18.9(L) 26.0 - 34.0 pg 02/02/2024 7:47 AM CDT [facility] MCHC 27.9(L) 32.0 - 36.0 g/dL 02/02/2024 7:47 AM T [facility] RDW 19.5(H) 11.5 - 15.5 % 02/02/2024 7:47 AM CDT [facility] PLATELET COUNT 325 140 - 440 thou/cu mm 02/02/2024 7:47 AM CDT [facility] MPV 8.8 6.5 - 11.0 fL 02/02/2024 7:47 AM CDT [facility] NRBC 0.2 % 02/02/2024 7:47 AM CDT [facility] ABS NRBC 0.0 thou /cu mm 02/02/2024 7:47 AM CDT [facility] % NEUT 70.8 % [...] [facility] % IMMATURE GRAN (METAS,MYELOS,SD OS) 0.3 % 02/02/2024 7:47 AM CDT [...] 0.0 <0.3 thou/cu mm 02/02/2024 7:47 AM T [facility] Blood BLOOD SPECIMEN / Unknown Venipuncture / Unknown 02/02/2024 6:03 AM CDT 02/02/2024 6:16 AM CDT Diann Felton DO HEMATOLOGY [facility] [address] [place] [address], * (ABNORMAL) RED CELL MORPHOLOGY (02/02/2024 6:03 AM CDT) ELLIPTOCYTES Few 02/02/2024 7:46 AM CDT [facility] POLYCHROMASIA Slight 02/02/2024 7:46 AM CDT [facility] TARGET CELLS Few 02/02/2024 7:46 AM CDT [facility] RBC COMMENT Present(A) RBC morphology appears normal, RBC morphology within normal limits for newborns. 02/02/2024 7:46 AM CDT [facility] Blood BLOOD SPECIMEN / Unknown Venipuncture / Unknown 02/02/2024 6:03 AM CDT 02/02/2024 6:16 AM CDT Diann Felton DO [facility] [address] [place] [address], * PERIPHERAL BLD MORPHOLOGY (02/02/2024 6:03 AM CDT) Case Report Special Hematology Report ? Case: [id number] ? Authorizing Provider: ??Diann Felton DO ?Collected: ? 02/02/2024 0603 ? Ordering Location: ? [facility] ?Received: ?02/02/2024 0617 ? Hospital ? Pathologist: ? Walter Enriquez MD ? Specimen: ?Blood ? 02/03/2024 5:08 PM CDT [facility] Final Diagnosis PERIPHERAL BLOOD: 1. Moderate microcytic, hypochromic anemia with features suggestive of iron deficiency anemia 2. See comment 02/03/2024 5:08 PM CDT [facility] Comment The most common [...] also reviewed by Selene Cartagena [place], [place] ([facility]). 02/03/2024 5:08 PM CDT [facility] Clinical Information The patient [...] anemia, and hypertension. Peripheral blood morphology 2020 ([id number]) showed a mild normocytic anemia and neutrophilia. 02/01/24 21:01 IRON: ?19 (L) IRON BINDING CAPACITY ?: 397 IRON,% SATURATION ?: 5 (L) UIBC (UNSATURATED) ? : 378 (H) VITAMIN B12: ? 520 HAPTOGLOBIN ?: 164 02/03/2024 5:08 PM CDT [facility] EN[facility]AL LABORATORY CBC and Differential HEMATOLOGY PARAMETERS Tested at: ??[facility] ? RESULTS ??EXPECTED VALUES WBC: ? 8.8 ?4.5-73w5709/cumm ? RBC: ? 4.12 ?4.00-5.20 mil/cummDECREASED HGB: ? 7.8 ?12-16 gm/dl ? DECREASED HCT: ? 28.0 ? 33-51% ?DECREASED MCV: ? 68.0 ? 80-100 fl ? MICROCYTIC MCH: ? 18.9 ? 26-34 pg ?DECREASED MCHC: ?27.9 ? 32-36 gm/dl ? HYPOCHROMIC RDW: ? 19.5 ? 11.5-15.5% ?ELEVATED PLT: ? 325 ?140-821y2602/uL ? MPV: ? 8.8 ?6.5-11 fl ? Retic: ?? 2.6 ?0.5-1.5% ?ELEVATED Differential ?Tested at: ??[facility] ?Absolute (%) ?Expected (%) ?(x10*9/L) ? (x10*9/L) Neutrophils: ?6.2 (70.5) ?1.7-7.0 (42-72%) ? Lymphocytes: ?1.5 (17) ?0.9-2.9 (20-44%) ?? Monocytes: ?0.8 (9.1) ?<0.9 (0-11%) ? Eosinophils: ?0.1 (1.1) ?<0.5 (0-2%) ? Basophils: ?0.1 (1.1) ?<0.3 (<3.0%) ? 02/03/2024 5:08 PM CDT [facility] Microscopic Description The final diagnosis is based on microscopic examination of appropriate sections of all specimens. The final diagnosis is based on microscopic examination of an appropriately stained blood smear. 02/03/2024 5:08 PM T [facility] Additional Information Interpreted at [facility] - [address] [place] [id number] 02/03/2024 5:08 PM T [facility] Blood BLOOD SPECIMEN / [...] unit/mL) D5W infusion, 1,000 Units/hr, Intravenous, continuous, [facility] Center[facility]ates[facility] MD, Last Rate: 1,000 Units/hr (02/01/242110)? ? [...] Mangine, Diann, DO Diann Felton DO HEMATOLOGY [facility] [address] [place] [address], * (ABNORMAL) RETICULOCYTES (02/02/2024 6:03 AM CDT) Only the most recent of2 resultswithin the time period is included. RETIC% 2.6(H) 0.5 - 1.5 % 02/02/2024 7:46 AM CDT [facility] RETIC (ABSOLUTE) 0.11(H) 0.03 - 0.08 mil/cu mm 02/02/2024 7:46 AM CDT [facility] Blood BLOOD SPECIMEN / Unknown Venipuncture / Unknown 02/02/2024 6:03 AM CDT 02/02/2024 6:16 AM CDT Diann Felton DO HEMATOLOGY Performing Organization Address City/[facility] Co de Phone Number [facility] [address] [place] [address], [place] * ALT AM (02/02/2024 6:03 AM CDT) ALT (SGPT) 22 10 - 35 IU/L 02/02/2024 7:10 AM CDT [facility] Blood BLOOD SPECIMEN / Unknown Venipuncture / Unknown 02/02/2024 6:03 AM CDT 02/02/2024 6:16 AM CDT Diann Felton DO CHEMISTRY Performing Organization Address [facility] de Phone Number [facility] [address] [place] [address], [place] * (ABNORMAL) AST AM (02/02/2024 6:03 AM CDT) AST (SGOT) 47(H) 10 - 35 IU/L 02/02/2024 7:10 AM CDT [facility] Blood BLOOD SPECIMEN / Unknown Venipuncture / Unknown 02/02/2024 6:03 AM CDT 02/02/2024 6:16 AM CDT Diann Felton DO CHEMISTRY Performing Organization Address [facility] Co de Phone Number [facility] [address] [place] [address], [place] * (ABNORMAL) Basic metabolic panel AM (02/02/2024 6:03 AM CDT) Only the most recent of2 resultswithin the time period is included. SODIUM 137 136 - 145 mmol/L 02/02/2024 7:10 AM [facility] POTASSIUM 4.2 3.5 - 5.1 mmol/L 02/02/2024 7:10 AM [facility] CHLORIDE 104 98 - 107 mmol/L 02/02/2024 7:10 AM [facility] CO2,TOTAL 22 22 - 29 mmol/L 02/02/2024 7:10 AM [facility] ANION GAP 11 5 - 18 02/02/2024 7:10 AM [facility] GLUCOSE 127(H) 70 - 99 mg/dL 02/02/2024 7:10 AM [facility] CALCIUM 8.9 8.6 - 10.0 mg/dL 02/02/2024 7:10 AM [facility] BUN 12 6 - 20 mg/dL 02/02/2024 7:10 AM [facility] CREATININE 0.89 0.50 - 0.90 mg/dL 02/02/2024 7:10 AM [facility] BUN/CREAT RATIO 13 10 - 20 7:10 AM [facility] eGFR 84(L) >90 mL/min/1.7 3m2 02/02/2024 7:10 AM [facility] Comment:As of 2021, eG FR [...] 6:16 AM T Diann Felton DO CHEMISTRY [facility] [address] [address], * SCAN-CARDIAC STRIP (02/02/2024 4:06 AM CDT) Scanner OTHER * (ABNORMAL) TROPONIN T (HS) ONE TIME (02/02/2024 12:12 AM CDT) TROPONIN T HS 340(H) 6-10 ng/L ng/L 02/02/2024 1:18 AM CDT [facility] Blood BLOOD SPECIMEN / Unknown Butterfly / Unknown 02/02/2024 12:12 AM CDT 02/02/2024 12:17 AM CDT Diann Felton DO CHEMISTRY [facility] [address] [address], * (ABNORMAL) TROPONIN T (HS) ACUTE W/2HR REFLEX (02/01/2024 10:02 PM CDT) TROPONIN T HS 366(H) 6-10 ng/L ng/L 02/01/2024 10:48 PM CDT [facility] Blood BLOOD SPECIMEN / Unknown Butterfly / Unknown 02/01/2024 10:02 PM CDT 02/01/2024 10:12 PM CDT Narrative [facility] - 02/01/2024 10:48 PM CDT [...] low risk in emergency department patient population. Diannzulily CHEMISTRY Performing Organization Address City/[facility]/ZIP Co de Phone Number [facility] [employer] [facility] [address] [place] [address], [place] * HAPTOGLOBIN (02/01/2024 10:02 PM CDT) Haptoglobin 164 30 - 200 mg/dL 02/02/2024 12:32 AM CDT [facility] [employer] [facility] Blood BLOOD SPECIMEN / Unknown Butterfly / Unknown 02/01/2024 10:02 PM CDT 02/01/2024 10:12 PM CDT [employer] CHEMISTRY Performing Organization Address [facility]/ZIP Co de Phone Number [facility] [address] [place] [address], * (ABNORMAL) IRON PLUS IRON BINDING CAP (02/01/2024 9:01 PM CDT) IRON 19(L) 37 - 145 ug/dL 02/01/2024 10:51 PM CDT [facility] [employer] [facility] UIBC (UNSATURATED) 378(H) 112 - 347 ug/dL 02/01/2024 10:51 PM CDT [facility] IRON BINDING CAPACITY 397 250 - 400 ug/dL 02/01/2024 10:51 PM CDT [facility] IRON,% SATURATION 5(L) 14 - 50 % 02/01/2024 10:51 PM CDT [facility] Blood BLOOD SPECIMEN / Unknown Butterfly / Unknown 02/01/2024 9:01 PM CDT 02/01/2024 9:09 PM CDT Diann Felton CHEMISTRY Performing Organization Address City/[facility]/ZIP Co de Phone Number [facility] [address] [place] [address], [place] * BUN (02/01/2024 9:01 PM CDT) BUN 9 6 - 20 mg/dL 02/01/2024 10:19 PM CDT [facility] Blood BLOOD SPECIMEN / Unknown Butterfly / Unknown 02/01/2024 9:01 PM CDT 02/01/2024 9:09 PM CDT Diann Felton CHEMISTRY Performing Organization Address City/[facility]/ZIP Co de Phone Number [facility] [address] [place] [address], [place] * (ABNORMAL) CREATININE (02/01/2024 9:01 PM CDT) eGFR 84(L) >90 mL/min/1.7 3m2 02/01/2024 10:19 PM CDT [facility] Comment:As of 2021, eG FR is calculated by the CKD-EPI creatinine equation without race adjustment. ??eGFR can be influenced by muscle mass, exercise, and diet. ??The reported eGFR is an estimation only and is only applicable if the renal function is stable. CREATININE 0.89 0.50 - 0.90 mg/dL 02/01/2024 10:19 PM CDT [facility] Blood BLOOD SPECIMEN / Unknown Butterfly / Unknown 02/01/2024 9:01 PM CDT 02/01/2024 9:09 PM CDT Diann Felton DO [facility]MISTRY [facility] [address] [place] [address], * Vitamin B12 level AM (02/01/2024 9:01 PM CDT) Pathologist [facility] VITAMIN B12 520 232 - 1,245 pg/mL 02/01/2024 10:49 PM CDT [facility] Blood BLOOD SPECIMEN / Unknown Butterfly / Unknown 02/01/2024 9:01 PM CDT 02/01/2024 9:09 PM CDT Narrative [facility] - 02/01/2024 10:49 PM CDT Biotin supplements may cause clinically significant interference for this test assay. ??If interference is suspected, it is strongly recommended that biotin is discontinued for at least one week prior to retesting. Diann Felton DO CHEMISTRY Performing Organization Address City/[facility] Co de Phone Number [facility] [address] [place] [address], * SCAN-CARDIAC STRIP (02/01/2024 12:00 AM CDT) Narrative 02/01/2024 12:00 AM CDT Ordered by an unspecified provider. Other Clinical Staff OTHER * SENIOR SALES DIRECTOR THIN PREP PAP SCREEN IMAGED (11/05/2020 9:55 AM CDT) [facility] Case Report Gynecologic Cytology Report ? Case: [id number] ? Authorizing Provider: ??Lucy Silvestre PA-C ?Collected: ? 11/05/2020 0955 ? Ordering Location: ? [facility] ?Received: ?11/06/2020 1014 ? First Screen: ?Kayy, Malcolm ? Pathologist: ? Helen Mccray MD ? Specimen: ?SENIOR SALES DIRECTOR ThinPrep Vial Screening, Cervical/Vaginal ? 11/13/2020 3:21 PM CDT [facility] [employer] [facility]- ENTRAL LABORATORY INTERPRETATION/ RESULT NEGATIVE FOR INTRAEPITHELIAL LESION OR MALIGNANCY (NIL) (none) 11/13/2020 3:21 PM CDT [facility]- ENTRAL [facility]ORAT[facility] R NON-NEOPLASTIC FINDING(S) Reactive cellular changes associated with inflammation/repa ir 11/13/2020 3:21 PM CDT [facility] [employer] LABORATORY- ENTRAL LABORATORY SPECIMEN ADEQUACY Satisfactory for evaluation Endocervical component present 11/13/2020 3:21 PM CDT [facility]-C ENTRAL LABORATORY HPV REQUEST HPV and PAP 11/13/2020 3:21 PM CDT [facility]-C ENTRAL LABORATORY Date of LMP 10/18/2020 11/13/2020 3:21 PM CDT [facility]-C ENTRAL LABORATORY Last Pap Date 11/13/2020 3:21 PM CDT [facility] Comment:Unknown Menstrual Status Abnormal bleeding 11/13/2020 3:21 PM CDT [facility] Additional Information 11/13/2020 3:21 PM T [facility] Comment: Interpreted at [facility] - [address], [place] [address] Automated Review Successful 11/13/2020 3:21 PM T [facility] Comment:Specimen processed s uccessfully by automated executive personal assistant device, [employer] System, [employer] ANCILLARY TESTING SENIOR SALES DIRECTOR HPV Ordered, Please see separate report 11/13/2020 3:21 PM T [facility] Note The pap test is a [...] and malignant lesions. 11/13/2020 3:21 PM T [facility] Other (Cervical/Vagina l) 11/05/2020 9:55 AM CDT 11/06/2020 10:14 AM CDT Lucy Silvestre PA-C PATHOLOGY/CYTOLOGY [facility] [address] [place] [address], * ANTI HCV (07/02/2016 9:37 AM LOG BUYER) HEPATITIS C ANTIBODY Non-Reacti ve Non-Reacti ve 07/02/2016 5:30 PM LOG BUYER [facility] Blood BLOOD SPECIMEN / Unknown Venipuncture / Unknown 07/02/2016 9:37 AM LOG BUYER 07/02/2016 9:37 AM LOG BUYER Narrative [facility] - 07/02/2016 5:30 PM LOG BUYER Antibodies to HCV not detected; does not exclude the possibility of exposure to HCV. Deysi BRUMFIELD SEND OUTS [facility] [address] [place] [address], [place] * ANTI HIV 1/2 (07/02/2016 9:37 AM LOG BUYER) HIV-1/HIV-2 ANTIBODY Non-Reacti ve Non-Reacti ve 07/02/2016 5:30 PM LOG BUYER [facility] Blood BLOOD SPECIMEN / Unknown Venipuncture / Unknown 07/02/2016 9:37 AM LOG BUYER 07/02/2016 9:37 AM LOG BUYER Narrative [facility] - 07/02/2016 5:30 PM LOG BUYER HIV-1 p24 and HIV-1/HIV-2 Ab not detected Deysi BRUMFIELD SEND OUTS [facility] [address] [place] [address], [place] from Last 3 Months or Most [...] Code Status Discussion: Not Discussed Care Teams Director Security Management Relationship Specialty Start Date End Date Jackeline Montes De Oca MD [address] [place] [address] PCP - General Family Practice 12/13/20 Aida Jones MD RADIOLOGY THERAPIST Obstetrics and Gynecology 11/13/12
--- OUTSIDE RECORDS SUMMARY | 2024-04-19 14:04 | XMS_ITS | Clinical Summary ---
Author Organization [facility] Address [address] [place] [address] Care Team Providers Care Deli/Bakery Associate Name Role Phone Concha Stockton MD Primary Care Provider [phone]- [phone] Source Comments You are receiving this document as you are listed as the primary care provider,follow-up provider, or the patient has been referred to you for consultation.This is in compliance with the Medicare and[facility] EHR Incentive Program,which states Providers who transition their patient to another setting of careor provider of care or refers their patient to another provider of care shouldprovide summary care record for each transition of care or referral. 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
== END 2024-04-19 14:00 | disposition home or self-care (01) ==
PROVIDERS: PCP Internal Medicine; Visit Provider Internal Medicine
DX: D50.9 Iron deficiency anemia, unspecified (principal)
CPT/HCPCS: 82728; 85260

== ENCOUNTER 2024-05-15 11:37 | Emergency (ER) | payer OTHER, SELFPAY ==
[2024-05-15 12:09] VITALS: BP 139/79; PULSE 109; RESP 18; TEMP 36.6; O2SAT 99; BMI 46.6
[2024-05-15] MEDS: LIDOCAINE 1% 5 ml (pf) 5 ML VIAL 2 ML INJECTION (13:19)
--- NOTE | 2024-05-15 13:40 | ED_ITS ---
HPI - Fall General Date Seen: 05/15/24 Chief Complaint: Fall/Minor Trauma Stated Complaint: fell down stair melanie on leg Time Seen by Provider: 05/15/24 12:10 Source: patient Mode of arrival: ambulatory Limitations: no limitations History of Present Illness HPI Narrative: Patient is a 38-year-old female presenting to the emergency department for left leg pain and bruising after a fall that occurred 1 week ago. She has antiphospholipid disorder and is on warfarin. Patient states she fell down some steps last week and initially had some bruising with states over last few days it has been getting worse and the lump on her leg is becoming more painful and hard. No other injuries noted other than some bruising to her left hip also. Denies lightheadedness or dizziness. Denies chest pain, shortness of breath, abdominal pain. No other concerns noted. Related Data Home Medications ?Medication ?Instructions ?Recorded ?Confirmed pantoprazole 40 mg tablet,delayed 40 mg PO BID 02/09/24 05/15/24 release levonorgestrel (Mirena) 1 device intrauterine ONCE 04/05/24 05/15/24 Previous Rx's ?Medication ?Instructions ?Recorded escitalopram oxalate 20 mg tablet 20 mg PO QDAY #90 tabs 10/19/22 (Lexapro) nitroglycerin 0.4 mg sublingual 1 mg (2.5 x 0.4 mg) sublingual .As 12/27/22 tablet Needed PRN chest pain #30 tabs Adderall XR 20 mg capsule,extended 20 mg PO QAM #30 caps 08/01/23 release (dextroamphetamine-amphetamine) hydroxyzine HCl 25 mg tablet 25 - 50 mg (1 - 2 x 25 mg) PO 09/05/23 BID-TID PRN anxiety, insomnia #60 tabs naltrexone 50 mg tablet 50 - 100 mg (1 - 2 x 50 mg) PO 10/13/23 QDAY #180 tabs lisinopril 5 mg tablet 5 mg PO QDAY #90 tabs 12/05/23 warfarin 10 mg tablet 15 mg (1.5 x 10 mg) PO DAILY #135 02/09/24 tabs Allergies Allergy/AdvReac Type Severity Reaction Status Date / Time No Known Drug Allergies Allergy Verified 05/15/24 10:46 Review of Systems Status of ROS: Reports: 10 or more systems reviewed and unremarkable except as noted in History and below PFSH PFSH Surgical History History of dilatation and curettage ?Z98.890 - Other specified postprocedural states (ICD-10) History of section ?Z98.891 - History of uterine scar from previous surgery (ICD-10) Status post tubal ligation (01/20/17) ?Z98.51 - Tubal ligation status (ICD-10) Status post laparoscopic appendectomy (06/23/17) ?Z90.49 - Acquired absence of other specified parts of digestive tract (ICD- 10) Social History What is your current living situation?: I presently have a place to live Problems where you live: no known problems In the past 12 months, utilities in danger of being shut off: no In the past 12 mos, have been you worried that your food would run out before you had money to buy more?: sometimes true In the past 12 mos, the food you bought just didn't last and you didn't have money to buy more?: never true Smoking Status: Current some day smoker What tobacco products do you use: cigarettes Do you use any of these nicotine containing products: Vaping Products How often do you have a drink containing alcohol: 2-3 times a week How many standard drinks containing alcohol do you have on a typical day: 3 or 4 AUDIT-C Alcohol total score: 4 Non-prescribed substance use: denies use How often does anyone, including family, friends and others, physically hurt you : How often does anyone, including family, friends and others, insult or talk down to you: How often does anyone, including family, friends and others, threaten you with harm: How often does anyone, including family, friends and others, scream or curse at you: Are you using contraception or practicing any form of control: No service: No Health Related Social Needs: food insecurity (Z59.41) and Other personal risk factors, not elsewhere classified (Z91.89) Exam Narrative: Exam Narrative: Const: Well-nourished, Well-developed, in mild distress Eyes: PERRL, no conjunctival injection, and symmetrical lids HENT: Atraumatic external nose and ears. Moist mucous membranes. MSK: Bruising noted through out left leg up to left hip. 7 x 7 fluid collection on the lateral aspect of the lower leg just distal to the knee Skin: Warm, Dry. No rashes or lesions. Neuro: Normal Muscle tone, No focal neurological deficits. Psych: Awake, Alert, & Oriented x3. Appropriate mood and affect. Const: Vital Signs, click to edit/add: Vital Signs - 24 hr 05/15/24 12:09 Temperature 98 F Pulse Rate [Pulse Oximeter] 109 H Respiratory Rate 18 Blood Pressure [Ri ght Upper Arm] 139/79 Pulse Oximetry 99 Oxygen Delivery Me thod Room Air Course Vital Signs Vital signs: Initial Vital Signs Temperature 98 F 05/15/24 12:09 Temperature Source Temporal Artery Scan 05/15/24 12:09 Pulse Rate 109 H 05/15/24 12:09 Respiratory Rate 18 05/15/24 12:09 Blood Pressure 139/79 05/15/24 12:09 Blood Pressure Mean 99 05/15/24 12:09 Pulse Oximetry 99 05/15/24 12:09 Oxygen Delivery Method Room Air 05/15/24 12:09 Vital Signs Temperature 98 F 05/15/24 12:09 Pulse Rate 109 H 05/15/24 12:09 Respiratory Rate 18 05/15/24 12:09 Blood Pressure 139/79 05/15/24 12:09 Pulse Oximetry 99 05/15/24 12:09 Oxygen Delivery Method Room Air 05/15/24 12:09 Temperature 98 F 05/15/24 12:09 Pulse Rate 109 H 05/15/24 12:09 Respiratory Rate 18 05/15/24 12:09 Blood Pressure 139/79 05/15/24 12:09 Pulse Oximetry 99 05/15/24 12:09 Oxygen Delivery Method Room Air 05/15/24 12:09 Medications Administered Medications: Discontinued Medications Generic Name Dose Route Start Last Admin Trade Name Freq PRN Reason Stop Dose Admin Lidocaine HCl 2 ml 05/15/24 13:01 05/15/24 13:19 Lidocaine 1% 5 Ml (Pf) 5 Ml Vial INJECTION 05/15/24 13:02 2 ml ONCE ONE Administration MDM - Fall MDM Narrative Medical decision making narrative: Patient is a 38-year-old female presents left leg pain after fall. She has extensive bruising to the left side and is on warfarin. Her pain is most likely from the this parent hematoma. She has a blood clot is low at this time. I did do a bedside ultrasound showing a large hematoma. I was unable to save the images. Because of the pressure causing her pain I did try and drain as much of the hematoma as possible got about 15 mL out. This improved her pain notably and plan hematoma was much less firm. While we are waiting to get a blood draw for a INR her hematoma clears to have blood more and is again firm and painful. At this point I do not believe draining it again will be beneficial but this does tell me that it is still bleeding and that she should hold her warfarin. Her INR returned at 5.1. Considering the hematoma is returning quickly I did speak to ortho but possible drainage of this hematoma. They state due to the elevated INR they were unable to surgically drain it and recommend discharge and returning if pain becomes unbearable. I was able to speak to her primary care provider, Dr. Stockton, who states that for this patient INR is not useful test and can only be checked with chromogenic factor 10. This is a send note lab and want return until tomorrow. Dr. Stockton states she will follow-up on the test and was see the patient in 2 days in the morning. Will re-evaluate patient than. Is in agreement to hold the patient's warfarin for now. I was going to give the patient pain medications which is oxycodone but she is on naltrexone for alcohol abuse in the office this would not be beneficial. She is agreeable for discharge. Lab Data Labs: Lab Results 05/15/24 Range/Units 13:13 INR 5.10 H* (0.91-1.10) Discharge Plan Discharge Clinical Impression: Hematoma Patient Disposition: Home, Self-Care Condition: Stable Instructions: Hematoma (ED) Additional Instructions: I believe your pain is from a hematoma. It will likely not start improving unless she stops your warfarin. Recommend holding warfarin and following up with the primary care provider on as you previously have scheduled. If pain continues to get worse and become unbearable at home return for re- evaluation Prescriptions: No Action nitroglycerin 0.4 mg tablet, sublingual 1 mg sublingual .As Needed PRN (Reason: chest pain) Qty: 30 2RF pantoprazole 40 mg tablet,delayed release (DR/EC) 40 mg PO BID warfarin 10 mg tablet 15 mg PO DAILY Qty: 135 0RF Patient Comments: 15mg 6x Weekly. 10mg once a week Mirena 21 mcg/24 hr (8 yrs) 52 mg intrauterine device 1 device intrauterine ONCE Rx Instructions: as a single dose escitalopram oxalate [Lexapro] 20 mg tablet 20 mg PO QDAY Qty: 90 3RF dextroamphetamine-amphetamine [Adderall XR] 20 mg capsule,extended release 24hr 20 mg PO QAM Qty: 30 0RF hydroxyzine HCl 25 mg tablet 25 - 50 mg PO BID-TID PRN (Reason: anxiety, insomnia) Qty: 60 0RF Rx Instructions: take 1 t po tid prn anxiety; may take 1-2 t at hs for sleep aid naltrexone 50 mg tablet 50 - 100 mg PO QDAY Qty: 180 2RF Rx Instructions: 50 mg daily x7 days then 100 mg daily lisinopril 5 mg tablet 5 mg PO QDAY Qty: 90 2RF Follow Up/Referrals: Concha Stockton MD [Primary Care Provider] - Stand Alone Forms: [employer] Info Instructions
[2024-05-15 13:55] LABS: Prothrombin Time 51.1 Seconds
== END 2024-05-15 15:32 | disposition home or self-care (01) ==
PROVIDERS: Emergency Provider Student in an Organized Health Care Education/Training Program; PCP Internal Medicine
DX: S80.12XA Contusion of left lower leg, initial encounter (principal); Z79.01 Long term (current) use of anticoagulants
CPT/HCPCS: 36415; 85260; 85610; 99282; 99283

== ENCOUNTER 2024-05-17 15:42 | Outpatient (CLI) | payer OTHER, SELFPAY ==
--- OUTSIDE RECORDS SUMMARY | 2024-05-22 07:23 | XMS_ITS | Clinical Summary ---
Author Organization [facility] Address [address] [place] [address] Care Team Providers Care Keysmith Name Role Phone Concha Stockton MD Primary Care Provider [phone]- [phone] Source Comments You are receiving this document as you are listed as the primary care provider,follow-up provider, or the patient has been referred to you for consultation.This is in compliance with the Medicare and[facility] EHR Incentive Program,which states Providers who transition their patient to another setting of careor provider of care or refers their patient to another provider of care shouldprovide summary care record for each transition of care or referral. 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
== END 2024-05-17 15:43 | disposition home or self-care (01) ==
LOC: NFLDREF 05-22 07:21
PROVIDERS: PCP Internal Medicine; Referring Provider Internal Medicine; Visit Provider Internal Medicine
DX: D68.61 Antiphospholipid syndrome (principal); T14.8XXA Other injury of unspecified body region, initial encounter; S80.12XA Contusion of left lower leg, initial encounter
CPT/HCPCS: 85260

== ENCOUNTER 2024-06-06 13:57 | Outpatient (CLI) | payer OTHER, SELFPAY ==
--- OUTSIDE RECORDS SUMMARY | 2024-06-06 14:00 | XMS_ITS | Clinical Summary ---
Author Organization [facility] Address [address] [place] [address] Care Team Providers Care Relay Checker Name Role Phone Concha Stockton MD Primary Care Provider [phone]- [phone] Source Comments You are receiving this document as you are listed as the primary care provider,follow-up provider, or the patient has been referred to you for consultation.This is in compliance with the Medicare and[facility] EHR Incentive Program,which states Providers who transition their patient to another setting of careor provider of care or refers their patient to another provider of care shouldprovide summary care record for each transition of care or referral. 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
--- OUTSIDE RECORDS SUMMARY | 2024-06-06 14:00 | XMS_ITS | Clinical Summary ---
Author Organization Group Therapy Records [facility] Address [place], [place] [address] Care Team Providers Care Food Processing Scientist Name Role Phone Aida Jones MD Unavailable [...] hrs. Active nitroglycerin (NITROSTAT) 0.4 mg sublingual tabletIndications: NSTEMI (non-ST elevated myocardial infarction) (HC) Place 1 Tablet (0.4 mg) under the tongue every 5 minutes if needed. 25 Tablet 2 12/18/2020 Active lisinopriL (PRINIVIL; ZESTRIL) 5 mg tabletIndications: NSTEMI (non-ST elevated myocardial infarction) (HC) Take 1 Tablet (5 mg) by mouth once daily. 90 Tablet 3 11/20/2021 Active warfarin (COUMADIN) 10 mg tablet Take 10 mg on Sundays and 15 mg all other days. Active dextroamphetamine- amphetamine (ADDERALL XR) 20 mg Extended-Release capsule Take [...] 01/18/2024 Active enoxaparin (LOVENOX) 120 mg/0.8 mL injectionIndicatio ns:Antiphospholipi d syndrome (HC) Inject 120 mg subcutaneous every 12 hours. 11.2 mL 02/03/2024 Active ferrous sulfate, 65 mg elemental, tabletIndications: Iron deficiency anemia due to chronic blood [...] Encounters Date Type Department Care Team Description 03/21/2024 Lab Requisition [facility] [phone] Sarah Floyd MD from Last 3 Months Immunizations Name Administration Dates Next Due Influenza, IIV3 (Age >=3 years) 05/03/2011,03/20 Influenza, IIV4 04/14/2015 Tdap 11/12/2016,02/09/2008 Tuberculin (PPD) 07/10/2018 Family History Medical History Relation Name Comments Good Health Father Diabetes Maternal Grandfather Cancer Maternal Grandmother ovarian Diabetes Maternal Grandmother Diabetes Mother Premature CHD (under age 60) Mother [place] in her 50s Premature CHD (under age [...] 1 12/30/2020 Social Connections Answer Date Recorded Do you often feel lonely or isolated from those around you? 0 02/02/2024 Financial Resource Strain Answer Date R ecorded Difficulty of Paying Living Expenses 3 02/02/2024 Difficulty of Paying Living Expenses Not on file 02/02/2024 Food Insecurity Answer Date Recorded Do you worry your food will run out before you are able to buy more? 1 02/02/2024 Transportation Needs Answer Date Record ed Does lack of transportation keep you from medica l appointments? 1 02/02/2024 Does lack of transportation keep you from work, meetings or getting things that you need? 1 02/02/2024 Housing Stability Answer Date Recorded What is your housing situation today? 1 02/02/2024 Sex and Gender Information Value [...] 63 02/03/2024 1:50 PM CDT Temperature 36.8 C (98.3 F) 02/03/2024 1:50 PM CDT Respiratory Rate 18 02/03/2024 1:50 PM CDT [...] 5, 05/03/2011, 03/20/2010 Tetanus booster 11/12/2026 11/12/2016, 08/0 02/2008, 02/09/2008 HIV for age 15-65 Completed 07/02/2016, , 03/20/2010 Hepatitis C screening for ag e 18-79 Completed 07/02/2016, 04/14/2015 Tdap Completed 11/12/2016, 02/09/2008 Procedures Procedure Name Priority Date/Time Associated Diagnosis Comments LAB TRACKING EVENT Routine 03/21/2024 9: 25 AM CDT PATH TISSUE EXAM Routine 03/21/2024 9:25 AM CDT CLAIM REVIEW MEDICAL DIRECTOR THIN PREP PAP SCREEN IMAGED Routine 11/05/2020 9:55 AM CDT ANTI HIV 1/2 Routine 07/02/2016 9:37 AM 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 * PATH TISSUE EXAM (03/21/2024 9:25 AM CDT) Case Report Pathology Report Case: [id number] Authorizing Provider: Sarah Floyd Collected: 03/21/2024 Hussein Allison MD Ordering Location: [facility] Received: 03/22/2024 0805 Pathologist: Martha Flores MD Specimen: Endometrial Curettings 03/26/2024 12:48 PM CDT [facility] Final Diagnosis A) ENDOMETRIUM, CURETTAGE: 1. Proliferative endometrium 2. Negative for chronic endometritis 3. Negative for hyperplasia, atypia, and malignancy 03/26/2024 12:48 PM CDT [facility] Clinical Information Abnormal uterine bleeding, on chronic anticoagulation. Hysteroscopic exam showed thick and fluffy endometrium. Dilation/curetta ge and Mirena IUD placement performed. 03/26/2024 12:48 PM CDT [facility] Gross Description A) Received in formalin, labeled with the patient's name and endometrial curettings, is a 2.5 x 1.6 x 0.2 cm aggregate of pink-perez mucosa admixed with clotted blood and mucous. The specimen is entirely submitted in 1 cassette. EVM 03/22/2024 03/26/2024 12:48 PM CDT [facility] Microscopic Description The final diagnosis is based on microscopic examination of appropriate sections of all specimens. 03/26/2024 12:48 PM CDT [facility] Additional Information Interpreted at [facility] - [address] [place] [address] [address] [address] 03/26/2024 12:48 PM CDT [facility] Other (Endometrial Curettings) 03/21/2024 9:25 AM CDT 03/22/2024 8:05 AM CDT Sarah Floyd MD PATHOLOGY/ CYTOLOGY [facility] [address] [place] [address], * CLAIM REVIEW MEDICAL DIRECTOR THIN PREP PAP SCREEN IMAGED (11/05/2020 9:55 AM CDT) Case Report Gynecologic Cytology Report Case: [id number] Authorizing Provider: Lucy Silvestre PA-C Collected: 11/05/2020 0955 Ordering Location: [facility] Received: 11/06/2020 1014 First Screen: Malcolm Sultana Pathologist: Helen Mccray MD Specimen: CLAIM REVIEW MEDICAL DIRECTOR ThinPrep Vial Screening, Cervical/Vaginal 11/13/2020 3:21 PM CDT [facility] INTERPRETATION/ RESULT NEGATIVE FOR INTRAEPITHELIAL LESION OR MALIGNANCY (NIL) (none) 11/13/2020 3:21 PM CDT [facility] R NON-NEOPLASTIC FINDING(S) Reactive cellular changes associated with inflammation/repa ir 11/13/2020 3:21 PM CDT [facility] SPECIMEN ADEQUACY Satisfactory for evaluation Endocervical component present 11/13/2020 3:21 PM CDT [facility] HPV REQUEST HPV and PAP 11/13/2020 3:21 PM T [facility] Date of LMP 10/18/2020 11/13/2020 3:21 PM CDT [facility] Last Pap Date 11/13/2020 3:21 PM T [facility] Comment:Unknown Menstrual Status Abnormal bleeding 11/13/2020 3:21 PM CDT [facility] Additional Information 11/13/2020 3:21 PM T [facility] Comment: Interpreted at [facility] - [address], [place] [address] Automated Review Successful 11/13/2020 3:21 PM T [facility] Comment:Specimen processed s uccessfully by automated fleet service manager device, ThinPrep Imaging System, [employer] ANCILLARY TESTING CLAIM REVIEW MEDICAL DIRECTOR HPV Ordered, Please see separate report 11/13/2020 3:21 PM T [facility] Note The pap test [...] and malignant lesions. 11/13/2020 3:21 PM T [facility] Other (Cervical/Vagina l) 11/05/2020 9:55 AM CDT 11/06/2020 10:14 AM CDT Lucy L Nirmala VELAZQUEZ PATHOLOGY/CYTOLOGY [facility] [address] [place] [address], [place] * ANTI HCV (07/02/2016 9:37 AM PARCEL POST TRUCK DRIVER) HEPATITIS C ANTIBODY Non-Reacti ve Non-Reacti ve 07/02/2016 5:30 PM PARCEL POST TRUCK DRIVER [facility] Blood BLOOD SPECIMEN / Unknown Venipuncture / Unknown 07/02/2016 9:37 AM PARCEL POST TRUCK DRIVER 07/02/2016 9:37 AM PARCEL POST TRUCK DRIVER Narrative [facility] - 07/02/2016 5:30 PM PARCEL POST TRUCK DRIVER Antibodies to HCV not detected; does not exclude the possibility of exposure to HCV. Deysi BRUMFIELD [facility] [address] [place] [address], * ANTI HIV 1/2 (07/02/2016 9:37 AM PARCEL POST TRUCK DRIVER) HIV-1/HIV-2 ANTIBODY Non-Reacti ve Non-Reacti ve 07/02/2016 5:30 PM PARCEL POST TRUCK DRIVER [facility] Blood BLOOD SPECIMEN / Unknown Venipuncture / Unknown 07/02/2016 9:37 AM PARCEL POST TRUCK DRIVER 07/02/2016 9:37 AM PARCEL POST TRUCK DRIVER Narrative [facility] - 07/02/2016 5:30 PM PARCEL POST TRUCK DRIVER HIV-1 p24 and HIV-1/HIV-2 Ab not detected Deysi BRUMFIELD [facility] [address] [place] [address], from Last 3 Months or Most Recently [...] Code Status Discussion: Not Discussed Care Teams Food Processing Scientist Relationship Specialty Start Date End Date Jackeline Montes De Oca MD [address] [place] [address] PCP - General Family Practice 12/13/20 Aida Jones MD COLLECTION COORDINATOR Obstetrics and Gynecology 11/13/12
[2024-06-06 23:27] LABS: Chlamydia DNA Amplified* NOT DETECTED (No Detected); GC DNA Amplified* NOT DETECTED (No Detected)
== END 2024-06-06 13:58 | disposition home or self-care (01) ==
LOC: NFLDUCREF 13:58
PROVIDERS: PCP Internal Medicine; Visit Provider Nurse Practitioner
DX: M54.50 Low back pain, unspecified (principal); R31.21 Asymptomatic microscopic hematuria
CPT/HCPCS: 87086; 87491; 87591

== ENCOUNTER 2024-08-02 08:44 | Outpatient (CLI) | payer OTHER, SELFPAY | END 2024-08-02 08:45 | disposition home or self-care (01) | LOC: NFLDREF 08-06 03:39 | PROVIDERS: PCP Internal Medicine; Referring Provider Internal Medicine; Visit Provider Internal Medicine | DX: D50.9 Iron deficiency anemia, unspecified (principal) | CPT/HCPCS: 82728; 83540; 83550; 85045; 85260 ==

== ENCOUNTER 2024-08-23 13:55 | Outpatient (CLI) | payer OTHER, SELFPAY | END 2024-08-23 13:56 | disposition home or self-care (01) | LOC: NFLDREF 13:57 | PROVIDERS: PCP Internal Medicine; Visit Provider Internal Medicine | DX: N92.0 Excessive and frequent menstruation with regular cycle (principal) | CPT/HCPCS: 82728 ==

== ENCOUNTER 2024-08-27 15:57 | Outpatient (CLI) | payer OTHER, SELFPAY | END 2024-08-27 15:58 | disposition home or self-care (01) | LOC: US 15:57 | PROVIDERS: PCP Internal Medicine; Visit Provider Obstetrics & Gynecology | DX: N93.9 Abnormal uterine and vaginal bleeding, unspecified (principal); N83.201 Unspecified ovarian cyst, right side | CPT/HCPCS: 76830; 76856 ==

== ENCOUNTER 2024-10-02 14:21 | Outpatient (CLI) | payer OTHER, SELFPAY ==
--- NOTE | 2024-10-02 14:30 | CRLHL7_ITS ---
For Patients: As a result of the Century Cures Act, medical imaging exams and procedure reports are released immediately into your electronic medical record. You may view this report before your referring provider. If you have questions, please contact your health care provider. INDICATION: Right ovarian cyst TECHNIQUE: 1.5 T MRI of the abdomen performed with pre and postcontrast T1 weighted imaging; T2 weighted imaging; in and of phase imaging; diffusion weighted imaging. 20 mL Dotarem IV COMPARISON: Concurrent MR pelvis FINDINGS: Lungs: The lung bases are clear. No pleural or pericardial effusion. Liver: Homogeneous liver parenchyma. No hepatic masses. Hepatic steatosis Biliary tree and gallbladder: No intra or extrahepatic biliary dilation. Cholelithiasis Spleen: Unremarkable Pancreas: Normal pancreatic parenchyma. No pancreatic masses. No pancreatic duct dilation. Adrenal glands: Unremarkable. Kidneys and ureters: No renal masses or hydronephrosis. Right lower renal pole scarring. GI tract: No evidence of obstruction or inflammation. Vasculature: The IVC and aorta are patent. No abdominal aortic aneurysm. Lymph nodes: No lymphadenopathy. Abdominal wall: Unremarkable Bones: Bone marrow signal is within normal limits. IMPRESSION: 1. Right lower pole renal scarring. No suspicious renal masses. 2. Hepatic steatosis 3. Please see concurrent pelvic MRI for further findings. Dictated by Haley Che MD @ 10/04/2024 9:07:27 AM (Electronically Signed)
--- NOTE | 2024-10-02 15:30 | CRLHL7_ITS ---
For Patients: As a result of the Century Cures Act, medical imaging exams and procedure reports are released immediately into your electronic medical record. You may view this report before your referring provider. If you have questions, please contact your health care provider. INDICATION: Right ovarian cyst TECHNIQUE: 1.5 T MRI performed with pre and postcontrast T1 weighted imaging; T2 weighted imaging. 20 mL Dotarem IV COMPARISON: Concurrent abdomen MRI, pelvic ultrasound 08/27/2024 FINDINGS: Uterus: The uterus is normal in size measuring 4.9 x 9.3 cm. The endometrium measuring 1 cm in thickness. No uterine fibroids are present. No definite evidence of endometriosis or adenomyosis. scar in the lower uterine segment Cervical stroma: Intact without evidence of mass. Slightly patulous appearance of the external cervical os measuring 0.6 cm in diameter (03/21), possibly secondary to prior procedures Ovaries/adnexa: The left ovary is not seen and may be absent. Right ovary with physiologic follicles measuring up to 1.1 cm. Along the medial aspect, there is a T1 hyperintense lobulated lesion measuring 0.8 cm (06/25), that is T2 hypointense favored to represent a hemorrhagic cyst. A more ill-defined subtly T1 hyperintense structure in the superior portion measuring 1.2 cm (06/20), may also represent a resolving hemorrhagic cyst Remaining pelvis: Limited evaluation of the abdominal viscera demonstrates normal appearance of the visualized bowel and urinary bladder. Vasculature: The iliac arteries are patent. Lymph nodes: No enlarged lymph nodes within the pelvis. Peritoneal space: No free fluid within the pelvis. Musculoskeletal: Bone marrow signal is within normal limits. IMPRESSION: 1. No definite suspicious right ovarian lesions. Two hemorrhagic/proteinaceous structures in the right ovary possibly correlate to the lesion seen on prior ultrasound and likely represent hemorrhagic cysts 2. Slightly patulous appearance of the external cervical os may be related to prior procedures. The uterus and endometrium are otherwise unremarkable Dictated by Haley Che MD @ 10/04/2024 9:26:34 AM (Electronically Signed)
== END 2024-10-02 14:22 | disposition home or self-care (01) ==
LOC: MRI 14:22
PROVIDERS: PCP Internal Medicine; Visit Provider Obstetrics & Gynecology
DX: N83.201 Unspecified ovarian cyst, right side (principal); K76.9 Liver disease, unspecified; N93.9 Abnormal uterine and vaginal bleeding, unspecified; Q51.818 Other congenital malformations of uterus
CPT/HCPCS: 72197; 74183; A9575

== ENCOUNTER 2024-10-18 15:46 | Outpatient (CLI) | payer OTHER, SELFPAY | END 2024-10-18 15:47 | disposition home or self-care (01) | LOC: NFLDREF 15:46 | PROVIDERS: PCP Internal Medicine; Visit Provider Internal Medicine | DX: R73.03 Prediabetes (principal); D68.61 Antiphospholipid syndrome; Z79.01 Long term (current) use of anticoagulants | CPT/HCPCS: 80048; 85260 ==

== ENCOUNTER 2024-11-07 08:08 | Day surgery (SDC) | payer OTHER, SELFPAY ==
[2024-11-06] MEDS: LACTATED RINGERS 1000 ML 1,000 ML 100 ML IV (08:36)
[2024-11-07] VITALS (21 sets, daily range): BP systolic 101–170; BP diastolic 53–108; PULSE 57–97; RESP 12–18; TEMP 36.3–37.2; O2SAT 87–98; BMI 46.6
[2024-11-07] MEDS: SODIUM CHLORIDE 0.9 % (FLUSH) 10 ML SYRINGE IVF ×2 (08:36→21:32)
[2024-11-07 09:05] LABS: Hemoglobin* 10.6 gm/dL (12.0-16.0)
[2024-11-07 09:11] LABS: Ur HCG Qualitative* Negative (Negative)
[2024-11-07 09:20] LABS: Creatinine* 0.7 mg/dL (0.5-1.5); Est. Creatinine Clearance* 99.01; Estimated Glomerular Filt Rate 111 ml/min
[2024-11-07 09:23] LABS: INR 0.89 (0.91-1.10); Prothrombin Time 12.8 Seconds
[2024-11-07] MEDS: CEFAZOLIN 1 GM inj 3 GM IVP (10:42)
--- NOTE | 2024-11-07 10:42 | W.PM.H&PU ---
History & Physical Update History & Physical Update H&P Reviewed and patient assessed: No changes noted H&P Updates: Started anticoagulation bridging and did not utilize Lovenox this morning as instructed. Last dose yesterday pm.
--- NOTE | 2024-11-07 11:13 | P.NB_ITS ---
Nerve Block Nerve Block Time Seen by Provider: 10:30 Date Seen: 11/07/24 Type of block requested by surgeon for post-operative analgesia: TAP Side: bilateral Time out performed: Yes Verification of patient name: Yes Verification of date of : Yes Site marking: site marked Name of person performing procedure: Bobby Recinos Continuous monitoring Was continuous monitoring of O2 sat, B/P, awake overnight monitor, recorded every 15 minutes?: Yes Procedure Checklist: sterile prep, needles and gloves Ultrasound guided. Images saved: Yes Medications given in 5ml increments after negative aspiration: Marcaine %: 0.25 mL: 30 Needle gauge: 20 and Exparel mL: 10 Needle gauge: 20 Patient tolerated procedure well: Yes Additional comments: Injected in 5ml increments after negative aspiration Block Charges Block Charge (with Pro Fee): TAP Bilateral Use of Ultrasound Machine for Block: Yes- US Guidance/pain block
[2024-11-07] MEDS: LACTATED RINGERS 1000 ML 1,000 ML 100 ML IV ×2 (12:07→14:16)
--- NOTE | 2024-11-07 14:10 | P.GYNPRC_ITS ---
Procedure Note Date of procedure: 11/07/24 Will [facility] bill your pro fee for this procedure?: Yes Pre-op diagnosis: Abnormal Uterine Bleeding-chronic anticoagulation, anemia Post-op diagnosis: Same, suspected endometriosis Procedure: Total laparoscopic hysterectomy, right ovarian biopsy, lysis of adhesions, cystoscopy. Anesthesia: GETA Complications: None Surgeon: Nikos Floyd MD Punchboard Filling Machine Operator: Michelle Parsons Estimated blood loss (mL): 50 IV fluids (mL): 1,700 Urine Output (mL): 200 Pathology: specimen obtained, sent to pathology (Uterus and cervix, right ovarian biopsy) Condition: stable Disposition: floor Findings: Normal external genitalia. Speculum exam: grossly normal cervix w/o gross lesions or abnormal discharge. Uterine sound of 10cm. Intra abdominal survey: Grossly normal intestines, liver and stomach. Sigmoid colon adhesions to the left pelvic side wall. Omental adhesions to anterior peritoneum closer to the level of the bladder. No evidence of left ovary or left fallopian tube. Right ovary of about 3-4cm, with a superficial lesion of about 5mm that looks like endometriosis implant. Otherwise, 1 small simple fluid filled cyst noted of about 2cm. No evidence of a right fallopian tube. Uterus of about 12cm, bladder reflection adhesions to site of previous hysterotomy scars. Cystoscopy: Bladder mucosa intact, no evidence of lesions or suture material and bilateral ureteral jets noted. Procedure Description: DESCRIPTION OF PROCEDURE: After obtaining informed consent, the patient was taken to the operating room where general anesthesia was obtained without difficulty. She was prepared and draped in the normal sterile fashion in the low dorsal lithotomy position. A Wilson catheter was inserted into the bladder and left to drain by gravity. A medium Graves open-sided speculum was introduced into the vagina. The cervix was visualized and grasped along its anterior lip with a single-tooth tenaculum. The uterus was gently sounded. Sound length was found to be 10 cm. Cervical dilation completed with Hegar dilators. I then placed a Medium VCare uterine manipulator. The tenaculum and speculum were removed. The green VCare cup was digitally pressed up against the cervix and then cinched in place with the blue accessory cup. I then changed gloves and my attention was turned to the abdomen. The superior aspect of the umbilical fold was grasped with 2 Allis clamps and a 5 mm vertical incision was then made within the umbilical fold using a scalpel. A direct entry technique was used, a 5 mm laparoscopic port with CO2 gas set at 5mmHg was introduced under direct visualization. The trocar was removed leaving the sleeve in place. The CO2 gas flow was turned to high flow to achieve pneumoperitoneum. The 5 mm laparoscope was used then to carefully inspect the abdomen and pelvis with findings noted above. Pictures were taken for documentation purposes. The patient was placed in Trendelenburg positioning. Two additional ports were placed in the right and left lower quadrants under direct visualization on the left side a 11mm port was utilized and on the right side a 5mm port placed. An additional 5mm port was placed on the abdomen at the level of the umbilicus to the left of umbilicus, about 5-6 cm lateral from umbilicus under direct visualization. Once the ports were in place, the VCare manipulator was used to elevate the uterus. The VCare cup was visualized and palpated with a blunt grasper. Omental adhesion to anterior peritoneum obstructed visualization to the pelvic and utilizing LigaSure bipolar device omentum closer to the anterior peritoneum was grasped, coagulated and cut and omental adhesion was completely released. Hemostasis secured. Unable to visualize ureter on the left side due to adhesions. Right ovarian lesion was also removed at this time utilizing LigaSure device, hemostasis secured and sent to pathology. Utilizing a blunt laparoscopic grasper and laparoscopic nori the sigmoid epiploica was gently grasped to create countertraction and identifying filmy adhesion between sigmoid colon and left pelvic side wall, enough to move sigmoid colon away from left round ligament. The left round ligament was then sealed in a wide swath and transected with the LigaSure, excellent hemostasis was obtained. The broad ligament was then opened using the LigaSure anteriorly and posteriorly along the cervix from the left within the confines of the VCare cup. Pressure was maintained on the uterine manipulator the whole time. The left uterine vessels were sealed in a wide swath and transected with the LigaSure, then the tissues over the VCare cup edge on the left side were thinned using the LigaSure to the midline posteriorly and anteriorly so that the fascial layer could be identified. The right utero-ovarian ligament sealed and transected in a wide swath with the LigaSure device. Hemostasis secured. The right round ligament was then sealed in a wide swath and transected with the LigaSure, excellent hemostasis was obtained. The broad ligament was then opened using the LigaSure anteriorly and posteriorly along the cervix from the right within the confines of the VCare cup. Pressure was maintained on the uterine manipulator the whole time. The right uterine vessels were sealed in a wide swath and transected with the LigaSure, then the tissues over the VCare cup edge on the right side were thinned using the LigaSure to the midline posteriorly and anteriorly so that the fascial layer could be identified. Once an adequate dissection was made circumferentially, monopolar laparoscopic spatula was utilized to dissect until identification of the green Vcare cup, tissue dissected circumferentially around the cervix within the groove of the VCare cup. Once the dissection was completed circumferentially, from the vagina the uterine manipulator and the uterus were removed. Uterus was left in the vagina to aid in maintenance of pneumoperitoneum. The vaginal cuff was reapproximated in a running fashion with a V-Loc suture starting from the right side and running across to the left and then back to the midline where the suture was cut flush with the tissues. The pelvis was copi ously irrigated and hemostasis visualized. Preparations were then made for cystoscopy. Fluorescein was administered intravenously along with the IV fluids. The Wilson catheter was removed. The patient was flattened out. Cystoscopy was performed using sterile normal saline as distending medium. The bladder was carefully inspected and noted to be free of filling defects or suture material. Both ureteral orifices were easily visualized and fluorescein tinged urine jets were noted from both sides. The cystoscope was then removed. The Wilson catheter was replaced into the bladder. Speculum evaluation of the vaginal cuff was completed at this moment, showing adequate closure and no evidence of bleeding of escape of pneumoperitoneum. Attention was once again turned to the abdomen. The abdomen and pelvis were again irrigated and inspected for hemostasis. Rashard was placed over excision sites to further secure hemostasis. Attention was then placed to the 11mm port site and under direct visualization using a Benjy-Roland system the fascia was closed with Vicryl 0 suture. All instruments were then removed under direct visualization. Pneumoperitoneum was allowed to escape. The skin at all port sites was closed in a subcuticular fashion with 4-0 Monocryl. LiquiBand was then placed over the incisions. The patient tolerated the procedure well. Sponge, lap, needle, and instrument counts were reported as correct x2. The patient was taken to the recovery room awake and in stable condition. She did receive Ancef 3g as infection prophylaxis. PATHOLOGY SPECIMEN(S): Uterus and cervix, right ovarian biopsy.
--- NOTE | 2024-11-07 14:22 | P.ANES_ITS ---
Anesthesia Charges Start Date/Time Anesthesia Start Date: 11/07/24 Anesthesia Start Time: 10:31 Stop Date/Time Anesthesia Stop Date: 11/07/24 Anesthesia Stop Time: 14:15 Coding CPT Codes CPT Codes: ANESTH SURG LOWER ABDOMEN - 74864 ([id number]) P3 - PATIENT W/SEVERE SYS DISEASE, QK - FRUIT THINNER 2-4 CNCRNT ANES PROC, P6 - BRAIN- PT ORGANS REMOVED
--- NOTE | 2024-11-07 14:22 | W.ANESCHARGE ---
Anesthesia Charges Start Date/Time Anesthesia Start Date: 11/07/24 Anesthesia Start Time: 10:31 Stop Date/Time Anesthesia Stop Date: 11/07/24 Anesthesia Stop Time: 14:15 Coding CPT Codes CPT Codes: ANESTH SURG LOWER ABDOMEN - 79683 ([id number]) P3 - PATIENT W/SEVERE SYS DISEASE, QK - VALET SERVICE ATTENDANT 2-4 CNCRNT ANES PROC, P6 - BRAIN- PT ORGANS REMOVED
[2024-11-07] MEDS: fentaNYL 100 MCG/2 ML inj 50 MCG IVP ×2 (14:27→14:40)
[2024-11-07] MEDS: LABETALOL HCL 5 MG/ML inj IVP (14:43)
[2024-11-07] MEDS: OXYCODONE 5 MG TABLET PO ×2 (16:05→21:34)
[2024-11-07] MEDS: KETOROLAC 30 MG/ML inj IVP (19:22)
[2024-11-07] MEDS: WARFARIN 5 MG TABLET 10 MG PO (21:32)
[2024-11-07] MEDS: ENOXAPARIN 100 MG/ML INJ SUBCUT (21:33)
[2024-11-07] MEDS: ESCITALOPRAM 10 MG TABLET 20 MG PO (21:33)
[2024-11-07] MEDS: ACETAMINOPHEN 500 MG TABLET 1000 MG PO (21:34)
[2024-11-07] MEDS: FERROUS SULFATE 325 MG TABLET PO (21:36)
[2024-11-07] MEDS: DOCUSATE SODIUM 100 MG CAPSULE PO (21:36)
[2024-11-07] MEDS: lisinopriL 5 MG TABLET PO (21:36)
--- NOTE | 2024-11-07 22:28 | PC.NURSE ---
Patient to the floor @ 1500 S/P lap hysterectomy. Patient tolerating regular diet, ambulating in room, jimenez patent and draining, VSS.
[2024-11-08 03:00] VITALS: BP 114/67; PULSE 77; RESP 16; TEMP 36.2; O2SAT 97
[2024-11-08] MEDS: ACETAMINOPHEN 500 MG TABLET 1000 MG PO ×2 (03:05→08:38)
[2024-11-08 06:37] LABS: Hemoglobin* 9.6 gm/dL (12.0-16.0)
[2024-11-08 06:50] LABS: Creatinine* 0.8 mg/dL (0.5-1.5); Est. Creatinine Clearance* 86.63; Estimated Glomerular Filt Rate 95 ml/min
--- NOTE | 2024-11-08 07:01 | PC.NURSE ---
[id number]: Pt alert, oriented and vitally stable. Pain rated 1-2/10 throughout shift. Pt stated being unable to take ibuprofen because of health conditions, prn Tylenol given instead. Wilson catheter pulled at 0540. 3 lap sites C/D/I. Hypoactive bowel sounds. Pt in bed, appears to be resting call light within reach. ?
--- NOTE | 2024-11-08 08:31 | PM.GYNDS1 ---
DS: Providers Provider Date Seen: 11/08/24 Primary care physician: Concha Stockton MD Attending Physician on discharge: Sarah Floyd MD Date of Discharge: 11/08/24 DS: Diagnosis Discharge Diagnosis (1) S/P laparoscopic hysterectomy: Status: Acute COAL GETTER-Discharge Summary Hospital Course Hospital Course Narrative: Patient is a 39 year old admitted on 11/07/24 for elective surgery. Indication for surgery: Abnormal uterine bleeding, chronic anticoagulation. Intraoperative findings were notable for uterus of about 12cm, pelvic adhesions, suspected endometriosis. She had an uncomplicated surgery. Postoperative course has been uneventful. Vitals have been stable. She has remained afebrile. Today, on postoperative day 1, she reports the pain is well controlled. She has been able to ambulate Without difficulty. She is tolerating regular diet. She is passing flatus. Wilson catheter has been removed, and she is voiding without difficulty. Time Spent with Patient Time attestation: Total time spent providing and/or coordinating discharge services: COAL GETTER - Exam Physical Exam: Vital signs: Temp Pulse Resp BP Pulse Ox O2 Del Method O2 Flow Rate 97.2 F L 77 16 114/67 97 Room Air 4 11/08/24 03:00 11/08/24 03:00 11/08/24 03:00 11/08/24 03:00 11/08/24 03:00 11/08/24 03:00 11/07/24 16:00 Narrative: GENERAL APPEARANCE:? normal affect, alert, no distress MOOD:? appropriate CHEST:? clear to auscultation HEART:? regular rate and rhythm ABDOMEN:? positive bowel sounds, soft, slight tenderness to deep palpation, incisions healing well-no surrounding erythema, induration or abnormal discharge. EXTREMITIES:? normal and no edema COAL GETTER - DS: Data Data Completed and Pending Labs on day of discharge: Labs from last 24 hours 11/08/24 11/07/24 11/07/24 06:08 08:55 08:50 Hgb 9.6 L 10.6 L INR 0.89 L Creatinine 0.8 0.7 Estimated Creat Clear 86.63 99.01 Estimated GFR 95 111 Urine HCG, Qual Blood Type A Positive Antibody Screen NEGATIVE 11/07/24 08:12 Hgb INR Creatinine Estimated Creat Clear Estimated GFR Urine HCG, Qual Negative Blood Type Antibody Screen Procedures Procedures: Procedures Operation Date: 11/07/24 10:00 Actual Procedure Side Surgeon p Total Laparoscopic Hysterectomy, Right Ovarian Biopsy, Cystoscopy Sarah Floyd MD Discharge Plan Discharge Disposition: Home w/ Parent or Adult Discharging Surgeon: Sarah Floyd Follow-Up Appointment: 2 weeks after discharge at [facility] Prescriptions: New acetaminophen 500 mg Tablet 1,000 mg PO Q6H PRNQty: 30 0RF Continued ferrous sulfate 325 mg (65 mg iron) tablet 325 mg PO QDAY lisinopril 5 mg tablet 5 mg PO QDAY Qty: 90 3RF escitalopram oxalate [Lexapro] 20 mg tablet 20 mg PO QDAY Qty: 90 3RF dextroamphetamine-amphetamine 10 mg capsule,extended release 24hr 20 mg PO DAILY nitroglycerin 0.4 mg tablet, sublingual 0.4 mg sublingual Q5M PRN (Reason: chest pain) hydroxyzine HCl 25 mg tablet 25 - 50 mg PO TID PRN (Reason: anxiety, insomnia) Rx Instructions: take 1 t po tid prn anxiety; may take 1-2 t at hs for sleep aid warfarin 10 mg tablet 10 - 15 mg PO DAILY Rx Instructions: 10MG , 15MG ALL OTHER DAYS Activity Level: Activity as Tolerated and No strenuous activity Activity Detail: No lifting more than 20 pounds and nothing vaginally for 6 weeks. Discharge Diet: Low Fat/Low Cholesterol Patient Instructions: Acetaminophen (By mouth), Ibuprofen (By mouth), Laparoscopic Hysterectomy (DC) Additional Instructions: Instructions from Dr. Stockton-bridging anticoagulation plan: She will need Lovenox bridging for this procedure. Current warfarin is 15 mg 5x weekly, 10 mg 2x weekly (Sundays and Wednesdays). Surgery is 11/07/24. She will stop warfarin 5 days before, last warfarin dose 11/01/24. She will drift down 11/02 and 11/03. Lovenox/enoxaparin injections (100 mg BID) will begin 11/04, 11/05, and 11/06. The morning of surgery, she takes none. She can restart Lovenox (100 mg BID) and warfarin the day of surgery if the all source collection manager says okay (based on the amount of bleeding with surgery), and will take bridging Lovenox as well as warfarin starting 11/08, 11/09, 11/10, 11/11, 11/12, and 11/13 with a Factor X level after 5 doses of warfarin, with the level 11/13 (level needs to be 20-40% to stop Lovenox). Follow-up: Sarah Floyd MD [Staff Physician, RELIEF PHARMACIST] - 11/22/24 2:30 pm Referral Note: First appointment is November 22, 2024 @2:30. Second appointment is December 20, 2024 @2:30 Concha Stockton MD [Primary Care Provider] Discharge Orders: Discharge Order (Routine); Ordered 11/08/24 Ordered By: Sarah Floyd
[2024-11-08] MEDS: ENOXAPARIN 100 MG/ML INJ SUBCUT (08:38)
[2024-11-08 08:41] VITALS: BP 119/74; PULSE 83; RESP 18; TEMP 37; O2SAT 98
--- NOTE | 2024-11-08 11:15 | PC.NURSE ---
Discharge: Patient pleasant and cooperative. Patient vitally stable, lungs clear, BS WNL, IV removed, catheter intact. Patient abdominal lap sites x3 glued and C/D/I. Patient rates pain 3/10, tylenol given once. Patient urinating well and tolerating regular diet. Patient signed belongings sheet and discharge form, and had no further questions regarding discharge. Patient left the floor by wheelchair to home at 1112.
== END 2024-11-08 11:17 | disposition home or self-care (01) ==
LOC: OR 08:10 → MEDSURG 08:12
PROVIDERS: PCP Internal Medicine; Visit Provider Obstetrics & Gynecology
PROC: 0UT94ZZ Resection of Uterus, Percutaneous Endoscopic Approach (ICD-10-PCS; CPT 58570; principal; 2024-11-07 10:15)
DX: N93.8 Other specified abnormal uterine and vaginal bleeding (principal); N92.0 Excessive and frequent menstruation with regular cycle; K66.0 Peritoneal adhesions (postprocedural) (postinfection); N83.01 Follicular cyst of right ovary; G89.18 Other acute postprocedural pain; D50.9 Iron deficiency anemia, unspecified; Z79.01 Long term (current) use of anticoagulants; R73.03 Prediabetes; I25.10 Atherosclerotic heart disease of native coronary artery without angina pectoris; E66.01 Morbid (severe) obesity due to excess calories; D68.61 Antiphospholipid syndrome; Z68.42 Body mass index [BMI] 45.0-49.9, adult
CPT/HCPCS: 58570; 49321; 49329; 00840; 36415; 51701; 64488; 76942; 81025; 82565; 85018; 85610; 86850; 86900; 86901; 88305; 88307; A4314; A9270; J0330; J0665; J0666; J0690; J1100; J1171; J1650; J1885; J2250; J2704; J3010; J3475; J3490; J7120

== ENCOUNTER 2024-11-13 10:10 | Outpatient (CLI) | payer OTHER, SELFPAY | END 2024-11-13 10:11 | disposition home or self-care (01) | LOC: NFLDREF 11-20 23:53 | PROVIDERS: PCP Internal Medicine; Referring Provider Internal Medicine; Visit Provider Internal Medicine | DX: D68.61 Antiphospholipid syndrome (principal) | CPT/HCPCS: 85260 ==

== ENCOUNTER 2024-12-13 13:04 | Outpatient (CLI) | payer OTHER, SELFPAY | END 2024-12-13 13:05 | disposition home or self-care (01) | LOC: NFLDREF 12-20 12:41 | PROVIDERS: PCP Internal Medicine; Referring Provider Internal Medicine; Visit Provider Internal Medicine | DX: D68.61 Antiphospholipid syndrome (principal); Z79.01 Long term (current) use of anticoagulants | CPT/HCPCS: 85260 ==

== ENCOUNTER 2025-02-26 19:31 | Emergency (ER) | payer OTHER, SELFPAY ==
--- OUTSIDE RECORDS SUMMARY | 2025-02-05 14:50 | XMS_ITS | Encounter Summary ---
Demographics Address [address] [place] [address] Home Phone Mobile Phone Email Address m Preferred Language ENG Marital Status Unknown Sabianism Affiliation Unknown Race White Ethnic Group Non , /a, or Tongan Origin Author Organization [facility] Address [address], [place] [address] Care Team Providers Care Inspector Semiconductor Wafer Name Role Phone Concha Stockton MD Primary Care Provider [phone] Reason for Visit * Reason Comments Dental Exam None. Dental Hygiene Encounter Details Date Type Department Care Team (Late st Contact Info) Description 02/05/2025 2:50 PM CDT Office Visit [facility] [address] [address] Loren Jones [facility] [id number] [place] [id number] Dental Exam (None. ); Dental Hygiene Social History Tobacco Use Types Packs/Day Years Used Date Smoking Tobacco: Former Smokeless Tobacco: Never Alcohol Use Standard Drinks/Week Comments Yes 0 (1 standard drink = 0.6 oz pur e alcohol) Comments Unknown Sex and Gender Information Value Date Recorded Sex Assigned at Not on file Legal Sex Female 5:54 AM CDT Gender Identity Not on file Sexual Orientation Not on file documented as of this encounter Last Filed Vital Signs Vital Sign Reading Time Taken Comments Blood Pressure - - Pulse 64 02/05/2025 3:01 PM CDT Temperature - - Respiratory Rate - - Oxygen Saturation - - Inhaled Oxygen Concentration - - Weight - - Height - - Body Mass Index - - documented in this encounter Patient Instructions * Patient Instructions* Loren Jones RD - 02/05/2025 2:50 PM CDT Your next hygiene recall is due 08/04/2025 YOUR PERSONAL DENTAL RISK REPORT CARIES (TOOTH DECAY) PERIODONTAL (GUM) DISEASE ORAL CANCER LOW mod high low MOD high LOW elevated ^ ^ ^ Risk Level LOW How To Maintain Your Low Risk Instruction from dental professional on brushing, flossing, and use of oral hygiene products. Radiographs to detect decay. Congratulations on your low risk for tooth decay. Making healthy life style choices including brushing twice a day; daily flossing; and healthy dietary choices should help you maintain this low risk.Risk Level MODERATE Your Risk Factors: Immune system not functioning properly either due to medications or disease state. Missing scheduled dental appointments. Intermediate levels of plaque present. How To Reduce Your Risk Return visit with the dental hygienist at 3 month intervals to assess periodontal condition and provide necessary treatment. Use specific products to assist with proper oral hygiene such as electric toothbrush with timer. Schedule a separate appointment to assess the results of treatment provided for periodontal disease. Risk Level LOW Risk Factors Incidence of oral cancer increases with age. How To Maintain Your Low Risk Congratulations on your low risk for oral cancer. Making healthy life style choices such as not using tobacco and low to moderate alcohol use should help you maintain this low risk. Charley, we look forward to seeing you at your next visit! Thank you for choosing [facility]. documented in this encounter Progress Notes * Ashlyn Chávez DDS - 02/05/2025 2:50 PM CDT RECALL EXAM NOTE REASON FOR VISIT/CHIEF COMPLAINT: Charley is a 39 y.o. female who presents for Dental Exam (None. ) and Dental Hygiene CHART REVIEW: Reviewed with patient: Medical history, Dental history, Problem list, Periodontal charting, and Radiographs. SOFT TISSUE, HEAD AND NECK EXAMINATION: Lips: normal Tongue: normal Palate: normal Throat: normal Floor of the mouth: normal Mucosa: normal Head and neck: normal TMD EVALUATION: Palpation Pain: None Joint Sounds: None Pain with Range of Motion: None OCCLUSAL EXAMINATION: Unchanged COSMETIC CONCERNS: Patient's Perception: Acceptable Dentist's Perception: Acceptable TREATMENT REVIEW AND FOLLOW-UP: Discussed the Dental findings, Prognosis, and Treatment options with the patient. All questions answered and informed consent was obtained. Planned Recall Interval: Examination: 6 months Recall prophy: 6 months No treatment indicated at this time. Next Planned Visit: recall. Ashlyn Chávez DDS 02/05/2025, 3:19 PM CC: Raymond --End of Note-- * Loren Jones RDH - 02/05/2025 2:50 PM CDT HYGIENE PROPHY NOTE COLLABORATIVE AGREEMENT: The patient consents to have charting, radiographs, and prophylaxis by thedental hygienist performed with the understanding that this care is not a substitute for an examination by a dentist. These activities were performed under a collaborating agreement with Ashlyn Chávez DDS (License #: [id number]) PROCEDURAL PAUSE: Patient identity verified: Yes Treatment plan/site verified with the patient: Yes Instruments/equipment verified: Yes Any medication/allergy contraindications: Yes, see health hx. PRESENTATION: Periodontal Status: Gingivitis Prognosis with treatment and patient compliance (per exam dentist): Present dentition is Favorable Plaque: Light; Supra-gingival and Interproximal (Maxillary right, Maxillary left, Mandibular right,Mandibular left) Calculus: Light; Supra-gingival and Sub-gingival (Maxillary right, Maxillary left, Mandibular anterior) Stain: Light; coffee/tea (Mandibular anterior) Bleeding: Light; (Mandibular right, Mandibular left) Gingival tissue: Normal (Generalized) ACTIVITIES/EDUCATION: Hand scale, Essential selective polishing, Flossed all contacts, and OHI Keep working on a daily flossing habit. Recommended a 6 month recall. NEXT PLANNED HYGIENE VISIT: Hygiene Prophy with exam Loren Jones RDH 02/05/2025, 3:45 PM CC: Raymond documented in this encounter Plan of Treatment Scheduled Orders Name Type Priority Associated Diagnoses Order Schedule PROPHYLAXIS-ADULT RECALL Dental Procedures Routine 1 Occurrences starting 02/05/2025 PERIODIC ORAL EVALUATION Dental Procedures Routine 1 Occurrences starting 02/05/2025 [id number] Dental Procedures Routine 1 Occurrences starting 02/05/2025 TOPICAL FLUORIDE VARNISH Dental Procedures Routine 1 Occurrences starting 02/05/2025 documented as of this encounter Procedures Procedure Name Priority Date/Time Associated Diagnosis Comments [id number] Routine 02/05/2025 2:50 PM CDT Localized gingivitis PERIODIC ORAL EVALUATION Routine 02/05/2025 2:50 PM CDT Localized gingivitis PROPHYLAXIS-ADULT RECALL Routine 02/05/2025 2:50 PM CDT Localized gingivitis documented in this encounter Visit Diagnoses Diagnosis Localized gingivitis- Primary documented in this encounter Care Teams Inspector Semiconductor Wafer Relationship Specialty Start Date End Date Concha Stockton MD [address] [place] [address] PCP - General Internal Medicine 10/27/22 documented as of this encounter
--- OUTSIDE RECORDS SUMMARY | 2025-02-26 19:33 | XMS_ITS ---
Author Name Interface, [id number] lity Address [address] [place], [place] [address] [address] [facility] Address [address] [address] Allergies and Adverse Reactions Plan Reason for Visit Encounters Medications Problems Vital Signs
--- OUTSIDE RECORDS SUMMARY | 2025-02-26 19:33 | XMS_ITS | Clinical Summary ---
Demographics Address [address] [place] [address] Home Phone Mobile Phone Email Address m Preferred Language ENG Marital Status Unknown Baptist Affiliation Unknown Race White Ethnic Group Non , /a, or Telugu Origin Author Organization [facility] Address [address] [place] [address] Care Team Providers Care Cotton Grader Name Role Phone Concha Stockton MD Primary Care Provider [phone]- [phone] Source Comments You are receiving this document as you are listed as the primary care provider,follow-up provider, or the patient has been referred to you for consultation.This is in compliance with the Medicare and[facility] Cent[facility] EHR Incentive Program,which states Providers who transition their patient to another setting of careor provider of care or refers their patient to another provider of care shouldprovide summary care record for each transition of care or referral. [facility] No known active allergies Medications lisinopril (ZESTRIL) 5 MG tablet Take 1 Tablet (5 mg) by mouth daily. Active metoprolol succinate (TOPROL XL) 50 MG 24 hour release tablet Take 50 mg by mouth daily. Active nitroglycerin (NITROSTAT) 0.[address] 1 Tablet (0.4 mg) under tongue every 5 minutes as needed [...] (FERGON) 324 (38 Fe) MG tablet Take 1 Tablet (324 mg) by mouth daily with meal. Active MELATONIN OR Active acetaminophen (TYLENOL) 325 MG tablet Take 1-2 Tablets (325-650 mg) by mouth every 4 hours as needed for Pain. Active escitalopram (LEXAPRO) 10 MG tablet Take 2 Tablets (20 mg) by mouth daily. 2 Active amphetamine-dextr oamphetamine XR (ADDERALL XR) 20 MG 24 hour release capsule Take 1 Capsule (20 mg) by mouth every morning. 2 Active Melatonin 10 MG TABS Take 10 mg by mouth. Active hydroxychloroquin e (PLAQUENIL) 200 MG tablet TAKE 2 TABLETS(400 MG) BY MOUTH DAILY 60 Tablet 3 Active hydrOXYzine HCl (ATARAX) 25 MG tablet Take 1-2 Tablets (25-50 mg) by mouth daily as needed. Active enoxaparin (LOVENOX) 150 MG/ML injection two times a day. Active Active Problems Problem Noted Date Diagnosed Date Macrocytic anemia 02/05/2025 Elevated troponin 02/03/2024 Anxiety 04/07/2022 Anticoagulation goal of INR 2 [...] Acne rosacea 09/26/2013 Status post delivery 10/27/2010 Encounters Date Type Department Care Team Description 02/05/2025 2:50 PM CDT Office Visit [address] [address] Loren Jones, [facility] Dental Exam (None. ); Dental Hygiene from Last 3 Months Immunizations Immunization Administration Dates Next Due Flu Vac (3+ yrs) 05/03/2011,03/20/2010 Flublok (RIV4) 04/04/2019 Fluzone Qiv Multidose Vial 0.25 (6-35 Mos) 06/24 HepB Adult (Engerix-B, 20+ yrs, 3 dose series) 0 11/20/2018 HepB Adult (Heplisav-B, 19+ yrs, 2 dose series) 11/20/2018 Influenza IIV4 (Quadrivalent) 0.5mL (19754) 08/2018,04/14/2015 Pfizer Monovalent 12+ Purple Top 04/17/2021,03/05 [...] Pressure 107/69 10/01/2021 9:00 AM CDT Pulse 64 02/05/2025 3:01 PM CDT Temperature 36.4 C (97.5 F) 03/19/2021 11:08 [...] C Screening (Preventive Services) 1985 Mammogram 1985 Adult Preventive Visit 09/14/2001 HPV Vaccine (1 - 3-dose SCDM series) 09/14/2010 HepB Vaccine (2) 12/18/2018 11/20/2018, 11/20/2018 COVID-19 Vaccine ( season) 2024 11/11/2021, 04/17/2021, 03/27/2021 Influenza Vaccine (#1) 2025 9, 04/04/2019, 06/24/2017, Additional history exists DTaP/Tdap/Td Vaccine (3 - Tdap) 11/12/2026 11/12/2016, 02/09/2008 Zoster/Shingles Vaccine (1 of 2) 09/14/2033 HIV Screening (Preventive Services) Completed 07/02/2016 HepA Vaccine Aged Out No longer eligi ble based on patient's age to complete this topic Hib Vaccine Aged Out No longer eligi ble based on patient's age to complete this topic IPV (Polio) Vaccine Aged Out No longe r eligible based on patient's age to complete this topic MCV4 Vaccine Aged Out No longer eligi ble based on patient's age to complete this topic Meningococcal B Vaccine Aged Out No l onger eligible based on patient's age to complete this topic Pneumococcal Vaccine Aged Out No long er eligible based on patient's age to complete this topic Procedures Procedure Name Priority Date/Time Associated Diagnosis Comments [id number] Routine 02/05/2025 2:50 PM CDT Localized gingivitis PERIODIC ORAL EVALUATION Routine 02/05/2025 2:50 PM CDT Localized gingivitis PROPHYLAXIS-ADULT RECALL Routine 02/05/2025 2:50 PM CDT Localized gingivitis from Last 3 Months Insurance * Guarantor: Charley Cary Account Type Relation to Patient Date of Phone Billing Address Personal/Family Self 1985 [address] [place] [address] * Guarantor: Charley Cary Account Type Relation to Patient Date of Phone Billing Address Personal/Family Self 1985 [address] [place] [address] BCBS OUT OF STATE * Guarantor: Charley Cary Account Type Relation to Patient Date of Phone Billing Address Personal/Family Self 1985 [address] [place] [address] * Guarantor: Charley Cary Account Type Relation to Patient Date of Phone Billing Address Personal/Family Self 1985 [address] [place] [address] [employer] Care Teams Cotton Grader Relationship Specialty Start Date End Date Concha Stockton MD [address] [place] [address] PCP - General Internal Medicine 10/27/22
--- OUTSIDE RECORDS SUMMARY | 2025-02-26 19:33 | XMS_ITS | CCD ---
Author Name Interface, [id number] lity Address [address] [address] [facility] Address [address] [address] Allergies and Adverse Reactions Reason for Visit Medications Problems Social History
[2025-02-26 19:39] VITALS: BP 140/98; PULSE 94; RESP 17; TEMP 37.2; O2SAT 99; BMI 46.0
--- NOTE | 2025-02-26 20:39 | CT_ITS ---
Patient: WAQAR CARY Facility:?[facility] Patient ID:?[id number] Site Patient ID:?[id number]. Site :?1985 Study:?CT-Neck Angio W/IV-02/26/2025 9:30:46 PM Ordering Physician:Nell De La Paz Final Report: DATE: 02/26/2025 CLINICAL HISTORY: Patient with headache and neck pain. TECHNIQUE: Standard helical CT image acquisition through the head and neck was performed after intravenous contrast bolus enhancement. 2D and 3D MIP images for post- processing were performed and interpreted on an independent workstation and 3D images were permanently archived. COMPARISON: CT same day. FINDINGS: The origins of the great vessels from the aortic arch are patent. The origin of the right vertebral artery is patent. The origin of the left vertebral artery is patent. The common carotid arteries are patent There is no stenosis at the origin of the right internal carotid artery. There is no stenosis at the origin of the left internal carotid artery. The rest of the cervical segments of the internal carotid arteries are patent up to their intracranial segments. The intracranial segments of the internal carotid arteries are patent. The vertebral arteries are codominant. The cervical segments of the vertebral arteries are patent. The intracranial segments of the vertebral arteries are patent. The middle cerebral arteries are normal without aneurysm or proximal occlusion identified. The anterior cerebral arteries are normal without aneurysm or proximal occlusion identified. The anterior communicating artery is well visualized and appears normal. The basilar artery is normal without aneurysm or occlusion. The posterior cerebral arteries are normal without aneurysm or proximal occlusion. There is normal opacification of major intracranial venous structures. The visualized lung apices are unremarkable The thyroid gland is unremarkable. The soft tissues of the neck are unremarkable. There are degenerative changes in the cervical spine. IMPRESSION: Normal CT angiogram of the head and neck. Please note that all CT scans at this facility use dose modulation, iterative reconstruction, and/or weight-based dosing when appropriate to reduce radiation dose to as low as reasonably achievable. Dictated by Leta Magallon MD @ 02/26/2025 10:27:29 PM Signed by:?Leta Magallon MD @02/26/2025 10:27:29 PM (Electronic Signature)
--- NOTE | 2025-02-26 20:39 | CRLHL7_ITS ---
For Patients: As a result of the Century Cures Act, medical imaging exams and procedure reports are released immediately into your electronic medical record. You may view this report before your referring provider. If you have questions, please contact your health care provider. INDICATION: Headache, neck pain TECHNIQUE: CT Head without i.v. contrast. Coronal and sagittal reformats were obtained. COMPARISON: None FINDINGS: CSF space: The ventricles are normal for age. Brain: No evidence of mass, acute infarction or hemorrhage is seen. No mass-effect or midline shift is seen. The brain parenchyma is otherwise normal in appearance with preservation of the rain-white matter junction. Calvarium: The visualized paranasal sinuses are well aerated. The mastoid air cells are clear. The visualized orbits are grossly unremarkable. The calvarium is unremarkable in appearance with no fractures identified. IMPRESSION: 1. No evidence of acute infarction, intracranial hemorrhage, or mass-effect seen. Please note that all CT scans at this facility use dose modulation, iterative reconstruction, and/or weight-based dosing when appropriate to reduce radiation dose to as low as reasonably achievable. Dictated by: Livan Sims MD @ 02/26/2025 21:44:50 (Electronically Signed)
--- NOTE | 2025-02-26 20:39 | CT_ITS ---
Patient: WAQAR CARY Facility:?[facility] Patient ID:?[id number] Site Patient ID:?[id number]. 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 Further evaluation with a dedicated chest CTA and clinical correlation for pulmonary hypertension is recommended. Please note that all CT scans at this facility use dose modulation, iterative reconstruction, and/or weight-based dosing when appropriate to reduce radiation dose to as low as reasonably achievable. Dictated by Leta Magallon MD @ 02/26/2025 10:29:34 PM Signed by:?Leta Magallon MD @02/26/2025 10:29:34 PM (Electronic Signature)
--- NOTE | 2025-02-26 20:51 | ED.HA ---
HPI - Headache General Date Seen: 02/26/25 Chief Complaint: Headache/Migraine Stated Complaint: Headache and neck pain Time Seen by Provider: 02/26/25 20:01 Source: patient Mode of arrival: ambulatory Limitations: no limitations History of Present Illness HPI Narrative: Patient is a 39-year-old female presents here with a right-sided pressure on her head, and her neck. This is been for the last 2 days, seems slightly like getting worse was worse when she lays down, better when she sits up she has not been able to sleep, and uses some Tylenol for the discomfort, she is unable to use any ibuprofen or any NSAIDs could she have a is on the warfarin, she has a history of antiphospholipid syndrome, denies previous symptoms denies any neurologic symptoms, does not really have a headache or over the right side of her head, it is all around her right maxillary right here, and right side of her neck anterior. Thinks she may have had a fever but did not take her temperature, Tylenol helps a little bit, has been taking of 1 g 3 times a day, feels a little bit more weak than normal, no cough cold-like symptoms, no nausea no vomiting, no diarrhea no rashes associated with this no falls or injury. Treatments prior to arrival: acetaminophen Related Data Home Medications ?Medication ?Instructions ?Recorded ?Confirmed ferrous sulfate 325 mg (65 mg 325 mg PO QDAY 09/05/24 02/26/25 iron) tablet dextroamphetamine-amphetamine ER 20 mg PO DAILY 11/07/24 02/26/25 10 mg 24hr capsule,extend release hydroxyzine HCl 25 mg tablet 25 - 50 mg PO TID PRN anxiety, 11/07/24 02/26/25 insomnia nitroglycerin 0.4 mg sublingual 0.4 mg sublingual Q5M PRN chest 11/07/24 02/26/25 tablet pain warfarin 10 mg tablet 10 - 15 mg PO DAILY 11/07/24 02/26/25 Previous Rx's ?Medication ?Instructions ?Recorded escitalopram oxalate 20 mg tablet 20 mg PO QDAY #90 tabs 10/18/24 (Lexapro) lisinopril 5 mg tablet 5 mg PO QDAY #90 tabs 10/18/24 acetaminophen 500 mg tablet 1,000 mg (2 x 500 mg) PO Q6H PRN 05/08/25 #30 tabs Allergies Allergy/AdvReac Type Severity Reaction Status Date / Time No Known Drug Allergies Allergy Verified 11/22/24 14:41 Review of Systems Status of ROS: Reports: 10 or more systems reviewed and unremarkable except as noted in History and below 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-10) Antiphospholipid syndrome ?D68.61 - Antiphospholipid syndrome (ICD-10) Anxiety ?F41.9 - Anxiety disorder, unspecified (ICD-10) Depression ?F32.A - Depression, unspecified (ICD-10) Insomnia ?G47.00 - Insomnia, unspecified (ICD-10) Posttraumatic stress disorder ?F43.10 - Post-traumatic stress disorder, unspecified (ICD-10) ADHD ?F90.9 - Attention-deficit hyperactivity disorder, unspecified type (ICD-10) Rosacea ?L71.9 - Rosacea, unspecified (ICD-10) Morbid obesity with body mass index (BMI) of 40.0 or higher ?E66.01 - Morbid (severe) obesity due to excess calories (ICD-10) History of non-ST elevation myocardial infarction (NSTEMI) (12/12/20) ?I25.2 - Old myocardial infarction (ICD-10) History of alcohol abuse ?F10.11 - Alcohol abuse, in remission (ICD-10) Pre-diabetes ?R73.03 - Prediabetes (ICD-10) CAD (coronary artery disease) ?I25.10 - Atherosclerotic heart disease of [place] coronary artery without angina pectoris (ICD-10) Iron deficiency anemia ?D50.9 - Iron deficiency anemia, unspecified (ICD-10) Peptic ulcer disease ?K27.9 - Peptic ulcer, site unspecified, unspecified as acute or chronic, without hemorrhage or perforation (ICD-10) Abnormal uterine bleeding (AUB) ?N93.9 - Abnormal uterine and vaginal bleeding, unspecified (ICD-10) 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 - Other congenital malformations of uterus (ICD-10) Right ovarian cyst ?N83.201 - Unspecified ovarian cyst, right side (ICD-10) Surgical History History of dilatation and curettage ?Z98.890 - Other specified postprocedural states (ICD-10) History of section ?Z98.891 - History of uterine scar from previous surgery (ICD-10) Status post tubal ligation (01/20/17) ?Z98.51 - Tubal ligation status (ICD-10) Status post laparoscopic appendectomy (06/23/17) ?Z90.49 - Acquired absence of other specified parts of digestive tract (ICD-10) Social History What is your current living situation?: I presently have a place to live Problems where you live: no known problems In the past 12 months, utilities in danger of being shut off: no In past 12 months, lack of transportation kept you from medical appts, meetings, work, or getting things needed for daily living: no In the past 12 mos, have been you worried that your food would run out before you had money to buy more?: never true In the past 12 mos, the food you bought just didn't last and you didn't have money to buy more?: never true Smoking Status: Never smoker Do you use any of these nicotine containing products: None How often do you have a drink containing alcohol: 2-4 times a month Alcohol type: beer How many standard drinks containing alcohol do you have on a typical day: 5 or 6 How often do you have six or more drinks on one occasion: Never AUDIT-C Alcohol total score: 4 Non-prescribed substance use: denies use Caffeine: Yes (2c AM, pop 1/day) How often does anyone, including family, friends and others, physically hurt you: never How often does anyone, including family, friends and others, insult or talk down to you: never How often does anyone, including family, friends and others, threaten you with harm: never How often does anyone, including family, friends and others, scream or curse at you: Are you using contraception or practicing any form of control: No service: No Health Related Social Needs: Other personal risk factors, not elsewhere classified (Z91.89) Exam Narrative: Exam Narrative: On examination here she is alert oriented nontoxic but crying in the room, she is slightly photophobic also her pupils are equal round reactive to light there is no scleral icterus redness, there is no nystagmus her right ear is erythematous with an obvious fluid level, behind the TM the left side is normal, little bit of tenderness around the right mastoid, with a little bit of what looks like almost a pimple although she says she just scraped this off, she is tender along the anterior chain of her right side of her neck, and a little bit a lymphadenopathy although the size her neck is a little tougher to feel, her oropharynx is otherwise normal, left side is not tender at all. 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 Const: Vital Signs, click to edit/add: Vital Signs - 24 hr 02/26/25 19:39 02/26/25 21:24 02/26/25 22:54 Temperature 99 F Pulse Rate [Pulse Oximeter] 94 78 Respiratory Rate 17 18 Blood Pressure [Ri ght Upper Arm] 140/98 H 148/108 H Pulse Oximetry 99 98 98 Oxygen Delivery Me thod Room Air Room Air Documenting provider has reviewed patient's vital signs: yes Course Course ED Course: Patient improved somewhat with the pain medications in the fluids, I reviewed the CT results with her. The initial CT came back showing that there might be aneurysmal dilatation of her aorta along with questionable pulmonary hypertension. I then called back and talked to a different radiologist as the original reading at gone home. explain to me the, that at 3.4 cm, her aorta is not dilated, for new guidelines. If she has questionable shortness of breath or other issues she should follow-up with pulmonology but that is also no definitive diagnosis. I then talked to the patient. I think we have ruled out the fact that this is a vascular issue, she is almost more pressure, she does have slight fluid in her right ear, that could be part of the issue. I do not think she has mastoiditis is there is no evidence of inflammation of her mastoid. I think it would be reasonable to treat her with some antibiotics for the right-sided pressure, and lymphadenopathy that she has. Keflex is a good broad-spectrum antibiotic we will use that I will also use some oxycodone for discomfort. As she can not use regular ibuprofen given the fact that she is on warfarin. There is no evidence of a dissection or an obstruction, on her CTA, she was comfortable with this plan, and I discharged her ambulatory from the emergency room to follow-up with primary care. Vital Signs Vital signs: Initial Vital Signs Temperature 99 F 02/26/25 19:39 Temperature Source Temporal Artery Scan 02/26/25 19:39 Pulse Rate 94 02/26/25 19:39 Respiratory Rate 17 02/26/25 19:39 Blood Pressure 140/98 H 02/26/25 19:39 Blood Pressure Mean 112 H 02/26/25 19:39 Blood Pressure Position Sitting 02/26/25 19:39 Pulse Oximetry 99 02/26/25 19:39 Oxygen Delivery Method Room Air 02/26/25 19:39 Vital Signs Temperature 99 F 02/26/25 19:39 Pulse Rate 94 02/26/25 19:39 Respiratory Rate 17 02/26/25 19:39 Blood Pressure 140/98 H 02/26/25 19:39 Pulse Oximetry 99 02/26/25 19:39 Oxygen Delivery Method Room Air 02/26/25 19:39 Temperature 99 F 02/26/25 19:39 Pulse Rate 78 02/26/25 22:54 Respiratory Rate 18 02/26/25 22:54 Blood Pressure 148/108 H 02/26/25 22:54 Pulse Oximetry 98 02/26/25 22:54 Oxygen Delivery Method Room Air 02/26/25 22:54 Medications Administered Medications: Discontinued Medications Generic Name Dose Route Start Last Admin Trade Name Freq PRN Reason Stop Dose Admin Hydromorphone HCl 0.5 mg 02/26/25 20:39 02/26/25 23:20 Hydromorphone 0.5 Mg/0.5 Ml Inj IVP 02/26/25 20:40 0.5 mg ONCE ONE Administration Sodium Chloride 1,000 mls @ 1,000 mls/hr 02/26/25 20:45 02/26/25 23:59 0.9 % Sodium Chloride 1000 Ml IV 02/26/25 21:44 Infused .Q1H MANJINDER Infusion MDM - Headache MDM Narrative Medical decision making narrative: Life-threatening differential diagnosis include subarachnoid hemorrhage, meningitis, encephalitis, carbon monoxide poisoning, and intracerebral hemorrhage. Other differential diagnosis include but not limited to migraine, cluster headache, tension headache, ARCHITECTURAL SALES CONSULTANT vasculitis, mass lesion, temporal arteritis, click acute closed angle glaucoma, septal and trigeminal neuralgia, sinusitis, closed head injury, and stroke Differential Diagnosis Differential diagnosis: Likely migraine, tension headache, subarachnoid hemorrhage, headache, meningitis, sinusitis and postconcussion syndrome Medical Records Attestation: I reviewed the patient's medical records. Lab Data Attestation: I reviewed the patient's lab results. Labs: Lab Results 02/26/25 02/26/25 Range/Units 20:39 21:10 WBC 10.05 (4.50-11.00) K/uL RBC 4.81 (4.00-5.20) m/uL Hgb 13.7 (12.0-16.0) gm/dL Hct 41.5 (33.0-51.0) % MCV 86 (80-100) fL MCH 29 (26-34) pg MCHC 33 (32-36) gm/dL RDW Coeff of Leigh 15.9 H (11.5-15.5) % Plt Count 253 (140-440) K/uL Neut % (Auto) 73.5 H (42.0-72.0) % Lymph % (Auto) 17.6 L (20-44) % [place] % (Auto) 6.0 (0.0-11.0) % Eos % (Auto) 2.0 (0.0-7.0) % Baso % (Auto) 0.7 (0.0-3.0) % Neut # (Auto) 7.40 H (1.7-7.0) K/uL Lymph # (Auto) 1.80 (0.90-2.90) K/uL [place] # (Auto) 0.60 (0.00-0.90) K/UL Eos # (Auto) 0.20 (0.00-0.50) K/uL Baso # (Auto) 0.07 (0.00-0.30) K/uL Abs Immat Gran (auto) 0.02 (0.00-0.30) K/uL Imm/Tot Granulo (auto) 0.2 % Sodium 137 (135-149) mmol/L Potassium 4.4 (3.6-5.1) mmol/L Chloride 105 (96-114) mmol/L Carbon Dioxide 26 (20-32) mmol/L Anion Gap 6 L (7-15) mEq/L BUN 9 (5-24) mg/dL Creatinine 0.7 (0.5-1.5) mg/dL Estimated Creat Clear 99.01 Estimated GFR 111 ml/min Glucose 104 (60-115) mg/dL Lactate 1.7 (0.5-1.9) mmol/L Calcium 9.1 (8.4-10.6) mg/dL C-Reactive Protein 0.7 (0.5-1.0) mg/dL Procalcitonin 0.04 (<0.50) ng/mL SARS-CoV-2 (PCR) Negative SARS-CoV-2 (Negative) Influenza Type A (PCR) Negative PCR FLU A (Negative) Influenza Type B (PCR) Negative PCR FLU B (Negative) RSV (PCR) Negative PCR RSV (Negative) Imaging Data CT scan - head: Attestation: I have reviewed the pertinent imaging results. Radiologist's impression: [place] [address] Diagnostic Imaging Report Patient: Waqar Cary MR#: [id number] : 1985 Acct:[id number] Loc: ED Service Date: 02/26/[address]: Ordering Physician: Brain Mccrary M.D. Date of Service: 02/26/25 Procedure(s): CT head/brain wo con Accession Number(s): [id number] cc: Concha Stockton M.D.; Brain Mccrary M.D.~ For Patients: As a result of the Century Cures Act, medical imaging exams and procedure reports are released immediately into your electronic medical record. You may view this report before your referring provider. If you have questions, please contact your health care provider. INDICATION: Headache, neck pain TECHNIQUE: CT Head without i.v. contrast. Coronal and sagittal reformats were obtained. COMPARISON: None FINDINGS: CSF space: The ventricles are normal for age. Brain: No evidence of mass, acute infarction or hemorrhage is seen. No mass-effect or midline shift is seen. The brain parenchyma is otherwise normal in appearance with preservation of the rain-white matter junction. Calvarium: The visualized paranasal sinuses are well aerated. The mastoid air cells are clear. The visualized orbits are grossly unremarkable. The calvarium is unremarkable in appearance with no fractures identified. IMPRESSION: 1. No evidence of acute infarction, intracranial hemorrhage, or mass-effect seen. Please note that all CT scans at this facility use dose modulation, iterative reconstruction, and/or weight-based dosing when appropriate to reduce radiation dose to as low as reasonably achievable. Dictated by: Livan Sims MD @ 02/26/2025 21:44:50 Patient: WAQAR CARY Facility:?[facility] Patient ID:?[id number] Site Patient ID:?[id number]. 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 Further evaluation with a dedicated chest CTA and clinical correlation for pulmonary hypertension is recommended. Please note that all CT scans at this facility use dose modulation, iterative reconstruction, and/or weight-based dosing when appropriate to reduce radiation dose to as low as reasonably achievable. Dictated by Leta Magallon MD @ 02/26/2025 10:29:34 PM (Electronic Signature)( Patient: WAQAR CARY Facility:?[facility] Patient ID:?[id number] Site Patient ID:?[id number]. Site :?1985 Study:?CT-Neck Angio W/IV-02/26/2025 9:30:46 PM Ordering Physician:Nell De La Paz Final Report: DATE: 02/26/2025 CLINICAL HISTORY: Patient with headache and neck pain. TECHNIQUE: Standard helical CT image acquisition through the head and neck was performed after intravenous contrast bolus enhancement. 2D and 3D MIP images for post-processing were performed and interpreted on an independent workstation and 3D images were permanently archived. COMPARISON: CT same day. FINDINGS: The origins of the great vessels from the aortic arch are patent. The origin of the right vertebral artery is patent. The origin of the left vertebral artery is patent. The common carotid arteries are patent There is no stenosis at the origin of the right internal carotid artery. There is no stenosis at the origin of the left internal carotid artery. The rest of the cervical segments of the internal carotid arteries are patent up to their intracranial segments. The intracranial segments of the internal carotid arteries are patent. The vertebral arteries are codominant. The cervical segments of the vertebral arteries are patent. The intracranial segments of the vertebral arteries are patent. The middle cerebral arteries are normal without aneurysm or proximal occlusion identified. The anterior cerebral arteries are normal without aneurysm or proximal occlusion identified. The anterior communicating artery is well visualized and appears normal. The basilar artery is normal without aneurysm or occlusion. The posterior cerebral arteries are normal without aneurysm or proximal occlusion. There is normal opacification of major intracranial venous structures. The visualized lung apices are unremarkable The thyroid gland is unremarkable. The soft tissues of the neck are unremarkable. There are degenerative changes in the cervical spine. IMPRESSION: Normal CT angiogram of the head and neck. Please note that all CT scans at this facility use dose modulation, iterative reconstruction, and/or weight-based dosing when appropriate to reduce radiation dose to as low as reasonably achievable. Dictated by Leta Magallon MD @ 02/26/2025 10:27:29 PM (Electronic Signature)Electronically Signed) Discharge Plan Discharge Clinical Impression: Neck pain on right side, Pressure and pain of right side of face Patient Disposition: Home w/ Parent or Adult Condition: Stable Instructions: Acute Neck Pain (ED) Additional Instructions: Home rest antibiotics as directed, I did review with the radiologist that actually your aorta is not enlarged. The guidelines initially that were given to me where outdated. If you are having however symptoms of shortness of breath, the recommendation is to see a supervisor electron tube processing, For the other issue which brought chewing here, again the findings all look good on both the blood tests and CTs of your head neck, the blood vessels all looked patent. This is very reassuring, I do think there might be a low-grade infection here, even if your white count was elevated, and we will try some antibiotics to see if we can calm this down. I also gave you a small prescription for some oxycodone. I would like you to follow-up with your primary care physician in the next few days, to see what they think about this. In further workup which may involve see ENT. Return if increasing fevers chills shortness of breath swelling, or other severe symptoms Activity Level: Light activity Prescriptions: No Action ferrous sulfate 325 mg (65 mg iron) tablet 325 mg PO QDAY lisinopril 5 mg tablet 5 mg PO QDAY Qty: 90 3RF escitalopram oxalate [Lexapro] 20 mg tablet 20 mg PO QDAY Qty: 90 3RF dextroamphetamine-amphetamine 10 mg capsule,extended release 24hr 20 mg PO DAILY nitroglycerin 0.4 mg tablet, sublingual 0.4 mg sublingual Q5M PRN (Reason: chest pain) hydroxyzine HCl 25 mg tablet 25 - 50 mg PO TID PRN (Reason: anxiety, insomnia) Rx Instructions: take 1 t po tid prn anxiety; may take 1-2 t at hs for sleep aid warfarin 10 mg tablet 10 - 15 mg PO DAILY Rx Instructions: 10MG TUE/TUE, 15MG ALL OTHER DAYS acetaminophen 500 mg Tablet 1,000 mg PO Q6H PRNQty: 30 0RF Follow Up/Referrals: Concha Stockton MD [Primary Care Provider, Internal Medicine] Stand Alone Forms: [employer] Info Instructions
--- OUTSIDE RECORDS SUMMARY | 2025-02-26 20:56 | XMS_ITS | CCD ---
Author Name Interface, [id number] lity Address [address] [address] [facility] Address [address] [address] Allergies and Adverse Reactions Reason for Visit Medications Problems Social History
--- OUTSIDE RECORDS SUMMARY | 2025-02-26 20:56 | XMS_ITS ---
Author Name Interface, [id number] lity Address [address] [place], [place] [address] [address] [facility] Address [address] [address] Allergies and Adverse Reactions Plan Reason for Visit Encounters Medications Problems Vital Signs
--- OUTSIDE RECORDS SUMMARY | 2025-02-26 20:56 | XMS_ITS ---
Author Name Interface, [id number] lity Address [address] [place], [place] [address] [place] [address] [facility] Address [address] [address] Allergies and Adverse Reactions Plan Reason for Visit Encounters Medications Problems Vital Signs
--- OUTSIDE RECORDS SUMMARY | 2025-02-26 20:56 | XMS_ITS | CCD ---
Author Name Interface, [id number] lity Address [address] [address] [facility] Address [address] [address] Allergies and Adverse Reactions Reason for Visit Medications Problems Social History
[2025-02-26 21:18] LABS: Lactate* 1.7 mmol/L (0.5-1.9)
[2025-02-26 21:20] LABS: Hematocrit 41.5 % (33.0-51.0); Hemoglobin* 13.7 gm/dL (12.0-16.0); Immature Granulocytes Abs Auto 0.02 K/uL (0.00-0.30); Immature Granulocytes Pct Auto 0.2 %; Mean Corpuscular HGB Conc 33 gm/dL (32-36); Mean Corpuscular Hemoglobin 29 pg (26-34); Mean Corpuscular Volume 86 fL (80-100); RDW Coefficient of Variation % 15.9 % (11.5-15.5); Red Blood Count 4.81 m/uL (4.00-5.20); White Blood Count* 10.05 K/uL (4.50-11.00)
[2025-02-26 21:21] LABS: Lymphocytes Absolute Auto 1.80 K/uL (0.90-2.90); Slide Review Reflex No
[2025-02-26 21:24] VITALS: O2SAT 98
[2025-02-26 21:37] LABS: Chloride* 105 mmol/L (96-114); Potassium* 4.4 mmol/L (3.6-5.1); Sodium* 137 mmol/L (135-149)
[2025-02-26 21:40] LABS: Anion Gap 6 mEq/L (7-15); Blood Urea Nitrogen* 9 mg/dL (5-24); Calcium* 9.1 mg/dL (8.4-10.6); Carbon Dioxide* 26 mmol/L (20-32); Creatinine* 0.7 mg/dL (0.5-1.5); Est. Creatinine Clearance* 99.01; Estimated Glomerular Filt Rate 111 ml/min; Glucose* 104 mg/dL (60-115)
[2025-02-26 21:58] LABS: Procalcitonin* 0.04 ng/mL (<0.50)
[2025-02-26 22:32] LABS: PCR FLU A Negative PCR FLU A (Negative); PCR FLU B Negative PCR FLU B (Negative); PCR RSV Negative PCR RSV (Negative); SARS PCR* Negative SARS-CoV-2 (Negative)
[2025-02-26 22:54] VITALS: BP 148/108; PULSE 78; RESP 18; O2SAT 98
== END 2025-02-27 00:13 | disposition home or self-care (01) ==
PROVIDERS: Emergency Provider Family Medicine; PCP Internal Medicine
DX: R51.9 Headache, unspecified (principal); M54.2 Cervicalgia
CPT/HCPCS: 36415; 70450; 70496; 70498; 80048; 83605; 84145; 85025; 86140; 87631; 94761; 96374; 99284; J1171; J7030; Q9967

== ENCOUNTER 2025-03-05 15:13 | Outpatient (CLI) | payer OTHER, SELFPAY | END 2025-03-05 15:14 | disposition home or self-care (01) | LOC: NFLDREF 15:14 | PROVIDERS: PCP Internal Medicine; Visit Provider Internal Medicine | DX: D50.9 Iron deficiency anemia, unspecified (principal); D68.61 Antiphospholipid syndrome; Z79.01 Long term (current) use of anticoagulants | CPT/HCPCS: 85260 ==

== ENCOUNTER 2025-04-09 20:09 | Outpatient (CLI) | payer OTHER, SELFPAY | END 2025-04-09 20:10 | disposition home or self-care (01) | LOC: SLEEP 20:10 | PROVIDERS: PCP Internal Medicine; Visit Provider Internal Medicine | DX: G47.33 Obstructive sleep apnea (adult) (pediatric) (principal); E66.9 Obesity, unspecified | CPT/HCPCS: 95810 ==

== ENCOUNTER 2025-06-04 17:02 | Outpatient (CLI) | payer OTHER, SELFPAY | END 2025-06-04 17:03 | disposition home or self-care (01) | PROVIDERS: PCP Internal Medicine; Visit Provider Internal Medicine | DX: I25.10 Atherosclerotic heart disease of native coronary artery without angina pectoris (principal); R73.03 Prediabetes; Z86.2 Personal history of diseases of the blood and blood-forming organs and certain disorders involving the immune mechanism | CPT/HCPCS: 80061; 82728; 85260 ==